=== PATIENT | female | born 1975 | race Hispanic/Latino ===

== ENCOUNTER 2017-04-20 12:36 | Emergency (ER) | payer OTHER ==
[~2017-04-20] VITALS: Ht 154.9 cm; Wt 117.9 kg
[2017-04-20] MEDS ORDERED: ONDANSETRON HCL INJ 2 MG/ML VIAL IV STA (14:40)
[2017-04-20] MEDS ORDERED: SODIUM CHLORIDE 0.9% 1000ML 1,000 ML IV STA (14:40)
[2017-04-20] MEDS ORDERED: MORPHINE SULFATE 4 MG/ML SYR IV STA (14:40)
[2017-04-20 14:59] LABS: BILIRUBIN,URINE NEGATIVE (NEGATIVE); KETONES,URINE NEGATIVE (NEGATIVE); LEUKOCYTE ESTERASE ,URINE NEGATIVE (NEGATIVE); NITRITE,URINE NEGATIVE (NEGATIVE); PROTEIN,URINE DIPSTICK NEGATIVE (NEGATIVE); URINE UROBILINOGEN 0.2 mg/dL (0.2 - 1)
[2017-04-20] MEDS ORDERED: DIATRIZOATE MEGL/DIATRIZOA SOD 30 ML BTL PO ONE (14:59)
[2017-04-20 15:07] LABS: CLARITY,URINE SL CLOUDY (CLEAR); COLOR,URINE YELLOW (YELLOW)
[2017-04-20 15:10] LABS: EPITHELIAL CELLS,URINE FEW /LPF; MUCUS,URINE FEW (RARE); WBC,URINE (MAN) 0-5 /HPF (0-5)
[2017-04-20 15:34] LABS: BASOPHILS % 0.4 % (0.0-1.0); EOSINOPHILS # (AUTO) 0.6 (0.0-0.4); EOSINOPHILS % 5.6 % (0.0-6.0); HEMATOCRIT 46.9 % (34.2-44.1); HEMOGLOBIN 14.7 g/dL (12.0-16.0); LYMPHOCYTES # (AUTO) 2.4 (1.0-3.2); LYMPHOCYTES % 22.5 % (18.0-39.1); MEAN CORPUSCULAR HEMOGLOBIN 29.8 pg (28-32); MEAN CORPUSCULAR HGB CONC 31.3 g/dL (31-35); MEAN CORPUSCULAR VOLUME 94.9 fL (81-99); MONOCYTES # (AUTO) 0.4 (0.2-0.8); MONOCYTES % 3.3 % (4.4-11.3); NEUTROPHILS # (AUTO) 7.1 (2.1-6.9); NEUTROPHILS % 67.9 % (38.7-80.0); PLATELET COUNT 457 x10e3/uL (140-360); RED BLOOD COUNT 4.94 x10e6/uL (3.6-5.1); RED CELL DISTRIBUTION WIDTH 14.6 % (11.7-14.4)
[2017-04-20 15:51] LABS: ALANINE AMINOTRANSFERASE 17 IU/L (0-55); ALBUMIN 3.9 g/dL (3.5-5.0); ALBUMIN/GLOBULIN RATIO 0.8 (0.8-2.0); ALKALINE PHOSPHATASE 151 IU/L (40-150); ANION GAP 13.5 mmol/L (8-16); BLOOD UREA NITROGEN 9 mg/dL (7-26); BUN/CREATININE RATIO 13 (6-25); CARBON DIOXIDE 27 mmol/L (22-29); CHLORIDE 104 mmol/L (98-107); CREATININE, SERUM 0.71 mg/dL (0.57-1.11); EST GLOMERULAR FILTRATION RATE > 60 ML/MIN (60-); GLUCOSE 93 mg/dL (74-118); LIPASE 15 U/L (8-78); POTASSIUM 3.5 mmol/L (3.5-5.1); SODIUM 141 mmol/L (136-145)
--- NOTE | 2017-04-20 17:58 | Diagnostic Imaging Report ---
PROCEDURE:TRANSVAGINAL ULTRASOUND COMPARISON:None. INDICATIONS:LOWER ABDOMINAL PAIN/ R/O OVARIAN CYST TECHNIQUE: Grayscale transverse and sagittal transabdominal and transvaginal images were obtained of the pelvis. Transvaginal imaging was medically necessary to endometrium and ovaries FINDINGS: 41-year-old female. A2. LMP 04/12/2017 UTERUS: 12.7 x 5.9 x 6.3 cm. Anteverted anteflexed ENDOMETRIUM: Not well-visualized RIGHT OVARY: Not visualized. LEFT OVARY: Not visualized. There is no free fluid within the pelvis. No adnexal masses. CONCLUSION: Suboptimal exam as patient was unable to tolerate the exam. Dictated by: Torres Santo M.D. on 04/20/2017 at 18:07 Electronically approved by: Torres Santo M.D. on 04/20/2017 at 18:07
--- NOTE | 2017-04-20 17:59 | Diagnostic Imaging Report ---
PROCEDURE:US PELVIS COMPLETE NON OB COMPARISON:None. INDICATIONS:LOWER ABDOMEN PAIN/ R/O OVARIAN CYST CONCLUSION: Please refer to transvaginal pelvic ultrasound performed at the same date and time for full dictated report. Dictated by: Torres Santo M.D. on 04/20/2017 at 18:08 Electronically approved by: Torres Santo M.D. on 04/20/2017 at 18:08
--- NOTE | 2017-04-20 18:03 | Diagnostic Imaging Report ---
PROCEDURE: CT ABDOMEN AND PELVIS WITH CONTRAST TECHNIQUE: The abdomen and pelvis were scanned utilizing a multidetector helical scanner from the diaphragm to the lesser trochanter after the IV administration of 100 cc of Isovue 370 and the oral administration of Gastrografin. Coronal and sagittal multiplanar reformations were obtained. Total DLP: 845.11 mGy-cm COMPARISON: None. INDICATIONS: ABDOMINAL PAIN FINDINGS: LOWER THORAX: Normal. HEPATOBILIARY: No focal hepatic lesions. No biliary ductal dilatation. SPLEEN: No splenomegaly. PANCREAS: No focal masses or ductal dilatation. ADRENALS: No adrenal nodules. KIDNEYS/URETERS: No hydronephrosis, stones, or solid mass lesions. PELVIC ORGANS/BLADDER: Uterus is normal. Cervix is prominent and heterogeneous and may be replaced by numerous nabothian cysts. Normal left ovarian size measuring 3.9 x 3.0 cm. 2.7 cm left ovarian cyst. Right ovary is partially obscured by overlying bowel. PERITONEUM / RETROPERITONEUM: No free air or fluid. LYMPH NODES: No lymphadenopathy. VESSELS: Unremarkable. GI TRACT: No distention or wall thickening. Appendix is normal. BONES AND SOFT TISSUES: Unremarkable. IMPRESSION: 1. Enlarged heterogeneous cervix which may be replaced by nabothian cysts. Pelvic ultrasound was unsuccessful as patient was unable to tolerate the exam. 2. Normal left ovarian size with a 2.7 cm left ovarian cyst. Dictated by: Torres Santo M.D. on 04/20/2017 at 18:13 Electronically approved by: Torres Santo M.D. on 04/20/2017 at 18:13
[2017-04-20] MEDS ORDERED: IOPAMIDOL 370 MG/ML 200 ML INFUS..BTL INJ ONE (18:25)
[2017-04-20] MEDS ORDERED: SODIUM CHLORIDE 0.9% 50ML 50 ML ONE (18:25)
[2017-04-20] MEDS ORDERED: KETOROLAC TROMETHAMINE 30 MG/ML VIAL IV STA (18:27)
[2017-04-20] MEDS ORDERED: SODIUM CHLORIDE 0.9% 1000ML 1,000 ML ONE (18:43)
[2017-04-20] MEDS ORDERED: PROAIR HFA INH8.5 GM INH (18:44)
[2017-04-20 19:10] VITALS: BP 121/40
== END 2017-04-20 19:39 | disposition home or self-care (01) ==
LOC: ER 12:36
DX: R10.31 Right lower quadrant pain (principal); R10.32 Left lower quadrant pain; R11.0 Nausea; N83.9 Noninflammatory disorder of ovary, fallopian tube and broad ligament, unspecified
CPT/HCPCS: 36415; 74177; 76830; 76856; 80053; 81001; 83690; 84702; 85025; 87086; 99284; J1885; J7030; Q9967

== ENCOUNTER 2018-11-29 18:41 | Emergency (ER) | payer OTHER ==
[~2018-11-29] VITALS: Ht 154.9 cm; Wt 117.9 kg
[~2018-11-29 18:41] MED LIST: PROAIR HFA INH8.5 GM INH
--- OUTSIDE RECORDS SUMMARY | 2018-11-29 18:44 | XMS REPORT ---
Author Author Gabbi Singer Organization [employer] Address Unknown Phone Unavailable Care Team Providers Care Operation Manager Name Role Phone Gabbi Singer CP Unavailable Allergies, Adverse Reactions, Alerts Substance Reaction Event Type N.K.D.A. Info Not Available Non Drug Allergy Problems Problem Type Condition Code Onset Dates Condition Status Assessment Anxiety and depression F41.8 Active Assessment Acute right-sided low back pain without sciatica M54.5 Active Problem Type 2 diabetes mellitus without complication, without long-term current use of insulin E11.9 Active Problem Iron deficiency anemia secondary to inadequate dietary iron intake D50.8 Active Problem Mixed hyperlipidemia E78.2 Active Assessment Right lower quadrant abdominal pain R10.31 Active Assessment Type 2 diabetes mellitus without complication, without long-term current use of insulin E11.9 Active Problem HTN (hypertension), benign I10 Active Problem Anxiety and depression F41.8 Active Medications Medication Code System Code Instructions Start Date End Date Status Dosage Ferrous Sulfate [facility] 67723417339 325 (65 Fe) MG Orally Once a day October 19, 2016 Active 1 tablet YL Vitamin C [facility] 74140991681 500 MG Orally Once a day October 19, 2016 Feb 16, 2017 Active 1 tablet Atorvastatin Calcium [facility] 35458439694 10 MG Orally Once a day Active 1 tablet Metformin HCl [facility] 12965439937 500 MG Orally Twice a day Active 1 tablet with meals Albuterol Sulfate [facility] 05239094722 (2.5 MG/3ML) 0.083% Inhalation Three times a day as needed October 19, 2016 Active 3 ml Abilify [facility] 99881330288 10 MG Orally Once a day October 19, 2016 Active 1 tablet Lisinopril [facility] 62506583954 10 MG Orally Once a day Active 1 tablet Clopidogrel Bisulfate [facility] 68335578389 75 MG Orally Once a day Active 1 tablet Ibuprofen [facility] [address]-72 200 MG Orally as needed (prn) Active 1 tablet with food or milk as needed ProAir HFA [facility] 87249716023 108 (90 Base) MCG/ACT Inhalation every 4 hrs Active 2 puffs as needed BuPROPion HCl (XL) [facility] 54724908992 150 MG Orally Once a day Active 1 tablet in the morning Vital Signs Date/Time: Dec 21, 2016 BMI n/a Index Weight n/a lbs Height 61 in Temperature 97.2 F Blood Pressure Diastolic 77 mm Hg Blood Pressure Systolic 130 mm Hg Results No Known Results Summary Purpose [employer] Submission
--- OUTSIDE RECORDS SUMMARY | 2018-11-29 18:44 | XMS REPORT | Continuity of Care Document ---
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 Ship Erector Name Role Phone [employer] Unavailable Unavailable Problems Problem Status Onset Date Classification Date Reported Comments Source Abdominal pain, acute Active 05/04/2018 Diagnosis 05/30/2018 [facility] Pelvic pain Active 04/28/2018 Diagnosis 05/30/2018 [facility] WELL EXAM, WOMAN Active 03/01/2018 Diagnosis 05/30/2018 [facility] Screening for cervical cancer Active 03/01/2018 Diagnosis 05/30/2018 [facility] Mammogram yearly screening Active 03/01/2018 Diagnosis 05/30/2018 [facility] Screening for std Active 03/01/2018 Diagnosis 05/30/2018 [facility] Screening for hyperlipidemia Active 03/01/2018 Diagnosis 05/30/2018 [facility] Screening for diabetes mellitus Active 03/01/2018 Diagnosis 05/30/2018 [facility] Forearm pain, right Active 02/09/2018 Diagnosis 05/30/2018 [facility] MORBID OBESITY Active 02/09/2018 Diagnosis 05/30/2018 [facility] Asthma Active 01/26/2018 Diagnosis 05/30/2018 [facility] Anxiety Active 01/26/2018 Diagnosis 05/30/2018 [facility] Migraines Active 01/26/2018 Diagnosis 05/30/2018 [facility] Shingles Active 01/26/2018 Diagnosis 05/30/2018 [facility] Pharyngitis Active 01/26/2018 Diagnosis 05/30/2018 [facility] URI - viral Active 01/26/2018 Diagnosis 05/30/2018 [facility] Vaccination Active 01/26/2018 Diagnosis 05/30/2018 [facility] Pelvic pain Active 06/22/2017 05/04/2018 [facility] Major depression Active 01/09/2010 05/04/2018 [facility] Left-sided weakness Active Diagnosis 11/09/2016 Enayet Rahim Mixed hyperlipidemia Active Problem 01/30/2017 Enayet Rahim Type 2 diabetes mellitus without complication, without long-term current use of insulin Active Problem 01/30/2017 Enayet Rahim Anxiety and depression Active Problem 01/30/2017 Kathleen Kent Acute intractable headache, unspecified headache type Active Diagnosis 11/09/2016 Kathleen Kent Head trauma, subsequent encounter Active Diagnosis 11/09/2016 Kathleen Kent Iron deficiency anemia secondary to inadequate dietary iron intake Active Problem 01/30/2017 Kathleen Kent HTN (hypertension), benign Active Diagnosis 01/30/2017 Jackymartha Antwanleidy Acute gastroenteritis Active Diagnosis 01/20/2017 Jackymartha Maenivialeidy Diarrhea of presumed infectious origin Active Diagnosis 01/20/2017 Jackymartha Maenivialeidy Other specified transient cerebral ischemias Active Diagnosis 10/23/2016 Kathleen Maenivialeidy Uncomplicated asthma, unspecified asthma severity Active Diagnosis 10/23/2016 Kathleen Kent Encounter to establish care Active Diagnosis 10/23/2016 Kathleen Kent Acute right-sided low back pain without sciatica Active Diagnosis 01/02/2017 Jackymartha Antwanleidy Right lower quadrant abdominal pain Active Diagnosis 01/02/2017 Jamaicadariana Antwanleidy Chest pain on breathing Active Diagnosis 01/30/2017 Jamaicadariana Antwanleidy Mild intermittent asthma with exacerbation Active Diagnosis 01/30/2017 Jackymartha Meanivialeidy Lower abdominal pain Active Diagnosis 01/30/2017 Jamaicadariana Antwanleidy Nabothian cyst Active 05/04/2018 [facility] Medications Medication Details Route Status Patient Instructions Ordering Provider Order Date Source ALBUTEROL SULFATE 1 via Hand held neb every 4 - 6 hours as needed Active 1 via Hand held neb every 4 - 6 hours as needed 03/01/2018 [facility] VALACYCLOVIR HCL 1 tablet three time daily Active 1 tablet three time daily 03/01/2018 [facility] HYDROXYZINE HCL 1 by mouth every 6 hours as needed for anxiety/panic attack Active 1 by mouth every 6 hours as needed for anxiety/panic attack 02/09/2018 [facility] SINGULAIR 10 MG ORAL TABLET 1 by mouth nightly at bedtime Active 1 by mouth nightly at bedtime 02/09/2018 [facility] GABAPENTIN One tablet TID Active One tablet TID 02/09/2018 [facility] BUPROPION HCL ER (XL) 150 MG ORAL TABLET EXTENDED RELEASE 24 HOUR one tablet once daily Active one tablet once daily 02/09/2018 [facility] ASPIRIN one tablet once daily Active one tablet once daily 02/09/2018 [facility] CLOPIDOGREL BISULFATE 1 By Mouth once a day Active 1 By Mouth once a day 02/09/2018 [facility] ATORVASTATIN CALCIUM one tablet once daily Active one tablet once daily 02/09/2018 [facility] PANTOPRAZOLE SODIUM one tablet once daily Active one tablet once daily 02/09/2018 [facility] VALTREX 1 GM ORAL TABLET 1 by mouth 3 times a day for 7 days Active 1 by mouth 3 times a day for 7 days 01/26/2018 [facility] ESCITALOPRAM OXALATE 1 tablet daily Active 1 tablet daily 01/26/2018 [facility] PROAIR HFA 108 (90 BASE) MCG/ACT INHALATION AEROSOL SOLUTION 2 puffs every 4 - 6 hours as needed Active 2 puffs every 4 - 6 hours as needed 01/26/2018 [facility] IBUPROFEN 1 By Mouth Every 8 hours As Needed pain Active 1 By Mouth Every 8 hours As Needed pain 01/26/2018 [facility] BECLOMETHASONE DIPROPIONATE 80 mcg inhaled daily Active 80 mcg inhaled daily 01/26/2018 [facility] VALTREX 1 GM ORAL TABLET 1 by mouth 3 times a day for 7 days No Longer Active 1 by mouth 3 times a day for 7 days 01/26/2018 [facility] traMADol (ULTRAM) 50 mg tablet Take 1 tablet by mouth every 6 hours as needed for Pain. Oral Active 06/22/2017 [facility] dicyclomine (BENTYL) 20 mg tablet Take 1 tablet by mouth 4 times daily Colon spasm. Oral Active 06/22/2017 [facility] Azithromycin 2 tablets on the first day, then 1 tablet daily for 4 days Orally Active 250 MG Orally Once a day [facility] 01/26/2017 Kathleen Kent Zofran 1 tablet Orally Active 4 mg Orally twice a day (bid) as needed (prn) [facility] 01/14/2017 Kathleen Kent Flagyl 1 tablet Orally Active 500 mg Orally every 8 hrs [facility] 01/14/2017 Kathleen Kent Abilify 1 tablet Orally Active 10 MG Orally Once a day [facility] 10/19/2016 Kathleen Kent YL Vitamin C 1 tablet Orally Active 500 MG Orally Once a day [facility] 10/19/2016 Kathleen Kent Albuterol Sulfate 3 ml Inhalation Active (2.5 MG/3ML) 0.083% Inhalation Three times a day as needed [facility] 10/19/2016 Kathleen Kent Ferrous Sulfate 1 tablet Orally Active 325 (65 Fe) MG Orally Once a day [facility] 10/19/2016 [facility] Vitamin C 1 tablet Orally Active 500 MG Orally Once a day [facility] 10/19/2016 [facility] Albuterol Sulfate 3 ml Inhalation Active (2.5 MG/3ML) 0.083% Inhalation Three times a day as needed [facility] 10/19/2016 [facility] Ferrous Sulfate 1 tablet Orally Active 325 (65 Fe) MG Orally Once a day [facility] 10/19/2016 [facility] Abilify 1 tablet Orally Active 10 MG Orally Once a day [facility] 10/19/2016 [facility] ofloxacin (OCUFLOX) 0.3 % ophthalmic solution Instill 5 drops to left ear daily for 10 days. Ok for pharmacist to dispense eye solution for ear treatment.. Active 08/19/2016 [facility] albuterol (VENTOLIN HFA,PROVENTIL HFA,PROAIR HFA) 90 mcg/actuation inhaler Administer 2 Puffs by inhalation 4 times daily as needed for Wheezing. Inhalation Active 09/02/2012 [facility] venlafaxine (EFFEXOR XR) 150 mg extended release capsule Take 2 capsules by mouth daily. Oral Active 09/02/2012 [facility] aripiprazole (ABILIFY) 10 mg tablet Take 1 tablet by mouth daily. Oral Active 09/02/2012 [facility] Metformin HCl 1 tablet with meals Orally Active 500 MG Orally Twice a day [facility] Lisinopril 1 tablet Orally Active 10 MG Orally Once a day [facility] ProAir HFA 2 puffs as needed Inhalation Active 108 (90 Base) MCG/ACT Inhalation every 4 hrs [facility] Clopidogrel Bisulfate 1 tablet Orally Active 75 MG Orally Once a day [facility] Atorvastatin Calcium 1 tablet Orally Active 10 MG Orally Once a day [facility] BuPROPion HCl (XL) 1 tablet in the morning Orally Active 150 MG Orally Once a day [facility] Metformin HCl 1 tablet with meals Orally Active 500 MG Orally Twice a day [facility] Atorvastatin Calcium 1 tablet Orally Active 10 MG Orally Once a day [facility] Clopidogrel Bisulfate 1 tablet Orally Active 75 MG Orally Once a day [facility] ProAir HFA 2 puffs as needed Inhalation Active 108 (90 Base) MCG/ACT Inhalation every 4 hrs Lucre[facility] Lisinopril 1 tablet Orally Active 10 MG Orally Once a day [facility] BuPROPion HCl (XL) 1 tablet in the morning Orally Active 150 MG Orally Once a day [facility] Ibuprofen 1 tablet with food or milk as needed Orally Active 200 MG Orally as needed (prn) Lucre[facility] Ibuprofen 1 tablet with food or milk as needed Orally Active 200 MG Orally as needed (prn) Lucrecia [facility] BuPROPion HCl (XL) 1 tablet in the morning Orally Active 150 MG Orally Once a day [facility] Lisinopril 1 tablet Orally Active 20 mg Orally Once a day Lucre[facility] Allergies, Adverse Reactions, Alerts Substance Category Reaction Severity Reaction type Status Date Reported Comments Source N.K.D.A. Adverse Reaction Info Not Available Adverse Reaction Active 01/26/2017 Kathleen Kent SEAFOOD food allergy Hives 01/26/2018 [facility] Immunizations Immunization Date Given Site Status Last Updated Comments Source Influenza Vaccine 01/09/2010 completed [facility] Results Order Name Results Value Reference Range Date Interpretation Comments Source Neisseria gonorrhoeae DNA probe Negative Negative 03/01/2018 [facility] trichomonas vaginalis, urine Negative Negative 03/01/2018 [facility] LDL cholesterol, serum 134 0 - 99 03/01/2018 [facility] cholesterol, serum 194 100 - 199 03/01/2018 [facility] triglyceride, serum, fasting 105 0 - 149 03/01/2018 [facility] hemoglobin A1C, blood, as % of total hemoglobin 5.4 4.8 - 5.6 03/01/2018 [facility] HDL cholesterol, serum 39 >39 03/01/2018 [facility] chlamydia DNA probe Negative Negative 03/01/2018 [facility] beta HCG, urine, semiquantitative negative 03/01/2018 [facility] very low density lipoproteins 21 5 - 40 03/01/2018 [facility] Microbial identification kit, rapid strep method negative 01/26/2018 [facility] POC pH, Steven POC 7.35 7.33 - 7.43 06/23/2017 Physician Notified [facility] POC pCO2, Steven POC 38.3 38.0 - 50.0 [facility]23[facility] pO2, Steven POC 44 50 - 75 06/23[facility] Base Deficit, Steven POC 4 06/23/2017 [facility] HCO3, Steven POC 21.0 22 - 26 06/23/2017 [facility] % Sat, Steven POC 78 60 - 85 06/23/2017 [facility] POC Lactic Acid, Steven POC 2.85 0.4 - 2 06/23/2017 [facility] TCO2, STEVEN POC 22 21 - 32 06/23/2017 [facility] Lab Interpretation Abnormal 06/23/2017 [facility] POC CO2 POC 22 21 - 32 06/23/2017 [facility] POC Chloride POC 108 98 - 107 06/23/2017 [facility] POC Potassium POC 3.8 3.5 - 5.1 06/23/2017 [facility] POC Sodium POC 142 136 - 145 06/23/2017 [facility] POC Glucose POC 103 74 - 106 06/23/2017 [facility] POC Urea Nitrogen POC 18 7 - 18 06/23/2017 [facility] POC Creatinine POC 0.5 0.6 - 1.3 06/23/2017 [facility] POC Calcium Ionized POC 1.06 1.15 - 1.29 06/23/2017 [facility] POC Hemoglobin POC 12.9 12 - 16 06/23/2017 [facility] POC Hematocrit POC 38.0 37 - 47 06/23/2017 [facility] POC GFR, Estimated >60 mL/min/1.73 m2 06/23/2017 [facility] POC GFR, Estim, Afr-Am >60 mL/min/1.73 m2 06/23/2017 [facility] POC Lab Interpretation Abnormal 06/23/2017 [facility] DUPLEX DOPPLER ABD/PEL VASCULAR STUDY, COMPLETE <p>IMPRESSION:</p><p>1.Complex nabothian cysts at the cervix. </p><p> </p><p>This [facility] radiology report is a preliminary resident dictation until</p><p>finalized by an attending.Changes to this preliminary report may occur</p><p>in an additional preliminary or finalized version.</p><p> </p><p>Dictated By: Guadalupe Mims MD, 06/22/2017 1:47 PM</p><p> </p><p>I have reviewed the study and agree with the findings in this report.</p><p> </p><p>Signed By: Manjeet Mcgraw MD, 06/22/2017 2:07 PM& amp;lt;/p><p> </p> IMPRESSION:1.Complex nabothian cysts at the cervix. This [facility] radiology report is a preliminary resident dictation untilfinalized by an attending.Changes to this preliminary report may occurin an additional preliminary or finalized version. Dictated By: Guadalupe Mims MD, 06/22/2017 1:47 PM I have reviewed the study and agree with the findings in this report. Signed By: Manjeet Mcgraw MD, 06/22/2017 2:07 PM 06/22/2017 [facility] DUPLEX DOPPLER ABD/PEL VASCULAR STUDY, COMPLETE <p>EXAM: US PELVIS TRANSABDOMINAL</p><p>EXAM: US PELVIS TRANSVAGINAL WITH DOPPLER</p><p> </p><p>DATE: 06/22/2017 12:06 PM</p><p> </p><p>INDICATION: Pelvic Pain. Pelvic pain </p><p> </p><p>ADDITIONAL INFORMATION: Last menstrual period 04/24/2017. Negative urine</p><p> test.</p><p> </p><p>COMPARISON: 01/22/2010</p><p> </p><p>TECHNIQUE:Multiplanar grayscale, spectral Doppler and color Doppler</p><p>ultrasound of the pelvis were obtained:</p><p>Transabdominally through a distended urinary bladder.</p><p>Transvaginally postvoid.</p><p> &amp ;lt;/p><p>FINDINGS: </p><p> </p><p>Uterus/Myometrium:</p><p>Size: 4.2 x 5.9 x 6.0 cm</p><p>Orientation: Anteverted.</p><p>Echogenicity: Normal.</p><p>Masses: None.</p><p>Cervix: Nabothian cysts identified. Otherwise normal cervix.</p><p> </p><p>Endometrium:</p><p>Thickness: 1.4 cm</p>&l t;p>Cysts/Masses: None.</p><p> </p><p>Right ovary:</p><p>Size: 3.6 x 2.8 x 3.5 cm</p><p>Cysts/Masses: 2.0 cm functional cyst</p><p> </p><p>Left ovary: </p><p>Size: 3.1 x 2.0 x 2.8 cm</p><p>Cysts/Masses: 2.2 cm functional cyst</p><p> </p><p>Adnexa: Normal. </p><p> </p><p>Vasculature: Normal Doppler</p><p> </p><p>Free fluid: None.</p><p> </p><p>Other: None.</p><p> </p> EXAM: US PELVIS TRANSABDOMINALEXAM: US PELVIS TRANSVAGINAL WITH DOPPLER DATE: 06/22/2017 12:06 PM INDICATION: Pelvic Pain. Pelvic pain ADDITIONAL INFORMATION: Last menstrual period 04/24/2017. Negative urinepregnancy test. COMPARISON: 01/22/2010 TECHNIQUE:Multiplanar grayscale, spectral Doppler and color Dopplerultrasound of the pelvis were obtained:Transabdominally through a distended urinary bladder.Transvaginally postvoid. FINDINGS: Uterus/Myometrium:Size: 4.2 x 5.9 x 6.0 cmOrientation: Anteverted.Echogenicity: Normal.Masses: None.Cervix: Nabothian cysts identified. Otherwise normal cervix. Endometrium:Thickness: 1.4 cmCysts/Masses: None. Right ovary:Size: 3.6 x 2.8 x 3.5 cmCysts/Masses: 2.0 cm functional cyst Left ovary: Size: 3.1 x 2.0 x 2.8 cmCysts/Masses: 2.2 cm functional cyst Adnexa: Normal. Vasculature: Normal Doppler Free fluid: None. Other: None. 06/22/2017 [facility] DUPLEX DOPPLER ABD/PEL VASCULAR STUDY, COMPLETE <p styleCode="header">Interface, Rad/Mammog In - 06/22/2017 2:12 PM CDT</p><p><span>EXAM: US PELVIS TRANSABDOMINAL</span>
<span>EXAM: US PELVIS TRANSVAGINAL WITH DOPPLER</span>

<span>DATE: 06/22/2017 12:06 PM</span>
<span> </span>
<span>INDICATION: Pelvic Pain. Pelvic pain </span>
<span> </span>
<span>ADDITIONAL INFORMATION: Last menstrual period 04/24/2017. Negative urine</span>
<span> test.</span>

<span>COMPARISON: 01/22/2010</span>
<span> </span><b r/><span>TECHNIQUE: Multiplanar grayscale, spectral Doppler and color Doppler</span>
<span>ultrasound of the pelvis were obtained:&amp ;lt;/span>
<span>Transabdominally through a distended urinary bladder.</span>
<span>Transvaginally postvoid.</ span>

<span>FINDINGS: </span>

<span>Uterus/Myometrium:</span>
<span>Size: 4.2 x 5.9 x 6.0 cm</span>
<span>Orientation: Anteverted.</span>
<span&gt ;Echogenicity: Normal.</span>
<span>Masses: None.</span>
<span>Cervix: Nabothian cysts identified. Otherwise normal cervix.</span>

<span>Endometrium: </span>
<span>Thickness: 1.4 cm</span>
<span>Cysts/Masses: None.</span>

<span>Right ovary:</span>
<span>Size: 3.6 x 2.8 x 3.5 cm</span>
<span>Cysts/Masses: 2.0 cm functional cyst</span>

<span>Left ovary: </span>
<span>Size: 3.1 x 2.0 x 2.8 cm</span>
<span>Cysts/Masses: 2.2 cm functional cyst&a mp;lt;/span>

<span>Adnexa: Normal. </span>

<span>Vasculature: Normal Doppler</span>

<span>Free fluid: None.</span>

<span>Other: None.</span& gt;

<span>IMPRESSION</span>
<span>IMPRESSION:</span>
<span>1. Complex nabothian cysts at the cervix. </span>

<span>This [facility] radiology report is a preliminary resident dictation until</spa n>
<span>finalized by an attending. Changes to this preliminary report may occur</span>
<span>in an additional preliminary or finalized version.</span>

<span>Dictated By: Guadalupe Mims MD, 06/22/2017 1:47 PM</span>

<span>I have reviewed the study and agree with the findings in this report.</span>

<span>Signed By: Manjeet Mcgraw MD, 06/22/2017 2:07 PM</span>
</p> Interface, Rad/Mammog In - 06/22/2017 2:12 PM CDTEXAM: US PELVIS TRANSABDOMINAL EXAM: US PELVIS TRANSVAGINAL WITH DOPPLER DATE: 06/22/2017 12:06 PM INDICATION: Pelvic Pain. Pelvic pain ADDITIONAL INFORMATION: Last menstrual period 04/24/2017. Negative urine test. COMPARISON: 01/22/2010 TECHNIQUE: Multiplanar grayscale, spectral Doppler and color Doppler ultrasound of the pelvis were obtained: Transabdominally through a distended urinary bladder. Transvaginally postvoid. FINDINGS: Uterus/Myometrium: Size: 4.2 x 5.9 x 6.0 cm Orientation: Anteverted. Echogenicity: Normal. Masses: None. Cervix: Nabothian cysts identified. Otherwise normal cervix. Endometrium: Thickness: 1.4 cm Cysts/Masses: None. Right ovary: Size: 3.6 x 2.8 x 3.5 cm Cysts/Masses: 2.0 cm functional cyst Left ovary: Size: 3.1 x 2.0 x 2.8 cm Cysts/Masses: 2.2 cm functional cyst Adnexa: Normal. Vasculature: Normal Doppler Free fluid: None. Other: None. IMPRESSION IMPRESSION: 1. Complex nabothian cysts at the cervix. This [facility] radiology report is a preliminary resident dictation until finalized by an attending. Changes to this preliminary report may occur in an additional preliminary or finalized version. Dictated By: Guadalupe Mims MD, 06/22/2017 1:47 PM I have reviewed the study and agree with the findings in this report. Signed By: Manjeet Mcgraw MD, 06/22/2017 2:07 PM 06/22/2017 [facility] UA CHEMISTRIES Color Straw 06/22/2017 [facility] UA CHEMISTRIES Clarity Clear 06/22/2017 [facility] UA CHEMISTRIES Spec [place] 1.006 1.001 - 1.035 06/22/2017 [facility] UA CHEMISTRIES pH 6.0 5 - 8 06/22/2017 [facility] UA CHEMISTRIES Protein Negative NEG 06/22/2017 [facility] UA CHEMISTRIES Glucose Negative NEG 06/22/2017 [facility] UA CHEMISTRIES Ketone Negative NEG 06/22/2017 [facility] UA CHEMISTRIES Bilirubin Negative NEG 06/22/2017 [facility] UA CHEMISTRIES Nitrate Negative NEG 06/22/2017 [facility] UA CHEMISTRIES Urobilinogen <1.0 0.2 - 1 06/22/2017 [facility] UA CHEMISTRIES Leukocyte Negative NEG 06/22/2017 [facility] UA CHEMISTRIES Blood 1+ NEG 06/22/2017 [facility] UA CHEMISTRIES RBC <1 0 - 4 06/22/2017 [facility] UA CHEMISTRIES WBC 1 0 - 5 06/22/2017 [facility] UA CHEMISTRIES Epithelial Cell 1 /HPF 06/22/2017 [facility] UA CHEMISTRIES Lab Interpretation Abnormal 06/22/2017 [facility] CBC/DIFF WBC 11.1 4.5 - 11 06/22/2017 [facility] CBC/DIFF RBC 4.77 4.20 - 5.40 06/22/2017 [facility] CBC/DIFF Hemoglobin 12.2 12 - 16 06/22/2017 [facility] CBC/DIFF Hematocrit 40.1 37 - 47 06/22/2017 [facility] CBC/DIFF MCV 84 82 - 92 06/22/2017 [facility] CBC/DIFF MCH 25.6 27 - 32 06/22/2017 [facility] CBC/DIFF MCHC 30.4 32 - 36 06/22/2017 [facility] CBC/DIFF RDW 42.9 36.4 - 46.3 06/22/2017 [facility] CBC/DIFF Platelet 503 150 - 400 06/22/2017 [facility] CBC/DIFF Mean Platelet Volume 8.7 9.4 - 12.4 06/22/2017 [facility] CBC/DIFF Percent NRBC 0.0 06/22/2017 [facility] CBC/DIFF Absolute NRBC 0.00 06/22/2017 [facility] CBC/DIFF Neutrophil 86.3 34 - 70 06/22/2017 [facility] CBC/DIFF Lymphocyte 11.2 20 - 50 06/22/2017 [facility] CBC/DIFF Monocyte 1.9 5 - 12 06/22/2017 [facility] CBC/DIFF Eosinophil 0.0 0.7 - 5 06/22/2017 [facility] CBC/DIFF Basophil 0.1 0.1 - 1.2 06/22/2017 [facility] CBC/DIFF Pct Immat Gran 0.5 0.0 - 0.5 06/22/2017 [facility] CBC/DIFF Neutrophil, Abs 9.54 1.56 - 6.13 06/22/2017 [facility] CBC/DIFF Lymphocyte, Abs 1.24 1.18 - 3.74 06/22/2017 [facility] CBC/DIFF Monocyte, Abs 0.21 0.24 - 0.36 06/22/2017 [facility] CBC/DIFF Eosinophil, Abs 0.00 0.04 - 0.36 06/22/2017 [facility] CBC/DIFF Basophil, Abs 0.01 0.01 - 0.08 06/22/2017 [facility] CBC/DIFF Absol Immat Gran 0.05 0 - 0.03 06/22/2017 [facility] CBC/DIFF Lab Interpretation Abnormal 06/22/2017 [facility] POCT URINE DIPSTICK - Control pass 06/22/2017 [facility] POCT URINE DIPSTICK - negative 06/22/2017 [facility] POCT URINE DIPSTICK - Lab Interpretation Normal 06/22/2017 [facility] Pathology Reports No Data Provided for This Section Diagnostic Reports Report Value Date Source CT ABDOMEN AND PELVIS CONTRAST IMPRESSION:1.No acute abnormality identified in the abdomen or pelvis.2.Small fat-containing right anterior pelvic wall infraumbilicalhernia.3.Nabothian and ovarian cysts as seen on same- day pelvic ultrasound. This [facility] radiology report is a preliminary resident dictation untilfinalized by an attending.Changes to this preliminary report may occurin an additional preliminary or finalized version. Dictated By: Santhosh Brannon MD, 06/22/2017 5:58 PM I have reviewed the study and agree with the findings in this report. Signed By: Mariel Freitas MD, 06/22/2017 6:05 PM EXAM: CT ABDOMEN AND PELVIS WITH CONTRAST DATE: 06/22/2017 4:44 PM INDICATION: Left lower pelvic pain ADDITIONAL INFORMATION: None. COMPARISON: Pelvic ultrasound 06/22/2017, CT abdomen pelvis 01/22/2010 TECHNIQUE: Volumetric CT acquisition of the abdomen and pelvis after theintravenous administration contrast. Axial, coronal and sagittalreconstructions.Postcontrast phases: VenousIV contrast: 147 mL of Omnipaque 300Enteric contrast: None.DLP: 2561 mGy-cm FINDINGS: Lines, tubes and hardware: None. Lower thorax: Subsegmental atelectasis is present in the lung bases. Liver: Normal. Biliary tree: No intra- or extrahepatic biliary ductal dilation. Gallbladder: Normal. No CT evidence of gallstones. Pancreas: Normal. Spleen: Normal. Adrenals: Normal. Kidneys and ureters: Normal. Bladder: Normal. Reproductive organs: Multiple nabothian cysts are seen in the cervix.Cysts/follicles are noted in both ovaries. Gastrointestinal tract: Normal caliber. Appendix: Normal. Peritoneum, mesentery and retroperitoneum: No free air, ascites orloculated fluid. Lymph nodes: Normal. Vasculature: Normal. Bones: No acute abnormality. Mild degenerative changes noted in thespine. Soft tissues: Small midline abdominal wall containing fat. The neckmeasures 3.1 cm transverse x 3.0 cm CC.. Interface, Rad/Mammog In - 06/22/2017 6:11 PM CDTEXAM: CT ABDOMEN AND PELVIS WITH CONTRAST DATE: 06/22/2017 4:44 PM INDICATION: Left lower pelvic pain ADDITIONAL INFORMATION: None. COMPARISON: Pelvic ultrasound 06/22/2017, CT abdomen pelvis 01/22/2010 TECHNIQUE: Volumetric CT acquisition of the abdomen and pelvis after the intravenous administration contrast. Axial, coronal and sagittal reconstructions. Postcontrast phases: Venous IV contrast: 147 mL of Omnipaque 300 Enteric contrast: None. DLP: 2561 mGy-cm FINDINGS: Lines, tubes and hardware: None. Lower thorax: Subsegmental atelectasis is present in the lung bases. Liver: Normal. Biliary tree: No intra- or extrahepatic biliary ductal dilation. Gallbladder: Normal. No CT evidence of gallstones. Pancreas: Normal. Spleen: Normal. Adrenals: Normal. Kidneys and ureters: Normal. Bladder: Normal. Reproductive organs: Multiple nabothian cysts are seen in the cervix. Cysts/follicles are noted in both ovaries. Gastrointestinal tract: Normal caliber. Appendix: Normal. Peritoneum, mesentery and retroperitoneum: No free air, ascites or loculated fluid. Lymph nodes: Normal. Vasculature: Normal. Bones: No acute abnormality. Mild degenerative changes noted in the spine. Soft tissues: Small midline abdominal wall containing fat. The neck measures 3.1 cm transverse x 3.0 cm CC.. IMPRESSION IMPRESSION: 1. No acute abnormality identified in the abdomen or pelvis. 2. Small fat-containing right anterior pelvic wall infraumbilical hernia. 3. Nabothian and ovarian cysts as seen on same-day pelvic ultrasound. This [facility] radiology report is a preliminary resident dictation until finalized by an attending. Changes to this preliminary report may occur in an additional preliminary or finalized version. Dictated By: Santhosh Brannon MD, 06/22/2017 5:58 PM I have reviewed the study and agree with the findings in this report. Signed By: Mariel Freitas MD, 06/22/2017 6:05 PM 06/22/2017 [facility] U/S TRANSVAGINAL IMPRESSION:1.Complex nabothian cysts at the cervix. This [facility] radiology report is a preliminary resident dictation untilfinalized by an attending.Changes to this preliminary report may occurin an additional preliminary or finalized version. Dictated By: Guadalupe Mims MD, 06/22/2017 1:47 PM I have reviewed the study and agree with the findings in this report. Signed By: Manjeet Mcgraw MD, 06/22/2017 2:07 PM EXAM: US PELVIS TRANSABDOMINALEXAM: US PELVIS TRANSVAGINAL WITH DOPPLER DATE: 06/22/2017 12:06 PM INDICATION: Pelvic Pain. Pelvic pain ADDITIONAL INFORMATION: Last menstrual period 04/24/2017. Negative urinepregnancy test. COMPARISON: 01/22/2010 TECHNIQUE:Multiplanar grayscale, spectral Doppler and color Dopplerultrasound of the pelvis were obtained:Transabdominally through a distended urinary bladde r.Transvaginally postvoid. FINDINGS: Uterus/Myometrium:Size: 4.2 x 5.9 x 6.0 cmOrientation: Anteverted.Echogenicity: Normal.Masses: None.Cervix: Nabothian cysts identified. Otherwise normal cervix. Endometrium:Thickness: 1.4 cmCysts/Masses: None. Right ovary:Size: 3.6 x 2.8 x 3.5 cmCysts/Masses: 2.0 cm functional cyst Left ovary: Size: 3.1 x 2.0 x 2.8 cmCysts/Masses: 2.2 cm functional cyst Adnexa: Normal. Vasculature: Normal Doppler Free fluid: None. Other: None. Interface, Rad/Mammog In - 06/22/2017 2:12 PM CDTEXAM: US PELVIS TRANSABDOMINAL EXAM: US PELVIS TRANSVAGINAL WITH DOPPLER DATE: 06/22/2017 12:06 PM INDICATION: Pelvic Pain. Pelvic pain ADDITIONAL INFORMATION: Last menstrual period 04/24/2017. Negative urine test. COMPARISON: 01/22/2010 TECHNIQUE: Multiplanar grayscale, spectral Doppler and color Doppler ultrasound of the pelvis were obtained: Transabdominally through a distended urinary bladder. Transvaginally postvoid. FINDINGS: Uterus/Myometrium: Size: 4.2 x 5.9 x 6.0 cm Orientation: Anteverted. Echogenicity: Normal. Masses: None. Cervix: Nabothian cysts identified. Otherwise normal cervix. Endometrium: Thickness: 1.4 cm Cysts/Masses: None. Right ovary: Size: 3.6 x 2.8 x 3.5 cm Cysts/Masses: 2.0 cm functional cyst Left ovary: Size: 3.1 x 2.0 x 2.8 cm Cysts/Masses: 2.2 cm functional cyst Adnexa: Normal. Vasculature: Normal Doppler Free fluid: None. Other: None. IMPRESSION IMPRESSION: 1. Complex nabothian cysts at the cervix. This [facility] radiology report is a preliminary resident dictation until finalized by an attending. Changes to this preliminary report may occur in an additional preliminary or finalized version. Dictated By: Guadalupe Mims MD, 06/22/2017 1:47 PM I have reviewed the study and agree with the findings in this report. Signed By: Manjeet Mcgraw MD, 06/22/2017 2:07 PM 06/22/2017 [facility]/ PELVIS NON-OB IMPRESSION:1.Complex nabothian cysts at the cervix. This [facility] radiology report is a preliminary resident dictation untilfinalized by an attending.Changes to this preliminary report may occurin an additional preliminary or finalized version. Dictated By: Guadalupe Mims MD, 06/22/2017 1:47 PM I have reviewed the study and agree with the findings in this report. Signed By: Manjeet Mcgraw MD, 06/22/2017 2:07 PM EXAM: US PELVIS TRANSABDOMINALEXAM: US PELVIS TRANSVAGINAL WITH DOPPLER DATE: 06/22/2017 12:06 PM INDICATION: Pelvic Pain. Pelvic pain ADDITIONAL INFORMATION: Last menstrual period 04/24/2017. Negative urinepregnancy test. COMPARISON: 01/22/2010 TECHNIQUE:Multiplanar grayscale, spectral Doppler and color Dopplerultrasound of the pelvis were obtained:Transabdominally through a distended urinary bladde r.Transvaginally postvoid. FINDINGS: Uterus/Myometrium:Size: 4.2 x 5.9 x 6.0 cmOrientation: Anteverted.Echogenicity: Normal.Masses: None.Cervix: Nabothian cysts identified. Otherwise normal cervix. Endometrium:Thickness: 1.4 cmCysts/Masses: None. Right ovary:Size: 3.6 x 2.8 x 3.5 cmCysts/Masses: 2.0 cm functional cyst Left ovary: Size: 3.1 x 2.0 x 2.8 cmCysts/Masses: 2.2 cm functional cyst Adnexa: Normal. Vasculature: Normal Doppler Free fluid: None. Other: None. Interface, Rad/Mammog In - 06/22/2017 2:12 PM CDTEXAM: US PELVIS TRANSABDOMINAL EXAM: US PELVIS TRANSVAGINAL WITH DOPPLER DATE: 06/22/2017 12:06 PM INDICATION: Pelvic Pain. Pelvic pain ADDITIONAL INFORMATION: Last menstrual period 04/24/2017. Negative urine test. COMPARISON: 01/22/2010 TECHNIQUE: Multiplanar grayscale, spectral Doppler and color Doppler ultrasound of the pelvis were obtained: Transabdominally through a distended urinary bladder. Transvaginally postvoid. FINDINGS: Uterus/Myometrium: Size: 4.2 x 5.9 x 6.0 cm Orientation: Anteverted. Echogenicity: Normal. Masses: None. Cervix: Nabothian cysts identified. Otherwise normal cervix. Endometrium: Thickness: 1.4 cm Cysts/Masses: None. Right ovary: Size: 3.6 x 2.8 x 3.5 cm Cysts/Masses: 2.0 cm functional cyst Left ovary: Size: 3.1 x 2.0 x 2.8 cm Cysts/Masses: 2.2 cm functional cyst Adnexa: Normal. Vasculature: Normal Doppler Free fluid: None. Other: None. IMPRESSION IMPRESSION: 1. Complex nabothian cysts at the cervix. This [facility] radiology report is a preliminary resident dictation until finalized by an attending. Changes to this preliminary report may occur in an additional preliminary or finalized version. Dictated By: Guadalupe Mims MD, 06/22/2017 1:47 PM I have reviewed the study and agree with the findings in this report. Signed By: Manjeet Mcgraw MD, 06/22/2017 2:07 PM 06/22/2017 [facility] Consultation Notes No Data Provided for This Section Discharge Summaries No Data Provided for This Section History and Physicals No Data Provided for This Section Vital Signs Vital Sign Value Date Comments Source Diastolic (mm Hg) 49 05/04/2018 [facility] Systolic (mm Hg) 103 05/04/2018 [facility] Height 61 05/04/2018 [facility] Rate 84 05/04/2018 [facility] Respitory Rate 18 05/04/2018 [facility] Temperature Oral (F) 98.6 F 05/04/2018 [facility] Weight 274.25 05/04/2018 [facility] Diastolic (mm Hg) 59 04/28/2018 [facility] Systolic (mm Hg) 125 04/28/2018 [facility] Height 61 04/28/2018 [facility] Rate 87 04/28/2018 [facility] Respitory Rate 17 04/28/2018 [facility] Temperature Oral (F) 98.1 F 04/28/2018 [facility] Weight 275 04/28/2018 [facility] Diastolic (mm Hg) 82 03/01/2018 [facility] Systolic (mm Hg) 115 03/01/2018 [facility] Height 61 03/01/2018 [facility] Rate 66 03/01/2018 [facility] Respitory Rate 14 03/01/2018 [facility] Temperature Oral (F) 97.9 F 03/01/2018 [facility] Weight 282.40 03/01/2018 [facility] Diastolic (mm Hg) 81 02/09/2018 [facility] Systolic (mm Hg) 130 02/09/2018 [facility] Height 61 02/09/2018 [facility] Rate 90 02/09/2018 [facility] Respitory Rate 16 02/09/2018 [facility] Temperature Oral (F) 98.1 F 02/09/2018 [facility] Weight 273.20 02/09/2018 [facility] Diastolic (mm Hg) 75 01/26/2018 [facility] Systolic (mm Hg) 112 01/26/2018 [facility] Height 61 01/26/2018 [facility] Rate 80 01/26/2018 [facility] Respitory Rate 18 01/26/2018 [facility] Temperature Oral (F) 98.2 F 01/26/2018 [facility] Weight 277.60 01/26/2018 [facility] Systolic (mm Hg) 132 06/23/2017 [facility] Diastolic (mm Hg) 72 06/23/2017 [facility] Heart Rate 80 06/23/2017 [facility] Temperature Oral (F) 36.94 Jossy 06/23/2017 [facility] Respitory Rate 20 06/23/2017 [facility] Weight 126.463 06/22/2017 [facility] Weight 269 01/26/2017 Enayet Rahim Height 61 01/26/2017 Enayet Rahim Temperature Oral (F) 95.5 F 01/26/2017 Enay[facility] Rahim Diastolic (mm Hg) 106 01/26/2017 Enayet Rahim Systolic (mm Hg) 121 01/26/2017 Enay[facility] Rahim Weight 258 01/14/2017 Enayet Rahim Height 61 01/14/2017 Enayet Rahim Temperature Oral (F) 97.2 F 01/14/2017 Enayet Rahim Diastolic (mm Hg) 80 01/14/2017 Enayet Rahim Systolic (mm Hg) 126 01/14/2017 Enayet Rahim Height 61 12/21/2016 Enayet Rahim Temperature Oral (F) 97.2 F 12/21/2016 Enayet Rahim Diastolic (mm Hg) 77 12/21/2016 Enayet Rahim Systolic (mm Hg) 130 12/21/2016 Enayet Rahim Weight 271.5 10/29/2016 Enayet Rahim Height 61 10/29/2016 Enayet Rahim Temperature Oral (F) 97.6 F 10/29/2016 Enayet Rahim Diastolic (mm Hg) 69 10/29/2016 Enayet Rahim Systolic (mm Hg) 131 10/29/2016 Enayet Rahim Weight 164.5 10/19/2016 Enayet Rahim Height 61 10/19/2016 Enayet Rahim Temperature Oral (F) 97.1 F 10/19/2016 Enayet Rahim Diastolic (mm Hg) 80 10/19/2016 Enayet Rahim Systolic (mm Hg) 122 10/19/2016 Enayet Rahim Encounters Location Location Details Encounter Type Encounter Number Reason For Visit Attending Provider ADM Date DC Date Status Source Emergency [facility] ([id number] Emergency [id number] Alejandro Armenta MD 06/22/2017 06/23/2017 [facility] ASK YOUR NURSE PROGRAM Nurse Triage [id number] Sheela Alvarado RN 06/24/2017 [facility] New Patient Detailed - [id number] Sohail Cordova MD 01/26/2018 [facility] Vst, Est Level IV [id number] Matilde Guajardo MD 02/09/2018 [facility] OB Est Patient Detailed - [id number] Juan Matta MD 04/28/2018 [facility] OB Est Patient Exp Problem - 13490 [id number] Nicky Leary MD 05/04/2018 [facility] ([facility]) [facility] [id number] 05/04/2018 [facility] Procedures Procedure Code Date Perfomer Comments Source Est Patient Well Exam (40 - 64 Yrs) - [id number] 15349 03/01/2018 [facility] Rapid Strep - In House 89454 01/26/2018 Tasha [place] [facility] CT ABDOMEN AND PELVIS CONTRAST 26690 06/23/2017 [facility] BMP POC 00616 06/22/2017 [employer] [facility] U/S TRANSVAGINAL 80361 06/22/2017 [facility] DUPLEX DOPPLER ABD/PEL VASCULAR STUDY, COMPLETE 04654 06/22/2017 [facility] U/S PELVIS NON-OB 76636 06/22/2017 [employer] [facility] VBG POC 64227 06/22/2017 [facility] UA CHEMISTRIES 21130 06/22/2017 [facility] CBC/DIFF 71732 06/22/2017 [facility] POCT URINE DIPSTICK - [id number] 06/22/2017 [facility] Assessment and Plan No Data Provided for This Section Plan of Care Plan of Care Date Source Breast Cancer Scrn (Yearly) 2013 [facility] Cervical Cancer Scrn (3 Yrs) 1994 [facility] Social History Social History Date Source Tobacco UseTypesPacks/DayYears UsedDate Never Smoker Smokeless Tobacco: Never Used Tobacco Cessation: Counseling Given: No Alcohol UseDrinks/Weekoz/WeekComments No Sex Assigned at BirthDate Recorded Not on file Job Start DateOccupationIndustry Not on file Not on file Not on file Travel HistoryTravel StartTravel End No recent travel history available. 06/23/2017 [facility] Family History Value Date Source Medical HistoryRelationNameComments Heart Maternal Grandmother Hypertension Maternal Grandmother Cancer Mother RelationNameStatusComments Brother Alive x 1 Father Other Maternal Grandfather Maternal Grandmother Mother Alive Paternal Grandfather Other Paternal Grandmother Other Sister Alive x 1 05/04/2018 [facility] Advance Directives No Data Provided for This Section Functional Status No Data Provided for This Section
--- OUTSIDE RECORDS SUMMARY | 2018-11-29 18:44 | XMS REPORT ---
Author Author Gabbi Singer [facility] eClinicalWorks Address Unknown Phone Unavailable Care Team Providers Care Manager Ethics Name Role Phone Gabbi Singer CP Unavailable Allergies, Adverse Reactions, Alerts Substance Reaction Event Type N.K.D.A. Info Not Available Non Drug Allergy Problems Problem Type Condition Code Onset Dates Condition Status Assessment Chest pain on breathing R07.1 Active Assessment HTN (hypertension), benign I10 Active Problem Type 2 diabetes mellitus without complication, without long-term current use of insulin E11.9 Active Problem Iron deficiency anemia secondary to inadequate dietary iron intake D50.8 Active Problem Mixed hyperlipidemia E78.2 Active Assessment Mild intermittent asthma with exacerbation J45.21 Active Assessment Lower abdominal pain R10.30 Active Problem HTN (hypertension), benign I10 Active Problem Anxiety and depression F41.8 Active Medications Medication Code System Code Instructions Start Date End Date Status Dosage Ibuprofen [facility] 09159519550 200 MG Orally as needed (prn) Active 1 tablet with food or milk as needed Abilify [facility] 56079194827 10 MG Orally Once a day October 19, 2016 Active 1 tablet BuPROPion HCl (XL) [facility] 87308837923 150 MG Orally Once a day Active 1 tablet in the morning YL Vitamin C [facility] 84723281321 500 MG Orally Once a day October 19, 2016 Feb 16, 2017 Active 1 tablet Atorvastatin Calcium [facility] 85996278680 10 MG Orally Once a day Active 1 tablet Albuterol Sulfate [facility] 06353798192 (2.5 MG/3ML) 0.083% Inhalation Three times a day as needed October 19, 2016 Active 3 ml Ferrous Sulfate [facility] 46403407250 325 (65 Fe) MG Orally Once a day October 19, 2016 Active 1 tablet Lisinopril [facility] 78976978535 20 mg Orally Once a day Active 1 tablet BuPROPion HCl (XL) [facility] 93027152426 150 MG Orally Once a day Active 1 tablet in the morning Zofran [facility] 53167499986 4 mg Orally twice a day (bid) as needed (prn) Jan 14, 2017 Active 1 tablet Azithromycin [facility] 76591978845 250 MG Orally Once a day Jan 26, 2017 Jan 31, 2017 Active 2 tablets on the first day, then 1 tablet daily for 4 days Clopidogrel Bisulfate [facility] 22622641048 75 MG Orally Once a day Active 1 tablet Metformin HCl [facility] 36774864343 500 MG Orally Twice a day Active 1 tablet with meals ProAir HFA [facility] 27146289329 108 (90 Base) MCG/ACT Inhalation every 4 hrs Active 2 puffs as needed Vital Signs Date/Time: Jan 26, 2017 BMI 50.82 Index Weight 269 lbs Height 61 in Temperature 95.5 F Blood Pressure Diastolic 106 mm Hg Blood Pressure Systolic 121 mm Hg Results No Known Results Summary Purpose eClinicalWorks Submission
--- OUTSIDE RECORDS SUMMARY | 2018-11-29 18:44 | XMS REPORT ---
Author Author Gabbi Singer Organization eClinical[employer] Address Unknown Phone Unavailable Care Team Providers Care Social Media Senior Associate Name Role Phone Gabbi Singer CP Unavailable Allergies, Adverse Reactions, Alerts Substance Reaction Event Type N.K.D.A. Info Not Available Non Drug Allergy Problems Problem Type Condition Code Onset Dates Condition Status Assessment Mixed hyperlipidemia E78.2 Active Assessment Other specified transient cerebral ischemias G45.8 Active Assessment Uncomplicated asthma, unspecified asthma severity J45.909 Active Problem Mixed hyperlipidemia E78.2 Active Problem Type 2 diabetes mellitus without complication, without long-term current use of insulin E11.9 Active Problem Anxiety and depression F41.8 Active Assessment Encounter to establish care Z76.89 Active Assessment Anxiety and depression F41.8 Active Problem Iron deficiency anemia secondary to inadequate dietary iron intake D50.8 Active Problem HTN (hypertension), benign I10 Active Assessment HTN (hypertension), benign I10 Active Assessment Iron deficiency anemia secondary to inadequate dietary iron intake D50.8 Active Assessment Type 2 diabetes mellitus without complication, without long-term current use of insulin E11.9 Active Medications Medication Code System Code Instructions Start Date End Date Status Dosage Abilify [facility] [address]-88 10 MG Orally Once a day October 19, 2016 Active 1 tablet BuPROPion HCl (XL) [facility] [address]-38 150 MG Orally Once a day Active 1 tablet in the morning Atorvastatin Calcium [facility] [address]-61 10 MG Orally Once a day Active 1 tablet ProAir HFA [facility] [address]-53 108 (90 Base) MCG/ACT Inhalation every 4 hrs Active 2 puffs as needed Albuterol Sulfate [facility] [address]-08 (2.5 MG/3ML) 0.083% Inhalation Three times a day as needed October 19, 2016 Active 3 ml YL Vitamin C [facility] [address] 500 MG Orally Once a day October 19, 2016 Feb 16, 2017 Active 1 tablet Lisinopril [facility] [address]-30 10 MG Orally Once a day Active 1 tablet Clopidogrel Bisulfate [facility] [address]-49 75 MG Orally Once a day Active 1 tablet Metformin HCl [facility] [address]-24 500 MG Orally Twice a day Active 1 tablet with meals Ferrous Sulfate [facility] [address]-69 325 (65 Fe) MG Orally Once a day October 19, 2016 Active 1 tablet Vital Signs Date/Time: October 19, 2016 BMI 31.08 Index Weight 164.5 lbs Height 61 in Temperature 97.1 F Blood Pressure Diastolic 80 mm Hg Blood Pressure Systolic 122 mm Hg Results No Known Results Summary Purpose eClinicalWorks Submission
--- OUTSIDE RECORDS SUMMARY | 2018-11-29 18:44 | XMS REPORT ---
Author Author Gabbi Singer Organization eClinicalWorks Address Unknown Phone Unavailable Care Team Providers Care Precast Worker Name Role Phone Gabbi Singer CP Unavailable Allergies, Adverse Reactions, Alerts Substance Reaction Event Type N.K.D.A. Info Not Available Non Drug Allergy Problems Problem Type Condition Code Onset Dates Condition Status Problem Type 2 diabetes mellitus without complication, without long-term current use of insulin E11.9 Active Problem Iron deficiency anemia secondary to inadequate dietary iron intake D50.8 Active Problem Mixed hyperlipidemia E78.2 Active Assessment Acute gastroenteritis K52.9 Active Assessment Diarrhea of presumed infectious origin A09 Active Problem HTN (hypertension), benign I10 Active Problem Anxiety and depression F41.8 Active Medications Medication Code System Code Instructions Start Date End Date Status Dosage Metformin HCl ND 45761291273 500 MG Orally Twice a day Active 1 tablet with meals Atorvastatin Calcium ND 11378046501 10 MG Orally Once a day Active 1 tablet YL Vitamin C ND 69403080175 500 MG Orally Once a day October 19, 2016 Feb 16, 2017 Active 1 tablet Clopidogrel Bisulfate ND 86335910586 75 MG Orally Once a day Active 1 tablet ProAir HFA [facility] 88463842989 108 (90 Base) MCG/ACT Inhalation every 4 hrs Active 2 puffs as needed Zofran ND 60505299805 4 mg Orally twice a day (bid) as needed (prn) Jan 14, 2017 Active 1 tablet Lisinopril ND 58679156496 10 MG Orally Once a day Active 1 tablet Albuterol Sulfate ND 37561125082 (2.5 MG/3ML) 0.083% Inhalation Three times a day as needed October 19, 2016 Active 3 ml Ferrous Sulfate [facility] 04504618514 325 (65 Fe) MG Orally Once a day October 19, 2016 Active 1 tablet BuPROPion HCl (XL) ND 78500663986 150 MG Orally Once a day Active 1 tablet in the morning Flagyl ND 41271497655 500 mg Orally every 8 hrs Jan 14, 2017 Jan 19, 2017 Active 1 tablet Ibuprofen [facility] 80253688080 200 MG Orally as needed (prn) Active 1 tablet with food or milk as needed Abilify [facility] 70902298781 10 MG Orally Once a day October 19, 2016 Active 1 tablet Vital Signs Date/Time: Jan 14, 2017 BMI 48.74 Index Weight 258 lbs Height 61 in Temperature 97.2 F Blood Pressure Diastolic 80 mm Hg Blood Pressure Systolic 126 mm Hg Results No Known Results Summary Purpose eClinicalWorks Submission
--- OUTSIDE RECORDS SUMMARY | 2018-11-29 18:44 | XMS REPORT | Clinical Summary ---
Author Author [facility] Organization [facility] Address Unknown Phone Unavailable Care Team Providers Care Financial Sales Associate Name Role Phone PCP Unavailable Allergies No Known Allergies Medications End Date Status Medication Sig Dispensed Refills Start Date Active albuterol (VENTOLIN Administer 2 1 Inhaler 1 HFA,PROVENTIL HFA,PROAIR Puffs by 3 HFA) 90 mcg/actuation inhalation 4 inhalerIndications: times daily Extrinsic asthma, as needed for unspecified Wheezing. Active venlafaxine (EFFEXOR XR) Take 2 60 capsule 1 150 mg extended release capsules by 3 capsuleIndications: Mood mouth daily. disorder Active aripiprazole (ABILIFY) 10 Take 1 tablet 30 tablet 1 mg tabletIndications: by mouth 3 Mood disorder daily. Active ofloxacin (OCUFLOX) 0.3 % Instill 5 5 mL 0 ophthalmic drops to left 7 solutionIndications: ear daily for Unspecified otitis media 10 days. Ok for pharmacist to dispense eye solution for ear treatment.. Active traMADol (ULTRAM) 50 mg Take 1 tablet 30 tablet 0 tabletIndications: Pelvic by mouth 8 pain every 6 hours as needed for Pain. Active dicyclomine (BENTYL) 20 Take 1 tablet 20 tablet 0 mg tabletIndications: by mouth 4 8 Pelvic pain times daily Colon spasm. Active Problems Problem Noted Date Pelvic pain 06/22/2017 Major depression 01/09/2010 Encounters Care Team Description Date Type Specialty 05/04/2018 Emergency Emergency Medicine Sheela Alvarado RN 06/24/2017 Nurse Triage Alejandro Armenta MD Schulz, Kevin J, MD Pelvic pain (Primary Dx); Nabothian cyst 06/22/2017 Emergency Emergency Medicine - 06/23/2017 after 05/03/2017 Immunizations Name Dates Previously Given Next Due Influenza Vaccine 01/09/2010 Family History Medical History Relation Name Comments Heart Maternal Grandmother Hypertension Maternal Grandmother Cancer Mother Relation Name Status Comments Brother Alive x 1 Father Other Maternal Grandfather Maternal Grandmother Mother Alive Paternal Grandfather Other Paternal Grandmother Other Sister Alive x 1 Social History Date Tobacco Use Types Packs/Day Years Used Never Smoker Smokeless Tobacco: Never Used Tobacco Cessation: Counseling Given: No Alcohol Use Drinks/Week oz/Week Comments No Sex Assigned at Date Recorded Not on file Industry Job Start Date Occupation Not on file Not on file Not on file Travel End Travel History Travel Start No recent travel history available. Last Filed Vital Signs Time Taken Vital Sign Reading 06/22/2017 7:05 PM CDT Blood Pressure 132/72 06/22/2017 7:05 PM CDT Pulse 80 06/22/2017 7:05 PM CDT Temperature 36.9 C (98.5 F) 06/22/2017 7:05 PM CDT Respiratory Rate 20 06/22/2017 7:05 PM CDT Oxygen Saturation 99% - Inhaled Oxygen - Concentration 06/22/2017 8:09 AM CDT Weight 126.5 kg (278 lb 12.8 oz) - Height - 08/19/2016 10:55 AM CDT Body Mass Index 52.68 Plan of Treatment Health Maintenance Due Date Last Done Comments Cervical Cancer Scrn (3 1994 Yrs) Breast Cancer Scrn 2013 (Yearly) Procedures Comments Procedure Name Priority Date/Time Associated Diagnosis VBG POC Routine 06/22/2017 10:31 PM CDT BMP POC Routine 06/22/2017 8:[address] ABDOMEN AND PELVIS STAT 06/22/2017 Pelvic pain CONTRAST 4:36 PM CDT VBG POC Routine 06/22/2017 2:40 PM CDT BMP POC Routine 06/22/2017 1:40 PM CDT U/S PELVIS NON-OB STAT 06/22/2017 12:06 PM CDT DUPLEX DOPPLER ABD/PEL STAT 06/22/2017 Pelvic pain VASCULAR STUDY, COMPLETE 12:06 PM CDT U/S TRANSVAGINAL STAT 06/22/2017 Pelvic pain 12:06 PM CDT VBG POC Routine 06/22/2017 9:06 AM CDT UA CHEMISTRIES STAT 06/22/2017 9:00 AM CDT CBC/DIFF STAT 06/22/2017 8:52 AM CDT POCT URINE DIPSTICK - STAT 06/22/2017 8:48 AM CDT after 05/03/2017 Results * VBG POC (06/22/2017 10:31 PM CDT) Only the most recent of 3 results within the time period is included. pH, Sandrita POC 7.35Comment: Physician 7.33 - 7.43 [facility] Notified MAIN-STATION 1 pCO2, Sandrita POC 38.3 38.0 - 50.0 mm Hg LB [facility]IN[facility]ST[facility] 1 pO2, Sandrita POC 44 (L) 50 - 75 mm Hg [facility] MAIN-STATION 1 Base Deficit, 4 [facility] Sandrita POC MAIN-STATION 1 HCO3, Sandrita POC 21.0 (L) 22.0 - 26.0 mmol/L [facility] MAIN-STATION 1 % Sat, Sandrita POC 78 60 - 85 % [facility] MAIN-STATION 1 Lactic Acid, 2.85 (H) 0.4 - 2.0 mmol/L [facility] Sandrita POC MAIN-STATION 1 TCO2, SANDRITA POC 22 21 - 32 mmol/L [facility] MAIN-STATION 1 Performing Organization Address City/State/Zipcode Phone Number MISYS [facility] MAIN-STATION 1 * BMP POC (06/22/2017 8:47 PM CDT) Only the most recent of 2 results within the time period is included. CO2 POC 22 21 - 32 mmol/L [facility] MAIN-STATION 1 Chloride POC 108 (H) 98 - 107 mmol/L [facility] MAIN-STATION 1 Potassium POC 3.8 3.50 - 5.10 mmol/L [facility] MAIN-STATION 1 Sodium POC 142 136 - 145 mmol/L [facility] MAIN-STATION 1 Glucose POC 103 74 - 106 mg/dL [facility] MAIN-STATION 1 Urea Nitrogen 18 7 - 18 mg/dL [facility] MAIN-STATION 1 Creatinine POC 0.5 (L) 0.6 - 1.3 mg/dL [facility] MAIN-STATION 1 Calcium Ionized 1.06 (L) 1.15 - 1.29 mmol/L [facility] MAIN-STATION 1 Hemoglobin POC 12.9 12.0 - 16.0 g/dL [facility] MAIN-STATION 1 Hematocrit POC 38.0 37.0 - 47.0 % [facility] MAIN[facility]STATION 1 GFR, Estimated >60 mL/min/1.73 m2 [facility] MAIN[facility]STATION 1 GFR, Estim, >60 mL/min/1.73 m2 [facility] Afr-Am MAIN-STATION 1 Performing Organization Address City/State/Zipcode Phone Number MISYS [facility] MAIN-STATION 1 * CT ABDOMEN AND PELVIS CONTRAST (06/22/2017 4:36 PM CDT) Impressions Performed At IMPRESSION: SMS 1.No acute abnormality identified in the abdomen or pelvis. 2.Small fat-containing right anterior pelvic wall infraumbilical hernia. 3.Nabothian and ovarian cysts as seen on same-day pelvic ultrasound. This [facility] radiology report is a preliminary resident dictation until finalized by an attending.Changes to this preliminary report may occur in an additional preliminary or finalized version. Dictated By: Santhosh Brannon MD, 06/22/2017 5:58 PM I have reviewed the study and agree with the findings in this report. Signed By: Mariel Freitas MD, 06/22/2017 6:05 PM Narrative Performed At EXAM: CT ABDOMEN AND PELVIS WITH CONTRAST SMS DATE: 06/22/2017 4:44 PM INDICATION: Left lower [...] 3.1 cm transverse x 3.0 cm CC.. Procedure Note Interface, Rad/Mammog In - 06/22/2017 6:11 PM CDT EXAM: CT ABDOMEN AND PELVIS WITH CONTRAST [...] as seen on same-day pelvic ultrasound. This [facility] radiology report is a preliminary resident dictation until finalized by an attending. Changes to this preliminary report may occur in an additional preliminary or finalized version. Dictated By: Santhosh Brannon MD, 06/22/2017 5:58 PM I have reviewed the study and agree with the findings in this report. Signed By: Mariel Freitas MD, 06/22/2017 6:05 PM Performing Organization Address City/State/Zipcode Phone Number SMS * DUPLEX DOPPLER ABD/PEL VASCULAR STUDY, COMPLETE (06/22/2017 12:06 PM CDT) Impressions Performed At IMPRESSION: SMS 1.Complex nabothian cysts at the cervix. This [facility] radiology report is a preliminary resident dictation until finalized by an attending.Changes to this preliminary report may occur in an additional preliminary or finalized version. Dictated By: Guadalupe Mims MD, 06/22/2017 1:47 PM I have reviewed the study and agree with the findings in this report. Signed By: Manjeet Mcgraw MD, 06/22/2017 2:07 PM Narrative Performed At EXAM: US PELVIS TRANSABDOMINAL [facility] EXAM: US PELVIS TRANSVAGINAL WITH DOPPLER DATE: 06/22/2017 12:06 PM INDICATION: Pelvic Pain. Pelvic pain ADDITIONAL INFORMATION: Last menstrual period 04/24/2017. Negative urine test. COMPARISON: 01/22/2010 TECHNIQUE:Multiplanar grayscale, spectral Doppler and color Doppler ultrasound [...] Normal Doppler Free fluid: None. Other: None. Procedure Note Interface, Rad/Mammog In - 06/22/2017 2:12 PM CDT EXAM: US PELVIS TRANSABDOMINAL EXAM: US PELVIS TRANSVAGINAL [...] Complex nabothian cysts at the cervix. This [facility] radiology report is a preliminary resident dictation until finalized by an attending. Changes to this preliminary report may occur in an additional preliminary or finalized version. Dictated By: Guadalupe Mims MD, 06/22/2017 1:47 PM I have reviewed the study and agree with the findings in this report. Signed By: Manjeet Mcgraw MD, 06/22/2017 2:07 PM Performing Organization Address City/State/Zipcode Phone Number SMS * U/S PELVIS NON-OB (06/22/2017 12:06 PM CDT) Impressions Performed At IMPRESSION: SMS 1.Complex nabothian cysts at the cervix. This [facility] radiology report is a preliminary resident dictation until finalized by an attending.Changes to this preliminary report may occur in an additional preliminary or finalized version. Dictated By: Guadalupe Mims MD, 06/22/2017 1:47 PM I have reviewed the study and agree with the findings in this report. Signed By: Manjeet Mcgraw MD, 06/22/2017 2:07 PM Narrative Performed At EXAM: US PELVIS TRANSABDOMINAL [facility] EXAM: US PELVIS TRANSVAGINAL WITH DOPPLER DATE: 06/22/2017 12:06 PM INDICATION: Pelvic Pain. Pelvic pain ADDITIONAL INFORMATION: Last menstrual period 04/24/2017. Negative urine test. COMPARISON: 01/22/2010 TECHNIQUE:Multiplanar grayscale, spectral Doppler and color Doppler ultrasound [...] Normal Doppler Free fluid: None. Other: None. Procedure Note Interface, Rad/Mammog In - 06/22/2017 2:12 PM CDT EXAM: US PELVIS TRANSABDOMINAL EXAM: US PELVIS TRANSVAGINAL [...] Complex nabothian cysts at the cervix. This [facility] radiology report is a preliminary resident dictation until finalized by an attending. Changes to this preliminary report may occur in an additional preliminary or finalized version. Dictated By: Guadalupe Mims MD, 06/22/2017 1:47 PM I have reviewed the study and agree with the findings in this report. Signed By: Manjeet Mcgraw MD, 06/22/2017 2:07 PM Performing Organization Address City/State/Zipcode Phone Number SMS * U/S TRANSVAGINAL (06/22/2017 12:06 PM CDT) Impressions Performed At IMPRESSION: SMS 1.Complex nabothian cysts at the cervix. This [facility] radiology report is a preliminary resident dictation until finalized by an attending.Changes to this preliminary report may occur in an additional preliminary or finalized version. Dictated By: Guadalupe Mims MD, 06/22/2017 1:47 PM I have reviewed the study and agree with the findings in this report. Signed By: Manjeet Mcgraw MD, 06/22/2017 2:07 PM Narrative Performed At EXAM: US PELVIS TRANSABDOMINAL [facility] EXAM: US PELVIS TRANSVAGINAL WITH DOPPLER DATE: 06/22/2017 12:06 PM INDICATION: Pelvic Pain. Pelvic pain ADDITIONAL INFORMATION: Last menstrual period 04/24/2017. Negative urine test. COMPARISON: 01/22/2010 TECHNIQUE:Multiplanar grayscale, spectral Doppler and color Doppler ultrasound [...] Normal Doppler Free fluid: None. Other: None. Procedure Note Interface, Rad/Mammog In - 06/22/2017 2:12 PM CDT EXAM: US PELVIS TRANSABDOMINAL EXAM: US PELVIS TRANSVAGINAL [...] Complex nabothian cysts at the cervix. This [facility] radiology report is a preliminary resident dictation until finalized by an attending. Changes to this preliminary report may occur in an additional preliminary or finalized version. Dictated By: Guadalupe Mims MD, 06/22/2017 1:47 PM I have reviewed the study and agree with the findings in this report. Signed By: Manjeet Mcgraw MD, 06/22/2017 2:07 PM Performing Organization Address City/[facility]/[employer] Phone Number SMS * UA CHEMISTRIES (06/22/2017 9:00 AM CDT) Color Straw [facility]STATION 2 Clarity Clear [facility] 2 Spec Marshall 1.006 1.001 - 1.035 [facility] 2 pH 6.0 5 - 8 [facility] 2 Protein Negative NEG [facility] 2 Glucose Negative NEG [facility] 2 Ketone Negative NEG [facility] 2 Bilirubin Negative NEG [facility] 2 Nitrate Negative NEG [facility] 2 Urobilinogen <1.0 0.2 - 1.0 EU/dL [facility] 2 Leukocyte Negative NEG [facility] 2 Blood 1+ (A) NEG [facility] 2 RBC <1 0 - 4 /HPF [facility] 2 WBC 1 0 - 5 /HPF [facility] 2 Epithelial Cell 1 /HPF [facility] 2 Specimen Urine Performing Organization Address [facility] Phone Number MISYS [facility] 2 * CBC/DIFF (06/22/2017 8:52 AM CDT) WBC 11.1 (H) 4.5 - 11.0 K/uL [facility] MAIN-STATION 2 RBC 4.77 4.20 - 5.40 M/uL [facility] MAIN[facility]ST[facility] 2 Hemoglobin 12.2 12.0 - 16.0 g/dL [facility] MAIN[facility]STATION 2 Hematocrit 40.1 37.0 - 47.0 % [facility] MAIN[facility]ST[facility] 2 MCV 84 82 - 92 fL [facility] MAIN[facility]ST[facility] 2 MCH 25.6 (L) 27.0 - 32.0 pg [facility] 2 MCHC 30.4 (L) 32.0 - 36.0 g/dL [facility]ST[facility] 2 RDW 42.9 36.4 - 46.3 fL [facility] MAIN[facility]ST[facility] 2 Platelet 503 (H) 150 - 400 K/uL [facility]IN[facility]ST[facility] 2 Mean Platelet 8.7 (L) 9.4 - 12.4 fL [facility] Volume MAIN[facility]STATION 2 Percent NRBC 0.0 [facility] 2 Absolute NRBC 0.00 [facility] 2 Neutrophil 86.3 (H) 34.0 - 70.0 % [facility] 2 Lymphocyte 11.2 (L) 20.0 - 50.0 % [facility] 2 Monocyte 1.9 (L) 5.0 - 12.0 % [facility] 2 Eosinophil 0.0 (L) 0.7 - 5.0 % [facility] 2 Basophil 0.1 0.1 - 1.2 % [facility] 2 Pct Immat Gran 0.5 0.0 - 0.5 [facility] 2 Neutrophil, Abs 9.54 (H) 1.56 - 6.13 K/uL [facility] 2 Lymphocyte, Abs 1.24 1.18 - 3.74 K/uL [facility] 2 Monocyte, Abs 0.21 (L) 0.24 - 0.36 K/uL [facility] 2 Eosinophil, Abs 0.00 (L) 0.04 - 0.36 K/uL [facility] 2 Basophil, Abs 0.01 0.01 - 0.08 K/uL [facility] 2 Absol Immat 0.05 (H) 0.00 - 0.03 K/uL [facility] Gran MAIN-STATION 2 Specimen Blood Performing Organization Address City/State/Zipcode Phone Number MICHAEL [facility] 2 * POCT URINE DIPSTICK - (06/22/2017 8:48 AM CDT) pass Control negative after 05/03/2017 Insurance Type Payer Benefit Subscriber ID Effective Phone Address Plan / Dates Group [facility] xxxxxxxxx 2016-P [phone] [id number] [place] [address]
--- OUTSIDE RECORDS SUMMARY | 2018-11-29 18:44 | XMS REPORT ---
Author Author Gabbi Singer Organization [employer] Address Unknown Phone Unavailable Care Team Providers Care Gang Boss Name Role Phone Gabbi Singer CP Unavailable Allergies, Adverse Reactions, Alerts Substance Reaction Event Type N.K.D.A. Info Not Available Non Drug Allergy Problems Problem Type Condition Code Onset Dates Condition Status Assessment Left-sided weakness R53.1 Active Problem Mixed hyperlipidemia E78.2 Active Problem Type 2 diabetes mellitus without complication, without long-term current use of insulin E11.9 Active Problem Anxiety and depression F41.8 Active Assessment Acute intractable headache, unspecified headache type R51 Active Assessment Head trauma, subsequent encounter S09.90XD Active Problem Iron deficiency anemia secondary to inadequate dietary iron intake D50.8 Active Problem HTN (hypertension), benign I10 Active Medications Medication Code System Code Instructions Start Date End Date Status Dosage Metformin HCl [facility] [address]-24 500 MG Orally Twice a day Active 1 tablet with meals Abilify [facility] [address]-44 10 MG Orally Once a day October 19, 2016 Active 1 tablet Lisinopril [facility] [address]-54 10 MG Orally Once a day Active 1 tablet YL Vitamin C [facility] 44569-28927 500 MG Orally Once a day October 19, 2016 Feb 16, 2017 Active 1 tablet Albuterol Sulfate [facility] [address]-82 (2.5 MG/3ML) 0.083% Inhalation Three times a day as needed October 19, 2016 Active 3 ml ProAir HFA [facility] [address]-48 108 (90 Base) MCG/ACT Inhalation every 4 hrs Active 2 puffs as needed Ferrous Sulfate [facility] [address]-97 325 (65 Fe) MG Orally Once a day October 19, 2016 Active 1 tablet Clopidogrel Bisulfate [facility] [address]-55 75 MG Orally Once a day Active 1 tablet Atorvastatin Calcium [facility] [address]-74 10 MG Orally Once a day Active 1 tablet BuPROPion HCl (XL) [facility] [address]-13 150 MG Orally Once a day Active 1 tablet in the morning Vital Signs Date/Time: Oct 29, 2016 BMI 51.29 Index Weight 271.5 lbs Height 61 in Temperature 97.6 F Blood Pressure Diastolic 69 mm Hg Blood Pressure Systolic 131 mm Hg Results No Known Results Summary Purpose [employer] Submission
--- OUTSIDE RECORDS SUMMARY | 2018-11-29 18:45 | XMS REPORT ---
Author [facility] Address Unknown Phone Unavailable Care Team Providers Care Tattoo Artist Name Role Phone Phi LEDEZMA Unavailable Unavailable Problems This patient has no known problems. Allergies, Adverse Reactions, Alerts This patient has no known allergies or adverse reactions. Medications This patient has no known medications. Encounters Start Date/Time End Date/Time Encounter Type Admission Type Attending [facility] Facility Care Department Encounter ID 2018-11-18 16:34:00 2018-11-18 16:34:00 Emergency E [id number] 2018-11-09 15:15:00 2018-11-09 15:15:00 Emergency E [facility] [id number] 2018-10-19 21:58:00 2018-10-19 21:58:00 Emergency E [facility] [id number] 2018-10-04 23:22:00 2018-10-04 23:22:00 Emergency E [facility] [id number] 2018-08-17 20:44:00 2018-08-17 20:44:00 Emergency E [facility] [id number] 2018-07-24 11:06:00 2018-07-24 11:06:00 Emergency E [facility] [id number] 2018-06-29 08:55:00 2018-06-29 08:55:00 Emergency E [facility] [id number] 2018-05-04 21:59:10 2018-05-04 21:59:10 Emergency [facility] [id number] 2018-05-04 20:50:03 2018-05-04 20:50:03 Emergency [facility] [id number] 2017-06-22 16:15:57 2017-06-22 16:15:57 Emergency [facility] [id number] 2017-06-22 10:56:34 2017-06-22 10:56:34 Emergency [facility] [id number] 2017-06-22 08:40:54 2017-06-22 08:40:54 Emergency [facility] [id number] 2017-03-17 00:00:00 2017-03-17 00:00:00 Outpatient [facility] [id number] 2016-08-19 10:53:34 2016-08-19 10:53:34 Outpatient [facility] [id number] Results Test Description Test Time Test Comments Text Results Atomic Results Result Comments CT ABDOMEN/PELVIS W [place] [address] Patient Name: MARIO MORALES MR #: [id number] : 1975 Age/Sex: 41/F Req #: [id number] Adm Physician: Ordered by: GUILLERMINA VAZQUEZ NP Report #: [id number] Location: ER Room/Bed: Procedure: [id number] CT/CT ABDOMEN/PELVIS W Exam Date: 04/20/17 Exam Time: 1720 REPORT STATUS: Signed PROCEDURE: CT ABDOMEN AND PELVIS WITH CONTRAST TECHNIQUE: The abdomen and pelvis were scanned utilizing a multidetector helical scanner from the diaphragm to the lesser trochanter after the IV administration of 100 cc of Isovue 370 and the oral administration of Gastrografin. Coronal and sagittal multiplanar reformations were obtained. Total DLP: 845.11 mGy- cm COMPARISON: None. INDICATIONS: ABDOMINAL PAIN FINDINGS: LOWER THORAX: Normal. HEPATOBILIARY: No focal hepatic lesions. No biliary ductal dilatation. SPLEEN: No splenomegaly. PANCREAS: No focal masses or ductal dilatation. ADRENALS: No adrenal nodules. KIDNEYS/URETERS: No hydronephrosis, stones, or solid mass lesions. PELVIC ORGANS/BLADDER: Uterus is normal. Cervix is prominent and heterogeneous and may be replaced by numerous nabothian cysts. Normal left ovarian size measuring 3.9 x 3.0 cm. 2.7 cm left ovarian cyst. Right ovary is partially obscured by overlying bowel. PERITONEUM / RETROPERITONEUM: No free air or fluid. LYMPH NODES: No lymphadenopathy. VESSELS: Unremarkable. GI TRACT: No distention or wall thickening. Appendix is normal. BONES AND SOFT TISSUES: Unremarkable. IMPRESSION: 1. Enlarged heterogeneous cervix which may be replaced by nabothian cysts. Pelvic ultrasound was unsuccessful as patient was unable to tolerate the exam. 2. Normal left ovarian size with a 2.7 cm left ovarian cyst. Dictated by: Chantal Santo M.D. on 04/20/2017 at 18:13 Electronically approved by: Chantal Santo M.D. on 04/20/2017 at 18:13 Dictated By: CHANTAL SANTO MD 12 Transcribed By: CHEPE on 04/20/171812 COPY TO: GUILLERMINA VAZQUEZ NP US TRANSVAGINAL [place] [address] Patient Name: MARIO MORALES MR #: [id number] : 1975 Age/Sex: 41/F Req #: [id number] Adm Physician: Ordered by: JAMESON LEDEZMA MD Report #: [id number] Location: ER Room/Bed: Procedure: [id number] US/US TRANSVAGINAL Exam Date: 04/20/17 Exam Time: 1656 REPORT STATUS: Signed PROCEDURE: TRANSVAGINAL ULTRASOUND COMPARISON: None. INDICATIONS: LOWER ABDOMINAL PAIN/ R/O OVARIAN CYST TECHNIQUE: Grayscale transverse and sagittal transabdominal and transvaginal images were obtained of the pelvis. Transvaginal imaging was medically necessary to endometrium and ovaries FINDINGS: 41-year-old female. A2. LMP 04/12/2017 UTERUS: 12.7 x 5.9 x 6.3 cm. Anteverted anteflexed ENDOMETRIUM: Not well-visualized RIGHT OVARY: Not visualized. LEFT OVARY: Not visualized. There is no free fluid within the pelvis. No adnexal masses. CONCLUSION: Suboptimal exam as patient was unable to tolerate the exam. Dictated by: Chantal Santo M.D. on 04/20/2017 at 18:07 Electronically approved by: Chantal Santo M.D. on 04/20/2017 at 18:07 Dictated By: CHANTAL SANTO MD 06 Transcribed By: CHEPE on 04/20/171806 COPY TO: JAMESON LEDEZMA MD US PELVIS COMPLETE NON OB [place] [address] Patient Name: MARIO MORALES MR #: [id number] : 1975 Age/Sex: 41/F Req #: [id number] Adm Physician: Ordered by: GUILLERMINA VAZQUEZ RESEARCH PROFESSIONAL Report #: [id number] Location: ER Room/Bed: Procedure: [id number] US/US PELVIS COMPLETE NON OB Exam Date: 04/20/17 Exam Time: 1656 REPORT STATUS: Signed PROCEDURE: US PELVIS COMPLETE NON OB COMPARISON: None. INDICATIONS: LOWER ABDOMEN PAIN/ R/O OVARIAN CYST CONCLUSION: Please refer to transvaginal pelvic ultrasound performed at the same date and time for full dictated report. Dictated by: Chantal Santo M.D. on 04/20/2017 at 18:08 Electronically approved by: Chantal Santo M.D. on 04/20/2017 at 18:08 Dictated By: CHANTAL SANTO MD 07 Transcribed By: CHEPE on 04/20/171807 COPY TO: GUILLERMINA VAZQUEZ NP
--- OUTSIDE RECORDS SUMMARY | 2018-11-29 18:45 | XMS REPORT ---
Author Author Admin, [place] Organization [facility] Address [address] [place] [address] Phone Allergies, Adverse Reactions, Alerts Allergy Name Reaction Description Start Date Severity Status Provider SEAFOOD Hives Critical Active Sohail Cordova MD Conditions or Problems Problem Name Problem Code Onset Date Status Entry Date Provider Comment Standard Description Annotate Abdominal pain, acute 789.00 Active Nicky Leary MD Abdominal pain, unspecified site Pelvic pain 625.9 Active Juan Matta MD Unspecified symptom associated with female genital organs Mammogram yearly screening V76.12 Active Matilde Guajardo MD Other screening mammogram Screening for cervical cancer V76.2 Active Matilde Guajardo MD Screening for malignant neoplasms of the cervix Screening for diabetes mellitus V77.1 Active Matilde Guajardo MD Screening for diabetes mellitus Screening for hyperlipidemia V77.91 Active Matilde Guajardo MD Screening for lipoid disorders Screening for std V74.5 Active Matilde Guajardo MD Screening examination for venereal disease WELL EXAM, WOMAN V70.0 Active Matilde Guajardo MD Routine general medical examination at a health care facility Forearm pain, right 729.5 Active Matilde Guajardo MD Pain in limb MORBID OBESITY Active Matilde Guajardo MD Morbid obesity Anxiety 300.00 Active Sohail Cordova MD Anxiety state, unspecified Asthma 493.90 Active Sohail Cordova MD Asthma, unspecified Migraines 346.90 Active Sohail Cordova MD Migraine, unspecified, without mention of intractable migraine, without mention of status migrainosus Pharyngitis 462 Active Sohail Cordova MD Acute pharyngitis Shingles 053.9 Active Sohail Cordova MD Herpes zoster without mention of complication URI - viral 465.9 Active Sohail Cordova MD Acute upper respiratory infections of unspecified site Vaccination V05.9 Active Sohail Cordova MD Need for prophylactic vaccination and inoculation against unspecified single disease Medication List Medication Instructions Start Date Stop Date Generic Name NDC Status Provider Patient Instruction ALBUTEROL SULFATE (2.5 MG/3ML) 0.083% INHALATION NEBULIZATION SOLUTION 1 via Hand held neb every 4 - 6 hours as needed ALBUTEROL SULFATE 39626758920 Active Matilde Guajardo MD Active VALACYCLOVIR HCL 1 GM ORAL TABLET 1 tablet three time daily VALACYCLOVIR HCL 24048767268 Active Matilde Guajardo MD Active ASPIRIN 325 MG ORAL TABLET one tablet once daily ASPIRIN 34111339101 Active Matilde Guajardo MD Active ATORVASTATIN CALCIUM 10 MG ORAL TABLET one tablet once daily ATORVASTATIN CALCIUM 97503952752 Active Matilde Guajardo MD Active BUPROPION HCL ER (XL) 150 MG ORAL TABLET EXTENDED RELEASE 24 HOUR one tablet once daily BUPROPION HCL 89063525683 Active Matilde Guajardo MD Active CLOPIDOGREL BISULFATE 75 MG ORAL TABLET 1 By Mouth once a day CLOPIDOGREL BISULFATE 88119192171 Active Matilde Guajardo MD Active GABAPENTIN 300 MG ORAL CAPSULE One tablet TID GABAPENTIN 28856512135 Active Matilde Guajardo MD Active HYDROXYZINE HCL 25 MG ORAL TABLET 1 by mouth every 6 hours as needed for anxiety/panic attack HYDROXYZINE HCL 88814510028 Active Flaca [facility] Active PANTOPRAZOLE SODIUM 40 MG ORAL TABLET DELAYED RELEASE one tablet once daily PANTOPRAZOLE SODIUM 32916174077 Active Matilde Guajardo MD Active SINGULAIR 10 MG ORAL TABLET 1 by mouth nightly at bedtime MONTELUKAST SODIUM 96187814712 Active Matilde Guajardo MD Active BECLOMETHASONE DIPROPIONATE POWDER 80 mcg inhaled daily BECLOMETHASONE DIPROPIONATE 83690966620 Active Sohail Cordova MD Active ESCITALOPRAM OXALATE 10 MG ORAL TABLET 1 tablet daily ESCITALOPRAM OXALATE 56186467619 Active Sohail Cordova MD Active IBUPROFEN 600 MG ORAL TABLET 1 By Mouth Every 8 hours As Needed pain IBUPROFEN 38810003008 Active Sohail Cordova MD Active PROAIR HFA 108 (90 BASE) MCG/ACT INHALATION AEROSOL SOLUTION 2 puffs every 4 - 6 hours as needed ALBUTEROL SULFATE 11456668756 Active Sohail Cordova MD Active VALTREX 1 GM ORAL TABLET 1 by mouth 3 times a day for 7 days VALTREX 1 GM ORAL TABLET 466286 VALACYCLOVIR HCL Inactive VALTREX 1 GM ORAL TABLET 1 by mouth 3 times a day for 7 days VALACYCLOVIR HCL 41236113088 No Longer Active Sohail Cordova MD Active Vital Signs Date Name Value Unit Range Description blood pressure, diastolic 49 mm[Hg] BP das blood pressure, systolic 103 mm[Hg] BP sys height E&M 61 [in_us] Bdy height pulse rate E&M 84 /min Heart rate respiratory rate E&M 18 /min Resp rate temperature E&M 98.6 [degF] Body temperature weight E&M 274.25 [lb_av] Weight Measured blood pressure, diastolic 59 mm[Hg] BP das blood pressure, systolic 125 mm[Hg] BP sys height E&M 61 [in_us] Bdy height pulse rate E&M 87 /min Heart rate respiratory rate E&M 17 /min Resp rate temperature E&M 98.1 [degF] Body temperature weight E&M 275 [lb_av] Weight Measured blood pressure, diastolic 82 mm[Hg] BP das blood pressure, systolic 115 mm[Hg] BP sys height E&M 61 [in_us] Bdy height pulse rate E&M 66 /min Heart rate respiratory rate E&M 14 /min Resp rate temperature E&M 97.9 [degF] Body temperature weight E&M 282.40 [lb_av] Weight Measured blood pressure, diastolic 81 mm[Hg] BP das blood pressure, systolic 130 mm[Hg] BP sys height E&M 61 [in_us] Bdy height pulse rate E&M 90 /min Heart rate respiratory rate E&M 16 /min Resp rate temperature E&M 98.1 [degF] Body temperature weight E&M 273.20 [lb_av] Weight Measured blood pressure, diastolic 75 mm[Hg] BP das blood pressure, systolic 112 mm[Hg] BP sys height E&M 61 [in_us] Bdy height pulse rate E&M 80 /min Heart rate respiratory rate E&M 18 /min Resp rate temperature E&M 98.2 [degF] Body temperature weight E&M 277.60 [lb_av] Weight Measured Diagnostic Results Date Name Value Unit Range Description Lab Report: Vaginitis/Vaginosis, DNA Probe, Ct, Ng, Trich vag by RUDY - Microbiology Neisseria gonorrhoeae DNA probe Negative Negative Lab Report: Vaginitis/Vaginosis, DNA Probe, Ct, Ng, Trich vag by RUDY - Urinalysis trichomonas vaginalis, urine Negative Negative Lab Report: Lipid Panel, Hemoglobin A1c - Chemistry LDL cholesterol, serum 134 mg/dL 0-99 cholesterol, serum 194 mg/dL [phone]/12/04 triglyceride, serum, fasting 105 mg/dL 0-149 hemoglobin A1C, blood, as % of total hemoglobin 5.4 % 4.8-5.6 HDL cholesterol, serum 39 mg/dL >39 Lab Report: Vaginitis/Vaginosis, DNA Probe, Ct, Ng, Trich vag by RUDY - Lab chlamydia DNA probe Negative Negative Office Visit: Annual / Family Planning Female Room 8 - Chemistry beta HCG, urine, semiquantitative negative Lab Report: Lipid Panel, Hemoglobin A1c - Chemistry very low density lipoproteins 21 mg/dL 5-40 Office Visit: Acute Visit - 42y F, new zoster, asthma, uri - Lab Microbial identification kit, rapid strep method negative Encounters Date Encounter Provider Code Facility 15:45:54 SHAPE HAND Est Patient Exp Problem - [id number] Nicky V Devora Leary MD CPT-80398 [facility] OB 16:47:32 SHAPE HAND Est Patient Detailed - [id number] Juan Matta MD CPT-69023 [facility] OB 16:11:05 SHAPE HAND Ofc Vst, Est Level IV Matilde Guajardo MD CPT-60661 [facility] Practice 14:18:37 CDT New Patient Detailed - [id number] Sohail Cordova MD CPT-64984 [facility] Procedures Code Procedure Name Date Entry Date Standard Description CPT-14667 Est Patient Well Exam (40 - 64 Yrs) - [id number] 09:07:25 SHAPE HAND CPT-47675 Rapid Strep - In House 14:18:38 CDT
--- OUTSIDE RECORDS SUMMARY | 2018-11-29 18:45 | XMS REPORT ---
Author Author Admin, [place] Organization [facility] Address [address] [place] [address] Phone Allergies, Adverse Reactions, Alerts Allergy Name Reaction Description Start Date Severity Status Provider SEAFOOD Hives Critical Active Sohail Cordova MD Conditions or Problems Problem Name Problem Code Onset Date Status Entry Date Provider Comment Standard Description Annotate Pelvic pain 625.9 Active Juan Matta MD [...] - 6 hours as needed ALBUTEROL SULFATE 63899548535 Active Matilde Guajardo MD Active VALACYCLOVIR HCL 1 GM ORAL TABLET 1 tablet three time daily VALACYCLOVIR HCL 77536339080 Active Matilde Guajardo MD Active ASPIRIN 325 MG ORAL TABLET one tablet once daily ASPIRIN 70496677111 Active Matilde Guajardo MD Active ATORVASTATIN CALCIUM 10 MG ORAL TABLET one tablet once daily ATORVASTATIN CALCIUM 32421725813 Active Matilde Guajardo MD Active BUPROPION HCL ER (XL) 150 MG ORAL TABLET EXTENDED RELEASE 24 HOUR one tablet once daily BUPROPION HCL 81641997768 Active Matilde Guajardo MD Active CLOPIDOGREL BISULFATE 75 MG ORAL TABLET 1 By Mouth once a day CLOPIDOGREL BISULFATE 28070073380 Active Matilde Guajardo MD Active GABAPENTIN 300 MG ORAL CAPSULE One tablet TID GABAPENTIN 58279991092 Active Matilde Guajardo MD Active HYDROXYZINE HCL 25 MG ORAL TABLET 1 by mouth every 6 hours as needed for anxiety/panic attack HYDROXYZINE HCL 09963040178 Active Flaca [facility] Active PANTOPRAZOLE SODIUM 40 MG ORAL TABLET DELAYED RELEASE one tablet once daily PANTOPRAZOLE SODIUM 12779170999 Active Matilde Guajardo MD Active SINGULAIR 10 MG ORAL TABLET 1 by mouth nightly at bedtime MONTELUKAST SODIUM 30918809972 Active Matilde Guajardo MD Active BECLOMETHASONE DIPROPIONATE POWDER 80 mcg inhaled daily BECLOMETHASONE DIPROPIONATE 59869083760 Active Sohail Cordova MD Active ESCITALOPRAM OXALATE 10 MG ORAL TABLET 1 tablet daily ESCITALOPRAM OXALATE 81440423528 Active Sohail Cordova MD Active IBUPROFEN 600 MG ORAL TABLET 1 By Mouth Every 8 hours As Needed pain IBUPROFEN 41436859259 Active Sohail Cordova MD Active PROAIR HFA 108 (90 BASE) MCG/ACT INHALATION AEROSOL SOLUTION 2 puffs every 4 - 6 hours as needed ALBUTEROL SULFATE 05057762168 Active Sohail Cordova MD Active VALTREX 1 GM ORAL TABLET 1 by mouth 3 times a day for 7 days VALTREX 1 GM ORAL TABLET 296254 VALACYCLOVIR HCL Inactive VALTREX 1 GM ORAL TABLET 1 by mouth 3 times a day for 7 days VALACYCLOVIR HCL 87468675515 No Longer Active Sohail Cordova MD Active Vital Signs Date Name Value Unit Range Description blood pressure, diastolic 59 mm[Hg] BP das [...] 134 mg/dL 0-99 cholesterol, serum 194 mg/dL 371-063 1609/12/04 triglyceride, serum, fasting 105 mg/dL 0-149 hemoglobin [...] negative Encounters Date Encounter Provider Code 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
[2018-11-29] MEDS ORDERED: KETOROLAC TROMETHAMINE 30 MG/ML VIAL IV NR (19:00)
[2018-11-29] MEDS ORDERED: ACETAMIN/BUTALBITAL/CAFFEINE TAB PO NR (19:00)
[2018-11-29] MEDS ORDERED: SODIUM CHLORIDE 0.9% 1000ML 1,000 ML IV ONE (19:00)
[2018-11-29] MEDS ORDERED: ONDANSETRON HCL INJ 2MG/ML 2ML 2 MG/ML VIAL IV NR (19:15)
[2018-11-29 19:31] LABS: BILIRUBIN,URINE NEGATIVE (NEGATIVE); CLARITY,URINE CLOUDY (CLEAR); COLOR,URINE RED (YELLOW); KETONES,URINE NEGATIVE (NEGATIVE); LEUKOCYTE ESTERASE ,URINE TRACE (NEGATIVE); NITRITE,URINE NEGATIVE (NEGATIVE); PROTEIN,URINE DIPSTICK 2+ (NEGATIVE); URINE UROBILINOGEN 0.2 mg/dL (0.2 - 1)
[2018-11-29 19:36] LABS: PREGNANCY TEST, URINE NEGATIVE (NEGATIVE)
[2018-11-29 19:43] LABS: BACTERIA,URINE FEW /HPF; RBC,URINE >50 /HPF (0-5)
--- NOTE | 2018-11-29 19:54 | Diagnostic Imaging Report ---
Exam: Head CT without contrast History: Headache Comparison studies: None Technique: Axial images were obtained from the skull base to the vertex. Coronal and sagittal images reconstructed from the axial data. Dose modulation, iterative reconstruction, and/or weight based adjustment of the mA/kV was utilized to reduce the radiation dose to as low as reasonably achievable. Radiation dose: Total DLP: 921 mGy*cm. Estimated effective dose: DLP x 0.015 Intravenous contrast: None Findings: Scalp: No abnormalities. Bones: No fractures, blastic or lytic lesions. Brain sulci: Appropriate for age. Ventricles: Normal in size and configuration. No hydrocephalus. Extra-axial spaces: No masses, no fluid collection. Parenchyma: No abnormal densities. No masses, acute hemorrhage, acute or chronic vascular insults. Sellar/suprasellar region: No abnormalities. Craniocervical junction: Patent foramen magnum. No Chiari one malformation. Incidental findings: Subtle calcified atherosclerosis in the bilateral paraophthalmic ICA segments and intradural vertebral arteries. Included paranasal sinuses: Small nonspecific frothy secretions in the left sphenoid sinus. Remaining included sinuses are clear. Middle ear and mastoid cavities: Clear. IMPRESSION: No acute intracranial abnormalities. Signed by: Dr. Tima Broderick M.D. on 11/29/2018 7:51 PM
== END 2018-11-29 20:57 | disposition home or self-care (01) ==
LOC: ER 18:41
DX: G43.009 Migraine without aura, not intractable, without status migrainosus (principal); E66.01 Morbid (severe) obesity due to excess calories
CPT/HCPCS: 70450; 81001; 81025; 99284; J1885; J2405; J7030

== ENCOUNTER 2018-12-11 19:26 | Emergency (ER) | payer OTHER ==
[~2018-12-11] VITALS: Ht 154.9 cm; Wt 118.8 kg
--- OUTSIDE RECORDS SUMMARY | 2018-12-11 19:29 | XMS REPORT | Continuity of Care Document ---
Author Author [employer] Organization [employer] Address Unknown Phone Unavailable Care Team Providers Care Fuel Agent Name Role Phone SMART Information [facility] Unavailable Unavailable Problems Problem Status Onset Date [...] 05/30/2018 [facility] Pelvic pain Active 06/22/2017 05/04/2018 [facility] Major depression Active 01/09/2010 05/04/2018 [facility] Left-sided weakness Active Diagnosis 11/09/2016 Enayet Rahim Mixed hyperlipidemia Active Problem 01/30/2017 Enayet Rahim Type 2 diabetes mellitus without complication, without long-term current use of insulin Active Problem 01/30/2017 Enayet Rahim Anxiety and depression Active Problem 01/30/2017 Kathleen Knet Acute intractable headache, unspecified headache type Active [...] asthma with exacerbation Active Diagnosis 01/30/2017 Jackymartha Maenivialeidy Lower abdominal pain Active Diagnosis 01/30/2017 Jamaicadariana Antwanleidy Nabothian cyst Active 05/04/2018 [facility] Medications Medication Details Route Status Patient Instructions [...] as needed for Pain. Oral Active 06/22/2017 [facility] dicyclomine (BENTYL) 20 mg tablet Take 1 tablet by mouth 4 times daily Colon spasm. Oral Active 06/22/2017 [facility] Azithromycin 2 tablets on the first day, then 1 tablet daily for 4 days Orally Active 250 MG Orally Once a day [facility] 01/26/2017 Kathleen Kent Zofran 1 tablet Orally Active 4 mg Orally twice a day (bid) as needed (prn) [facility] 01/14/2017 Kathleen Kent Flagyl 1 tablet Orally Active 500 mg Orally every 8 hrs [facility] 01/14/2017 Kathleen Kent Abilify 1 tablet Orally Active 10 MG Orally Once a day [facility] 10/19/2016 Kathleen Kent YL Vitamin C 1 tablet Orally Active 500 MG Orally Once a day [facility] 10/19/2016 Kathleen Kent Albuterol Sulfate 3 ml Inhalation Active (2.5 MG/3ML) 0.083% Inhalation Three times a day as needed [facility] 10/19/2016 Kathleen Kent Ferrous Sulfate 1 tablet Orally Active 325 (65 Fe) MG Orally Once a day [facility] 10/19/2016 Jackydariana [facility] YL Vitamin C 1 tablet Orally Active 500 MG Orally Once a day [facility] 10/19/2016 Kathleen [facility] Albuterol Sulfate 3 ml Inhalation Active (2.5 MG/3ML) 0.083% Inhalation Three times a day as needed [facility] 10/19/2016 Kathleen [facility] Ferrous Sulfate 1 tablet Orally Active 325 (65 Fe) MG Orally Once a day [facility] 10/19/2016 [facility] Abilify 1 tablet Orally Active 10 MG Orally Once a day [facility] 10/19/2016 [facility] ofloxacin (OCUFLOX) 0.3 % ophthalmic solution Instill 5 drops to left ear daily for 10 days. Ok for pharmacist to dispense eye solution for ear treatment.. Active 08/19/2016 [facility] albuterol (VENTOLIN HFA,PROVENTIL HFA,PROAIR HFA) 90 mcg/actuation inhaler Administer 2 Puffs by inhalation 4 times daily as needed for Wheezing. Inhalation Active 09/02/2012 [facility] venlafaxine (EFFEXOR XR) 150 mg extended release capsule Take 2 capsules by mouth daily. Oral Active 09/02/2012 [facility] aripiprazole (ABILIFY) 10 mg tablet Take 1 tablet by mouth daily. Oral Active 09/02/2012 [facility] Metformin HCl 1 tablet with meals Orally Active 500 MG Orally Twice a day [facility] Lisinopril 1 tablet Orally Active 10 MG Orally Once a day [facility] ProAir HFA 2 puffs as needed Inhalation Active 108 (90 Base) MCG/ACT Inhalation every 4 hrs [facility] Clopidogrel Bisulfate 1 tablet Orally Active 75 MG Orally Once a day [facility] Atorvastatin Calcium 1 tablet Orally Active 10 MG Orally Once a day [facility] BuPROPion HCl (XL) 1 tablet in the morning Orally Active 150 MG Orally Once a day [facility] Metformin HCl 1 tablet with meals Orally Active 500 MG Orally Twice a day [facility] Atorvastatin Calcium 1 tablet Orally Active 10 MG Orally Once a day [facility] Clopidogrel Bisulfate 1 tablet Orally Active 75 MG Orally Once a day [facility] ProAir HFA 2 puffs as needed Inhalation [...] Updated Comments Source Influenza Vaccine 01/09/2010 completed [facility] Results Order Name Results Value Reference Range [...] 7.35 7.33 - 7.43 06/23/2017 Physician Notified [facility] VBG POC pCO2, Steven POC 38.3 38.0 - 50.0 [facility] p[facility] Steven POC 44 50 - 75 [facility] Base Deficit, Steven POC 4 06/23[facility] HCO3, Steven POC 21.0 22 - 26 06/23[facility] % Sat, Steven POC 78 60 - 85 06/23/2017 [facility] POC Lactic Acid, Steven POC 2.85 0.4 - 2 06/23/[facility] TCO2, STEVEN POC 22 21 - 32 06/23/[facility] Lab Interpretation Abnormal 06/23/2017 [facility] POC CO2 POC 22 21 - 32 06/23/2017 [facility] POC Chloride POC 108 98 - 107 06/23/2017 [facility] POC Potassium POC 3.8 3.5 - 5.1 06/23/2017 [facility] POC Sodium POC 142 136 - 145 06/23/2017 [facility] POC Glucose POC 103 74 - 106 06/23/2017 [facility] POC Urea Nitrogen POC 18 7 - 18 06/23/2017 [facility] POC Creatinine POC 0.5 0.6 - 1.3 06/23/2017 [facility] POC Calcium Ionized POC 1.06 1.15 - 1.29 06/23/2017 [facility] POC Hemoglobin POC 12.9 12 - 16 06/23/2017 [facility] POC Hematocrit POC 38.0 37 - 47 06/23/2017 [facility] POC GFR, Estimated >60 mL/min/1.73 m2 06/23/2017 [facility] POC GFR, Estim, Afr-Am >60 mL/min/1.73 m2 06/23/2017 [facility] POC Lab Interpretation Abnormal 06/23/2017 [facility] DUPLEX DOPPLER ABD/PEL VASCULAR STUDY, COMPLETE <p>IMPRESSION:</p><p>1.Complex nabothian cysts at the cervix. </p><p> </p><p>This [facility] radiology report is a preliminary resident dictation until</p><p>finalized by an attending.Changes to this preliminary report may occur</p><p>in an additional preliminary or finalized version.</p><p> </p><p>Dictated By: Guadalupe Mims MD, 06/22/2017 1:47 PM</p><p> </p><p>I have reviewed the study and agree with the findings in this report.</p><p> </p><p>Signed By: Manjeet Mcgraw MD, 06/22/2017 2:07 PM& amp;lt;/p><p> </p> IMPRESSION:1.Complex nabothian cysts at the cervix. This [facility] radiology report is a preliminary resident dictation untilfinalized by an attending.Changes to this preliminary report may occurin an additional preliminary or finalized version. Dictated By: Guadalupe Mims MD, 06/22/2017 1:47 PM I have reviewed the study and agree with the findings in this report. Signed By: Manjeet Mcgraw MD, 06/22/2017 2:07 PM 06/22/2017 [facility] DUPLEX DOPPLER ABD/PEL VASCULAR STUDY, COMPLETE <p>EXAM: [...] Doppler Free fluid: None. Other: None. 06/22/2017 [facility] DUPLEX DOPPLER ABD/PEL VASCULAR STUDY, COMPLETE <p [...] nabothian cysts at the cervix. </span>

<span>This [facility] radiology report is a preliminary resident dictation [...] Complex nabothian cysts at the cervix. This [facility] radiology report is a preliminary resident dictation until finalized by an attending. Changes to this preliminary report may occur in an additional preliminary or finalized version. Dictated By: Guadalupe Mims MD, 06/22/2017 1:47 PM I have reviewed the study and agree with the findings in this report. Signed By: Manjeet Mcgraw MD, 06/22/2017 2:07 PM 06/22/2017 [facility] UA CHEMISTRIES Color Straw 06/22/2017 [facility] UA CHEMISTRIES Clarity Clear 06/22/2017 [facility] UA CHEMISTRIES Spec [place] 1.006 1.001 - 1.035 06/22/2017 [facility] UA CHEMISTRIES pH 6.0 5 - 8 06/22/2017 [facility] UA CHEMISTRIES Protein Negative NEG 06/22/2017 [facility] UA CHEMISTRIES Glucose Negative NEG 06/22/2017 [facility] UA CHEMISTRIES Ketone Negative NEG 06/22/2017 [facility] UA CHEMISTRIES Bilirubin Negative NEG 06/22/2017 [facility] UA CHEMISTRIES Nitrate Negative NEG 06/22/2017 [facility] UA CHEMISTRIES Urobilinogen <1.0 0.2 - 1 06/22/2017 [facility] UA CHEMISTRIES Leukocyte Negative NEG 06/22/2017 [facility] UA CHEMISTRIES Blood 1+ NEG 06/22/2017 [facility] UA CHEMISTRIES RBC <1 0 - 4 06/22/2017 [facility] UA CHEMISTRIES WBC 1 0 - 5 06/22/2017 [facility] UA CHEMISTRIES Epithelial Cell 1 /HPF 06/22/2017 [facility] UA CHEMISTRIES Lab Interpretation Abnormal 06/22/2017 [facility] CBC/DIFF WBC 11.1 4.5 - 11 06/22/2017 [facility] CBC/DIFF RBC 4.77 4.20 - 5.40 06/22/2017 [facility] CBC/DIFF Hemoglobin 12.2 12 - 16 06/22/2017 [facility] CBC/DIFF Hematocrit 40.1 37 - 47 06/22/2017 [facility] CBC/DIFF MCV 84 82 - 92 06/22/2017 [facility] CBC/DIFF MCH 25.6 27 - 32 06/22/2017 [facility] CBC/DIFF MCHC 30.4 32 - 36 06/22/2017 [facility] CBC/DIFF RDW 42.9 36.4 - 46.3 06/22/2017 [facility] CBC/DIFF Platelet 503 150 - 400 06/22/2017 [facility] CBC/DIFF Mean Platelet Volume 8.7 9.4 - 12.4 06/22/2017 [facility] CBC/DIFF Percent NRBC 0.0 06/22/2017 [facility] CBC/DIFF Absolute NRBC 0.00 06/22/2017 [facility] CBC/DIFF Neutrophil 86.3 34 - 70 06/22/2017 [facility] CBC/DIFF Lymphocyte 11.2 20 - 50 06/22/2017 [facility] CBC/DIFF Monocyte 1.9 5 - 12 06/22/2017 [facility] CBC/DIFF Eosinophil 0.0 0.7 - 5 06/22/2017 [facility] CBC/DIFF Basophil 0.1 0.1 - 1.2 06/22/2017 [facility] CBC/DIFF Pct Immat Gran 0.5 0.0 - 0.5 06/22/2017 [facility] CBC/DIFF Neutrophil, Abs 9.54 1.56 - 6.13 06/22/2017 [facility] CBC/DIFF Lymphocyte, Abs 1.24 1.18 - 3.74 06/22/2017 [facility] CBC/DIFF Monocyte, Abs 0.21 0.24 - 0.36 06/22/2017 [facility] CBC/DIFF Eosinophil, Abs 0.00 0.04 - 0.36 06/22/2017 [facility] CBC/DIFF Basophil, Abs 0.01 0.01 - 0.08 06/22/2017 [facility] CBC/DIFF Absol Immat Gran 0.05 0 - 0.03 06/22/2017 [facility] CBC/DIFF Lab Interpretation Abnormal 06/22/2017 [facility] POCT URINE DIPSTICK - Control pass 06/22/2017 [facility] POCT URINE DIPSTICK - negative 06/22/2017 [facility] POCT URINE DIPSTICK - Lab Interpretation Normal 06/22/2017 [facility] Pathology Reports No Data Provided for This Section Diagnostic Reports Report Value Date Source CT ABDOMEN AND PELVIS CONTRAST IMPRESSION:1.No acute abnormality identified in the abdomen or pelvis.2.Small fat-containing right anterior pelvic wall infraumbilicalhernia.3.Nabothian and ovarian cysts as seen on same- day pelvic ultrasound. This [facility] radiology report is a preliminary resident dictation [...] as seen on same-day pelvic ultrasound. This [facility] radiology report is a preliminary resident dictation until finalized by an attending. Changes to this preliminary report may occur in an additional preliminary or finalized version. Dictated By: Santhosh Brannon MD, 06/22/2017 5:58 PM I have reviewed the study and agree with the findings in this report. Signed By: Mariel Freitsa MD, 06/22/2017 6:05 PM 06/22/2017 [facility] U/S TRANSVAGINAL IMPRESSION:1.Complex nabothian cysts at the cervix. This [facility] radiology report is a preliminary resident dictation [...] Complex nabothian cysts at the cervix. This [facility] radiology report is a preliminary resident dictation until finalized by an attending. Changes to this preliminary report may occur in an additional preliminary or finalized version. Dictated By: Guadalupe Mims MD, 06/22/2017 1:47 PM I have reviewed the study and agree with the findings in this report. Signed By: Manjeet Mcgraw MD, 06/22/2017 2:07 PM 06/22/2017 [facility]/ PELVIS NON-OB IMPRESSION:1.Complex nabothian cysts at the cervix. This [facility] radiology report is a preliminary resident dictation [...] Complex nabothian cysts at the cervix. This [facility] radiology report is a preliminary resident dictation until finalized by an attending. Changes to this preliminary report may occur in an additional preliminary or finalized version. Dictated By: Guadalupe Mims MD, 06/22/2017 1:47 PM I have reviewed the study and agree with the findings in this report. Signed By: Manjeet Mcgraw MD, 06/22/2017 2:07 PM 06/22/2017 [facility] Consultation Notes No Data Provided for This [...] DC Date Status Source Emergency Center (6520) [facility] Emergency [id number] Alejandro Armenta MD 06/22/2017 06/23/2017 [facility] ASK YOUR NURSE PROGRAM Nurse Triage [id number] Sheela Alvarado RN 06/24/2017 [facility] New Patient Detailed - [id number] Sohail Cordova MD 01/26/2018 [facility] Vst, Est Level IV [id number] Matilde Guajardo MD 02/09/2018 [facility] OB Est Patient Detailed - 07107 [id number] Juan Matta MD 04/28/2018 [facility] OB Est Patient Exp Problem - [id number] Nicky Leary MD 05/04/2018 [facility] (6520) [facility] Emergency [id number] 05/04/2018 [facility] Procedures Procedure Code Date Perfomer Comments Source Est Patient Well Exam (40 - 64 Yrs) - 31032 [id number] 03/01/2018 [facility] [facility] Rapid Strep - In House 05773 01/26/2018 Tasha [place] [facility] CT ABDOMEN AND PELVIS CONTRAST 92882 06/23/2017 [facility] BMP POC 80174 06/22/2017 [facility] U/S TRANSVAGINAL 03684 06/22/2017 [facility] DUPLEX DOPPLER ABD/PEL VASCULAR STUDY, COMPLETE 25047 06/22/2017 [facility] U/S PELVIS NON-OB 48822 06/22/2017 [facility] VBG POC 41038 06/22/2017 [place] [facility] UA CHEMISTRIES 06138 06/22/2017 [facility] CBC/DIFF 14462 06/22/2017 [facility] POCT URINE DIPSTICK - [id number] 06/22/2017 [facility] Assessment and Plan No Data Provided for This Section Plan of Care Plan of Care Date Source Breast Cancer Scrn (Yearly) 2013 [facility] Cervical Cancer Scrn (3 Yrs) 1994 [facility] Social History Social History Date Source Tobacco UseTypesPacks/DayYears UsedDate Never Smoker Smokeless Tobacco: Never Used Tobacco Cessation: Counseling Given: No Alcohol UseDrinks/Weekoz/WeekComments No Sex Assigned at BirthDate Recorded Not on file Job Start DateOccupationIndustry Not on file Not on file Not on file Travel HistoryTravel StartTravel End No recent travel history available. 06/23/2017 [facility] Family History Value Date Source Medical HistoryRelationNameComments Heart Maternal Grandmother Hypertension Maternal Grandmother Cancer Mother RelationNameStatusComments Brother Alive x 1 Father Other Maternal Grandfather Maternal Grandmother Mother Alive Paternal Grandfather Other Paternal Grandmother Other Sister Alive x 1 05/04/2018 [facility] Advance Directives No Data Provided for This Section Functional Status No Data Provided for This Section
[2018-12-11] MEDS ORDERED: SODIUM CHLORIDE 0.9% 1000ML 1,000 ML IV STA (19:30)
[2018-12-11] MEDS ORDERED: FAMOTIDINE 20 MG/2 ML VIAL IV ONE (20:00)
[2018-12-11 20:09] LABS: BASOPHILS % 0.2 % (0.0-1.0); EOSINOPHILS # (AUTO) 0.1 (0.0-0.4); EOSINOPHILS % 1.2 % (0.0-6.0); HEMATOCRIT 38.7 % (34.2-44.1); HEMOGLOBIN 10.9 g/dL (12.0-16.0); LYMPHOCYTES # (AUTO) 2.7 (1.0-3.2); LYMPHOCYTES % 32.8 % (18.0-39.1); MEAN CORPUSCULAR HEMOGLOBIN 21.2 pg (28-32); MEAN CORPUSCULAR HGB CONC 28.2 g/dL (31-35); MEAN CORPUSCULAR VOLUME 75.1 fL (81-99); MONOCYTES # (AUTO) 0.5 (0.2-0.8); MONOCYTES % 5.8 % (4.4-11.3); NEUTROPHILS % 59.8 % (38.7-80.0); PLATELET COUNT 471 x10e3/uL (140-360); RED BLOOD COUNT 5.15 x10e6/uL (3.6-5.1)
[2018-12-11 20:14] LABS: BILIRUBIN,URINE NEGATIVE (NEGATIVE); CLARITY,URINE CLEAR (CLEAR); COLOR,URINE YELLOW (YELLOW); KETONES,URINE NEGATIVE (NEGATIVE); LEUKOCYTE ESTERASE ,URINE NEGATIVE (NEGATIVE); NITRITE,URINE NEGATIVE (NEGATIVE); PROTEIN,URINE DIPSTICK NEGATIVE (NEGATIVE); URINE UROBILINOGEN 0.2 mg/dL (0.2 - 1)
[2018-12-11 20:15] LABS: ALANINE AMINOTRANSFERASE 13 IU/L (0-55); ALBUMIN 3.5 g/dL (3.5-5.0); ALBUMIN/GLOBULIN RATIO 0.9 (0.8-2.0); ALKALINE PHOSPHATASE 122 IU/L (40-150); ANION GAP 14.8 mmol/L (8-16); BLOOD UREA NITROGEN 11 mg/dL (7-26); BUN/CREATININE RATIO 16 (6-25); CALCIUM 9.3 mg/dL (8.4-10.2); CARBON DIOXIDE 25 mmol/L (22-29); CHLORIDE 104 mmol/L (98-107); CREATINE KINASE 41 IU/L (29-168); EST GLOMERULAR FILTRATION RATE > 60 ML/MIN (60-); GLUCOSE 98 mg/dL (74-118); LIPASE 24 U/L (8-78); POTASSIUM 3.8 mmol/L (3.5-5.1); SODIUM 140 mmol/L (136-145)
[2018-12-11 20:21] LABS: PREGNANCY TEST, URINE NEGATIVE (NEGATIVE)
[2018-12-11 20:37] LABS: BACTERIA,URINE FEW /HPF; EPITHELIAL CELLS,URINE MODERATE /LPF; RBC,URINE 0-5 /HPF (0-5); WBC,URINE (MAN) 0-5 /HPF (0-5)
--- NOTE | 2018-12-11 21:08 | NUR ---
PT UP TO RESTROOM
[2018-12-11 21:10] LABS: HYPOCHROMASIA MODERATE
[2018-12-11 21:11] LABS: ANISOCYTOSIS MODE; POIKILOCYTOSIS SLIGHT
[2018-12-11] MEDS ORDERED: ONDANSETRON HCL INJ 2MG/ML 2ML 2 MG/ML VIAL IV STA (21:11)
[2018-12-11 21:12] LABS: PLATELET ESTIMATE SLIGHTLY INCREASED; PLATELET MORPHOLOGY COMMENT FEW GIANT
[2018-12-11] MEDS ORDERED: SODIUM CHLORIDE 0.9% 50ML 50 ML ONE (21:12)
[2018-12-11] MEDS ORDERED: IOPAMIDOL 370 MG/ML 200 ML INFUS..BTL INJ ONE (21:12)
--- NOTE | 2018-12-11 22:25 | Diagnostic Imaging Report ---
EXAM: CT Abdomen and Pelvis WITH contrast INDICATION: Right lower quadrant abdominal pain, nausea, vomiting COMPARISON: Abdominal CT 04/20/2017. TECHNIQUE: Abdomen and pelvis were scanned utilizing a multidetector helical scanner from the lung base to the pubic symphysis after administration of IV contrast. Coronal and sagittal reformations were obtained. Routine protocol was performed. Scan was performed when during portal venous phase. IV CONTRAST: 100 mL of Isovue 370 ORAL CONTRAST: Water COMPLICATIONS: None RADIATION DOSE: Total DLP: 859 mGy*cm Estimated effective dose: (DLP x 0.015 x size factor) mSv CTDIvol has been reviewed. It is below the limits set by the Radiation Protocol Committee (RPC). Dose modulation, iterative reconstruction, and/or weight based adjustment of the mA/kV was utilized to reduce the radiation dose to as low as reasonably achievable. FINDINGS: LINES and TUBES: None. LOWER THORAX: Trace pericardial fluid. HEPATOBILIARY: No focal hepatic lesions. No biliary ductal dilation. GALLBLADDER: No radio-opaque stones or sludge. No wall thickening. Contracted. SPLEEN: No splenomegaly. PANCREAS: No focal masses or ductal dilatation. ADRENALS: No adrenal nodules KIDNEYS/URETERS: Kidneys enhance symmetrically. No hydronephrosis. No cystic or solid mass lesions. No stones. GI TRACT: No abnormal distention, wall thickening, or evidence of bowel obstruction. Appendix is normal. PELVIC ORGANS/BLADDER: Multiple Nabothian cysts, unchanged compared to abdominal CT 04/20/2017. LYMPH NODES: No lymphadenopathy. VESSELS: Unremarkable. PERITONEUM / RETROPERITONEUM: No free air or fluid. BONES: Unremarkable. SOFT TISSUES: A 2.5 cm midline infraumbilical fat-containing hernia with minimal fat stranding, there are 2.5 cm peritoneal defect, appears similar compared to 04/20/2017. IMPRESSION: A chronic 2.5 cm midline infraumbilical fat-containing hernia with minimal associated inflammation. No bowel obstruction or fluid collection. Signed by: Sy Tubbs DO on 12/11/2018 10:22 PM
[2018-12-11] MEDS ORDERED: MORPHINE SULFATE INJ 4 MG/ML INJ 1ML IV STA (22:34)
[2018-12-11 23:01] VITALS: BP 112/73
== END 2018-12-11 23:13 | disposition home or self-care (01) ==
LOC: ER 19:26
DX: R10.33 Periumbilical pain (principal); R07.89 Other chest pain; R11.2 Nausea with vomiting, unspecified
CPT/HCPCS: 36415; 74177; 80053; 81001; 81025; 82550; 82553; 83690; 84484; 85025; 93005; 99284; J2270; J2405; J7030; Q9967

== ENCOUNTER 2019-02-07 10:36 | Emergency (ER) | payer OTHER ==
[~2019-02-07] VITALS: Ht 154.9 cm; Wt 118.8 kg
[2019-02-07] MEDS ORDERED: SODIUM CHLORIDE 0.9% 1000ML 1,000 ML IV STA (10:46)
[2019-02-07 11:16] LABS: BASOPHILS % 0.2 % (0.0-1.0); EOSINOPHILS # (AUTO) 0.1 (0.0-0.4); EOSINOPHILS % 1.2 % (0.0-6.0); HEMATOCRIT 39.5 % (34.2-44.1); HEMOGLOBIN 11.9 g/dL (12.0-16.0); LYMPHOCYTES # (AUTO) 2.2 (1.0-3.2); LYMPHOCYTES % 22.9 % (18.0-39.1); MEAN CORPUSCULAR HEMOGLOBIN 23.6 pg (28-32); MEAN CORPUSCULAR HGB CONC 30.1 g/dL (31-35); MEAN CORPUSCULAR VOLUME 78.4 fL (81-99); MONOCYTES # (AUTO) 0.4 (0.2-0.8); NEUTROPHILS # (AUTO) 6.8 (2.1-6.9); NEUTROPHILS % 71.5 % (38.7-80.0); PLATELET COUNT 466 x10e3/uL (140-360); RED BLOOD COUNT 5.04 x10e6/uL (3.6-5.1); RED CELL DISTRIBUTION WIDTH 22.7 % (11.7-14.4)
[2019-02-07 11:30] LABS: BILIRUBIN,URINE NEGATIVE (NEGATIVE); CLARITY,URINE SL CLOUDY (CLEAR); COLOR,URINE YELLOW (YELLOW); KETONES,URINE NEGATIVE (NEGATIVE); LEUKOCYTE ESTERASE ,URINE NEGATIVE (NEGATIVE); NITRITE,URINE NEGATIVE (NEGATIVE); PROTEIN,URINE DIPSTICK NEGATIVE (NEGATIVE); URINE UROBILINOGEN 0.2 mg/dL (0.2 - 1)
[2019-02-07 11:32] LABS: PREGNANCY TEST, URINE NEGATIVE (NEGATIVE)
[2019-02-07 11:40] LABS: ALANINE AMINOTRANSFERASE 10 IU/L (0-55); ALBUMIN 3.6 g/dL (3.5-5.0); ALBUMIN/GLOBULIN RATIO 0.9 (0.8-2.0); ALKALINE PHOSPHATASE 123 IU/L (40-150); ANION GAP 12.6 mmol/L (8-16); BLOOD UREA NITROGEN 14 mg/dL (7-26); BUN/CREATININE RATIO 21 (6-25); CALCIUM 9.3 mg/dL (8.4-10.2); CARBON DIOXIDE 25 mmol/L (22-29); CHLORIDE 104 mmol/L (98-107); CREATININE, SERUM 0.68 mg/dL (0.57-1.11); EST GLOMERULAR FILTRATION RATE > 60 ML/MIN (60-); GLUCOSE 92 mg/dL (74-118); LIPASE 18 U/L (8-78); POTASSIUM 3.6 mmol/L (3.5-5.1); SODIUM 138 mmol/L (136-145)
[2019-02-07 11:43] LABS: BACTERIA,URINE MANY /HPF; EPITHELIAL CELLS,URINE MODERATE /LPF; RBC,URINE 0-5 /HPF (0-5)
--- NOTE | 2019-02-07 12:43 | Diagnostic Imaging Report ---
EXAM: CT Abdomen and Pelvis WITH intravenous contrast INDICATION: Lower abdominal pain, fever COMPARISON: CT abdomen and pelvis of 12/11/2018 TECHNIQUE: Abdomen and pelvis were scanned utilizing a multidetector helical scanner from the lung base to the pubic symphysis after administration of IV contrast. Coronal and sagittal reformations were obtained. Routine protocol was performed. Scan was performed during portal venous phase. IV CONTRAST: 100mL of Isovue 370 ORAL CONTRAST: Water RADIATION DOSE: Total DLP: 861.1 mGy*cm Dose modulation, iterative reconstruction, and/or weight based adjustment of the mA/kV was utilized to reduce the radiation dose to as low as reasonably achievable. FINDINGS: LOWER THORAX: Normal. HEPATOBILIARY: No focal hepatic lesions. No biliary ductal dilatation. The gallbladder appears unremarkable. SPLEEN: No splenomegaly. PANCREAS: No focal masses or ductal dilatation. ADRENALS: No adrenal nodules. KIDNEYS/URETERS: No hydronephrosis, stones, or solid mass lesions. PELVIC ORGANS/BLADDER: Multiple cystic structures of the cervix, not well evaluated on CT. PERITONEUM / RETROPERITONEUM: No free air or fluid. LYMPH NODES: No lymphadenopathy. VESSELS: Unremarkable. GI TRACT: Diverticulosis without CT evidence of diverticulitis. No abnormal bowel thickening. No bowel obstruction. Normal appendix. BONES AND SOFT TISSUES: No acute osseous injury. No suspicious lytic or blastic lesions. IMPRESSION: Multiple cystic structures in the region of the cervix, not well evaluated on CT. Recommend transabdominal and transvaginal pelvic ultrasound for further evaluation. Diverticulosis without CT evidence of diverticulitis. Signed by: Damian Landers MD on 02/07/2019 12:40 PM
[2019-02-07] MEDS ORDERED: CIPROFLOXACIN 500 MG TAB PO SCH (13:00)
[2019-02-07] MEDS ORDERED: MORPHINE SULFATE INJ 4 MG/ML INJ 1ML IV PRN (13:00)
--- NOTE | 2019-02-07 14:31 | Diagnostic Imaging Report ---
Exam: Pelvic ultrasound. History: Cervical cysts Comparison: CT abdomen and pelvis of earlier the same day. Findings: Transabdominal and endovaginal sonographic evaluation of the pelvis. The uterus is anteverted in position, measuring 10.5 x 6.4 x 7.9cm. No uterine masses identified. Endometrial stripe thickness is 10 mm. The right ovary is not visualized due to overlying bowel gas. The left ovary measures 3.9 x 2.9 x 2.9 cm and contains multiple follicles measuring up to 1.6 cm. Multiple Nabothian cysts in the cervix measuring up to 2.0 cm. Impression: Nabothian cysts in the cervix. No uterine mass. Physiologic follicles in the left ovary. 10mm endometrial stripe, within normal limits depending on phase of menstrual cycle in this premenopausal patient. Signed by: Damian Landers MD on 02/07/2019 2:28 PM
[2019-02-07 14:53] VITALS: BP 124/64
[2019-02-07] MEDS ORDERED: SODIUM CHLORIDE 0.9% 50ML 50 ML ONE (15:35)
[2019-02-07] MEDS ORDERED: IOPAMIDOL 370 MG/ML 200 ML INFUS..BTL INJ ONE (15:35)
== END 2019-02-07 14:55 | disposition home or self-care (01) ==
LOC: ER 10:36
DX: R10.30 Lower abdominal pain, unspecified (principal); R11.2 Nausea with vomiting, unspecified; N30.90 Cystitis, unspecified without hematuria; N88.8 Other specified noninflammatory disorders of cervix uteri; K57.90 Diverticulosis of intestine, part unspecified, without perforation or abscess without bleeding
CPT/HCPCS: 36415; 74177; 76830; 76856; 80053; 81001; 81025; 83690; 85025; 99284; J2270; J7030; Q9967

== ENCOUNTER 2019-02-11 14:59 | Emergency (ER) | payer OTHER ==
[~2019-02-11] VITALS: Ht 154.9 cm; Wt 118.8 kg
[2019-02-11 16:08] LABS: PREGNANCY TEST, URINE NEGATIVE (NEGATIVE)
[2019-02-11] MEDS ORDERED: ONDANSETRON HCL INJ 2MG/ML 2ML 2 MG/ML VIAL IV NR (16:08)
[2019-02-11] MEDS ORDERED: SODIUM CHLORIDE 0.9% 1000ML 1,000 ML IV STA (16:08)
[2019-02-11 16:10] LABS: AMPHETAMINES SCREEN,URINE NEGATIVE (NEGATIVE); BENZODIAZEPINES SCREEN,URINE NEGATIVE (NEGATIVE); PHENCYCLIDINE SCREEN,URINE NEGATIVE (NEGATIVE)
[2019-02-11 16:15] LABS: BILIRUBIN,URINE NEGATIVE (NEGATIVE); CLARITY,URINE CLEAR (CLEAR); COLOR,URINE YELLOW (YELLOW); KETONES,URINE NEGATIVE (NEGATIVE); LEUKOCYTE ESTERASE ,URINE NEGATIVE (NEGATIVE); NITRITE,URINE NEGATIVE (NEGATIVE); PROTEIN,URINE DIPSTICK NEGATIVE (NEGATIVE); URINE UROBILINOGEN 0.2 mg/dL (0.2 - 1)
[2019-02-11] MEDS ORDERED: KETOROLAC TROMETHAMINE 30 MG/ML VIAL IV NR (16:15)
[2019-02-11 16:19] LABS: WBC,URINE (MAN) 0-5 /HPF (0-5)
[2019-02-11 16:23] LABS: BACTERIA,URINE FEW /HPF; EPITHELIAL CELLS,URINE MODERATE /LPF
[2019-02-11] MEDS ORDERED: IOPAMIDOL 370 MG/ML 200 ML INFUS..BTL INJ ONE (17:35)
[2019-02-11] MEDS ORDERED: SODIUM CHLORIDE 0.9% 50ML 50 ML ONE (17:35)
[2019-02-11 18:27] LABS: BASOPHILS % 0.3 % (0.0-1.0); EOSINOPHILS # (AUTO) 0.2 (0.0-0.4); EOSINOPHILS % 2.1 % (0.0-6.0); HEMATOCRIT 39.3 % (34.2-44.1); HEMOGLOBIN 11.7 g/dL (12.0-16.0); LYMPHOCYTES # (AUTO) 2.8 (1.0-3.2); LYMPHOCYTES % 27.3 % (18.0-39.1); MEAN CORPUSCULAR HEMOGLOBIN 23.1 pg (28-32); MEAN CORPUSCULAR HGB CONC 29.8 g/dL (31-35); MEAN CORPUSCULAR VOLUME 77.7 fL (81-99); MONOCYTES # (AUTO) 0.5 (0.2-0.8); MONOCYTES % 4.5 % (4.4-11.3); NEUTROPHILS # (AUTO) 6.6 (2.1-6.9); NEUTROPHILS % 65.5 % (38.7-80.0); PLATELET COUNT 444 x10e3/uL (140-360); RED BLOOD COUNT 5.06 x10e6/uL (3.6-5.1)
[2019-02-11 18:29] LABS: ALANINE AMINOTRANSFERASE 11 IU/L (0-55); ALBUMIN 3.6 g/dL (3.5-5.0); ALKALINE PHOSPHATASE 129 IU/L (40-150); BLOOD UREA NITROGEN 6 mg/dL (7-26); BUN/CREATININE RATIO 9 (6-25); CALCIUM 9.7 mg/dL (8.4-10.2); CARBON DIOXIDE 27 mmol/L (22-29); CHLORIDE 98 mmol/L (98-107); CREATININE, SERUM 0.69 mg/dL (0.57-1.11); EST GLOMERULAR FILTRATION RATE > 60 ML/MIN (60-); GLUCOSE 86 mg/dL (74-118); SODIUM 136 mmol/L (136-145)
[2019-02-11] MEDS ORDERED: DICYCLOMINE HCL 20 MG/2 ML VIAL IM NR (19:00)
--- NOTE | 2019-02-11 20:14 | Diagnostic Imaging Report ---
CT Abdomen And Pelvis with Intravenous Contrast INDICATION: Left lower quadrant pain ^abd pain ^[id number] ^[id number] TECHNIQUE: Thin collimation axial images obtained from the diaphragm to the level of the pubic symphysis following the uneventful administration of 100 cc of low osmolar, nonionic intravenous contrast. Dose reduction techniques used: Automated exposure control, adjustment of the mAs and/or kVp according to patient size, standardized low-dose protocol, and/or iterative reconstruction technique. RADIATION DOSE: Total DLP: 851.6 mGy*cm Estimated effective dose: (DLP x 0.015 x size factor) mSv CTDIvol has been reviewed. It is below the limits set by the Radiation Protocol Committee (RPC). COMPARISON: Pelvic ultrasound 02/07/2019, CT abdomen/pelvis 02/07/2019. CT abdomen/pelvis 12/11/2018 ABDOMEN FINDINGS: Lung Bases: Clear. The visualized portions of the mediastinum are normal. Liver: Normal attenuation. No evidence for mass. Gallbladder: Present and appears normal. No biliary ductal dilatation. Pancreas: Normal attenuation without mass or ductal dilatation. Spleen: Normal in size. No evidence of mass. Adrenal Glands: No evidence for mass. Kidneys: Right: Normal enhancement. No soft tissue mass. No hydronephrosis. Left: Normal enhancement. No soft tissue mass. No hydronephrosis. Lymph Nodes: No lymphadenopathy. Aorta: Normal in diameter PELVIS FINDINGS: Bowel: Stomach: Normal. Small Bowel: Normal in caliber with normal wall thickness. Large Bowel: Several scattered diverticula in the left colon. No associated inflammation. Remainder of the large bowel is unremarkable. Appendix: Normal appendix. Bladder: Underdistended. Uterus: Present with fullness of the endometrium and an enhancing mass protruding within the endometrium measuring 17 x 15 mm. This is grossly stable. The cervix enhances heterogeneously and is prominent, measuring 4.6 x 5.8 cm. This is stable. By ultrasound, Nabothian cysts were identified. Ovaries: Normal Lymph nodes: No enlarged inguinal lymph nodes. A left common iliac chain lymph node measures 5 mm and is nonspecific. Bones: No lytic or blastic lesions. Soft tissues: Fat-containing of focal hernia is stable. No associated inflammation. IMPRESSION: 1. Prominent heterogeneously enhancing cervix. Although the pelviectasis identified on ultrasound, correlation with pap smear and pelvic exam is recommended. There is mild distention of the endometrial canal with a 17 mm enhancing intraluminal nodule. This may represent a polyp or fibroid. Correlation with sonohysterography is recommended. 2. Diverticulosis coli. No evidence for bowel obstruction or inflammation. Normal appendix. 3. No new left lower quadrant findings to explain pain. Signed by: Dr. Liza Valles MD on 02/11/2019 8:11 PM
[2019-02-11 20:54] VITALS: BP 108/50
== END 2019-02-11 20:40 | disposition home or self-care (01) ==
LOC: ER 14:59
DX: R10.31 Right lower quadrant pain (principal); R10.32 Left lower quadrant pain; R11.2 Nausea with vomiting, unspecified; K57.90 Diverticulosis of intestine, part unspecified, without perforation or abscess without bleeding; J45.909 Unspecified asthma, uncomplicated; E66.01 Morbid (severe) obesity due to excess calories; Z86.73 Personal history of transient ischemic attack (TIA), and cerebral infarction without residual deficits
CPT/HCPCS: 36415; 74177; 80053; 80307; 81001; 81025; 85025; 99284; J0500; J1885; J2405; J7030; Q9967

== ENCOUNTER 2019-02-24 19:42 | Emergency (ER) | payer OTHER ==
[~2019-02-24] VITALS: Ht 154.9 cm; Wt 118.8 kg
[2019-02-24] MEDS ORDERED: ALBUTEROL SULF 0.083% NEB SOLN 3 ML NEB NEB ONE (19:57)
[2019-02-24] MEDS ORDERED: IPRATROPIUM BROMIDE 0.02% 2.5 ML NEB NEB STA (19:57)
[2019-02-24] MEDS ORDERED: DEXAMETHASONE SOD PHOS 10 MG/1 ML VIAL IM ONE (20:00)
--- NOTE | 2019-02-24 20:46 | Diagnostic Imaging Report ---
EXAMINATION: CHEST 2 VIEWS INDICATION: Chest pain, shortness of breath. COMPARISON: None FINDINGS: TUBES and LINES: None. LUNGS: Lungs are well inflated. There is no evidence of pneumonia or pulmonary edema. PLEURA: No pleural effusion or pneumothorax. HEART AND MEDIASTINUM: The cardiomediastinal silhouette is unremarkable. BONES AND SOFT TISSUES: No acute osseous abnormality. UPPER ABDOMEN: No free air under the diaphragm. IMPRESSION: No acute radiographic abnormality. Signed by: Dr. Clarissa Briones MD on 02/24/2019 8:42 PM
== END 2019-02-25 00:12 | disposition home or self-care (01) ==
LOC: ER 19:42
DX: J20.9 Acute bronchitis, unspecified (principal); J45.909 Unspecified asthma, uncomplicated; Z99.81 Dependence on supplemental oxygen; E66.01 Morbid (severe) obesity due to excess calories; Z68.42 Body mass index [BMI] 45.0-49.9, adult
CPT/HCPCS: 71046; 94640; 96372; 99283; J1100

== ENCOUNTER 2019-03-10 12:27 | Emergency (ER) | payer OTHER ==
[~2019-03-10] VITALS: Ht 154.9 cm; Wt 118.8 kg
[2019-03-10] MEDS ORDERED: ASPIRIN 81 MG CHEW TAB PO ONE (12:45)
[2019-03-10 13:01] LABS: BASOPHILS % 0.3 % (0.0-1.0); EOSINOPHILS # (AUTO) 0.1 (0.0-0.4); EOSINOPHILS % 0.7 % (0.0-6.0); HEMATOCRIT 31.4 % (34.2-44.1); HEMOGLOBIN 9.4 g/dL (12.0-16.0); LYMPHOCYTES % 18.7 % (18.0-39.1); MEAN CORPUSCULAR HEMOGLOBIN 23.3 pg (28-32); MEAN CORPUSCULAR HGB CONC 29.9 g/dL (31-35); MEAN CORPUSCULAR VOLUME 77.9 fL (81-99); MONOCYTES # (AUTO) 0.5 (0.2-0.8); MONOCYTES % 4.4 % (4.4-11.3); NEUTROPHILS # (AUTO) 8.1 (2.1-6.9); NEUTROPHILS % 75.4 % (38.7-80.0); PLATELET COUNT 484 x10e3/uL (140-360); RED BLOOD COUNT 4.03 x10e6/uL (3.6-5.1); RED CELL DISTRIBUTION WIDTH 17.3 % (11.7-14.4)
[2019-03-10 13:08] VITALS: BP 111/53
[2019-03-10 13:23] LABS: ALANINE AMINOTRANSFERASE 11 IU/L (0-55); ALBUMIN/GLOBULIN RATIO 0.9 (0.8-2.0); ALKALINE PHOSPHATASE 98 IU/L (40-150); BLOOD UREA NITROGEN 6 mg/dL (7-26); BUN/CREATININE RATIO 10 (6-25); CALCIUM 8.4 mg/dL (8.4-10.2); CARBON DIOXIDE 24 mmol/L (22-29); CHLORIDE 106 mmol/L (98-107); CREATINE KINASE 36 IU/L (29-168); CREATININE, SERUM 0.61 mg/dL (0.57-1.11); EST GLOMERULAR FILTRATION RATE > 60 ML/MIN (60-); GLUCOSE 93 mg/dL (74-118); MAGNESIUM 1.7 MG/DL (1.3-2.1); SODIUM 139 mmol/L (136-145)
--- NOTE | 2019-03-10 13:57 | Diagnostic Imaging Report ---
EXAMINATION: CHEST SINGLE (PORTABLE) INDICATION: Chest pain, shortness of breath. COMPARISON: Chest radiograph 02/24/2019. FINDINGS: Exam is somewhat limited by portable technique and soft tissue attenuation. TUBES and LINES: None. LUNGS: Lungs are well inflated. There is no evidence of pneumonia or pulmonary edema. Central vascular congestion. Mild patchy bibasilar opacities, likely atelectasis. PLEURA: No pleural effusion or pneumothorax. HEART AND MEDIASTINUM: The cardiomediastinal silhouette is unremarkable. BONES AND SOFT TISSUES: No acute osseous abnormality. UPPER ABDOMEN: No free air under the diaphragm. IMPRESSION: No acute radiographic abnormality. Signed by: Dr. Clarissa Briones MD on 03/10/2019 1:54 PM
== END 2019-03-10 14:18 | disposition home or self-care (01) ==
LOC: ER 12:27
DX: R07.89 Other chest pain (principal); D64.9 Anemia, unspecified; E66.01 Morbid (severe) obesity due to excess calories; Z86.73 Personal history of transient ischemic attack (TIA), and cerebral infarction without residual deficits
CPT/HCPCS: 36415; 71045; 80053; 82550; 82553; 83735; 84484; 84702; 85025; 93005; 99284

== ENCOUNTER 2019-05-08 18:55 | Emergency (ER) | payer OTHER ==
[~2019-05-08] VITALS: Ht 154.9 cm; Wt 118.8 kg
[2019-05-08] MEDS ORDERED: ALBUTEROL/IPRATROPIUM 3 ML NEB NEB ONE ×2 (19:00→20:15)
[2019-05-08] MEDS ORDERED: ALBUTEROL/IPRATROPIUM 3 ML NEB ONE (19:20)
[2019-05-08 19:25] LABS: CLARITY,URINE TURBID (CLEAR); COLOR,URINE RED (YELLOW)
[2019-05-08 19:26] LABS: BILIRUBIN,URINE NEGATIVE (NEGATIVE); KETONES,URINE NEGATIVE (NEGATIVE); LEUKOCYTE ESTERASE ,URINE TRACE (NEGATIVE); NITRITE,URINE NEGATIVE (NEGATIVE); PROTEIN,URINE DIPSTICK 2+ (NEGATIVE); URINE UROBILINOGEN 0.2 mg/dL (0.2 - 1)
[2019-05-08 19:32] LABS: BACTERIA,URINE FEW /HPF; RBC,URINE >50 /HPF (0-5)
[2019-05-08 19:33] LABS: EPITHELIAL CELLS,URINE FEW /LPF
[2019-05-08 19:57] LABS: BASOPHILS % 0.3 % (0.0-1.0); EOSINOPHILS # (AUTO) 0.1 (0.0-0.4); HEMATOCRIT 32.6 % (34.2-44.1); HEMOGLOBIN 9.3 g/dL (12.0-16.0); LYMPHOCYTES # (AUTO) 3.4 (1.0-3.2); LYMPHOCYTES % 29.2 % (18.0-39.1); MEAN CORPUSCULAR HEMOGLOBIN 20.9 pg (28-32); MEAN CORPUSCULAR HGB CONC 28.5 g/dL (31-35); MEAN CORPUSCULAR VOLUME 73.4 fL (81-99); MONOCYTES # (AUTO) 0.6 (0.2-0.8); MONOCYTES % 4.9 % (4.4-11.3); NEUTROPHILS # (AUTO) 7.4 (2.1-6.9); NEUTROPHILS % 64.3 % (38.7-80.0); PLATELET COUNT 485 x10e3/uL (140-360); RED BLOOD COUNT 4.44 x10e6/uL (3.6-5.1); RED CELL DISTRIBUTION WIDTH 17.2 % (11.7-14.4)
[2019-05-08 20:13] LABS: ALANINE AMINOTRANSFERASE 11 IU/L (0-55); ALBUMIN 3.6 g/dL (3.5-5.0); ALBUMIN/GLOBULIN RATIO 0.9 (0.8-2.0); ALKALINE PHOSPHATASE 145 IU/L (40-150); ANION GAP 14.8 mmol/L (8-16); BLOOD UREA NITROGEN 11 mg/dL (7-26); BUN/CREATININE RATIO 15 (6-25); CALCIUM 8.8 mg/dL (8.4-10.2); CARBON DIOXIDE 26 mmol/L (22-29); CHLORIDE 104 mmol/L (98-107); CREATINE KINASE 52 IU/L (29-168); CREATININE, SERUM 0.75 mg/dL (0.57-1.11); EST GLOMERULAR FILTRATION RATE > 60 ML/MIN (60-); GLUCOSE 93 mg/dL (74-118); POTASSIUM 3.8 mmol/L (3.5-5.1); SODIUM 141 mmol/L (136-145)
[2019-05-08] MEDS ORDERED: KETOROLAC TROMETHAMINE 30 MG/ML VIAL IV ONE (20:39)
[2019-05-08] MEDS ORDERED: KETOROLAC TROMETHAMINE 30 MG/ML VIAL ONE (20:48)
--- NOTE | 2019-05-08 20:52 | Diagnostic Imaging Report ---
EXAMINATION: CHEST SINGLE (PORTABLE) INDICATION: ^ERMD ORDER ^[id number] ^1952 ^Y COMPARISON: 03/10/2019 FINDINGS: AP view TUBES and LINES: None. LUNGS: Limited by body habitus and low lung volumes. Central vascular congestion. PLEURA: No significant pleural effusion or pneumothorax. HEART AND MEDIASTINUM: The cardiac silhouette is mildly enlarged. BONES AND SOFT TISSUES: No acute osseous lesion. Soft tissues are unremarkable. UPPER ABDOMEN: No free air under the diaphragm. IMPRESSION: Limited as above. Mildly enlarged cardiac silhouette and central vascular congestion, accentuated by low lung volumes. Signed by: Dr. Akash Soto MD on 05/08/2019 8:49 PM
[2019-05-08] MEDS ORDERED: SODIUM CHLORIDE 0.9% INJ 50 ML BAG ONE (23:00)
[2019-05-08] MEDS ORDERED: HYDROCODONE/APAP 5MG-325MG TAB PO ONE (23:00)
[2019-05-08] MEDS ORDERED: IOPAMIDOL 370 MG/ML 200 ML INFUS..BTL INJ ONE (23:00)
--- NOTE | 2019-05-08 23:02 | Diagnostic Imaging Report ---
EXAM: CT Chest WITH contrast (PE protocol) 05/08/2019 8:53 PM INDICATION: Dyspnea COMPARISON: Chest x-ray 05/08/2019 TECHNIQUE: Chest was scanned utilizing a multidetector helical scanner from the lung apex through the level of the diaphragm after administration of IV contrast. Thin section reconstructions were obtained with special concentration on the pulmonary arteries. Coronal and sagittal reformations were obtained. Pulmonary embolism protocol was performed. IV CONTRAST: 100 mL of Isovue 370 COMPLICATIONS: None RADIATION DOSE: Total DLP: 556 mGy*cm Estimated effective dose: (DLP x 0.014 x size factor) mSv CTDIvol has been reviewed. It is below the limits set by the Radiation Protocol Committee (RPC). Dose modulation, iterative reconstruction, and/or weight based adjustment of the mA/kV was utilized to reduce the radiation dose to as low as reasonably achievable. FINDINGS: LINES/ TUBES: None. LUNGS AND AIRWAYS: A 4 mm nodule in the right upper lobe, likely with a central calcification, no follow-up required. No pulmonary arterial filling defects. Airways are normal. PLEURA: The pleural spaces are clear. HEART AND MEDIASTINUM: The thyroid gland is normal. No mediastinal, hilar or axillary lymphadenopathy. The heart is normal in size. There is no pericardial effusion. Mild distal esophageal wall thickening. The main pulmonary artery and thoracic aorta are nondilated. UPPER ABDOMEN: Small sliding gastric hiatal hernia. BONES: There are degenerative changes in the spine. SOFT TISSUES: Unremarkable. IMPRESSION: Small sliding gastric hiatal hernia with mild findings of distal esophagitis. No pulmonary embolism. Signed by: Sy Tubbs DO on 05/08/2019 11:00 PM
== END 2019-05-09 | disposition home or self-care (01) ==
LOC: ER 18:55
DX: R06.00 Dyspnea, unspecified (principal); R07.89 Other chest pain; J45.31 Mild persistent asthma with (acute) exacerbation; K44.9 Diaphragmatic hernia without obstruction or gangrene
CPT/HCPCS: 36415; 71045; 71260; 80053; 81001; 82550; 82553; 83880; 84484; 85025; 93005; 94640 ×2; 99284; J1885; Q9967

== ENCOUNTER 2019-06-22 18:11 | Emergency (ER) | payer OTHER ==
[~2019-06-22] VITALS: Ht 154.9 cm; Wt 118.8 kg
[2019-06-22 18:44] LABS: ANION GAP 12.4 mmol/L (8-16); BLOOD UREA NITROGEN 13 mg/dL (7-26); BUN/CREATININE RATIO 18 (6-25); CALCIUM 9.2 mg/dL (8.4-10.2); CARBON DIOXIDE 27 mmol/L (22-29); CHLORIDE 104 mmol/L (98-107); CREATININE, SERUM 0.71 mg/dL (0.57-1.11); EST GLOMERULAR FILTRATION RATE > 60 ML/MIN (60-); GLUCOSE 86 mg/dL (74-118); POTASSIUM 3.4 mmol/L (3.5-5.1); SODIUM 140 mmol/L (136-145)
[2019-06-22] MEDS ORDERED: KETOROLAC TROMETHAMINE 30 MG/ML VIAL IV STA (18:56)
--- NOTE | 2019-06-22 18:59 | Diagnostic Imaging Report ---
Examination: PA and lateral views of the chest. COMPARISON: None. INDICATION: Chest pain DISCUSSION: Lines/tubes: None. Lungs: The lungs are well inflated and clear. No pneumonia or pulmonary edema. Pleura: No pleural effusion or pneumothorax. Heart and mediastinum: The heart and the mediastinum are unremarkable. Bones and soft tissues: No acute bony abnormalities. IMPRESSION: 1. No acute cardiopulmonary abnormalities. Signed by: Dr. Diaz Nunez M.D. on 06/22/2019 6:55 PM
[2019-06-22 19:28] VITALS: BP 139/61
== END 2019-06-22 20:30 | disposition home or self-care (01) ==
LOC: ER 18:16
DX: R07.89 Other chest pain (principal); E66.01 Morbid (severe) obesity due to excess calories; Z86.73 Personal history of transient ischemic attack (TIA), and cerebral infarction without residual deficits
CPT/HCPCS: 36415; 71046; 80048; 83880; 84484; 85379; 99284; J1885

== ENCOUNTER 2019-07-24 08:26 | Emergency (ER) | payer OTHER ==
[~2019-07-24] VITALS: Ht 154.9 cm; Wt 118.8 kg
[2019-07-24] MEDS ORDERED: SODIUM CHLORIDE 0.9% 1000ML 1,000 ML IV STA (08:33)
[2019-07-24] MEDS ORDERED: KETOROLAC TROMETHAMINE 30 MG/ML VIAL IV STA (08:33)
[2019-07-24 09:09] LABS: BASOPHILS % 0.4 % (0.0-1.0); EOSINOPHILS # (AUTO) 0.1 (0.0-0.4); EOSINOPHILS % 1.1 % (0.0-6.0); HEMOGLOBIN 8.1 g/dL (12.0-16.0); LYMPHOCYTES # (AUTO) 2.4 (1.0-3.2); LYMPHOCYTES % 29.8 % (18.0-39.1); MEAN CORPUSCULAR HEMOGLOBIN 18.3 pg (28-32); MEAN CORPUSCULAR VOLUME 67.7 fL (81-99); MONOCYTES # (AUTO) 0.5 (0.2-0.8); MONOCYTES % 5.9 % (4.4-11.3); NEUTROPHILS % 62.4 % (38.7-80.0); PLATELET COUNT 607 x10e3/uL (140-360); RED BLOOD COUNT 4.43 x10e6/uL (3.6-5.1)
[2019-07-24] MEDS ORDERED: ONDANSETRON HCL INJ 2MG/ML 2ML 2 MG/ML VIAL IV STA (09:15)
[2019-07-24] MEDS ORDERED: ONDANSETRON HCL 4 MG ORAL DISINTEGRATING TAB PO ONE (09:15)
[2019-07-24 09:25] LABS: PREGNANCY TEST, URINE NEGATIVE (NEGATIVE)
[2019-07-24 09:35] LABS: ALANINE AMINOTRANSFERASE 12 IU/L (0-55); ALBUMIN 3.5 g/dL (3.5-5.0); ALBUMIN/GLOBULIN RATIO 0.9 (0.8-2.0); ALKALINE PHOSPHATASE 113 IU/L (40-150); BLOOD UREA NITROGEN 11 mg/dL (7-26); BUN/CREATININE RATIO 16 (6-25); CALCIUM 9.2 mg/dL (8.4-10.2); CARBON DIOXIDE 25 mmol/L (22-29); CHLORIDE 105 mmol/L (98-107); CREATININE, SERUM 0.69 mg/dL (0.57-1.11); EST GLOMERULAR FILTRATION RATE > 60 ML/MIN (60-); GLUCOSE 97 mg/dL (74-118); SODIUM 139 mmol/L (136-145)
[2019-07-24 09:39] LABS: CLARITY,URINE CLEAR (CLEAR); COLOR,URINE YELLOW (YELLOW)
[2019-07-24 09:40] LABS: BILIRUBIN,URINE NEGATIVE (NEGATIVE); KETONES,URINE NEGATIVE (NEGATIVE); LEUKOCYTE ESTERASE ,URINE NEGATIVE (NEGATIVE); NITRITE,URINE NEGATIVE (NEGATIVE); PROTEIN,URINE DIPSTICK NEGATIVE (NEGATIVE); URINE UROBILINOGEN 0.2 mg/dL (0.2 - 1)
[2019-07-24 09:42] LABS: BACTERIA,URINE RARE /HPF; EPITHELIAL CELLS,URINE FEW /LPF; RBC,URINE 0-5 /HPF (0-5)
[2019-07-24] MEDS ORDERED: SODIUM CHLORIDE 0.9% 50ML 50 ML ONE (09:55)
[2019-07-24] MEDS ORDERED: IOPAMIDOL 370 MG/ML 200 ML INFUS..BTL INJ ONE (09:55)
[2019-07-24] MEDS ORDERED: MORPHINE SULFATE INJ 4 MG/ML INJ 1ML IV ONE (10:30)
[2019-07-24] MEDS ORDERED: MORPHINE SULFATE INJ 4 MG/ML INJ 1ML ONE (10:36)
[2019-07-24 11:00] LABS: ANISOCYTOSIS MODERATE
[2019-07-24 11:01] LABS: OVALOCYTES FEW; POLYCHROMASIA FEW
--- NOTE | 2019-07-24 11:01 | Diagnostic Imaging Report ---
EXAM: CT Abdomen and Pelvis WITH intravenous contrast INDICATION: Abdominal pain COMPARISON: Chest CT of 05/08/2019, abdomen and pelvis CT of 02/11/2019 TECHNIQUE: Abdomen and pelvis were scanned utilizing a multidetector helical scanner from the lung base to the pubic symphysis after administration of IV contrast. Coronal and sagittal reformations were obtained. Routine protocol was performed. Scan was performed during portal venous phase. IV CONTRAST: 100mL of Isovue 370 ORAL CONTRAST: None RADIATION DOSE: Total DLP: 1313.3 mGy*cm Dose modulation, iterative reconstruction, and/or weight based adjustment of the mA/kV was utilized to reduce the radiation dose to as low as reasonably achievable. FINDINGS: LOWER THORAX: Normal. HEPATOBILIARY: No focal hepatic lesions. No biliary ductal dilatation. The gallbladder appears unremarkable. SPLEEN: No splenomegaly. PANCREAS: No focal masses or ductal dilatation. ADRENALS: No adrenal nodules. KIDNEYS/URETERS: No hydronephrosis, stones, or solid mass lesions. PELVIC ORGANS/BLADDER: Cystic structures in the cervix, likely Nabothian cysts. PERITONEUM / RETROPERITONEUM: No free air or fluid. LYMPH NODES: No lymphadenopathy. VESSELS: Unremarkable. GI TRACT: No abnormal bowel thickening. No bowel obstruction. Normal appendix. BONES AND SOFT TISSUES: No acute osseous injury. 2 small ventral abdominal hernias containing fat. IMPRESSION: No acute findings in the abdomen or pelvis. Signed by: Damian Landers MD on 07/24/2019 10:57 AM
[2019-07-24 11:02] LABS: ELLIPTOCYTE, RBC SLIGHT; HYPOCHROMASIA SLIGHT
[2019-07-24 11:03] LABS: PLATELET ESTIMATE MODERATELY INCREASED; PLATELET MORPHOLOGY COMMENT RARE EDTA CLUMPING
[2019-07-24 11:05] LABS: RBC MORPHOLOGY COMMENT ABNORMAL
[2019-07-24] MEDS ORDERED: PEPCID20 MG PO (11:13)
[2019-07-24 11:15] VITALS: BP 114/76
== END 2019-07-24 11:26 | disposition home or self-care (01) ==
LOC: ER 08:26
DX: R10.11 Right upper quadrant pain (principal); R11.2 Nausea with vomiting, unspecified; R19.7 Diarrhea, unspecified; E66.01 Morbid (severe) obesity due to excess calories; Z86.73 Personal history of transient ischemic attack (TIA), and cerebral infarction without residual deficits
CPT/HCPCS: 36415; 74177; 80053; 81001; 81025; 83690; 85025; 99284; J1885; J2270; J7030; Q9967

== ENCOUNTER 2019-07-25 00:26 | Emergency (ER) | payer OTHER ==
[~2019-07-25] VITALS: Ht 154.9 cm; Wt 118.8 kg
[~2019-07-25 00:26] MED LIST changes: +PEPCID20 MG PO
[2019-07-25] MEDS ORDERED: PANTOPRAZOLE 40 MG 10ML VIAL IV STA (01:07)
[2019-07-25] MEDS ORDERED: ONDANSETRON HCL INJ 2MG/ML 2ML 2 MG/ML VIAL IV STA (01:07)
[2019-07-25] MEDS ORDERED: DICYCLOMINE HCL 20 MG/2 ML VIAL IM ONE (01:15)
[2019-07-25 01:24] LABS: BASOPHILS % 0.2 % (0.0-1.0); EOSINOPHILS # (AUTO) 0.1 (0.0-0.4); EOSINOPHILS % 1.4 % (0.0-6.0); HEMATOCRIT 28.5 % (34.2-44.1); HEMOGLOBIN 7.7 g/dL (12.0-16.0); LYMPHOCYTES # (AUTO) 2.2 (1.0-3.2); LYMPHOCYTES % 22.6 % (18.0-39.1); MEAN CORPUSCULAR HEMOGLOBIN 18.3 pg (28-32); MEAN CORPUSCULAR VOLUME 67.9 fL (81-99); MONOCYTES # (AUTO) 0.5 (0.2-0.8); MONOCYTES % 5.5 % (4.4-11.3); NEUTROPHILS # (AUTO) 6.7 (2.1-6.9); NEUTROPHILS % 70.1 % (38.7-80.0); PLATELET COUNT 557 x10e3/uL (140-360); RED CELL DISTRIBUTION WIDTH 17.9 % (11.7-14.4)
[2019-07-25 01:38] LABS: ALANINE AMINOTRANSFERASE 13 IU/L (0-55); ALBUMIN 3.3 g/dL (3.5-5.0); ALKALINE PHOSPHATASE 107 IU/L (40-150); AMYLASE 40 U/L (25-125); ANION GAP 12.2 mmol/L (8-16); BLOOD UREA NITROGEN 17 mg/dL (7-26); BUN/CREATININE RATIO 26 (6-25); CALCIUM 8.9 mg/dL (8.4-10.2); CARBON DIOXIDE 23 mmol/L (22-29); CHLORIDE 107 mmol/L (98-107); CREATININE, SERUM 0.66 mg/dL (0.57-1.11); EST GLOMERULAR FILTRATION RATE > 60 ML/MIN (60-); GLUCOSE 105 mg/dL (74-118); LIPASE 17 U/L (8-78); POTASSIUM 4.2 mmol/L (3.5-5.1); SODIUM 138 mmol/L (136-145)
[2019-07-25 01:48] LABS: BILIRUBIN,URINE NEGATIVE (NEGATIVE); CLARITY,URINE CLEAR (CLEAR); COLOR,URINE YELLOW (YELLOW); KETONES,URINE NEGATIVE (NEGATIVE); LEUKOCYTE ESTERASE ,URINE NEGATIVE (NEGATIVE); NITRITE,URINE NEGATIVE (NEGATIVE); PROTEIN,URINE DIPSTICK NEGATIVE (NEGATIVE); URINE UROBILINOGEN 0.2 mg/dL (0.2 - 1)
[2019-07-25 01:57] LABS: BACTERIA,URINE FEW /HPF; EPITHELIAL CELLS,URINE FEW /LPF; RBC,URINE 0-5 /HPF (0-5); WBC,URINE (MAN) 0-5 /HPF (0-5)
[2019-07-25] MEDS: MORPHINE SULFATE INJ 4 MG/ML INJ 1ML IV STA ×2 (01:58→04:33)
[2019-07-25] MEDS ORDERED: SODIUM CHLORIDE 0.9% 1000ML 1,000 ML ONE (02:18)
--- NOTE | 2019-07-25 03:41 | Diagnostic Imaging Report ---
EXAM: Limited Abdominal Ultrasound INDICATION: ^ruq pain ^Y COMPARISON: CT abdomen pelvis 07/24/2019 TECHNIQUE: Transverse and longitudinal images of the right upper abdomen were obtained. FINDINGS: Liver: Size: 18.6 cm in the right midclavicular line, enlarged Appearance: Normal echogenicity, smooth contour Mass: No focal masses Gallbladder: Stones/Sludge: No definite. Low-level echoes within the gallbladder lumen are likely artifactual. Wall: 0.3 cm Appearance: No pericholecystic fluid or hydrops. Sonographic Young's Sign: Negative Bile Ducts: Intrahepatic Ducts: No dilatation Extrahepatic Ducts: Common bile duct measures 0.2 cm, no dilatation Pancreas: Visualized portions of the pancreatic head, neck and proximal body are normal. Right Kidney: Size: 10.8 x 9.9 x 5.1 cm Echogenicity: Normal Parenchymal thickness: Normal Collecting System: No hydronephrosis Stone: None Cyst/Mass: None Vessels: Aorta: Visualized portions are normal Inferior Vena Cava: Visualized portions are normal Main Portal Vein: 0.8 cm, normal size with hepatopetal flow. Free Fluid: No ascites or pleural effusion IMPRESSION: Hepatomegaly. Otherwise unremarkable right upper quadrant abdominal ultrasound. Signed by: Andrzej Rios MD on 07/25/2019 3:14 AM
--- NOTE | 2019-07-25 04:20 | NUR ---
DISCHARGE INSTRUCTIONS GIVEN TO PATIENT FOR BLAND DIET AND DIAGNOSIS OF ABDOMINL PAIN WITH REF TO DR. Kehinde BASS / GI ; DOWNTIME FORMS - SEE PATIENT'S RECORD
[2019-07-25] MEDS ORDERED: SODIUM CHLORIDE 0.9% 1000ML 1,000 ML IV ONE (04:45)
== END 2019-07-25 04:39 | disposition home or self-care (01) ==
LOC: ER 00:26
DX: R10.11 Right upper quadrant pain (principal); R11.2 Nausea with vomiting, unspecified; R19.7 Diarrhea, unspecified; E66.01 Morbid (severe) obesity due to excess calories; Z86.73 Personal history of transient ischemic attack (TIA), and cerebral infarction without residual deficits
CPT/HCPCS: 36415; 76705; 80053; 81001; 82150; 83690; 85025; 99284; C9113; J0500; J2270; J2405; J7030

== ENCOUNTER 2019-08-10 02:49 | Emergency (ER) | payer OTHER ==
[~2019-08-10] VITALS: Ht 154.9 cm; Wt 118.8 kg
--- OUTSIDE RECORDS SUMMARY | 2019-08-10 02:51 | XMS REPORT | Continuity of Care Document ---
Author Author [facility] [employer], [facility] [employer] Information [employer] Address Unknown Phone Unavailable Care Team Providers Care Honey Blender Name Role Phone [facility] [employer] Unavailable Un available Problems Problem Status Onset Date Classification Date Reported Comments Source Left-sided weakness Active Diagnosis 11/09/2016 Enmartha Kent Mixed hyperlipidemia Active Problem 01/30/2017 Kathleen Kent Type 2 diabetes mellitus without complic ation, without long-term current use of insulin Active Problem 01/30/2017 Kathleen Kent Anxiety and depression Active Problem 01/30/2017 Kathleen Kent Acute intractable headache, unspecified headache type Active Diagnosis 11/09/2016 Kathleen Kent Head trauma, subsequent encounter Active Diagnosis 0 11/09/2016 Kathleen Kent Iron deficiency anemia secondary to inad equate dietary iron intake Active Prob ze 01/30/2017 Kathleen Kent HTN (hypertension), benign Act justine Diagnosis 1 04/01/2016 Kathleen Kent Other specified transient cerebral ischemias Active Diagnosis 10/23/2016 Kathleen Kent Uncomplicated asthma, unspecified asthma severity Active Diagnosis 10/23/2016 Kathleen Kent Encounter to establish care Ac tive Diagnosis 0 10/23/2016 Kathleen Kent Acute gastroenteritis Active Diagnosis 01/20/2017 Kathleen Kent Diarrhea of presumed infectious origin Active Diagnosis 01/20/2017 Kathleen Kent Acute right-sided low back pain without sciatica Active Diagnosis 01/02/2017 Kathleen Kent Right lower quadrant abdominal pain Active Diagnosis 1 Kathleen Kent Chest pain on breathing Active Diagnosis 01/30/2017 Kathleen Kent Mild intermittent asthma with exacerbation Active Diagnosis 01/30/2017 Kathleen Kent Lower abdominal pain Active Diagnosis 01/30/2017 Kathleen Kent Medications Medication Details Route Status Patient Instructions Ordering Provider Order Date Source Azithromycin 2 tablets on the first day, then 1 tablet daily for 4 days Orally Active 250 MG Orally Once a day [facility] 01/26/2017 Jackydairana Maecaleidy Zofran 1 tablet Orally Active 4 mg Orally twice a day (bid) as needed (prn) [facility] 01/14/2017 Kathleen Kent Flagyl 1 tablet Orally Active 500 mg Orally every 8 h rs [facility] 01/14/2017 Kathleen Maecaleidy Abilify 1 tablet Orally Active 10 MG Orally Once a day [facility] 10/19/2016 Jackydariana [facility] YL Vitamin C 1 tablet Orally Active 500 MG Orally Once a da y [facility] 10/19/2016 [facility] Albuterol Sulfate 3 ml Inhalation Active (2.5 MG/3ML) 0.083% Inhalation Three times a day as needed [facility] 10/19/2016 Jackydariana [facility] Ferrous Sulfate 1 tablet Orally Active 325 (65 Fe) MG Orally O nce a day [facility] 10/19/2016 [facility] Vitamin C 1 tablet Orally Active 500 MG Orally Once a da y [facility] 10/19/2016 [facility] Albuterol Sulfate 3 ml Inhalation Active (2.5 MG/3ML) 0.083% Inhalation Three times a day as needed [facility] 10/19/2016 [facility] Ferrous Sulfate 1 tablet Orally Active 325 (65 Fe) MG Orally O nce a day [facility] 10/19/2016 [place] [facility] Abilify 1 tablet Orally Active 10 MG Orally Once a day [facility] 10/19/2016 [facility] Metformin HCl 1 tablet with me als Orally Active 500 MG Orally Twice a day [facility] Lisinopril 1 tablet Orally Active 10 MG Orally Once a day [facility] [employer] ProAir HFA 2 puffs as needed Inhalation Active 108 (90 Base) MCG/ACT Inhalation [facility] Clopidogrel Bisulfate 1 tablet Orally Active 75 MG Orally Once a day [facility] Atorvastatin Calcium 1 tablet Orally Active 10 MG Orally Once a day [facility] BuPROPion HCl (XL) 1 tablet in the morning Orally Active 150 MG Orally [facility] a [facility] Metformin HCl 1 tablet with me als Orally Active 500 MG Orally Twice a day [facility] Atorvastatin Calcium 1 tablet Orally Active 10 MG Orally Once a day [facility] Clopidogrel Bisulfate 1 tablet Orally Active 75 MG Orally Once a day Lucrecia Kathleen [place] ProAir HFA 2 puffs as needed Inhalation Active 108 (90 Base) MCG/ACT Inhalation every 4 hrs [facility]ocely[facility] Lisinopril 1 tablet Orally Active 10 MG Orally Once a day Lucrecia Estrada BuPROPion HCl (XL) 1 tablet in the morning Orally Active 150 MG Orally Once a day [facility] Ibuprofen 1 tablet with food o r milk as needed Orally Active 200 MG Orally as needed (prn) Lucrecia [facility] Ibuprofen 1 tablet with food o r milk as needed Orally Active 200 MG Orally as needed (prn) Lucrecia [facility] BuPROPion HCl (XL) 1 tablet in the morning Orally Active 150 MG Orally Once a day [facility] Lisinopril 1 tablet Orally Active 20 mg Orally Once a day Lucrecia Gala Allergies, Adverse Reactions, Alerts Substance Category Reaction Severity Reaction type Status Date Reported Comments Source N.K.D.A. Adverse Reaction Info Not Available Adverse Reaction Active 01/26/2017 [facility] Immunizations No Data Provided for This Section Results No Data Provided for This Section Pathology Reports No Data Provided for This Section Diagnostic Reports No Data Provided for This Section Consultation Notes No Data Provided for This Section Discharge Summaries No Data Provided for This Section History and Physicals No Data Provided for This Section Vital Signs Vital Sign Value Date Comments Source Weight 269 01/26/2017 Enayet Racam Height 61 1 Enayet Rahim Temperature Oral (F) 95.5 F 01/26/2017 Enayet Rahim Diastolic (mm Hg) 106 01/26/2017 Enayet Rahim Systolic (mm Hg) 121 01/26/2017 Enayet Rahim Weight 258 01/14/2017 Enayet Rahim Height 61 1 Enayet Rahim Temperature Oral (F) 97.2 F 01/14/2017 Enayet Rahim Diastolic (mm Hg) 80 01/14/2017 Enayet Rahim Systolic (mm Hg) 126 01/14/2017 Enayet Rahim Height 61 0 12/21/2016 Enayet Rahim Temperature Oral (F) 97.2 F 12/21/2016 Enayet Rahim Diastolic (mm Hg) 77 12/21/2016 Enayet Rahim Systolic (mm Hg) 130 12/21/2016 Enayet Rahim Weight 271.5 10/29/2016 Enayet Rahim Height 61 0 10/29/2016 Enayet Rahim Temperature Oral (F) 97.6 F 10/29/2016 Enayet Rahim Diastolic (mm Hg) 69 10/29/2016 Enayet Rahim Systolic (mm Hg) 131 10/29/2016 Enayet Rahim Weight 164.5 10/19/2016 Enayet Rahim Height 61 0 10/19/2016 Enayet Rahim Temperature Oral (F) 97.1 F 10/19/2016 Enayet Rahim Diastolic (mm Hg) 80 10/19/2016 Enayet Rahim Systolic (mm Hg) 122 10/19/2016 Enayet Rahim Encounters No Data Provided for This Section Procedures No Data Provided for This Section Assessment and Plan No Data Provided for This Section Plan of Care No Data Provided for This Section Social History No Data Provided for This Section Family History No Data Provided for This Section Advance Directives No Data Provided for This Section Functional Status No Data Provided for This Section
--- OUTSIDE RECORDS SUMMARY | 2019-08-10 02:51 | XMS REPORT | Clinical Summary ---
Author Author [facility] Organization [facility] Address Unknown Phone Unavailable Care Team Providers Care Commodities Clerk Name Role Phone PCP Unavailable Allergies No Known Allergies Medications End Date Status Medication Sig Dispensed Refills Start Date Active albuterol (VENTOLIN Administer 2 1 Inhaler 1 09/02 HFA,PROVENTIL HFA,PROAIR Puffs by 3 HFA) 90 mcg/actuation inhalation 4 inhalerIndications: times daily Extrinsic asthma, as needed for unspecified Wheezing. Active venlafaxine (EFFEXOR XR) Take 2 60 capsule 1 0 150 mg extended release capsules by 3 [...] Pelvic pain times daily Colon spasm. Active acetaminophen-codeine Take 1 tablet 30 tablet 0 (TYLENOL/CODEINE #3) by mouth 9 300-30 mg per every 4 hours tabletIndications: Lower as needed for abdominal pain Pain. Active Problems Problem Noted Date Pelvic pain 06/22/2017 Major depression 01/09/2010 Immunizations Name Administration Dates Next Due Influenza Vaccine 01/09/2010 Family History [...] Never Used Tobacco Cessation: Counseling Given: No Drinks/Week oz/Week Comments Alcohol Use No Sex Assigned at Date Recorded Not on file Industry Job Start Date Occupation Not on file Not on file Not on file Travel End Travel History Travel Start No recent travel history available. Last Filed Vital Signs Not on file Plan of Treatment Health Maintenance Due Date Last Done Comments Cervical Cancer Scrn (3 1994 Yrs) Breast Cancer Scrn 2013 (Yearly) Results Not on fileafter 08/09/2018 Insurance Type Payer Benefit Subscriber ID Effective Phone Address Plan / Dates Group [facility] xxxxxxxxx 2016-P [phone] [id number] [place] [address]
--- OUTSIDE RECORDS SUMMARY | 2019-08-10 02:52 | XMS REPORT ---
Author Author [facility] Organization [facility] Address [address] [place] [address] Phone Unavailable Care Team Providers Care Juvenile Officer Name Role Phone MD Allison LOPEZ MD PCP Marie JACKSON Attphys Unavailable APOLLO WILSON Attphys Unavailable Zeinab JONES Attphys Unavailable GUILLERMINA EGDE Attphys Unavailable Allison STRATTON LAIPATRICK Attphys Unavailable Phi LEDEZMA Attphys Unavailable Payers Payer Name Policy Type Policy Number Effective Date Expiration Date martinace [place] Medicaid [id number] 2011 00:00:[address] [facility] [place] [id number] 2011 00:00:[address] [facility] [place] [id number] 2018 00:00:[address] [facility] [place] [id number] 2011 00:00:[address] [facility] [place] [id number] 2011 00:00:[address] [facility] [place] [id number] 2011 00:00:[address] [facility] [place] [id number] 2011 00:00:00 [facility] [id number] [facility] Advance Directives Directive Decision Effective Date Termination Date Comments Sour ce Yes N/A [facility] Problems Condition Name Condition Details Condition Category Status Onset Date Resolution Date Last Treatment Date Treating Clinician Comments Source Pelvic pain Pelvic pain Disease Active 2017-06-22 00:00:[address] [facility] Major depression Major depression Disease Active 2010-01-09 00:00:[address] [facility] Problem Condition [facility] Allergies, Adverse Reactions, Alerts This patient has no known allergies or adverse reactions. Family History Family Member Diagnosis Comments Start Date Stop Date Source Maternal grandmother [facility] Maternal grandmother Hypertension [facility] Natural mother Cancer [facility] Social History Social Habit Start Date Stop Date Quantity Comments Source Sex Assigned [facility] Alcohol intake 2017-06-23 00:00:00 2017-06-23 00:00:[address] [facility] Smoking Status Start Date Stop Date Source Never smoker [facility] Medications Ordered Medication Name Filled Medication Name Start Date Stop Da te Current Medication? Ordering Clinician Indication Dosage Frequency Signature (SIG) Comments Components Source Famotidine (Pepcid) 20 Mg TABLET Famotidine (Pepcid) 20 Mg T ABLET 2019-07-24 11:13:00 Yes 40 [facility] acetaminophen-codeine (TYLENOL/CODEINE #3) 300-30 mg per tab let 2018-05-04 00:00:00 Yes [id number] 1{tbl} Take 1 tab let by mouth every 4 hours as needed for Pain. [facility] traMADol (ULTRAM) 50 mg tablet 2017-06-22 00:00:00 Yes [id number] 50mg Take 1 tablet by mouth every 6 hours as needed for Pain. [facility] dicyclomine (BENTYL) 20 mg tablet 2017-06-22 00:00:00 Yes [id number] 20mg Take 1 tablet by mouth 4 times daily Colon spasm. [facility] ofloxacin (OCUFLOX) 0.3 % ophthalmic solution 2016-08-19 00: 00:00 Yes [id number] Instill 5 drops to l eft ear daily for 10 days. Ok for pharmacist to dispense eye solution for ear treatment.. [facility] albuterol (VENTOLIN HFA,PROVENTIL HFA,PROAIR HFA) 90 mcg/act uation inhaler 2012-09-02 00:00:00 Yes [id number] 2{puff} Administer 2 Puffs by inhalation 4 times daily as needed for Wheezing. [facility] venlafaxine (EFFEXOR XR) 150 mg extended release capsule 2012-09-02 00:00:00 Yes [id number] 300mg QD Take 2 capsules by mouth daily. [facility] aripiprazole (ABILIFY) 10 mg tablet 2012-09-02 00:00:00 Yes [id number] 10mg QD Take 1 tablet by mouth daily. [facility] Albuterol Sulfate (Proair Hfa Inhaler*) 8.5 Gm INH Alb uterol Sulfate (Proair Hfa Inhaler*) 8.5 Gm INH Yes 2 [facility] Immunizations Ordered Immunization Name Filled Immunization Name Date Status Comments Source Influenza Vaccine 2010-01-09 00:00:[address] [facility] Vital Signs Vital Name Observation Time Observation Value Comments Source Weight 2019-07-25 01:05:00 262 [lb_av] [facility] BMI (Body Mass Index) 2019-07-25 01:05:00 49.5 kg/m2 [facility] Body Temperature 2019-07-24 11:15:00 98.0 [degF] [facility] Procedures Procedure Date / Time Performed Performing Clinician Sourc e US Gallbladder 2019-07-25 00:00:00 [facility] Computed tomography of abdomen and pelvis with contrast 00:00:00 [facility] X-ray of chest, two views 2019-06-22 00:00:00 DREAD JONES [facility] Computed tomography of chest with contrast 2019-05-08 00:00:00 GUILLERMINA PERAZA [facility] X-ray of chest, two views 2019-02-24 00:00:00 GUILLERMINA VAZQUEZ [facility] Computed tomography of abdomen and pelvis with contrast 2018 00:00:00 GUILLERMINA VAZQUEZ [facility] Computed tomography of abdomen and pelvis with contrast 2018 [facility] 2019-02-07 [facility]:00:0 [facility] of [facility] and pelvis with contrast 2018 [facility] of brain without radiopaque contrast 201 12-05-02 00:00:00 SUHAS JACKSON [facility] Plan of Care Planned Activity Planned Date Details Comments Source Future Scheduled Test [code = ] Future Scheduled Test [code = ] Instructions Abdominal Pain - Pediatric C [facility] Instructions [place] Diet - Adult [facility] Encounters Start Date/Time End Date/Time Encounter Type Admission Type Attendi [facility] Care Department Encounter ID Source 2019-07-25 00:26:00 2019-07-25 04:39:00 Departed Emergency Room 1 SUHAS JACKSON [facility] [id number] [facility] 2019-07-24 08:26:00 2019-07-24 11:26:00 Departed Emergency Room 1 APOLLO WILSON [facility] [id number] [facility] 2019-06-22 18:16:00 2019-06-22 20:30:00 Departed Emergency Room 1 DREAD JONES [facility] [id number] [facility] 2019-05-08 17:55:00 2019-05-08 23:00:00 Departed Emergency Room 1 GUILLERMINA [facility] [id number] [facility] 2019-03-10 11:27:00 2019-03-10 13:18:00 Departed Emergency Room 1 GUILLERMINA [facility] [id number] [facility] 2019-02-24 18:42:00 2019-02-24 23:12:00 Departed Emergency Room 1 GUILLERMINA [facility] [id number] [facility] 2019-02-12 15:25:00 2019-02-12 15:25:00 Emergency E [facility] [id number] [facility] 2019-02-11 13:59:00 2019-02-11 19:40:00 Departed Emergency Room 1 EDDY STRATTON [facility] [id number] [facility] 2019-02-07 09:36:00 2019-02-07 13:55:00 Departed Emergency Room 1 GUILLERMINA [facility] [id number] [facility] 2018-12-11 19:26:00 2018-12-11 23:13:00 Departed Emergency Room 1 GUILLERMINA [facility] [id number] [facility] 2018-11-29 18:41:00 2018-11-29 20:57:00 Departed Emergency Room 1 APOLLO MIJARES [facility] [id number] [facility] 2018-11-18 16:34:00 2018-11-18 16:34:00 Emergency E MHSE MHSE [id number] [facility] 2018-11-09 15:15:00 2018-11-09 15:15:00 Emergency E MHSE MHSE [id number] [facility] 2018-10-19 21:58:00 2018-10-19 21:58:00 Emergency E MHSE MHSE [id number] MH 2018-10-04 23:22:00 2018-10-04 23:22:00 Emergency E MHSE MHSE [id number] [facility] 2018-08-17 20:44:00 2018-08-17 20:44:00 Emergency E MHSE MHSE [id number] [facility] 2018-07-24 11:06:00 2018-07-24 11:06:00 Emergency E MHSE MHSE [id number] [facility] 2018-06-29 08:55:00 2018-06-29 08:55:00 Emergency E MHSE MHSE [id number] [facility] 2018-05-04 21:59:10 2018-05-04 21:59:10 Emergency [facility] [id number] [facility] 2018-05-04 20:50:03 2018-05-04 20:50:03 Emergency [facility] [id number] [facility] 2017-06-22 16:15:57 2017-06-22 16:15:57 Emergency [facility] [id number] [facility] 2017-06-22 10:56:34 2017-06-22 10:56:34 Emergency [facility] [id number] [facility] 2017-06-22 08:40:54 2017-06-22 08:40:54 Emergency [facility] [id number] [facility] 2017-03-17 00:00:00 2017-03-17 00:00:00 Outpatient [facility] [id number] [facility] 2017-01-26 10:30:00 2017-01-26 10:30:00 [facility]patient [facility] [id number] [facility] 2017-01-14 11:15:00 2017-01-14 11:15:00 [facility] [id number] [facility] 2016-12-21 09:15:00 2016-12-21 09:15:00 [facility]patient [facility] [id number] [facility] 2016-10-29 10:00:00 2016-10-29 10:00:00 [facility]patient [facility] [id number] [facility] 2016-10-19 10:15:00 2016-10-19 10:15:00 [facility]patient [id number] 2016-08[facility]19 10:53:34 2016-08-19 10:53:34 Outpatient [facility] [id number] [facility] Results Test Description Test Time Test Comments Results Result Comments Source GALLBLADDER 2019-07-25 03:11:00 [place] [id number] Patient Name: MARIO MORALES MR #: [id number] : 1975 Age/Sex: 43/F Req #: [id number] Adm Physician: Ordered by: SUHAS JACKSON MD Report #: [id number] Location: ER Room/Bed: Procedure: [id number] US/US GALLBLADDER Exam Date: 07/25/19 Exam Time: 0214 REPORT STATUS: Signed EXAM: Limited Abdominal Ultrasound INDICATION: ruq pain Y COMPARISON: CT abdomen pelvis 07/24/2019 TECHNIQUE: Transverse and longitudinal images of the right upper abdomen were obtained. FINDINGS: Liver: Size: 18.6 cm in the right midclavicular line, enlarged Appearance: Normal echogenicity, smooth contour Mass: No focal masses Gallbladder: Stones/Sludge: No definite. Low-level echoes within the gallbladder lumen are likely artifactual. Wall: 0.3 cm Appearance: No pericholecystic fluid or hydrops. Sonographic Young's Sign: Negative Bile Ducts: In trahepatic Ducts: No dilatation Extrahepatic Ducts: Common bile duct measures 0.2 cm, no dilatation Pancreas: Visualized portions of the pancreatic head, neck and proximal body are normal. Right Kidney: Size: 10.8 x 9.9 x 5.1 cm Echogenicity: Normal Parenchymal thickness: Normal Collecting System: No hydronephrosis Stone: None Cyst/Mass: None Vessels: Aorta: Visualized portions are normal Inferior Vena Cava: Visualized portions are normal Main Portal Vein: 0.8 cm, normal size with hepatopetal flow. Free Fluid: No ascites or pleural effusion IMPRESSION: Hepatomegaly. Otherwise unremarkable right upper quadrant abdominal ultrasound. Signed by: Charlotte Blue MD on 07/25/2019 3:14 AM Dictated By: CHARLOTTE BLUE MD 3 Transcribed By: HUSSAIN on 07/25/19313 COPY TO: SUHAS JACKSON MD Urine color determination 2019-07-25 01:15:00 Test Item Urine Color (test code = 5778-6) YELLOW [facility] [id number] 01:15:00* Test Item Value Reference Range Interpretation Comments Urine Clarity (test code = 52180-5) [facility]AR [facility] by Test strip 2019-07-25 01:15:00* Test Item Value Reference Range Interpretation Comments Urine Specific Collins (test code = 5811-5) >=1.030 [facility] pH measurement by automated test [id number] 01:15:00* Test Item Value Reference Range Interpretation Comments Urine pH (test code = 88907-1) 5.5 [facility] leukocyte esterase detection by diwqrzsd8508-06-29 01:15:00* Test Item Value Reference Range Interpretation Comments Urine Leukocyte Esterase (test code = 5799-2) NEGATIVE [facility] nitrite yrydunpjb4004-16-28 01:15:00* Test Item Value Reference Range Interpretation Comments Urine Nitrite (test code = 57688-8) NEGATIVE [facility] protein measurement by test strip (mass/volume)2019-07-25 01:15:00* Test Item Value Reference Range Interpretation Comments Urine Protein (test code = 5804-0) NEGATIVE [facility] glucose uhfwuplcl7933-36-20 01:15:00* Test Item Value Reference Range Interpretation Comments Urine Glucose (UA) (test code = 2349-9) NEGATIVE [facility] ketones detection by automated test rkvpk8136-09-23 01:15:00* Test Item Value Reference Range Interpretation Comments Urine Ketones (test code = 14982-8) NEGATIVE [facility] urobilinogen measurement by test strip (mass/volume)2019-07-25 01:15:00* Test Item Value Reference Range Interpretation Comments Urine Urobilinogen (test code = 30759-4) 0.2 [facility] total bilirubin measurement (mass/volume)2019-07-25 01:15:00* Test Item Value Reference Range Interpretation Comments Urine Bilirubin (test code = 1978-6) NEGATIVE [facility] erythrocytes rrklldkdt1095-51-23 01:15:00* Test Item Value Reference Range Interpretation Comments Urine Blood (test code = 53474-2) NEGATIVE [facility] urine sediment leukocyte count by microscopy (number/high power field)2019-07-25 01:15:00* Test Item Value Reference Range Interpretation Comments Urine WBC (test code = 5821-4) 0-5 [facility]rythrocytes detection in urine sediment by light fzxzaitaep6631-63-69 01:15:00* Test Item Value Reference Range Interpretation Comments Urine RBC (test code = 09449-9) 0-5 [facility]acteria detection in urine sediment by light qezyjqwnck9321-52-46 01:15:00* Test Item Value Reference Range Interpretation Comments Urine Bacteria (test code = 87231-7) FEW [facility]way[facility]pithelial cells detection in urine sediment by light zxjlucfoqe5992-49-37 01:15:00* Test Item Value Reference Range Interpretation Comments Urine Epithelial Cells (test code = 21759-1) FEW [facility] leukocytes automated count (number/volume)2019-07-25 01:10:00* Test Item Value Reference Range Interpretation Comments White Blood Count (test code = 6690-2) 9.51 [facility] erythrocytes automated count (number/volume)2019-07-25 01:10:00* Test Item Value Reference Range Interpretation Comments Red Blood Count (test code = 789-8) 4.20 [facility] hemoglobin measurement (moles/volume)2019-07-25 01:10:00* Test Item Value Reference Range Interpretation Comments Hemoglobin (test code = 80574-1) 7.7 [facility]way[facility] blood hematocrit (volume fraction)2019-07-25 01:10:00* Test Item Value Reference Range Interpretation Comments Hematocrit (test code = 4544-3) 28.5 [facility]wayAutomated erythrocyte mean corpuscular qxdbed0396-18-53 01:10:00* Test Item Value Reference Range Interpretation Comments Mean Corpuscular Volume (test code = 787-2) 67.9 [facility]wayAutomated erythrocyte mean corpuscular hemoglobin (mass per erythrocyte)2019-07-25 01:10:00* Test Item Value Reference Range Interpretation Comments Mean Corpuscular Hemoglobin (test code = 785-6) 18.3 [facility]way[facility] erythrocyte mean corpuscular hemoglobin concentration measurement (mass/volume)2019-07-25 01:10:00* Test Item Value Reference Range Interpretation Comments Mean Corpuscular Hemoglobin Concent (test code = 786-4) 27.0 [facility] ParkwayRDW GjzVw-Evc4378-18-28 01:10:00* Test Item Value Reference Range Interpretation Comments Red Cell Distribution Width (test code = 25300-5) 17.9 [facility]wayAutom[facility] blood platelet count (count/volume)2019-07-25 01:10:00* Test Item Value Reference Range Interpretation Comments Platelet Count (test code = 777-3) 557 [facility] segmented neutrophil count as percentage of total eglzcnnoaa6370-97-93 01:10:00* Test Item Value Reference Range Interpretation Comments Neutrophils (%) (Auto) (test code = 15740-7) 70.1 [facility]wayAutomated blood lymphocyte count as percentage ot total nhsdxjrbjd5308-02-12 01:10:00* Test Item Value Reference Range Interpretation Comments Lymphocytes (%) (Auto) (test code = 736-9) 22.6 [facility]wayAutomated blood monocyte count as percentage of total axndpljwli1871-08-10 01:10:00* Test Item Value Reference Range Interpretation Comments Monocytes (%) (Auto) (test code = 5905-5) 5.5 [facility]wayAutomated blood eosinophil count as percentage of total wbvzmcngla9602-65-07 01:10:00* Test Item Value Reference Range Interpretation Comments Eosinophils (%) (Auto) (test code = 713-8) 1.4 [facility]wayAutomated blood basophil count as percentage of total exctibmamn7015-49-60 01:10:00* Test Item Value Reference Range Interpretation Comments Basophils (%) (Auto) (test code = 706-2) 0.2 [facility] ParkwayFluoroscopic procedure less than one hour kqhyasyp8246-04-27 01:10:00* Test Item Value Reference Range Interpretation Comments IM GRANULOCYTES % (test code = IM GRANULOCYTES %) 0.2 [facility]way[facility] blood neutrophil count 2019-07-25 01:10:00* Test Item Value Reference Range Interpretation Comments Neutrophils # (Auto) (test code = 751-8) 6.7 [facility] lymphocytes count (number/volume) 2019-07-25 01:10:00* Test Item Value Reference Range Interpretation Comments Lymphocytes # (Auto) (test code = 33296-2) 2.2 [facility] monocytes automated count (number/volume)2019-07-25 01:10:00* Test Item Value Reference Range Interpretation Comments Monocytes # (Auto) (test code = 742-7) 0.5 [facility]way[facility] blood eosinophil count 2019-07-25 01:10:00* Test Item Value Reference Range Interpretation Comments Eosinophils # (Auto) (test code = 711-2) 0.1 [facility]wayAutomated blood basophil count (count/volume)2019-07-25 01:10:00* Test Item Value Reference Range Interpretation Comments Basophils # (Auto) (test code = 704-7) 0.0 [facility]wayFluoroscopic procedure less than one hour gaqbcfli1958-68-02 01:10:00* Test Item Value Reference Range Interpretation Comments Absolute Immature Granulocyte (auto (meliton t code = Absolute Immature Granulocyte (auto) 0.02 [facility] plasma sodium measurement (moles/volume)2019-07-25 01:10:00* Test Item Value Reference Range Interpretation Comments Sodium Level (test code = 2951-2) 138 [facility] or plasma potassium measurement (moles/volume)2019-07-25 01:10:00* Test Item Value Reference Range Interpretation Comments Potassium Level (test code = 2823-3) 4.2 [facility] plasma chloride measurement (moles/volume)2019-07-25 01:10:00* Test Item Value Reference Range Interpretation Comments Chloride Level (test code = 2075-0) 107 [facility] or plasma carbon dioxide, total measurement (moles/volume)2019-07-25 01:10:00* Test Item Value Reference Range Interpretation Comments Carbon Dioxide Level (test code = 2028-9) 23 [facility]ere[facility] or plasma anion ywe6307-12-27 01:10:00* Test Item Value Reference Range Interpretation Comments Anion Gap (test code = 02135-9) 12.2 [facility] plasma urea nitrogen measurement (mass/volume)2019-07-25 01:10:00* Test Item Value Reference Range Interpretation Comments Blood Urea Nitrogen (test code = 3094-0) 17 [facility] or plasma creatinine measurement (mass/volume)2019-07-25 01:10:00* Test Item Value Reference Range Interpretation Comments Creatinine (test code = 2160-0) 0.66 [facility] plasma urea nitrogen/creatinine mass tlgso4957-09-81 01:10:00* Test Item Value Reference Range Interpretation Comments BUN/Creatinine Ratio (test code = 3097-3) 26 [facility]wayEstimated glomerular filtration rate (GFR) ymklvbtixpzdw0101-34-54 01:10:00* Test Item Value Reference Range Interpretation Comments Estimat Glomerular Filtration Rate (test code = 855958189) > 60 [facility] ParkwayGlucose fqenddwvuzi6699-02-70 01:10:00* Test Item Value Reference Range Interpretation Comments Glucose Level (test code = JZV9232) 105 [facility] plasma calcium measurement (mass/volume)2019-07-25 01:10:00* Test Item Value Reference Range Interpretation Comments Calcium Level (test code = 39205-2) 8.9 [facility] or plasma total bilirubin measurement (mass/volume)2019-07-25 01:10:00* Test Item Value Reference Range Interpretation Comments Total Bilirubin (test code = 1975-2) 0.2 [facility]wayFluoroscopic procedure less than one hour hotebdrp9310-56-65 01:10:00* Test Item Value Reference Range Interpretation Comments Aspartate Amino Transf (AST/SGOT) (test code = Aspartate Amino Transf (AST/SGOT)) 13 [facility] or plasma alanine aminotransferase measurement (enzymatic activity/volume)2019-07-25 01:10:00* Test Item Value Reference Range Interpretation Comments Alanine Aminotransferase (ALT/SGPT) (test code = 1742-6) 13 [facility] or plasma protein measurement (mass/volume)2019-07-25 01:10:00* Test Item Value Reference Range Interpretation Comments Total Protein (test code = 2885-2) 6.7 [facility] plasma albumin measurement (mass/volume)2019-07-25 01:10:00* Test Item Value Reference Range Interpretation Comments Albumin (test code = 1751-7) 3.3 [facility]wayPlasma globulin measurement (mass/volume) 2019-07-25 01:10:00* Test Item Value Reference Range Interpretation Comments Globulin (test code = 99400-6) 3.4 [facility] plasma albumin/globulin mass skbax3601-91-50 01:10:00* Test Item Value Reference Range Interpretation Comments Albumin/Globulin Ratio (test code = 1759-0) 1.0 [facility] or plasma alkaline phosphatase measurement (enzymatic activity/volume)2019-07-25 01:10:00* Test Item Value Reference Range Interpretation Comments Alkaline Phosphatase (test code = 6768-6) 107 [facility] amyl[facility] (enzymatic activity/volume)2019-07-25 01:10:00* Test Item Value Reference Range Interpretation Comments Amylase Level (test code = 1798-8) 40 [facility] lipase measurement (enzymatic activity/volume)2019-07-25 01:10:00* Test Item Value Reference Range Interpretation Comments Lipase (test code = 3040-3) 17 [facility]PELVIS O7500-81-40 10:53:00 [facility] [address] [address] Patient Name: MARIO MORALES MR #: [id number] : 1975 Age/Sex: 43/F Req #: [id number] Adm Physician: Ordered by: APOLLO WILSON DO Report #: [id number] Location: ER Room/Bed: Procedure: 0 [id number] CT/CT ABDOMEN/PELVIS W Exam Date: 07/24/19 Exam Time: 1000 REPORT STATUS: Sign ed EXAM: CT Abdomen and Pelvis WITH intravenous contrast INDICATION: A bdominal pain COMPARISON: Chest CT of 05/08/2019, abdomen and pelvis CT of 1 04/13/2018 TECHNIQUE: Abdomen and pelvis were scanned utilizing a multidetec tor helical scanner from the lung base to the pubic symphysis after administra tion of IV contrast. Coronal and sagittal reformations were obtained. Routine protocol was performed. Scan was performed during portal venous phase. IV CONTRAST: 100mL of Isovue 370 ORAL CONTRAST: None RADIATION DOSE: Total DLP: 1313.3 mGy*cm Dose modulation, iterative reconstruction, and/or weight based adjustment of the mA/kV was utilized to reduce the radiation dose to as low as reasonably achievable. FINDINGS: LOWER THORAX: Normal. HEPATOBILIARY: No focal hepatic lesions. No biliary ductal dilatation. The gallbladder appears unremarkable. SPLEEN: No splenomegaly. PANCREAS: No focal masses or ductal dilatation. ADRENALS: No adrenal nodules. KI DNEYS/URETERS: No hydronephrosis, stones, or solid mass lesions. PELVIC ORGANS /BLADDER: Cystic structures in the cervix, likely Nabothian cysts. PERITONE UM / RETROPERITONEUM: No free air or fluid. LYMPH NODES: No lymphadenopathy. VESSELS: Unremarkable. GI TRACT: No abnormal bowel thickening. No bowel ob struction. Normal appendix. BONES AND SOFT TISSUES: No acute osseous injury . 2 small ventral abdominal hernias containing fat. IMPRESSION: No acu te findings in the abdomen or pelvis. Signed by: Conchis Beltran MD on 0 10:57 AM Dictated By: CONCHIS BELTRAN MD 105 Transcribed By: HUSSAIN on 07/24/19 105 COPY TO: APOLLO WILSON DO Urine human chorionic gonadotropin (hCG) detection 2019-07-24 09:35:00* Test Item Value Reference Range Interpretation Comments Urine Test (test code = 2106-3) NEGATIVE [facility] platelets count by estimate (number/volume)2019-07-24 08:33:00* Test Item Value Reference Range Interpretation Comments Platelet Estimate (test code = 32467-6) MODERATELY INCREASED [facility]wayPlatelet doomqtncwl2564-00-36 08:33:00* Test Item Value Reference Range Interpretation Comments Platelet Morphology Comment (test code = 92997-3) RARE EDTA CLUMPIN G [facility]wayBlood polychromasia detection by light pxgugefgur6023-56-04 08:33:00* Test Item Value Reference Range Interpretation Comments Polychromasia (test code = 97177-3) FEW [facility]wayBlood hypochromia detection by light opvrlgsfze2693-93-39 08:33:00* Test Item Value Reference Range Interpretation Comments Hypochromasia (test code = 728-6) SLIGHT [facility]Blood anisocytosis detection by light vimlpvhubk3064-42-51 08:33:00* Test Item Value Reference Range Interpretation Comments Anisocytosis (test code = 702-1) MODERATE [facility]Bl[facility] macrocytes detection by light xcduapzdwr6029-37-87 08:33:00* Test Item Value Reference Range Interpretation Comments Macrocytosis (test code = 738-5) SLIGHT [facility]wayBlood ovalocytes detection by light lclqxegjai9672-74-29 08:33:00* Test Item Value Reference Range Interpretation Comments Ovalocytes (test code = 774-0) FEW [facility] ParkwayElliptocyte zonqarjon7453-44-07 08:33:00 * Test Item Value Reference Range Interpretation Comments Elliptocytes (test code = 06911-4) SLIGHT [facility] ParkwayRBC sfkihverlo3291-65-58 08:33:00* Test Item Value Reference Range Interpretation Comments Red Cell Morphology Comment (test code = 6742-1) ABNORMAL [facility]wayCHEST 2 WBTOR7627-89-54 18:55:[address] [address] Patient Name: MARIO MORALES MR #: [id number] : 1975 Age/Sex: 43/F Req #: [id number] Adm Physician: Ordered by: DREAD JONES MD Report #: [id number] Location: ER Room/Bed: Procedure: [id number] DX/CHEST 2 VIEWS Exam Date: 06/22/19 Exam Time: 1839 REPORT STATUS: Signed Examination: PA and lateral views of the chest. COMPARISON: None. IND ICATION: Chest pain DISCUSSION: Lines/tubes: None. Lungs: The lungs are well inflated and clear. No pneumonia or pulmonary edema. Ple ura: No pleural effusion or pneumothorax. Heart and mediastinum: The hear t and the mediastinum are unremarkable. Bones and soft tissues: No acute b celeste abnormalities. IMPRESSION: 1. No acute cardiopulmonary abnorm alities. Signed by: Dr. Madeline Love M.D. on 06/22/2019 6:55 PM Di ctated By: MADELINE LOVE MD 54 Transcribed By: HUSSAIN on 06/22/191854 COPY TO: DREAD BERNARD MD Fibrin D-dimer DDU measurement in platelet poor plasma (mass/volume)2019-06-22 18:19:00* Test Item Value Reference Range Interpretation Comments D-Dimer Quantitative (PE/DVT) (test code = 49128-6) 0.44 [facility] ParkwayBNP Hul-eGkq3167-17-26 18:19:00* Test Item Value Reference Range Interpretation Comments B-Type Natriuretic Peptide (test code = 70218-5) 37.4 [facility] ParkwayTroponin I measurement by highly sensitive enzyme qhojeauiaea6156-88-43 18:19:00* Test Item Value Reference Range Interpretation Comments Troponin I (test code = 18378-7) < 0.001 [facility]CT CHEST S6311-87-22 22:52:[address] [address] Patient Name: MARIO MORALES MR #: [id number] : 1975 Age/Sex: 43/F Req #: [id number] Adm Physician: Ordered by: GUILLERMINA EDGE DO Report #: [id number] Location: ER Room/Bed: Procedure: [id number] 0037 CT/CT CHEST W Exam Date: 05/08/19 Exam Time: 21 53 REPORT STATUS: Signed EXAM: C T Chest WITH contrast (PE protocol) 05/08/2019 8:53 PM INDICATION: Dyspnea COMPARISON: Chest x-ray 05/08/2019 TECHNIQUE: Chest was scanned utili [employer] a multidetector helical scanner from the lung apex through the level of t he diaphragm after administration of IV contrast. Thin section reconstructions were obtained with special concentration on the pulmonary arteries. Coronal a nd sagittal reformations were obtained. Pulmonary embolism protocol was perfor med. IV CONTRAST: 100 mL of Isovue 370 COMPLICATIONS: None RADI ATION DOSE: Total DLP: 556 mGy*cm Estimated effective dose: (DLP x 0.014 x size factor) mSv CTDIvol has been reviewed. It is below the arnett its set by the Radiation Protocol Committee (RPC). Dose modulation, ite rative reconstruction, and/or weight based adjustment of the mA/kV was utilize d to reduce the radiation dose to as low as reasonably achievable. FINDI NGS: LINES/ TUBES: None. LUNGS AND AIRWAYS: A 4 mm nodule in the right upper lobe, likely with a central calcification, no follow-up required. No pu lmonary arterial filling defects. Airways are normal. PLEURA: The pleura l spaces are clear. HEART AND MEDIASTINUM: The thyroid gland is normal. No mediastinal, hilar or axillary lymphadenopathy. The heart is normal in size. There is no pericardial effusion. Mild distal esophageal wall thickening. The main pulmonary artery and thoracic aorta are nondilated. UPPER ABDOMEN: Small sliding gastric hiatal hernia. BONES: There are degenerative chavez nges in the spine. SOFT TISSUES: Unremarkable. IMPRESSION: Sm all sliding gastric hiatal hernia with mild findings of distal esophagitis. No pulmonary embolism. Signed by: Sy Russ DO on 05/08/2019 11:00 PM Dictated By: SY RUSS DO 2300 Transcribed By: HUSSAIN on 05/08/192299 COPY TO : GUILLERMINA EDGE DO CHEST SINGLE (PORTABLE)2019-05-08 20:48:[address] [address] Patient Name: MARIO MORALES MR #: [id number] : 1975 Age/Sex: 43/F Req #: [id number] Adm Physician: Ordered by: GUILLERMINA EDGE DO Report #: [id number] Location: ER Room/Bed: Procedure: [id number] 0066 DX/CHEST SINGLE (PORTABLE) Exam Date: 05/08/19 Exam Time: 1949 REPORT STATUS: Sign ed EXAMINATION: CHEST SINGLE (PORTABLE) INDICATION: ERMD O RDER [id number] 1951 Y COMPARISON: 03/10/2019 FINDINGS: AP view TUBES and LINES: None. LUNGS: Limited by body habitus and low lung volumes. Central vascular congestion. PLEURA: No significant pleural effusion or pneumothorax. HEART AND MEDIASTINUM: The cardiac silho uette is mildly enlarged. BONES AND SOFT TISSUES: No acute osseous les ion. Soft tissues are unremarkable. UPPER ABDOMEN: No free air under the diaphragm. IMPRESSION: Limited as above. Mildly enlarged cardiac silhouette and central vascular congestion, accentuated by low lung volumes. Signed by: Dr. Akash Murphy MD on 05/08/2019 8:49 PM Dictated By: AKASH MURPHY MD 48 Transcribed By: HUSSAIN on 05/08/192048 COPY TO: GUILLERMINA EDGE DO Serum or plasma creatine kinase measurement (enzymatic activity/volume) 2019-05-08 18:30:00* Test Item Value Reference Range Interpretation Comments Creatine Kinase (test code = 2157-6) 52 [facility] creatine kinase MB measurement (mass/volume)2019-05-08 18:30:00* Test Item Value Reference Range Interpretation Comments Creatine Kinase MB (test code = 03795-2) 0.60 [facility]wayCHEST SINGLE (PORTABLE)2019-03-10 13:52:00 [facility] [address] [address] Patient Name: MARIO MORALES MR #: [id number] : 1975 Age/Sex: 43/F Req #: [id number] Adm Physician: Ordered by: NHUNG CANO NP Report #: [id number] Location: ER Room/Bed: Procedure: [id number] DX/CHEST SINGLE (PORTABLE) Exam Date: 03/10/19 Exam Time: 1345 REPORT STATUS: Signed EXAMINATION: CHEST SINGLE (PORTABLE) INDICATION: Chest pain, shortness of breath. COMPARISON: Chest radiograph 02/24/2019. FINDINGS: Exam is somewhat limited by portable technique and soft tissue atten uation. TUBES and LINES: None. LUNGS: Lungs are well inflated. Ther e is no evidence of pneumonia or pulmonary edema. Central vascular congestion. Mild patchy bibasilar opacities, likely atelectasis. PLEURA: No pleural effusion or pneumothorax. HEART AND MEDIASTINUM: The cardiomediastinal s ilhouette is unremarkable. BONES AND SOFT TISSUES: No acute osseous ab normality. UPPER ABDOMEN: No free air under the diaphragm. IMPRES PIETRO: No acute radiographic abnormality. Signed by: Dr. Jensen Burnette MD on 03/10/2019 1:54 PM Dictated By: JENSEN BURNETTE MD 135 Transcribed By: HUSSAIN on 03/10/19 135 COPY TO: NHUNG CANO NP Serum or plasma choriogonadotropin ( test) wnrtxmqcn1698-36-87 12:20:00* Test Item Value Reference Range Interpretation Comments Human Chorionic Gonadotropin, Qual (test code = 2118-8) NEGATIVE [facility] magnesium measurement (mass/volume)2019-03-10 11:43:00* Test Item Value Reference Range Interpretation Comments Magnesium Level (test code = 40679-3) 1.7 [facility]wayCHEST 2 LCEJV7248-64-86 20:41:00 [facility] [address] [address] Patient Name: MARIO MORALES MR #: [id number] : 1975 Age/Sex: 43/F Req #: [id number] Adm Physician: Ordered by: GUILLERMINA VAZQUEZ NP Report #: [id number] Location: ER Room/Bed: Procedure: [id number] D X/CHEST 2 VIEWS Exam Date: 02/24/19 Exam Time: 2024 REPORT STATUS: Signed EXAMINATIO N: CHEST 2 VIEWS INDICATION: Chest pain, shortness of breath. CO MPARISON: None FINDINGS: TUBES and LINES: None. LUNGS: Lungs are well inflated. There is no evidence of pneumonia or pulmonary edema. PLEURA: No pleural effusion or pneumothorax. HEART AND MEDIASTINUM: The cardiomediastinal silhouette is unremarkable. BONES AND SOFT TISSUES: No acute osseous abnormality. UPPER ABDOMEN: No free air under the diaph ragm. IMPRESSION: No acute radiographic abnormality. Signed by : Dr. Jensen Burnette MD on 02/24/2019 8:42 PM Dictated By: JENSEN BURNETTE MD El ectronically Signed By: JENSEN BURNETTE MD on 02/24/192041 Transcribed By: HUSSAIN on 02/24/192041 COPY TO: GUILLERMINA VAZQUEZ NP CT ABDOMEN/PELVIS W 2019-02-11 20:04:00 [address] [address] Patient Name: MARIO MORALES MR #: [id number] : 1975 Age/Sex: 43/F Req #: [id number] Adm Physician: Ordered by: GUILLERMINA VAZQUEZ NP Report #: [id number] Location: ER Room/Bed: Procedure: [id number] C T/CT ABDOMEN/PELVIS W Exam Date: 02/11/19 Exam Time: 1934 REPORT STATUS: Signed CT A bdomen And Pelvis with Intravenous Contrast INDICATION: Left lower quadrant pain abd pain [id number] TECHNIQUE: Thin collimation axial i mages obtained from the diaphragm to the level of the pubic symphysis followin g the uneventful administration of 100 cc of low osmolar, nonionic intravenou s contrast. Dose reduction techniques used: Automated exposure control, adj ustment of the mAs and/or kVp according to patient size, standardized low-dose protocol, and/or iterative reconstruction technique. RADIATION DOSE: Total DLP: 851.6 mGy*cm Estimated effective dose: (DLP x 0.015 x size factor) mSv CTDIvol has been reviewed. It is below the limits set by the Radiation Protocol Committee (RPC). COMPARISON: Pelvic ultrasound 02/07/2019, CT abdomen/pelvis 02/07/2019. CT abdomen/pelvis 12/11/2018 A BDOMEN FINDINGS: Lung Bases: Clear. The visualized portions of the mediast inum are normal. Liver: Normal attenuation. No evidence for mass. Gal lbladder: Present and appears normal. No biliary ductal dilatation. Pancrea s: Normal attenuation without mass or ductal dilatation. Spleen: Normal in size. No evidence of mass. Adrenal Glands: No evidence for mass. Kidn eys: Right: Normal enhancement. No soft tissue mass. No hydronephrosis. Left: Normal enhancement. No soft tissue mass. No hydronephrosis. L ymph Nodes: No lymphadenopathy. Aorta: Normal in diameter PELVIS FIN DINGS: Bowel: Stomach: Normal. Small Bowel: Normal in caliber with n ormal wall thickness. Large Bowel: Several scattered diverticula in the left colon. No associated inflammation. Remainder of the large bowel is unremarkab le. Appendix: Normal appendix. Bladder: Underdistended. Uterus: Pr esent with fullness of the endometrium and an enhancing mass protruding within the endometrium measuring 17 x 15 mm. This is grossly stable. The cervix enha nces heterogeneously and is prominent, measuring 4.6 x 5.8 cm. This is stable. By ultrasound, Nabothian cysts were identified. Ovaries: Normal Lymph nodes: No enlarged inguinal lymph nodes. A left common iliac chain lymph node measures 5 mm and is nonspecific. Bones: No lytic or blastic lesions. Soft tissues: Fat-containing of focal hernia is stable. No associated inflamm ation. IMPRESSION: 1. Prominent heterogeneously enhancing cervix. Al though the pelviectasis identified on ultrasound, correlation with pap smear a nd pelvic exam is recommended. There is mild distention of the endometrial can al with a 17 mm enhancing intraluminal nodule. This may represent a polyp or f ibroid. Correlation with sonohysterography is recommended. 2. Diverticu losis coli. No evidence for bowel obstruction or inflammation. Normal appendix . 3. No new left lower quadrant findings to explain pain. Signed by: Fermin Rose MD on 02/11/2019 8:11 PM Dictated By: GILES GALARZA MD 10 Transc ribed By: HUSSAIN on 02/11/192010 COPY TO: GUILLERMINA VAZQUEZ NP Urine opiates screening uivw6086-55-01 14:10:00* Test Item Value Reference Range Interpretation Comments Urine Opiates Screen (test code = 63075-3) NEGATIVE [facility]way[facility]biturates screen, iqhzc9955-39-10 14:10:00* Test Item Value Reference Range Interpretation Comments Urine Barbiturates Screen (test code = 490684737) NEGATIVE [facility] ParkwayUrine phencyclidine detection by screening jjvggo0023-23-26 14:10:00* Test Item Value Reference Range Interpretation Comments Urine Phencyclidine Screen (test code = 32123-6) NEGATIVE [facility] ParkwayUrine amphetamines detection by screen method > 1000 ng/iG4618-85-76 14:10:00* Test Item Value Reference Range Interpretation Comments Urine Amphetamines Screen (test code = 50045-1) NEGATIVE [facility] ParkwayFluoroscopic procedure less than one hour ygvkbfao4740-85-37 14:10:00* Test Item Value Reference Range Interpretation Comments Urine Methamphetamines Screen (test code = Urine Metha mphetamines Screen) NEGATIVE [facility] ParkwayUrine benzodiazepines detection by screening tsuazc7770-16-84 14:10:00* Test Item Value Reference Range Interpretation Comments Urine Benzodiazepines Screen (test code = 00290-6) NEGATIVE [facility] ParkwayUrine cocaine measurement (mass/volume) 2019-02-11 14:10:00* Test Item Value Reference Range Interpretation Comments Urine Cocaine Screen (test code = 3398-5) NEGATIVE [facility] ParkwayUrine cannabinoids detection by screening ndxfgc9924-93-60 14:10:00* Test Item Value Reference Range Interpretation Comments Urine Cannabinoids Screen (test code = 67311-5) NEGATIVE [facility] ParkwayUrine methadone fulazv4883-11-33 14:10:00 * Test Item Value Reference Range Interpretation Comments Urine Methadone Screen (test code = 81653-1) NEGATIVE [facility] ParkwayUS PELVIS COMPLETE NON UG5388-13-16 14:25:00 [facility] [address] [address] Patient Name: MARIO MORALES MR #: [id number] : 1975 Age/Sex: 43/F Req #: [id number] Adm Physician: Ordered by: GUILLERMINA EDGE DO Report #: [id number] Location: ER Room/Bed: Procedure: [id number] US/U S PELVIS COMPLETE NON OB Exam Date: 02/07/19 Exam Ti me: 1328 REPORT STATUS: Signed Exam: Pelvic ultrasound. History: Cervical cysts Comparison: CT ab domen and pelvis of earlier the same day. Findings: Transabdominal and endo vaginal sonographic evaluation of the pelvis. The uterus is anteverted in posi tion, measuring 10.5 x 6.4 x 7.9cm. No uterine masses identified. Endometrial stripe thickness is 10 mm. The right ovary is not visualized due to overlying bowel gas. The left ovary measures 3.9 x 2.9 x 2.9 cm and contains multiple fo llicles measuring up to 1.6 cm. Multiple Nabothian cysts in the cervix measuri ng up to 2.0 cm. Impression: Nabothian cysts in the cervix. No uterine m ass. Physiologic follicles in the left ovary. 10mm endometrial stripe, within normal limits depending on phase of menstrual cycle in this premenopau veronica patient. Signed by: Conchis Beltran MD on 02/07/2019 2:28 PM Dictate d By: CONCHIS BELTRAN MD 1428 T ranscribed By: HUSSAIN on 02/07/191427 COPY TO: GUILLERMINA EDGE DO YRHWOQBHBRJI7081-10-34 14:25:00 [place] [address] Patient Name: MARIO MORALES MR #: [id number] : 1975 Age/Sex: 43/F Req #: [id number] Adm Physician: Ordered by: GUILLERMINA EDGE DO Report #: [id number] Location: ER Room/Bed: Procedure: [id number] US/U S TRANSVAGINAL Exam Date: 02/07/19 Exam Time: 1328 REPORT STATUS: Signed Exam: Pe lvic ultrasound. History: Cervical cysts Comparison: CT abdomen and pelvis of earlier the same day. Findings: Transabdominal and endovaginal so nographic evaluation of the pelvis. The uterus is anteverted in position, lion uring 10.5 x 6.4 x 7.9cm. No uterine masses identified. Endometrial stripe thi ckness is 10 mm. The right ovary is not visualized due to overlying bowel gas. The left ovary measures 3.9 x 2.9 x 2.9 cm and contains multiple follicles me asuring up to 1.6 cm. Multiple Nabothian cysts in the cervix measuring up to 2 .0 cm. Impression: Nabothian cysts in the cervix. No uterine mass. Physiologic follicles in the left ovary. 10mm endometrial stripe, within no rmal limits depending on phase of menstrual cycle in this premenopausal patien t. Signed by: Conchis Beltran MD on 02/07/2019 2:28 PM Dictated By: SEN BELTRAN MD 1427 Transcribed By: HUSSAIN on 02/07/191427 COPY TO: GUILLERMINA EDGE DO CT ABDOMEN/PELVIS O5445-93-36 12:34:00 [place] [address] Patient Name: MARIO MORALES MR #: [id number] : 1975 Age/[facility] 43[id number] Req #: [id number] Adm Physician: Ordered by: GUILLERMINA EDGE DO Report #: [id number] Location: ER Room/Bed: Procedure: [id number] CT/C T ABDOMEN/PELVIS W Exam Date: 02/07/19 Exam Time: 03 17 REPORT STATUS: Signed EXAM: C T Abdomen and Pelvis WITH intravenous contrast INDICATION: Lower abdomina l pain, fever COMPARISON: CT abdomen and pelvis of 12/11/2018 TECHNIQUE : Abdomen and pelvis were scanned utilizing a multidetector helical scanner fr om the lung base to the pubic symphysis after administration of IV contrast. C oronal and sagittal reformations were obtained. Routine protocol was performed . Scan was performed during portal venous phase. IV CONTRAST: 100mL of Isovue 370 ORAL CONTRAST: Water RADIATION DOSE: Total DLP: 861.1 mGy* cm Dose modulation, iterative reconstruction, and/or weight based adjustmen t of the mA/kV was utilized to reduce the radiation dose to as low as reasonab ly achievable. FINDINGS: LOWER THORAX: Normal. HEPATOBILIARY: No focal hepatic lesions. No biliary ductal dilatation. The gallbladder appears unremarkable. SPLEEN: No splenomegaly. PANCREAS: No focal masses or du ctal dilatation. ADRENALS: No adrenal nodules. KIDNEYS/URETERS: No hydron ephrosis, stones, or solid mass lesions. PELVIC ORGANS/BLADDER: Multiple cysti c structures of the cervix, not well evaluated on CT. PERITONEUM / RETROP ERITONEUM: No free air or fluid. LYMPH NODES: No lymphadenopathy. VESSELS: U nremarkable. GI TRACT: Diverticulosis without CT evidence of diverticulitis . No abnormal bowel thickening. No bowel obstruction. Normal appendix. PAOLA PAULETTE AND SOFT TISSUES: No acute osseous injury. No suspicious lytic or blastic lesions. IMPRESSION: Multiple cystic structures in the region of the cervix, not well evaluated on CT. Recommend transabdominal and transvaginal pe lvic ultrasound for further evaluation. Diverticulosis without CT evidenc e of diverticulitis. Signed by: Conchis Beltran MD on 02/07/2019 12:40 PM Dictated By: CONCHIS BELTRAN MD 1240 Transcribed By: HUSSAIN on 02/07/19 1240 COPY TO: GUILLERMINA EDGE DO CT ABDOMEN/PELVIS [id number] 22:15:00 [place] [address] Patient Name: MARIO MORALES MR #: [id number] : 1975 Age/Sex: 42/F Req #: [id number] Adm Physician: Ordered by: GUILLERMINA EDGE DO Report #: [id number] Location: ER Room/Bed: Procedure: [id number] CT/C T ABDOMEN/PELVIS W Exam Date: 12/11/18 Exam Time: 21 10 REPORT STATUS: Signed EXAM: C T Abdomen and Pelvis WITH contrast INDICATION: Right lower quadrant abdomina l pain, nausea, vomiting COMPARISON: Abdominal CT 04/20/2017. TECHNIQUE: Ab domen and pelvis were scanned utilizing a multidetector helical scanner from t he lung base to the pubic symphysis after administration of IV contrast. Coron al and sagittal reformations were obtained. Routine protocol was performed. Sc an was performed when during portal venous phase. IV CONTRAST: 100 mL of Isovue 370 ORAL CONTRAST: Water COMPLICATIONS: None RADIATION DOSE: Total DLP: 859 mGy*cm Estimated effective dose: (DLP x 0.015 x size factor) mSv CTDIvol has been reviewed. It is below the limits set by the Radiation Protocol Committee (RPC). Dose modulat ion, iterative reconstruction, and/or weight based adjustment of the mA/kV was utilized to reduce the radiation dose to as low as reasonably achievable. FINDINGS: LINES and TUBES: None. LOWER THORAX: Trace pericardial f luid. HEPATOBILIARY: No focal hepatic lesions. No biliary ductal dilat ion. GALLBLADDER: No radio-opaque stones or sludge. No wall thickening. C ontracted. SPLEEN: No splenomegaly. PANCREAS: No focal masses or duct al dilatation. ADRENALS: No adrenal nodules KIDNEYS/URETERS: Kid neys enhance symmetrically. No hydronephrosis. No cystic or solid mass lesion s. No stones. GI TRACT: No abnormal distention, wall thickening, or eviden ce of bowel obstruction. Appendix is normal. PELVIC ORGANS/BLADDER: Multiple Nabothian cysts, unchanged compared to abdominal CT 04/20/2017. LYMPH NODES: No lymphadenopathy. VESSELS: Unremarkable. PERITONEUM / RETROPERITONEUM: No free air or fluid. BONES: Unremarkable. SOFT TISSU ES: A 2.5 cm midline infraumbilical fat-containing hernia with minimal fat str anding, there are 2.5 cm peritoneal defect, appears similar compared to 018. IMPRESSION: A chronic 2.5 cm midline infraumbilical fa t-containing hernia with minimal associated inflammation. No bowel obstruction or fluid collection. Signed by: Sy Russ DO on 12/11/2018 10:22 PM Dictated By: SY RUSS DO 21 Transcribed By: HUSSAIN on 12/11/182221 COPY TO: GUILLERMINA EDGE DO Blood poikilocytosis detection by light microscopy 2018-12-11 19:46:00* Test Item Value Reference Range Interpretation Comments Poikilocytosis (test code = 779-9) [id number] 19:47:00 [facility] [address] [place] [address] Patient Name: MARIO MORALES MR #: [id number] : 1975 Age/Sex: 42/F Req #: [id number] Adm Physician: Ordered by: SUHAS JACKSON MD Report #: [id number] Location: ER Room/Bed: Procedure: [id number]/CT BRAIN WO Exam Date: 11/29/18 Exam Time: REPORT STATUS: Signed Exam: H ead CT without contrast History: Headache Comparison studies: None Te chnique: Axial images were obtained from the skull base to the vertex. Coron al and sagittal images reconstructed from the axial data. Dose modulation, it erative reconstruction, and/or weight based adjustment of the mA/kV was utiliz ed to reduce the radiation dose to as low as reasonably achievable. Rad iation dose: Total DLP: 921 mGy*cm. Estimated effective dose: DLP x 0.015 Intravenous contrast: None Findings: Scalp: No abnormalities. Bon es: No fractures, blastic or lytic lesions. Brain sulci: Appropriate for ag e. Ventricles: Normal in size and configuration. No hydrocephalus. Extra-axi al spaces: No masses, no fluid collection. Parenchyma: No abnormal dens ities. No masses, acute hemorrhage, acute or chronic vascular insults. S ellar/suprasellar region: No abnormalities. Craniocervical junction: Patent fo ramen magnum. No Chiari one malformation. Incidental findings: Subtle ca lcified atherosclerosis in the bilateral paraophthalmic ICA segments and intra dural vertebral arteries. Included paranasal sinuses: Small nonspecific fro thy secretions in the left sphenoid sinus. Remaining included sinuses are gladys r. Middle ear and mastoid cavities: Clear. IMPRESSION: No acute intracranial abnormalities. Signed by: Dr. Capri Culver M.D. on 11/29/2018 7:51 PM Dictated By: CAPRI CULVER MD 50 Transcribed By: HUSSAIN on 11/29/181950 CO PY TO: SUHAS JACKSON MD CT ABDOMEN/PELVIS W [facility] [address] [address] Patient Name: MARIO MORALES MR #: [id number] : 1975 Age/Sex: 41/F Req #: [id number] Adm Physician: Ordered by: GUILLERMINA VAZQUEZ RECEIVABLE MANAGER Report #: [id number] Location: ER Room/Bed: Procedure: [id number] CT/CT ABDOMEN/PELVIS W Exam Date: 04/20/17 Exam Time: 1720 REPORT STATUS: Signed PROCEDURE: CT ABDOMEN AND PELVIS WITH CONTRAST TECHNIQUE: The abdomen and pelvis were scanned utilizing a multidetector helical scanner fr om the diaphragm to the lesser trochanter after the IV administration of 100 cc of Isovue 370 and the oral administration of Gastrografin. Coronal and sag ittal multiplanar reformations were obtained. Total DLP: 845.11 mGy-cm COMPARISON: None. INDICATIONS: ABDOMINAL PAIN FINDINGS: LO WER THORAX: Normal. HEPATOBILIARY: No focal hepatic lesions. No biliary d uctal dilatation. SPLEEN: No splenomegaly. PANCREAS: No focal masses or duct al dilatation. ADRENALS: No adrenal nodules. KIDNEYS/URETERS: No hydrone phrosis, stones, or solid mass lesions. PELVIC ORGANS/BLADDER: Uterus is jelani l. Cervix is prominent and heterogeneous and may be replaced by numerous nabo thian cysts. Normal left ovarian size measuring 3.9 x 3.0 cm. 2.7 cm left ova giancarlo cyst. Right ovary is partially obscured by overlying bowel. PERITO NEUM / RETROPERITONEUM: No free air or fluid. LYMPH NODES: No lymphadenopathy. VESSELS: Unremarkable. GI TRACT: No distention or wall thickening. Appe ndix is normal. BONES AND SOFT TISSUES: Unremarkable. IMPRESSION: 1. Enlarged heterogeneous cervix which may be replaced by nabothian cysts. Pelvic ultrasound was unsuccessful as patient was unable to tolerate the ex am. 2. Normal left ovarian size with a 2.7 cm left ovarian cyst. Di ctated by: Torres Segovia M.D. on 04/20/2017 at 18:13 Electronically approved b y: Torres Segovia M.D. on 04/20/2017 at 18:13 Dictated By: TORRES SEGOVIA MD 12 Transcribed By: CHEPE on 04/20/171812 COPY TO: GUILLERMINA VAZQUEZ RECEIVABLE MANAGER US TRANSVAGINAL [address] [place] [address] Patient Name: MARIO MORALES MR #: [id number] : 1975 Age/Sex: 41/F Req #: [id number] Adm Physician: Ordered by: JAMESON LEDEZMA MD Report #: [id number] Location: ER Room/Bed: Procedure: [id number] US/US TRANSVAGINAL Exam Date: 04/20/17 Exam Time: 1656 REPORT STATUS: Signed PROCEDURE: TRANSVAGINAL ULTRASOUND COMPARISON: None. INDICATIONS: LOWER ABDOMINAL PAIN/ R/O OVARIAN CYST TECHNIQUE: Grayscale transverse and sag ittal transabdominal and transvaginal images were obtained of the pelvis. Tra nsvaginal imaging was medically necessary to endometrium and ovaries FI NDINGS: 41-year-old female. A2. LMP 04/12/2017 UTERUS: 12.7 x 5.9 x 6.3 cm. Anteverted anteflexed ENDOMETRIUM: Not well-visualized RIGHT OVARY: Not visualized. LEFT OVARY: Not visualized. Th ere is no free fluid within the pelvis. No adnexal masses. CONCLUSION: Suboptimal exam as patient was unable to tolerate the exam. Dictated by: Torres Segovia M.D. on 04/20/2017 at 18:07 Electronically approved by: Torres munoz M.D. on 04/20/2017 at 18:07 Dictated By: TORRES Gupta ruben Signed By: TORRES SEGOVIA MD on 04/20/171806 Transcribed By: CHEPE on 04/20/171806 COPY TO: JAMESON LEDEZMA MD US PELVIS COMPLETE NON OB [address] [place] [address] Patient Name: MARIO MORALES MR #: [id number] : 1975 Age/Sex: 41/F Req #: [id number] Adm Physician: Ordered by: GUILLERMINA VAZQUEZ NP Report #: [id number] Location: Room/B ed: Procedure: [id number] US/US PELVIS COMPLETE NON OB Exam Date: 04/20/17 Exam Time: [address] ATUS: Signed PROCEDURE: US PELVIS COMPLETE NON OB COMPARISON: None. I NDICATIONS: LOWER ABDOMEN PAIN/ R/O OVARIAN CYST CONCLUSION: Please refer to transvaginal pelvic ultrasound performed at the same date and time for full dictated report. Dictated by: Torres Segovia M.D. on 04/20/2017 at 18:08 Electronically approved by: Torres Segovia M.D. on 04/20/2017 at 18:08 Dictated By: TORRES SEGOVIA MD 07 COPY TO: ELIAS VAZQUEZ NP
--- NOTE | 2019-08-10 03:09 | Emergency Department Note ---
History of Present Illnes History of Present Illness Chief Complaint: Genitourinary History of Present Illness This is a 43 year old female who presents with c/o supra pubic pain since midnight, also reports right back pain and dysuria as well. denies n/v Historian: Patient Arrival Mode: Car Onset (how long ago): hour(s) (3) Location: supra pubic Quality: pain Radiation: back (right flank) Severity: moderate Onset quality: sudden Duration (how long): hour(s) (3) Timing of current episode: constant Progression: unchanged Chronicity: new Relieving factors: none Exacerbating factors: none Associated symptoms: denies other symptoms Treatments prior to arrival: none Past Medical/Family History Physician Review I have reviewed the patient's past medical and family history. Any updates have been documented here. Past Medical History Recent Fever: No Clinical Suspicion of Infectio: No New/Unexplained Change in Ment: No Past Medical History: TIA, Asthma, Migraines, Anemia Other Medical History: morbid obesity Past Surgical History: T&A, Tubal Ligation, Other Surgery: none Social History Counseling Performed: No Alcohol Use: None Any Illegal Drug Use: No Family History Family history of heart diseas: Yes Other Last Tetanus: UTD Review of Systems Review of Systems Constitutional: no symptoms EENTM: no symptoms Cardiovascular: no symptoms Respiratory: no symptoms Gastrointestinal: no symptoms Genitourinary: no symptoms, as per HPI, dysuria, frequency, pain Musculoskeletal: no symptoms Integumentary: no symptoms Neurological: no symptoms Psychological: no symptoms Endocrine: no symptoms Hematological/Lymphatic: no symptoms Review of other systems All other systems reviewed and negative. Physical Exam Related Data Allergies: Coded Allergies: No Known Allergies (Unverified , 03/10/19) Triage Vital Signs Vital Signs Date Time Temp Pulse Resp B/P (MAP) Pulse Ox O2 Delivery O2 Flow Rate FiO2 08/10/19 03:00 98.7 73 21 116/67 100 Vital signs reviewed: Yes Physical Exam CONSTITUTIONAL Constitutional: well-developed, well-nourished HENT HENT: normocephalic, atraumatic, oropharynx clear/moist, nose normal HENT - Ear: left ext ear normal, right ext ear normal EYES Eyes: PERRL, conjunctivae normal NECK Neck: ROM normal PULMONARY Pulmonary: effort normal, breath sounds normal CARDIOVASCULAR Cardiovascular: regular rhythm, heart sounds normal, capillary refill normal, normal rate GASTROINTESTINAL Abdominal: soft, bowel sounds normal, tender (suprapubic tenderness on exam), right CVA tenderness (mild) GENITOURINARY Genitourinary: exam deferred SKIN Skin: warm, dry MUSCULOSKELETAL Musculoskeletal: ROM normal NEUROLOGICAL Neurological: alert, oriented x 3, no gross motor or sensory deficits PSYCHOLOGICAL Psychiatric/behavioral: mood/affect normal, judgement normal Results Laboratory Laboratory Laboratory Tests Test 08/10/19 03:12 Urine Color Red (YELLOW) Urine Clarity Cloudy (CLEAR) Urine pH 5.5 (5 - 7) Urine Specific [place] 1.020 (1.010-1.025) Urine Protein 2+ (NEGATIVE) Urine Glucose (UA) Negative (NEGATIVE) Urine Ketones Negative (NEGATIVE) Urine Blood 4+ (NEGATIVE) Urine Nitrite Negative (NEGATIVE) Urine Bilirubin Negative (NEGATIVE) Urine Urobilinogen 0.2 mg/dL (0.2 - 1) Urine Leukocyte Esterase Trace (NEGATIVE) Urine RBC >50 /HPF (0-5) Urine WBC 0-5 /HPF (0-5) Urine Epithelial Cells Rare /LPF (NONE) Urine Renal Epithelial Cells Rare (NONE) Urine Bacteria Few /HPF (NONE) Urine Test Negative (NEGATIVE) Lab results reviewed: Yes Laboratory comments pt with hematuria on urinalysis Imaging Imaging results reviewed: Yes Impressions Patient Name: MARIO MORALES MR #: [id number] : 1975 Age/Sex: 43/F Req #: [id number] [facility] Physician: Ordered by: SUHAS JACKSON MD Report #: [id number] Location: Room/Bed: Procedure: [id number] CT/CT ABDOMEN/PELVIS WO Exam Date: 08/10/19 Exam Time: 0410 REPORT STATUS: Signed EXAM: CT Abdomen and Pelvis WITHOUT contrast INDICATION: ^right flank pain ^[id number] ^0410 ^Y COMPARISON: CT abdomen pelvis 07/24/2019 TECHNIQUE: Abdomen and pelvis were scanned utilizing a multidetector helical scanner from the lung base to the pubic symphysis without administration of IV contrast. Absence of intravenous contrast decreases sensitivity for detection of focal lesions and vascular pathology. Coronal and sagittal reformations were obtained. Routine protocol was performed. IV CONTRAST: None ORAL CONTRAST: None COMPLICATIONS: None RADIATION DOSE: Total DLP: ... mGy*cm Estimated effective dose: (DLP x 0.015 x size factor) mSv CTDIvol has been reviewed. It is below the limits set by the Radiation Protocol Committee (RPC). Dose modulation, iterative reconstruction, and/or weight based adjustment of the mA/kV was utilized to reduce the radiation dose to as low as reasonably achievable. FINDINGS: LINES and TUBES: None. LOWER THORAX: Unremarkable HEPATOBILIARY: Mild hepatomegaly. No focal hepatic lesions. No biliary ductal dilation. GALLBLADDER: No radio-opaque stones or sludge. No wall thickening. SPLEEN: No splenomegaly. PANCREAS: No focal masses or ductal dilatation. ADRENALS: No adrenal nodules KIDNEYS/URETERS: No hydronephrosis. No cystic or solid mass lesions. No stones. GI TRACT: No abnormal distention, wall thickening, or evidence of bowel obstruction. Appendix is normal. PELVIC ORGANS/BLADDER: The uterus is bulky. Cervical nabothian cysts are noted. The urinary bladder is unremarkable. LYMPH NODES: No lymphadenopathy. VESSELS: Unremarkable. PERITONEUM / RETROPERITONEUM: No free air or fluid. BONES: Unremarkable. SOFT TISSUES: Unchanged small fat-containing ventral hernias. IMPRESSION: No acute abdominal or pelvic abnormality. No nephroureteral calculus or evidence of obstructive uropathy. Signed by: Charlotte Blue MD on 08/10/2019 4:45 AM Dictated By: CHARLOTTE BLUE MD 4 Transcribed By: HUSSAIN on 08/10/19444 COPY TO: SUHAS JACKSON MD~ Critical Care Time Subsequent provider I assumed direction of critical care for this patient from another provider of my specialty. Assessment & Plan Assessment & Plan Problems: (1) Cystitis with hematuria Assessment & Plan pt with supra pubic pain, dysuria, frequency and right flank pain, ua, ct abd/plevis ordered to eval for uti, kidney stone, toradol 60 mg im ordered Reassessment Reassessment time: 04:54 Reassessment pt pain much better after toradol 60 mg im. Depart Disposition: HOME, SELF-CARE Last Vital Signs Date Time Temp Pulse Resp B/P (MAP) Pulse Ox O2 Delivery O2 Flow Rate FiO2 08/10/19 03:00 98.7 73 21 116/67 100 Home Meds Active Scripts Famotidine (PEPCID) 20 Mg Tablet, 40 MG PO DAILY, #30 TAB Prov:APOLLO WILSON DO 07/24/19 Reported Medications Albuterol Sulf* (PROAIR HFA INHALER*) 8.5 Gm Inh, 2 INH INH DAILY 04/20/17 Medications in the ED Ketorolac Tromethamine 60 mg ONCE ONCE IM ; Start 08/10/19 at 03:15; Stop 08/10/19 at 03:16; Status UNV SUHAS JACKSON MD August 10, 2019 03:09
[2019-08-10] MEDS ORDERED: KETOROLAC TROMETHAMINE 60 MG/2 ML VIAL IM ONE (03:15)
[2019-08-10] MEDS ORDERED: KETOROLAC TROMETHAMINE 60 MG/2 ML VIAL ONE (03:19)
[2019-08-10 03:29] LABS: CLARITY,URINE CLOUDY (CLEAR); COLOR,URINE RED (YELLOW)
[2019-08-10 03:30] LABS: BILIRUBIN,URINE NEGATIVE (NEGATIVE); KETONES,URINE NEGATIVE (NEGATIVE); LEUKOCYTE ESTERASE ,URINE TRACE (NEGATIVE); NITRITE,URINE NEGATIVE (NEGATIVE); PREGNANCY TEST, URINE NEGATIVE (NEGATIVE); PROTEIN,URINE DIPSTICK 2+ (NEGATIVE); URINE UROBILINOGEN 0.2 mg/dL (0.2 - 1)
[2019-08-10 03:34] LABS: BACTERIA,URINE FEW /HPF; EPITHELIAL CELLS,URINE RARE /LPF; RBC,URINE >50 /HPF (0-5); RENAL EPITHELIAL CELLS,URINE RARE; WBC,URINE (MAN) 0-5 /HPF (0-5)
--- NOTE | 2019-08-10 04:49 | Diagnostic Imaging Report ---
EXAM: CT Abdomen and Pelvis WITHOUT contrast INDICATION: ^right flank pain ^[id number] ^0410 ^Y COMPARISON: CT abdomen pelvis 07/24/2019 TECHNIQUE: Abdomen and pelvis were scanned utilizing a multidetector helical scanner from the lung base to the pubic symphysis without administration of IV contrast. Absence of intravenous contrast decreases sensitivity for detection of focal lesions and vascular pathology. Coronal and sagittal reformations were obtained. Routine protocol was performed. IV CONTRAST: None ORAL CONTRAST: None COMPLICATIONS: None RADIATION DOSE: Total DLP: ... mGy*cm Estimated effective dose: (DLP x 0.015 x size factor) mSv CTDIvol has been reviewed. It is below the limits set by the Radiation Protocol Committee (RPC). Dose modulation, iterative reconstruction, and/or weight based adjustment of the mA/kV was utilized to reduce the radiation dose to as low as reasonably achievable. FINDINGS: LINES and TUBES: None. LOWER THORAX: Unremarkable HEPATOBILIARY: Mild hepatomegaly. No focal hepatic lesions. No biliary ductal dilation. GALLBLADDER: No radio-opaque stones or sludge. No wall thickening. SPLEEN: No splenomegaly. PANCREAS: No focal masses or ductal dilatation. ADRENALS: No adrenal nodules KIDNEYS/URETERS: No hydronephrosis. No cystic or solid mass lesions. No stones. GI TRACT: No abnormal distention, wall thickening, or evidence of bowel obstruction. Appendix is normal. PELVIC ORGANS/BLADDER: The uterus is bulky. Cervical nabothian cysts are noted. The urinary bladder is unremarkable. LYMPH NODES: No lymphadenopathy. VESSELS: Unremarkable. PERITONEUM / RETROPERITONEUM: No free air or fluid. BONES: Unremarkable. SOFT TISSUES: Unchanged small fat-containing ventral hernias. IMPRESSION: No acute abdominal or pelvic abnormality. No nephroureteral calculus or evidence of obstructive uropathy. Signed by: Andrzej Rios MD on 08/10/2019 4:45 AM
[2019-08-10 04:54] VITALS: BP 102/58
== END 2019-08-10 05:00 | disposition home or self-care (01) ==
LOC: ER 02:49
DX: R10.30 Lower abdominal pain, unspecified (principal); R30.0 Dysuria; R11.0 Nausea; M54.5 Low back pain; N30.91 Cystitis, unspecified with hematuria; E66.01 Morbid (severe) obesity due to excess calories; Z86.73 Personal history of transient ischemic attack (TIA), and cerebral infarction without residual deficits
CPT/HCPCS: 74176; 81001; 81025; 99283; J1885

== ENCOUNTER 2019-12-01 21:14 | Emergency (ER) | payer OTHER ==
[~2019-12-01] VITALS: Ht 154.9 cm; Wt 118.8 kg
--- NOTE | 2019-12-01 21:22 | Emergency Department Note ---
History of Present Illnes History of Present Illness Chief Complaint: COVID PUI History of Present Illness This is a 43 year old female presents to the ED for n/v and concern for possible . Historian: Patient Arrival Mode: Car Onset (how long ago): day(s) Radiation: Reports non-radiation Severity: mild Onset quality: gradual Duration (how long): day(s) Progression: unchanged Chronicity: new Context: Denies recent illness, Denies recent surgery, Denies recent immobilization, Denies recent travel, Denies trauma/injury, Denies new medications, Denies hx of DVT/PE, Denies non-compliance w/ medications, Denies other Relieving factors: none Exacerbating factors: none Associated symptoms: Reports nausea/vomiting Past Medical/Family History Physician Review I have reviewed the patient's past medical and family history. Any updates have been documented here. Past Medical History Recent Fever: No Clinical Suspicion of Infectio: No New/Unexplained Change in Ment: No Past Medical History: TIA, Asthma, Migraines, Anemia Other Medical History: morbid obesity Past Surgical History: T&A, Tubal Ligation, Other Surgery: none Social History Smoking Cessation: Never Smoker Alcohol Use: None Any Illegal Drug Use: No Other Last Tetanus: UTD Review of Systems Review of Systems Constitutional: Reports no symptoms EENTM: Reports no symptoms Cardiovascular: Reports no symptoms Respiratory: Reports no symptoms Gastrointestinal: Reports nausea, Reports vomiting Genitourinary: Reports no symptoms Musculoskeletal: Reports no symptoms Integumentary: Reports no symptoms Neurological: Reports no symptoms Psychological: Reports no symptoms Endocrine: Reports no symptoms Hematological/Lymphatic: Reports no symptoms Physical Exam Related Data Allergies: Coded Allergies: No Known Allergies (Unverified , 03/10/19) Triage Vital Signs Vital Signs Date Time Temp Pulse Resp B/P (MAP) Pulse Ox O2 Delivery O2 Flow Rate FiO2 12/01/19 21:27 98.8 86 17 136/69 99 Room Air Vital signs reviewed: Yes Physical Exam CONSTITUTIONAL Constitutional: Present well-developed, Present well-nourished, Present obese HENT HENT: Present normocephalic, Present atraumatic, Present oropharynx clear/moist, Present nose normal HENT L/R: Present left ext ear normal, Present right ext ear normal EYES Eyes: Reports PERRL, Reports conjunctivae normal NECK Neck: Present ROM normal PULMONARY Pulmonary: Present effort normal, Present breath sounds normal CARDIOVASCULAR Cardiovascular: Present regular rhythm, Present heart sounds normal, Present capillary refill normal, Present normal rate GASTROINTESTINAL Abdominal: Present soft, Present nontender, Present bowel sounds normal GENITOURINARY Genitourinary: Present exam deferred SKIN Skin: Present warm, Present dry MUSCULOSKELETAL Musculoskeletal: Present ROM normal NEUROLOGICAL Neurological: Present alert, Present oriented x 3, Present no gross motor or sensory deficits PSYCHOLOGICAL Psychological: Present mood/affect normal, Present judgement normal Results Laboratory Lab results reviewed: Yes Laboratory comments Laboratory Tests Test 12/01/19 21:31 Urine Color Yellow (YELLOW) Urine Clarity Cloudy (CLEAR) Urine pH 5.5 (5 - 7) Urine Specific [place] >=1.030 (1.010-1.025) Urine Protein Negative (NEGATIVE) Urine Glucose (UA) Negative (NEGATIVE) Urine Ketones Negative (NEGATIVE) Urine Blood Negative (NEGATIVE) Urine Nitrite Negative (NEGATIVE) Urine Bilirubin Small (NEGATIVE) Urine Urobilinogen 0.2 mg/dL (0.2 - 1) Urine Leukocyte Esterase Negative (NEGATIVE) Urine RBC 6-10 /HPF (0-5) Urine WBC 6-10 /HPF (0-5) Urine Epithelial Cells Few /LPF (NONE) Urine Calcium Oxalate Crystals Many (FEW) Urine Bacteria Moderate /HPF (NONE) Urine Test Negative (NEGATIVE) Assessment & Plan Medical Decision Making MDM Diff dx : UTI, , kidney infection Assessment & Plan Final Impression: (1) UTI (urinary tract infection) Depart Disposition: HOME, SELF-prison Meds Active Scripts Famotidine (PEPCID) 20 Mg Tablet, 40 MG PO DAILY, #30 TAB Prov:APOLLO WILSON DO 07/24/19 Reported Medications Albuterol Sulf* (PROAIR HFA INHALER*) 8.5 Gm Inh, 2 INH INH DAILY 04/20/17 GUILLERMINA EDGE DO Dec 01, 2019 21:22
--- OUTSIDE RECORDS SUMMARY | 2019-12-01 21:51 | XMS REPORT | Continuity of Care Document ---
Author Author [facility] [employer] Address Unknown Phone Unavailable Care Team Providers Care Theatrical Trouper Name Role Phone [facility] [employer] Unavailable Un available Problems Problem [...] Active 250 MG Orally Once a day [facility] 01/26/2017 Jackyjamesdariana Maeilleidy Zofran 1 tablet Orally Active 4 mg Orally twice a day (bid) as needed (prn) [facility] 01/14/2017 Jackyjamesdariana [place] Flagyl 1 tablet Orally Active 500 mg Orally every 8 h rs [facility] 01/14/2017 Jamaicadariana illeidy Abilify 1 tablet Orally Active 10 MG Orally Once a day [facility] 10/19/2016 Kathleen [facility] YL Vitamin C 1 tablet Orally Active 500 MG Orally Once a da y [facility] 10/19/2016 Jackydariana [facility] Albuterol Sulfate 3 ml Inhalation Active (2.5 MG/3ML) 0.083% Inhalation Three times a day as needed [facility] 10/19/2016 Jackymartha [facility] Ferrous Sulfate 1 tablet Orally Active 325 (65 Fe) MG Orally O nce a day [facility] 10/19/2016 Kathleen [facility] YL Vitamin C 1 tablet Orally Active 500 MG Orally Once a da y [facility] 10/19/2016 Jackymartha [facility] Albuterol Sulfate 3 ml Inhalation Active (2.5 MG/3ML) 0.083% Inhalation Three times a day as needed [facility] 10/19/2016 Jackymartha [facility] Ferrous Sulfate 1 tablet Orally Active 325 (65 Fe) MG Orally O nce a day [facility] 10/19/2016 Kathleen [facility] Abilify 1 tablet Orally Active 10 MG Orally Once a day [facility] 10/19/2016 Kathleen [facility] Metformin HCl 1 tablet with me als Orally Active 500 MG Orally [facility]ice a [facility] Lisinopril 1 tablet Orally Active 10 MG Orally Once a day [facility] Gala ProAir HFA 2 puffs as needed Inhalation Active 108 (90 Base) MCG/ACT Inhalation every 4 hrs [facility] Clopidogrel Bisulfate 1 tablet Orally Active 75 MG Orally [facility] a [facility] Atorvastatin Calcium 1 tablet Orally Active 10 MG Orally Once a day [facility] BuPROPion HCl (XL) 1 tablet in the morning Orally Active 150 MG Orally Once a day [facility] Metformin HCl 1 tablet with me als Orally Active 500 MG Orally Twice a day [facility] Atorvastatin Calcium 1 tablet Orally Active 10 MG Orally Once a day [facility] Kathleen [facility] Clopidogrel Bisulfate 1 tablet Orally Active 75 MG Orally Once a day [facility] Kathleen [facility] ProAir HFA 2 puffs as needed Inhalation Active 108 (90 Base) MCG/ACT Inhalation every 4 hrs [facility] Kathleen [facility] Lisinopril 1 tablet Orally Active 10 MG Orally Once a day [facility] BuPROPion HCl (XL) 1 tablet in the morning Orally Active 150 MG Orally Once a day [facility] Kathleen [facility] Ibuprofen 1 tablet with food o r milk as needed Orally Active 200 MG Orally as needed (prn) [facility] Kathleen [facility] Ibuprofen 1 tablet with food o r milk as needed Orally Active 200 MG Orally as needed (prn) [facility] Kathleen [facility] BuPROPion HCl (XL) 1 tablet in the morning Orally Active 150 MG Orally Once a day [facility] Kathleen [facility] Lisinopril 1 tablet Orally Active 20 mg Orally Once a day [facility] Gala Allergies, Adverse Reactions, Alerts Substance Category Reaction Severity Reaction type Status Date Reported Comments Source N.K.D.A. Adverse Reaction Info Not Available Adverse Reaction Active 01/26/2017 Kathleen [facility] Immunizations No Data Provided for This [...] Date Comments Source Weight 269 01/26/2017 Enayet Rahim Height 61 1 Enayet Rahim [...]
--- OUTSIDE RECORDS SUMMARY | 2019-12-01 21:51 | XMS REPORT | Clinical Summary ---
Author Author [facility] Organization [facility] Address Unknown Phone Unavailable Care Team Providers Care Art Museum Docent Name Role Phone PCP Unavailable Allergies No [...] Scrn 2013 (Yearly) Results Not on fileafter 11/30/2018 Insurance Type Payer Benefit Subscriber ID Effective Phone Address Plan / Dates Group [facility] xxxxxxxxx 2016-P [phone] [id number] [place] [address]
--- OUTSIDE RECORDS SUMMARY | 2019-12-01 21:52 | XMS REPORT | Continuity of Care Document ---
Author Author [facility] t Organization [facility] Address 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 Name Role Phone JESSICA LINTON, MD Allison MINA PCP Marie JACKSON Attphys Unavailable SANDAPOLLO FLORES Attphys Unavailable ROBERTZeinab HERNANDEZ Attphys Unavailable GUILLERMINA EDGE Attphys Unavailable Allison STRATTON Attphys Unavailable Phi LEDEZMA Attphys Unavailable Payers Payer Name Policy Type Policy Number Effective Date Expiration Date Vera Herring Medicaid NA 2011 00:00:00 [facility] [id number] [facility] Problems Condition Name Condition Details Condition Category Status Onset Date Resolution Date Last Treatment Date Treating Clinician Comments Source Pelvic pain Pelvic pain Disease Active 2017-06-22 00:00:00 [facility] Major depression Major depression Disease Active 2010-01-09 00:00:00 [facility] Hemorrhagic cystitis Problem Active [facility] Left-sided weakness Left -sided weakness Active Diagnosis 11/09/2016 Enayet Raniviam Diagnosis Active 2016-11-09 04:10:26 Audrey Tapia Mixed hyperlipidemia Mixe d hyperlipidemia Active Problem 01/30/2017 Enayet Rahim Problem Active 2017-01-30 04:10:24 Audrey Tapia Type 2 diabetes mellitus without complic ation, without long-term current use of insulin Type 2 diabetes mellitus without complication, without long-term current use of insulin Active Problem 01/30/2017 Kathleen Kent Problem Active 2017-01-30 04:10:24 [facility] Anxiety and depression Anxi ety and depression Active Problem 01/30/2017 Enmartha Moncadam Problem Active 2017-01-30 04:10:24 [facility] Acute intractable headache, unspecified headache type Acute intractable headache, unspecified headache type Active Diagnosis 11/09/2016 Enmartha Moncadam Diagnosis Active 2016-11-09 04:10:26 [facility] Head trauma, subsequent encounter Head trauma, subsequent encounter Active Diagnosis 11/09/2016 Kathleen Maenivialeidy Diagnosis Acti ve 2016-11-09 04:10:26 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 Active Diagnosis 10/23/2016 Enmartha Moncadam Diagnosis Active 2016-10-23 04:10:46 [facility] Uncomplicated asthma, unspecified asthma severity Uncomplicated asthma, unspecified asthma severity Active Diagnosis 10/23/2016 Enmartha Moncadam Diagnosis Active 2016-10-23 04:10:46 [facility] Encounter to establish care En counter to establish care Active Diagnosis 10/23/2016 Enmartha Moncadam Diagnosis Active 2016-10-23 04:10:46 [facility] Acute gastroenteritis Acut e gastroenteritis Active Diagnosis 01/20/2017 Enmartha Moncadam Diagnosis Active 2017-01-20 04:10:59 [facility] Diarrhea of presumed infectious origin Diarrhea of presumed infectious origin Active Diagnosis 01/20/2017 Enmartha Moncadam Diagnosis Active 2017-01-20 04:10:59 Ricarda Tapia Acute right-sided low back pain without sciatica Acute right-sided low back pain without sciatica Active Diagnosis 01/02/2017 Enjameset Raniviam Diagnosis Active 2017-01-02 04:10:08 [facility] Right lower quadrant abdominal pain Right lower quadrant abdominal pain Active Diagnosis 01/02/2017 Kathleen Kent Diagnosis Active 2017-01-02 04:10:08 [facility] Chest pain on breathing Ches t pain on breathing Active Diagnosis 01/30/2017 Enmartha Kent Diagnosis Active 2017-01-30 04 :10:24 [facility] Mild intermittent asthma with exacerbation Mild intermittent asthma with exacerbation Active Diagnosis 01/30/2017 Enmartha Kent Diagnosis Active 2017-01-30 04:10:24 [facility] Lower abdominal pain Lowe r abdominal pain Active Diagnosis 01/30/2017 Enmartha Kent Diagnosis Active 2017-01-30 04:10:24 [facility] Allergies, Adverse Reactions, Alerts Allergy Name Allergy Type Status Severity Reaction(s) Onset Date Inacti ve Date Treating Clinician Comments Source No Known Allergies DA Active U 2019-09-26 00:00:00 [facility] No Known Allergies DA Active U 2017-04-09 00:00:00 [facility] N.K.D.A. N.K.Fermin.A. Active Info Not Available 2017-01-26 00:00:00 [facility] Family History Family Member Diagnosis Comments Start Date Stop Date Source Maternal grandmother [facility] Maternal grandmother Hypertension [facility] Natural mother Cancer [facility] Social History Social Habit Start Date Stop Date Quantity Comments Source Sex Assigned At [facility] Alcohol intake 2017-06-23 00:00:00 2017-06-23 00:00:00 Current non-drinker of alcohol (finding) [facility] Smoking Status Start Date Stop Date Source Never smoker [facility] Medications Ordered Medication Name Filled Medication Name Start Date Stop Da te Current Medication? Ordering Clinician Indication Dosage Frequency Signature (SIG) Comments Components Source Famotidine (Pepcid) 20 Mg TABLET Famotidine (Pepcid) 20 Mg T ABLET 2019-07-24 11:13:00 Yes 40 Daily [facility] acetaminophen-codeine (TYLENOL/CODEINE #3) 300-30 mg per tab let 2018-05-04 00:00:00 Yes Lower abdominal pain 1{tbl} Take 1 tablet by mouth every 4 hours as needed for Pain. [facility] traMADol (ULTRAM) 50 mg tablet 2017-06-22 00:00:00 Yes Pelvic pain 50mg Take 1 tablet by mouth every 6 hours as needed for Pain. [facility] dicyclomine (BENTYL) 20 mg tablet 2017-06-22 00:00:00 Ye s Pelvic pain 20mg Take 1 tablet by mouth 4 times daily Colon spasm. [facility] Metformin HCl 2017-01-30 04:10:24 Yes Gabbi Lucrecia [address] [facility] Atorvastatin Calcium 2017-01-30 04:10:24 Yes Gabbi Lucrecia [address] [facility] Clopidogrel Bisulfate 2017-01-30 04:10:24 Yes Gabbi Lucrecia [address] [facility] ProAir HFA 2017-01-30 04:10:24 Yes Gabbi Lucrecia [address] [facility] BuPROPion HCl (XL) 2017-01-30 04:10:24 Yes Gabbi Lucrecia 1 tablet in the morning [facility] Ibuprofen 2017-01-30 04:10:24 Yes Gabbi Lucrecia 1 tablet with food or milk as needed [facility] BuPROPion HCl (XL) 2017-01-30 04:10:24 Yes Gabbi Lucrecia 1 tablet in the morning [facility] Lisinopril 2017-01-30 04:10:24 Yes Gabbi Lucrecia [address] [facility] Azithromycin 2017-01-26 00:00:00 Yes Gabbi Lucrecia 2 tablets on the first day, then 1 tablet daily for [address] [facility] Lisinopril 2017-01-20 04:10:59 Yes Gabbi Lucrecia [address] [facility] Zofran 2017-01-14 00:00:00 Yes Gabbi Lucrecia [address] [facility] Flagyl 2017-01-14 00:00:00 Yes Gabbi Lucrecia [address] [facility] Ibuprofen 2017-01-02 04:10:08 Yes Gabbi Lucrecia 1 tablet with food or milk as needed [facility] Metformin HCl 2016-11-09 04:10:26 Yes Gabbi Lucrecia [address] [facility] Lisinopril 2016-11-09 04:10:26 Yes Gabbi Lucrecia [address] [facility] ProAir HFA 2016-11-09 04:10:26 Yes Gabbi Lucrecia [address] [facility] Clopidogrel Bisulfate 2016-11-09 04:10:26 Yes Gabbi Lucrecia [address] [facility] Atorvastatin Calcium 2016-11-09 04:10:26 Yes Gabbi Singer [address] [facility] BuPROPion HCl (XL) 2016-11-09 04:10:26 Yes Gabbi Singer 1 tablet in the morning [facility] Abilify 2016-10-19 00:00:00 Yes Gabbi Singer [address] [facility] YL Vitamin C 2016-10-19 00:00:00 Yes Gabib Singer [address] [facility] Albuterol Sulfate 2016-10-19 00:00:00 Yes Gabbi Singer [address] [facility] Ferrous Sulfate 2016-10-19 00:00:00 Yes Gabbi Singer [address] [facility] LEI Vitamin C 2016-10-19 00:00:00 Yes Gabbi Singer [address] [facility] Albuterol Sulfate 2016-10-19 00:00:00 Yes Gabbi Singer [address] [facility] Ferrous Sulfate 2016-10-19 00:00:00 Yes Gabbi Singer [address] [facility] Abiedithfy 2016-10-19 00:00:00 Yes Gabbi Singer [address] [facility] ofloxacin (OCUFLOX) 0.3 % ophthalmic solution 2016-08-19 00: 00:00 Yes Unspecified otitis media Instill 5 drops to left ear daily for 10 days. Ok for pharmacist to dispense eye solution for ear treatment.. [facility] albuterol (VENTOLIN HFA,PROVENTIL HFA,PROAIR HFA) 90 mcg/act uation inhaler 2012-09-02 00:00:00 Yes Extrinsic asthma, unspecified 2{puff} Administer 2 Puffs by inhalation 4 times daily as needed for Wheezing. [facility] venlafaxine (EFFEXOR XR) 150 mg extended release capsule 2012-09-02 00:00:00 Yes Mood disorder 300mg QD Take 2 capsules by mouth d aily. [facility] aripiprazole (ABILIFY) 10 mg tablet 2012-09-02 00:00:00 Yes Mood disorder 10mg QD Take 1 tablet by mouth daily. [facility] Albuterol Sulfate (Proair Hfa Inhaler*) 8.5 Gm INH Alb uterol Sulfate (Proair Hfa Inhaler*) 8.5 Gm INH Yes 2 Daily [facility] Immunizations Ordered Immunization Name Filled Immunization Name Date Status Comments Source Influenza Vaccine 2010-01-09 00:00:00 Completed [facility] Vital Signs Vital Name Observation Time Observation Value Comments Source Body Temperature 2019-08-10 04:54:00 98.0 [degF] [facility] Weight 2019-08-10 03:00:00 262 [lb_av] [facility] BMI (Body Mass Index) 2019-08-10 03:00:00 49.5 kg/m2 [facility] Weight 2019-07-25 01:05:00 262 [lb_av] [facility] BMI (Body Mass Index) 2019-07-25 01:05:00 49.5 kg/m2 [facility] Body Temperature 2019-07-24 11:15:00 98.0 [degF] [facility] Weight 2017-01-26 15:30:00 [facility] Height 2017-01-26 15:30:00 [facility] Temperature Oral (F) 2017-01-26 15:30:00 95.5 F [facility] Diastolic (mm Hg) 2017-01-26 15:30:00 [facility] Systolic (mm Hg) 2017-01-26 15:30:00 [facility] Weight 2017-01-14 16:15:00 [facility] Height 2017-01-14 16:15:00 [facility] Temperature Oral (F) 2017-01-14 16:15:00 97.2 F [facility] Diastolic (mm Hg) 2017-01-14 16:15:00 [facility] Systolic (mm Hg) 2017-01-14 16:15:00 Ayaz [facility] Height 2016-12-21 14:15:00 [facility] Temperature Oral (F) 2016-12-21 14:15:00 97.2 F [facility] Diastolic (mm Hg) 2016-12-21 14:15:00 [facility] Systolic (mm Hg) 2016-12-21 14:15:00 Ayaz [facility] Weight 2016-10-29 15:00:00 [facility] Height 2016-10-29 15:00:00 [facility] Temperature Oral (F) 2016-10-29 15:00:00 97.6 F [facility] Diastolic (mm Hg) 2016-10-29 15:00:00 [facility] Systolic (mm Hg) 2016-10-29 15:00:00 Ayaz [facility] Weight 2016-10-19 15:15:00 [facility] Height 2016-10-19 15:15:00 [facility] Temperature Oral (F) 2016-10-19 15:15:00 97.1 F [facility] Diastolic (mm Hg) 2016-10-19 15:15:00 [facility] Systolic (mm Hg) 2016-10-19 15:15:00 Ayaz [facility] Procedures Procedure Date / Time Performed Performing Clinician [facility] e CT of abdomen and pelvis without contrast 2019-08-10 00:00:00 [facility] US Gallbladder 2019-07-25 00:00:00 [facility] Computed tomography of abdomen and pelvis with contrast 00:00:00 [facility] X-ray of chest, two views 2019-06-22 00:00:00 DREAD JONES [facility] Computed tomography of chest with contrast 2019-05-08 00:00:00 GUILLERMINA PERAZA [facility] X-ray of chest, two views 2019-02-24 00:00:00 GUILLERMINA VAZQUEZ [facility] Computed tomography of abdomen and pelvis with contrast 2018 00:00:00 GUILLERMINA VAZQUEZ [facility] Computed tomography of abdomen and pelvis with contrast 2018 00:00:00 GUILLERMINA EDGE [facility] US transvaginal 2019-02-07 00:00:00 GUILLERMINA EDGE [facility] Complete non-obstetrical ultrasound of pelvis 2019-02-07 00:00:0 0 KELY [facility] Computed tomography of abdomen and pelvis with contrast [facility] without radiopaque contrast 201 12-05-02 00:00:00 SUHAS JACKSON [facility] Plan of Care Planned Activity Planned Date Details Comments Source Future Scheduled Test 2013 00:00:00 Breast Cancer Scrn (Yearly) [code = Breast Cancer Scrn (Yearly)] [facility] Future Scheduled Test 1994 00:00:00 Screening for miguel angel borges neoplasm of cervix (procedure) [code = 230874976] [facility] Instructions Hemorrhagic Cystitis [facility] Encounters Start Date/Time End Date/Time En[facility] ID Source 2019-08-10 02:49:00 2019-08-10 05:00:00 Departed Emergency Room 1 SUHAS JACKSON [facility] [id number] [facility] 2019-07-25 00:26:00 2019-07-25 04:39:00 Departed Emergency Room 1 SUHAS JACKSON [facility] [place] [id number] [facility] 2019-07-24 08:26:00 2019-07-24 11:26:00 Departed Emergency Room 1 APOLLO WILSON [facility] [id number] [facility] 2019-06-22 18:16:00 2019-06-22 20:30:00 Departed Emergency Room 1 DREAD JONES [facility] [place] [id number] [facility] 2019-05-08 17:55:00 2019-05-08 23:00:00 Departed Emergency Room 1 GUILLERMINA EDGE [facility] [id number] [facility] Patients [facility] 2019-03-10 11:27:00 2019-03-10 13:18:00 Departed Emergency Room 1 GUILLERMINA EDGE [facility] [id number] [facility] Patients [facility] 2019-02-24 18:42:00 2019-02-24 23:12:00 Departed Emergency Room 1 GUILLERMINA EDGE [facility] [id number] [facility] 2019-02-12 15:25:00 2019-02-12 15:25:00 Emergency E MHSE MHSE 7545 [facility] 2019-02-11 13:59:00 2019-02-11 19:40:00 Departed Emergency Room 1 EDDY STRATTON [facility] [id number] [facility] 2019-02-07 09:36:00 2019-02-07 13:55:00 Departed Emergency Room 1 GUILLERMINA EDGE [facility] [id number] [facility] 2018-12-11 19:26:00 2018-12-11 23:13:00 Departed Emergency Room 1 GUILLERMINA EDGE [facility] [id number] [facility] 2018-11-29 18:41:00 2018-11-29 20:57:00 Departed Emergency Room 1 APOLLO MIJARES [facility] [id number] [facility] 2018-11-18 16:34:00 2018-11-18 16:34:00 Emergency E MHSE MHSE 7544 [facility] 2018-11-09 15:15:00 2018-11-09 15:15:00 Emergency E MHSE MHSE 7543 [facility] 2018-10-19 21:58:00 2018-10-19 21:58:00 Emergency E MHSE MHSE 7542 [facility] 2018-10-04 23:22:00 2018-10-04 23:22:00 Emergency E MHSE MHSE 7541 [facility] 2018-08-17 20:44:00 2018-08-17 20:44:00 Emergency E MHSE MHSE 7540 [facility] 2018-07-24 11:06:00 2018-07-24 11:06:00 Emergency E MHSE MHSE 7539 [facility] 2018-06-29 08:55:00 2018-06-29 08:55:00 Emergency E MHSE MHSE 7538 [facility] 2018-05-04 21:59:10 2018-05-04 21:59:10 Emergency [facility] [id number] [facility] 2018-05-04 20:50:03 2018-05-04 20:50:03 Emergency [facility] [id number] [facility] 2017-06-22 16:15:57 2017-06-22 16:15:57 Emergency [facility] [id number] [facility] 2017-06-22 10:56:34 2017-06-22 10:56:34 Emergency [facility] [id number] [facility] 2017-06-22 08:40:54 2017-06-22 08:40:54 Emergency [facility] [id number] [facility] 2017-03-17 00:00:00 2017-03-17 00:00:00 Outpatient [facility] [id number] [facility] 2017-01-26 10:30:00 2017-01-26 10:30:00 [facility] [id number] [facility] 2017-01-14 11:15:00 2017-01-14 11:15:00 [facility] [id number] [facility] 2016-12-21 09:15:00 2016-12-21 09:15:00 [facility] [id number] [facility] 2016-10-29 10:00:00 2016-10-29 10:00:00 [facility]patient [facility] [id number] [facility] 2016-10-19 10:15:00 2016-10-19 10:15:00 [facility]patient [facility] [id number] [facility] 2016-08-19 10:53:34 2016-08-19 10:53:34 Outpatient [facility] [id number] [facility] Results Test Description Test Time Test Comments Results Result Comments Source - CT ABD PELVIS W/CONT 2019-09-26 19:43:00 Nam e: MARIO MORALES [facility] : 1975 Age/S: 43 / F Bobbi Huff demar Unit #: [id number] Loc: [place]KS[place] Barrientos [address] Phys: 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 Sagittal and coronal reformatted images were generated. Automated exposure control was utilized for this reduction. Phases of contrast: venous and delayed COMPARISON: CT of the chest, abdomen, and pelvis August 25, 2019 FINDINGS: Visualized thorax: Mild subsegmental atelectasis in the visualized lungs. Cardiac chambers are within normal limits Hepatobiliary system: Normal Pancreas: Mild fatty replacement Spleen: Normal Adrenal glands: Normal Genitourinary system: Multiple nabothian cysts are present and appear similar to the pr ior exam. Kidneys and ureters and bladder are within normal limits Gastrointestinal tract and appendix: Normal Abdominal vascular structures: Normal Peritoneum and retroperitoneum: No free fluid or free air. No omental or mesenteric masses. No abnormal lymph nodes. Musculoskeletal structures and abdominal wall: Degenerative changes are present in the spine IMPRESSION: No acute intra-abdominal process. PAGE 1 Signed Report (CONTINUED) Name: MARIO MORALES [facility] : 1975 Age/S: 43 / F [address] [facility] Unit #: [id number] Loc: [place] [address] Phys: Sylvia Contreras NP Acct: [id number] Dis Date: Status: REG ER PHONE #: [phone] Exam Date: 09/26/20191921 FAX #: [phone] Reason: abd pain EXAMS: CPT CODE: [id number] CT ABD PELVIS W/CONT [id number] <Continued> Location: [facility] at 1945 Reported and signed by: Pérez Kent MD CC: Rigo Mujica Jr, MD; Sylvia Contreras NP Technologist:Pat Tatum RT(R) CTDI: DLP: Trnscb Date/Time: 09/26/2019 (1942) [id number] Orig Print D/T: S: 09/26/2019 (1946) PAGE 2 Signed Report BASIC METABOLIC PANEL 2019-09-26 18:29:00 Test Item SODIUM (test code = NA) 137 mmol/L 136-145 N POTASSIUM (test code = K) 4.1 mmol/L 3.5-5.1 N CHLORIDE (test code = CL) 105.0 mmol/L 98-107 N CARBON DIOXIDE (test code = CO2) 25.0 mmol/L 21-32 N ANION GAP (test code = GAP) 11.1 10-20 N GLUCOSE (test code = GLU) 90 mg/dL 74-106 N BLOOD UREA NITROGEN (test code = BUN) 8 mg/dL 7-18 N GLOMERULAR FILTRATION RATE (test code = GFR) > 60 mL/min >=60 Estimated GFR by using Modified MDRD formula.Chronic kidney disease is defined as either kidney damageor GFR <60 mL/min/1.73 m2 for >3 months. CREATININE (test code = CREAT) 0.60 mg/dL 0.55-1.02 N Note change in reference range due to change in reagent. BUN/CREATININE RATIO (test code = BUN/CREA) 12.6 10-20 N CALCIUM (test code = CA) 8.9 mg/dL 8.5-10.1 N HEPATIC FUNCTION [id number] 18:29:00* Test Item Value Reference Range Interpretation Comments TOTAL PROTEIN (test code = PROT) 8.0 gram/dL 6.4-8.2 N ALBUMIN (test code = ALB) 3.4 g/dL 3.4-5.0 N GLOBULIN (test code = GLOB) 4.6 gram/dL 2.7-4.2 H ALBUMIN/GLOBULIN RATIO (test code = A/G) 0.7 0.75-1.50 L BILIRUBIN TOTAL (test code = BILT) 0.20 mg/dL 0.0-1.0 N BILIRUBIN DIRECT (test code = BILD) 0.06 mg/dL 0.0-0.20 N SGOT/AST (test code = AST) 22 IUnit/L 15-37 N SGPT/ALT (test code = ALT) 20 IUnit/L 12-78 N ALKALINE PHOSPHATASE TOTAL (test code = ALKP) 138 IUnit/L 45-117 H Note change in reference range due to change in reagent. [id number] 18:29:00* Test Item Value Reference Range Interpretation Comments LIPASE (test code = LIP) 51 U/L 73.0-393.0 L [id number] 18:29:00* Test Item Value Reference Range Interpretation Comments TROPONIN-I (test code = TROPI) <0.015 ng/mL 0-0.045 N - XR ANKLE 3 + V [id number] 18:26:00 FAX: Rigo Cross Jr [phone] [place]: St: REG FAX: Sylvia Contreras Name: MARIO MORALES [facility] : 1975 Age/S: 43/F [address] [facility] Unit #: [id number] Loc: [place] [address] Phys: Sylvia Contreras NP Acct: [id number] Dis Date: Status: REG ER PHONE #: [phone] Exam Date: 09/26/20191740 FAX #: [phone] Reason: ankle pain EXAMS: CPT CODE: [id number] XR ANKLE 3 + V LT [id number] CLINICAL HISTORY: ankle pain TECHNIQUE: AP, oblique, and lateral views of the left ankle COMPARISON: None FINDINGS/ IMPRESSION: No acute fracture or disloca tion. Bony trabecular pattern is unremarkable. No cortical destruction o r periosteal reaction. Joint spaces are preserved. Ankle mort ise is appropriately aligned. No joint effusion. Patient's bod y habitus limits evaluation for ankle swelling. Location: [facility] Electronically Signed by Pérez Kent MD on 020 at 1826 Reported and signed by: Pérez Kent MD CC: Rigo Mujica Jr, MD; Sylvia Contreras NP Techno logist: DEWAYNE MoralesR Trnscrd Date/Time /By: 09/26/2019 (1825) : By: [email or web address] Orig Print D/T: S: 09/26/2019 ( 1828) PAGE 1 Signed Report BASIC METABOLIC [id number] 18:20:00* Test Item Value Reference Range Interpretation Comments SODIUM (test code = NA) 137 mmol/L 136-145 N POTASSIUM (test code = K) 4.1 mmol/L 3.5-5.1 N CHLORIDE (test code = CL) 105.0 mmol/L 98-107 N CARBON DIOXIDE (test code = CO2) mmol/L 21-32 ANION GAP (test code = GAP) 10-20 GLUCOSE (test code = GLU) mg/dL 74-106 BLOOD UREA NITROGEN (test code = BUN) mg/dL 7-18 GLOMERULAR FILTRATION RATE (test code = GFR) mL/min >=60 CREATININE (test code = CREAT) mg/dL 0.55-1.02 BUN/CREATININE RATIO (test code = BUN/CREA) 10-20 CALCIUM (test code = CA) mg/dL 8.5-10.1 HEPATIC FUNCTION [id number] 18:20:00* Test Item Value Reference Range Interpretation Comments TOTAL PROTEIN (test code = PROT) gram/dL 6.4-8.2 ALBUMIN (test code = ALB) g/dL 3.4-5.0 GLOBULIN (test code = GLOB) gram/dL 2.7-4.2 ALBUMIN/GLOBULIN RATIO (test code = A/G) 0.75-1.50 BILIRUBIN TOTAL (test code = BILT) mg/dL 0.0-1.0 BILIRUBIN DIRECT (test code = BILD) mg/dL 0.0-0.20 SGOT/AST (test code = AST) IUnit/L 15-37 SGPT/ALT (test code = ALT) IUnit/L 12-78 ALKALINE PHOSPHATASE TOTAL (test code = ALKP) IUnit/L 45-117 [id number] 18:20:00* Test Item Value Reference Range Interpretation Comments LIPASE (test code = LIP) U/L 73.0-393.0 [id number] 18:20:00* Test Item Value Reference Range Interpretation Comments TROPONIN-I (test code = TROPI) ng/mL 0-0.045 URINALYSIS [id number] 18:03:00* Test Item Value Reference Range Interpretation Comments UA COLOR (test code = COLU) YELLOW YELLOW UA APPEARANCE (test code = APPU) CLEAR CLEAR UA GLUCOSE DIPSTICK (test code = DGLUU) NEGATIVE mg/dL NEGATIVE UA BILIRUBIN DIPSTICK (test code = BILU) NEGATIVE NEGATIVE UA KETONE DIPSTICK (test code = KETU) NEGATIVE mg/dL NEGATIVE UA SPECIFIC GRAVITY (test code = SGU) 1.010 1.001-1.035 UA BLOOD DIPSTICK (test code = KALEIGH) NEGATIVE NEGATIVE UA PH DIPSTICK (test code = TWIN) 6.5 5.0-8.0 UA PROTEIN DIPSTICK (test code = PROU) NEGATIVE mg/dL Neg-15 UA UROBILINIOGEN DIPSTICK (test code = URO) 0.2 mg/dL 0.0-0.2 UA NITRITE DIPSTICK (test code = DARELL) NEGATIVE NEGATIVE UA LEUKOCYTE ESTERASE W REFLEX (test code = LEUUR) NEGATIVE NEG ATIVE UA WBC (test code = WBCU) 0-5 per HPF 0-5 UA RBC (test code = RBCU) 0-3 per HPF 0-5 UA EPITHELIAL CELLS (test code = EPIU) Rare (0-1/hpf) per HPF Few UA BACTERIA (test code = BACU) NONE SEEN per HPF NONE Urine Source? Clean CatchUR HCG [id number] 18:03:00* Test Item Value Reference Range Interpretation Comments UR HCG QUAL (test code = HCGQLU) NEGATIVE This HCGQL test is NOT applicable for MALE patients.Check with nurse about probable order error.If Tumor Marker Test needed, nurse should order test "HCGTU"(Test #550.12264) Urine Source? Clean CatchURINALYSIS [id number] 18:00:00* Test Item Value Reference Range Interpretation Comments UA COLOR (test code = COLU) YELLOW UA APPEARANCE (test code = APPU) CLEAR UA BILIRUBIN DIPSTICK (test code = BILU) NEGATIVE UA SPECIFIC GRAVITY (test code = SGU) 1.001-1.035 UA PH DIPSTICK (test code = TWIN) 5.0-8.0 UA UROBILINIOGEN DIPSTICK (test code = URO) mg/dL 0.0-0.2 UA NITRITE DIPSTICK (test code = DARELL) NEGATIVE UA LEUKOCYTE ESTERASE W REFLEX (test code = LEUUR) NEG ATIVE UA WBC (test code = WBCU) per HPF 0-5 UA RBC (test code = RBCU) per HPF 0-5 UA EPITHELIAL CELLS (test code = EPIU) per HPF Few UA BACTERIA (test code = BACU) per HPF NONE Urine Source? Clean CatchUR HCG [id number] 18:00:00* Test Item Value Reference Range Interpretation Comments UR HCG QUAL (test code = HCGQLU) NEGATIVE This HCGQL test is NOT applicable for MALE patients.Check with nurse about probable order error.If Tumor Marker Test needed, nurse should order test "HCGTU"(Test #550.35158) Urine Source? Clean CatchURINALYSIS [id number] 18:00:00* Test Item Value Reference Range Interpretation Comments UA COLOR (test code = COLU) YELLOW YELLOW UA APPEARANCE (test code = APPU) CLEAR CLEAR UA GLUCOSE DIPSTICK (test code = DGLUU) NEGATIVE mg/dL NEGATIVE UA BILIRUBIN DIPSTICK (test code = BILU) NEGATIVE NEGATIVE UA KETONE DIPSTICK (test code = KETU) NEGATIVE mg/dL NEGATIVE UA SPECIFIC GRAVITY (test code = SGU) 1.010 1.001-1.035 UA BLOOD DIPSTICK (test code = KALEIGH) NEGATIVE NEGATIVE UA PH DIPSTICK (test code = TWIN) 6.5 5.0-8.0 UA PROTEIN DIPSTICK (test code = PROU) NEGATIVE mg/dL Neg-15 UA UROBILINIOGEN DIPSTICK (test code = URO) 0.2 mg/dL 0.0-0.2 UA NITRITE DIPSTICK (test code = DARELL) NEGATIVE NEGATIVE UA LEUKOCYTE ESTERASE W REFLEX (test code = LEUUR) NEGATIVE NEG ATIVE UA WBC (test code = WBCU) per HPF 0-5 UA RBC (test code = RBCU) per HPF 0-5 UA EPITHELIAL CELLS (test code = EPIU) per HPF Few UA BACTERIA (test code = BACU) per HPF NONE Urine Source? Clean CatchUR HCG [id number] 18:00:00* Test Item Value Reference Range Interpretation Comments UR HCG QUAL (test code = HCGQLU) NEGATIVE This HCGQL test is NOT applicable for MALE patients.Check with nurse about probable order error.If Tumor Marker Test needed, nurse should order test "HCGTU"(Test #550.87075) Urine Source? Clean CatchCBC W/O [id number] 17:52:00* Test Item Value Reference Range Interpretation Comments WHITE BLOOD CELL (test code = WBC) 7.8 K/mm3 4.5-12.5 N RED BLOOD CELL (test code = RBC) 5.28 mill/mm3 3.7-5.2 H HEMOGLOBIN (test code = HGB) 11.9 gram/dL 11.5-15.5 N HEMATOCRIT (test code = HCT) 40.7 % 36.0-46.0 N MEAN CELL VOLUME (test code = MCV) 77.1 fL 80-98 L MEAN CELL HGB (test code = MCH) 22.5 picogram 27.0-33.0 L MEAN CELL HGB CONCETRATION (test code = MCHC) 29.2 gram/dL 33.0-36. 0 L RED CELL DISTRIBUTION WIDTH (test code = RDW) TEST NOT PERFORMED % 11.6-16.2 PLATELET COUNT (test code = PLT) 421 K/mm3 150-450 N MEAN PLATELET VOLUME (test code = MPV) 8.8 fL 6.7-11.0 N VITAMIN [id number] 07:54:00* Test Item Value Reference Range Interpretation Comments VITAMIN B12 (test code = VITB12) 302 pg/mL 193-986 N THYROID PROFILE [id number] 07:54:00* Test Item Value Reference Range Interpretation Comments T3 UPTAKE (test code = T3UP) 36.0 % 30.0-40.0 N T4 (THYROXINE) (test code = T4) 10.2 ug/dL 4.5-13.9 N T7 (FREE THYROXINE INDEX) (test code = T7) 3.67 FTI 1.3-5.1 N THYROID STIMULATING HORMONE (test code = TSH) 3.300 uIU/mL 0.36-3.7 4 N TSH REFERENCE RANGES: EUTHYROID: 0.35 - 4.3 mIU/mL HYPO : > 5.5 mIU/mL HYPER : < 0.35 mIU/mL FOLIC [id number] 07:44:00* Test Item Value Reference Range Interpretation Comments FOLIC ACID (test code = FOL) 7.2 ng/mL 3.10-17.50 N BASIC METABOLIC [id number] 07:34:00* Test Item Value Reference Range Interpretation Comments SODIUM (test code = NA) 140 mmol/L 136-145 N POTASSIUM (test code = K) 3.9 mmol/L 3.5-5.1 N CHLORIDE (test code = CL) 106.0 mmol/L 98-107 N CARBON DIOXIDE (test code = CO2) 25.0 mmol/L 21-32 N ANION GAP (test code = GAP) 12.9 10-20 N GLUCOSE (test code = GLU) 78 mg/dL 74-106 N BLOOD UREA NITROGEN (test code = BUN) 11 mg/dL 7-18 N GLOMERULAR FILTRATION RATE (test code = GFR) > 60 mL/min >=60 Estimated GFR by using Modified MDRD formula.Chronic kidney disease is defined as either kidney damageor GFR <60 mL/min/1.73 m2 for >3 months. CREATININE (test code = CREAT) 0.60 mg/dL 0.55-1.02 N Note change in reference range due to change in reagent. BUN/CREATININE RATIO (test code = BUN/CREA) 17.2 10-20 N CALCIUM (test code = CA) 8.9 mg/dL 8.5-10.1 N CBC W/AUTO [id number] 06:44:00* Test Item Value Reference Range Interpretation Comments WHITE BLOOD CELL (test code = WBC) 9.7 K/mm3 4.5-12.5 N RED BLOOD CELL (test code = RBC) 5.23 mill/mm3 3.7-5.2 H HEMOGLOBIN (test code = HGB) 9.9 gram/dL 11.5-15.5 L HEMATOCRIT (test code = HCT) 35.2 % 36.0-46.0 L MEAN CELL VOLUME (test code = MCV) 67.3 fL 80-98 L MEAN CELL HGB (test code = MCH) 18.9 picogram 27.0-33.0 L MEAN CELL HGB CONCETRATION (test code = MCHC) 28.1 gram/dL 33.0-36. 0 L RED CELL DISTRIBUTION WIDTH (test code = RDW) 21.5 % 11.6-16. 2 H RED CELL DISTRIBUTION WIDTH SD (test code = RDW-SD) 49.3 fL 37 .0-51.0 N PLATELET COUNT (test code = PLT) 571 K/mm3 150-450 H MEAN PLATELET VOLUME (test code = MPV) 8.7 fL 6.7-11.0 N NEUTROPHIL % (test code = NT%) 63.2 % 39.0-69.0 N IMMATURE GRANULOCYTE % (test code = IG%) 0.3 % 0.0-5.0 N LYMPHOCYTE % (test code = LY%) 29.5 % 25.0-55.0 N MONOCYTE % (test code = MO%) 5.3 % 0.0-10.0 N EOSINOPHIL % (test code = EO%) 1.3 % 0.0-5.0 N BASOPHIL % (test code = BA%) 0.4 % 0.0-1.0 N NUCLEATED RBC % (test code = NRBC%) 0.0 % 0-0 N NEUTROPHIL # (test code = NT#) 6.15 K/mm3 1.8-7.7 N IMMATURE GRANULOCYTE # (test code = IG#) 0.03 x10 3/uL 0-0.03 N LYMPHOCYTE # (test code = LY#) 2.87 K/mm3 1.0-5.0 N MONOCYTE # (test code = MO#) 0.52 K/mm3 0-0.8 N EOSINOPHIL # (test code = EO#) 0.13 K/mm3 0.0-0.5 N BASOPHIL # (test code = BA#) 0.04 K/mm3 0.0-0.2 N NUCLEATED RBC # (test code = NRBC#) 0.00 K/mm3 0.0-0.1 N MANUAL DIFF REQUIRED (test code = MDIFF) NO, ONLY SCAN NEEDED DIFFERENTIAL [id number] 06:44:00* Test Item Value Reference Range Interpretation Comments STAIN ACCEPTABILITY (test code = STN ACCEPTABLE) STAIN ACCEPTABLE POLYCHROMASIA (test code = POLC) 1+ HYPOCHROMIA (test code = HYPO) 2+ POIKILOCYTOSIS (test code = POIK) 1+ ANISOCYTOSIS (test code = ANISO) 2+ MICROCYTOSIS (test code = MICR) 2+ OVALOCYTES (test code = OVAL) 1+ MORPHOLOGY COMMENT (test code = MOC) TEST NOT PERFORMED PLATELET ESTIMATE (test code = PLTEST) INCREASED PLATELET MORPHOLOGY (test code = PLTMORPH) NORMAL CBC W/AUTO [id number] 06:18:00* Test Item Value Reference Range Interpretation Comments WHITE BLOOD CELL (test code = WBC) 9.7 K/mm3 4.5-12.5 N RED BLOOD CELL (test code = RBC) 5.23 mill/mm3 3.7-5.2 H HEMOGLOBIN (test code = HGB) 9.9 gram/dL 11.5-15.5 L HEMATOCRIT (test code = HCT) 35.2 % 36.0-46.0 L MEAN CELL VOLUME (test code = MCV) 67.3 fL 80-98 L MEAN CELL HGB (test code = MCH) 18.9 picogram 27.0-33.0 L MEAN CELL HGB CONCETRATION (test code = MCHC) 28.1 gram/dL 33.0-36. 0 L RED CELL DISTRIBUTION WIDTH (test code = RDW) 21.5 % 11.6-16. 2 H RED CELL DISTRIBUTION WIDTH SD (test code = RDW-SD) 49.3 fL 37 .0-51.0 N PLATELET COUNT (test code = PLT) 571 K/mm3 150-450 H MEAN PLATELET VOLUME (test code = MPV) 8.7 fL 6.7-11.0 N NEUTROPHIL % (test code = NT%) 63.2 % 39.0-69.0 N IMMATURE GRANULOCYTE % (test code = IG%) 0.3 % 0.0-5.0 N LYMPHOCYTE % (test code = LY%) 29.5 % 25.0-55.0 N MONOCYTE % (test code = MO%) 5.3 % 0.0-10.0 N EOSINOPHIL % (test code = EO%) 1.3 % 0.0-5.0 N BASOPHIL % (test code = BA%) 0.4 % 0.0-1.0 N NUCLEATED RBC % (test code = NRBC%) 0.0 % 0-0 N NEUTROPHIL # (test code = NT#) 6.15 K/mm3 1.8-7.7 N IMMATURE GRANULOCYTE # (test code = IG#) 0.03 x10 3/uL 0-0.03 N LYMPHOCYTE # (test code = LY#) 2.87 K/mm3 1.0-5.0 N MONOCYTE # (test code = MO#) 0.52 K/mm3 0-0.8 N EOSINOPHIL # (test code = EO#) 0.13 K/mm3 0.0-0.5 N BASOPHIL # (test code = BA#) 0.04 K/mm3 0.0-0.2 N NUCLEATED RBC # (test code = NRBC#) 0.00 K/mm3 0.0-0.1 N MANUAL DIFF REQUIRED (test code = MDIFF) NO, ONLY SCAN NEEDED DIFFERENTIAL [id number] 06:18:00* Test Item Value Reference Range Interpretation Comments STAIN ACCEPTABILITY (test code = STN ACCEPTABLE) CABOT RINGS (test code = CAB) MORPHOLOGY COMMENT (test code = MOC) PLATELET ESTIMATE (test code = PLTEST) PLATELET MORPHOLOGY (test code = PLTMORPH) CBC W/AUTO [id number] 06:18:00* Test Item Value Reference Range Interpretation Comments WHITE BLOOD CELL (test code = WBC) 9.7 K/mm3 4.5-12.5 N RED BLOOD CELL (test code = RBC) 5.23 mill/mm3 3.7-5.2 H HEMOGLOBIN (test code = HGB) 9.9 gram/dL 11.5-15.5 L HEMATOCRIT (test code = HCT) 35.2 % 36.0-46.0 L MEAN CELL VOLUME (test code = MCV) 67.3 fL 80-98 L MEAN CELL HGB (test code = MCH) 18.9 picogram 27.0-33.0 L MEAN CELL HGB CONCETRATION (test code = MCHC) 28.1 gram/dL 33.0-36. 0 L RED CELL DISTRIBUTION WIDTH (test code = RDW) 21.5 % 11.6-16. 2 H RED CELL DISTRIBUTION WIDTH SD (test code = RDW-SD) 49.3 fL 37 .0-51.0 N PLATELET COUNT (test code = PLT) 571 K/mm3 150-450 H MEAN PLATELET VOLUME (test code = MPV) 8.7 fL 6.7-11.0 N NEUTROPHIL % (test code = NT%) 63.2 % 39.0-69.0 N IMMATURE GRANULOCYTE % (test code = IG%) 0.3 % 0.0-5.0 N LYMPHOCYTE % (test code = LY%) 29.5 % 25.0-55.0 N MONOCYTE % (test code = MO%) 5.3 % 0.0-10.0 N EOSINOPHIL % (test code = EO%) 1.3 % 0.0-5.0 N BASOPHIL % (test code = BA%) 0.4 % 0.0-1.0 N NUCLEATED RBC % (test code = NRBC%) 0.0 % 0-0 N NEUTROPHIL # (test code = NT#) 6.15 K/mm3 1.8-7.7 N IMMATURE GRANULOCYTE # (test code = IG#) 0.03 x10 3/uL 0-0.03 N LYMPHOCYTE # (test code = LY#) 2.87 K/mm3 1.0-5.0 N MONOCYTE # (test code = MO#) 0.52 K/mm3 0-0.8 N EOSINOPHIL # (test code = EO#) 0.13 K/mm3 0.0-0.5 N BASOPHIL # (test code = BA#) 0.04 K/mm3 0.0-0.2 N NUCLEATED RBC # (test code = NRBC#) 0.00 K/mm3 0.0-0.1 N MANUAL DIFF REQUIRED (test code = MDIFF) NO, ONLY SCAN NEEDED DIFFERENTIAL [id number] 06:18:00* Test Item Value Reference Range Interpretation Comments STAIN ACCEPTABILITY (test code = STN ACCEPTABLE) CABOT RINGS (test code = CAB) MORPHOLOGY COMMENT (test code = MOC) PLATELET ESTIMATE (test code = PLTEST) PLATELET MORPHOLOGY (test code = PLTMORPH) CBC W/AUTO [id number] 06:18:00* Test Item Value Reference Range Interpretation Comments WHITE BLOOD CELL (test code = WBC) 9.7 K/mm3 4.5-12.5 N RED BLOOD CELL (test code = RBC) 5.23 mill/mm3 3.7-5.2 H HEMOGLOBIN (test code = HGB) 9.9 gram/dL 11.5-15.5 L HEMATOCRIT (test code = HCT) 35.2 % 36.0-46.0 L MEAN CELL VOLUME (test code = MCV) 67.3 fL 80-98 L MEAN CELL HGB (test code = MCH) 18.9 picogram 27.0-33.0 L MEAN CELL HGB CONCETRATION (test code = MCHC) 28.1 gram/dL 33.0-36. 0 L RED CELL DISTRIBUTION WIDTH (test code = RDW) 21.5 % 11.6-16. 2 H RED CELL DISTRIBUTION WIDTH SD (test code = RDW-SD) 49.3 fL 37 .0-51.0 N PLATELET COUNT (test code = PLT) 571 K/mm3 150-450 H MEAN PLATELET VOLUME (test code = MPV) 8.7 fL 6.7-11.0 N NEUTROPHIL % (test code = NT%) 63.2 % 39.0-69.0 N IMMATURE GRANULOCYTE % (test code = IG%) 0.3 % 0.0-5.0 N LYMPHOCYTE % (test code = LY%) 29.5 % 25.0-55.0 N MONOCYTE % (test code = MO%) 5.3 % 0.0-10.0 N EOSINOPHIL % (test code = EO%) 1.3 % 0.0-5.0 N BASOPHIL % (test code = BA%) 0.4 % 0.0-1.0 N NUCLEATED RBC % (test code = NRBC%) 0.0 % 0-0 N NEUTROPHIL # (test code = NT#) 6.15 K/mm3 1.8-7.7 N IMMATURE GRANULOCYTE # (test code = IG#) 0.03 x10 3/uL 0-0.03 N LYMPHOCYTE # (test code = LY#) 2.87 K/mm3 1.0-5.0 N MONOCYTE # (test code = MO#) 0.52 K/mm3 0-0.8 N EOSINOPHIL # (test code = EO#) 0.13 K/mm3 0.0-0.5 N BASOPHIL # (test code = BA#) 0.04 K/mm3 0.0-0.2 N NUCLEATED RBC # (test code = NRBC#) 0.00 K/mm3 0.0-0.1 N MANUAL DIFF REQUIRED (test code = MDIFF) NO, ONLY SCAN NEEDED DIFFERENTIAL [id number] 06:18:00* Test Item Value Reference Range Interpretation Comments STAIN ACCEPTABILITY (test code = STN ACCEPTABLE) MORPHOLOGY COMMENT (test code = MOC) PLATELET ESTIMATE (test code = PLTEST) PLATELET MORPHOLOGY (test code = PLTMORPH) CBC W/AUTO [id number] 06:18:00* Test Item Value Reference Range Interpretation Comments WHITE BLOOD CELL (test code = WBC) 9.7 K/mm3 4.5-12.5 N RED BLOOD CELL (test code = RBC) 5.23 mill/mm3 3.7-5.2 H HEMOGLOBIN (test code = HGB) 9.9 gram/dL 11.5-15.5 L HEMATOCRIT (test code = HCT) 35.2 % 36.0-46.0 L MEAN CELL VOLUME (test code = MCV) 67.3 fL 80-98 L MEAN CELL HGB (test code = MCH) 18.9 picogram 27.0-33.0 L MEAN CELL HGB CONCETRATION (test code = MCHC) 28.1 gram/dL 33.0-36. 0 L RED CELL DISTRIBUTION WIDTH (test code = RDW) 21.5 % 11.6-16. 2 H RED CELL DISTRIBUTION WIDTH SD (test code = RDW-SD) 49.3 fL 37 .0-51.0 N PLATELET COUNT (test code = PLT) 571 K/mm3 150-450 H MEAN PLATELET VOLUME (test code = MPV) 8.7 fL 6.7-11.0 N NEUTROPHIL % (test code = NT%) 63.2 % 39.0-69.0 N IMMATURE GRANULOCYTE % (test code = IG%) 0.3 % 0.0-5.0 N LYMPHOCYTE % (test code = LY%) 29.5 % 25.0-55.0 N MONOCYTE % (test code = MO%) 5.3 % 0.0-10.0 N EOSINOPHIL % (test code = EO%) 1.3 % 0.0-5.0 N BASOPHIL % (test code = BA%) 0.4 % 0.0-1.0 N NUCLEATED RBC % (test code = NRBC%) 0.0 % 0-0 N NEUTROPHIL # (test code = NT#) 6.15 K/mm3 1.8-7.7 N IMMATURE GRANULOCYTE # (test code = IG#) 0.03 x10 3/uL 0-0.03 N LYMPHOCYTE # (test code = LY#) 2.87 K/mm3 1.0-5.0 N MONOCYTE # (test code = MO#) 0.52 K/mm3 0-0.8 N EOSINOPHIL # (test code = EO#) 0.13 K/mm3 0.0-0.5 N BASOPHIL # (test code = BA#) 0.04 K/mm3 0.0-0.2 N NUCLEATED RBC # (test code = NRBC#) 0.00 K/mm3 0.0-0.1 N MANUAL DIFF REQUIRED (test code = MDIFF) NO, ONLY SCAN NEEDED DIFFERENTIAL [id number] 06:18:00* Test Item Value Reference Range Interpretation Comments STAIN ACCEPTABILITY (test code = STN ACCEPTABLE) CABOT RINGS (test code = CAB) MORPHOLOGY COMMENT (test code = MOC) PLATELET ESTIMATE (test code = PLTEST) PLATELET MORPHOLOGY (test code = PLTMORPH) - CT ABD PELVIS [id number] 13:42:00 Name: MARIO MORALES [facility] : 1975 Age/S: 43 / F [address] [facility] Unit #: [id number] Loc: [place] [address] Phys: Trell Edge MD Acct: [id number] Dis Date: Status: ADM IN PHONE #: [phone] Exam Date: 08/25/2019 1242 FAX #: [phone] Reason: SOB/PAIN/ANEMIA EXAMS: CPT CODE: [id number] CT ABD PELVIS W/CONT [id number] REASON FOR EXAM: SOB EXAM ORDER DATE: 08/25/2019 11:44 AM Ordering M.D.: Trell Yin MD PROCEDURE: - CT CHEST W/CONTRAST, - CT ABD PELVIS W/CONT axial CT images were acquired through the chest/abdomen/pelvis. Sagittal and coronal reformatted images were generated. Automated exposure control was utilized for this reduction. Phases of contrast: None COMPARISON: None FINDINGS: Visualized neck: Normal Airways, Lungs and Pleura: Normal Heart, great vessels, pulmonary vessels, mediastinum: Mild atherosclerotic disease is present in the aortic arch Thoracic Lymph nodes: No axillary, internal mammary, hilar, or mediastinal adenopathy. Hepatobiliary system: Normal Pancreas: Normal Spleen: Normal Adrenal glands: Normal Genitourinary system: Normal Gastrointestinal tract and appendix: Normal Abdominal vascular structures: Normal Peritoneum and retr operitoneum: No free fluid or free air. No omental or mesenteric masses. No abnormal lymph nodes. Musculoskeletal structures, chest wall, and abdominal wall: PAGE 1 Signed Report (CONTINUED) Name: MARIO MORALES [facility] : 1975 Age/S: 43 / F [address] [facility] Unit #: [id number] [place] [address] Phys: Trell Edge MD Acct: [id number] Dis Date: Status: ADM IN PHONE #: [phone] Exam Date: 08/25/2019 1242 FAX #: [phone] Reason: SOB/PAIN/ANEMIA EXAMS: CPT CODE: [id number] ABD PELVIS W/CONT [id number] <Continued> Degenerative changes are present in the spine. Fat-containing infr aumbilical ventral hernia. No inflammatory changes are seen in the hernia sac. IMPRESSION: No acute intrathoracic or intra-abdomin al process. Location: [facility] at 1342 Reported and signed by: Pérez Kent MD CC: Rigo Mujica Jr, MD; Trell Peraza Technologist:Jony Argueta RT(R),(MR),(CT); CTDI: DLP: Trnscb Date/Time: 08/25/2019 (1342) [email or web address] Orig Print D/T: S: 08/25/2019 (7388) PAGE 2 Signed Report - CT CHEST W/[id number] 13:42:00 Name: MARIO MORALES [facility] : 1975 Age/S: 43 / F [address] [facility] Unit #: [id number] Loc: [place] [address] Phys: Trell Edge MD Acct: [id number] Dis Date: Status: ADM IN PHONE #: [phone] Exam Date: 08/25/2019 1242 FAX #: [phone] Reason: SOB EXAMS: CPT CODE: [id number] CT CHEST W/CONTRAST 43511 REASON FOR EXAM: SOB EXAM ORDER DATE: 08/25/2019 11:44 AM Ordering M.D.: Trell Yin MD PROCEDURE: - CT CHEST W/CONTRAST, - CT ABD PELVIS W/CONT axial CT images were acquired through the chest/abdomen/pelvis. Sagittal and coronal reformatted images were generated. Automated exposure control was utilized for this reduction. Phases of contrast: None COMPARISON: None FINDINGS: Visualized neck: Normal Airways, Lungs and Pleura: Normal Heart, great vessels, pulmonary vessels, mediastinum: Mild atherosclerotic disease is present in the aortic arch Thoracic Lymph nodes: No axillary, internal mammary, hilar, or mediastinal adenopathy. Hepatobiliary system: Normal Pancreas: Normal Spleen: Normal Adrenal glands: Normal Genitourinary system: Normal Gastrointestinal tract and appendix: Normal Abdominal vascular structures: Normal Peritoneum and retroperitoneum: No free fluid or free air. No omental or mesenteric masses. No abnormal lymph nodes. Musculoskeletal structures, chest wall, and abdominal wall: PAGE 1 Signed Report (CONTINUED) Name: MARIO MORALES [facility] : 1975 Age/S: 43 / F [address] [facility] Unit #: [id number] Loc: [place]rient[place] [address] Phys: Trell Edge MD Acct: [id number] Dis Date: Status: ADM IN PHONE #: [phone] Exam Date: 08/25/2019 1242 FAX #: [phone] Reason: SOB EXAMS: CPT CODE: [id number] CHEST W/CONTRAST 59775 <Continued> Degenerative changes are present in the spine. Fat-containing infr aumbilical ventral hernia. No inflammatory changes are seen in the hernia sac. IMPRESSION: No acute intrathoracic or intra-abdomin al process. Location: [facility] at 1342 Reported and signed by: Pérez Kent MD CC: Rigo Mujica Jr, MD; Trell Peraza Technologist:Jony Argueta RT(R),(MR),(CT); CTDI: DLP: Trnscb Date/Time: 08/25/2019 (210) [email or web address] Orig Print D/T: S: 08/25/2019 (1875) PAGE 2 Signed Report - XR CHEST 1 [id number] 23:59:00 FAX: Rigo Cross Jr [phone] [place]: St: REG FAX: Nicole Rivera [phone] Name: MARIO MORALES [facility] : 1975 Age/S: 43/F [address] [facility] Unit #: [id number] Loc: [place] [address] Phys: Nicole Lares MD Acct: [id number] Dis Date: Status: REG ER PHONE #: [phone] Exam Date: 08/24/2019 2338 FAX #: [phone] Reason: cough EXAMS: CPT CODE: [id number] XR CHEST 1 V [id number] Location: CHEST X-RAY: AP frontal projection, one view, 08/24/19 CLINICAL HISTORY: Cough, emergency room present ation, body aches x4 days COMPARISON EXAMS: 07/02/17 chest x -ray exam FINDINGS: Heart, lungs, and mediastinal st ructures are within normal limits given technical factors and body habitus of patient. No evolving process or pleural based finding. No active CHF or pneumonia. IMPRESSION: No acute finding gi facundo technical factors Electronic ally Signed by Vanessa Love M.D. on 08/23 at 2359 Reported and signed by: María Love M.D. CC: Rigo Mujica Jr, MD; Umer Lares MD Technologist: Yodit Valdez Trnscrd Date/Time/By: 08/24/2019 (2359) : By: [email or web address] Orig Print D/T: S: 08/25/2019 (0003) PAGE 1 Signed Report CBC W/AUTO [id number] 23:43:00* Test Item Value Reference Range Interpretation Comments WHITE BLOOD CELL (test code = WBC) 11.6 K/mm3 4.5-12.5 N RED BLOOD CELL (test code = RBC) 4.48 mill/mm3 3.7-5.2 N HEMOGLOBIN (test code = HGB) 7.9 gram/dL 11.5-15.5 L HEMATOCRIT (test code = HCT) 28.9 % 36.0-46.0 L MEAN CELL VOLUME (test code = MCV) 64.5 fL 80-98 L MEAN CELL HGB (test code = MCH) 17.6 picogram 27.0-33.0 L MEAN CELL HGB CONCETRATION (test code = MCHC) 27.3 gram/dL 33.0-36. 0 L RED CELL DISTRIBUTION WIDTH (test code = RDW) 18.9 % 11.6-16. 2 H RED CELL DISTRIBUTION WIDTH SD (test code = RDW-SD) 42.7 fL 37 .0-51.0 N PLATELET COUNT (test code = PLT) 644 K/mm3 150-450 H MEAN PLATELET VOLUME (test code = MPV) 8.7 fL 6.7-11.0 N NEUTROPHIL % (test code = NT%) 65.8 % 39.0-69.0 N IMMATURE GRANULOCYTE % (test code = IG%) 0.3 % 0.0-5.0 N LYMPHOCYTE % (test code = LY%) 27.6 % 25.0-55.0 N MONOCYTE % (test code = MO%) 5.2 % 0.0-10.0 N EOSINOPHIL % (test code = EO%) 0.8 % 0.0-5.0 N BASOPHIL % (test code = BA%) 0.3 % 0.0-1.0 N NUCLEATED RBC % (test code = NRBC%) 0.0 % 0-0 N NEUTROPHIL # (test code = NT#) 7.62 K/mm3 1.8-7.7 N IMMATURE GRANULOCYTE # (test code = IG#) 0.04 x10 3/uL 0-0.03 H LYMPHOCYTE # (test code = LY#) 3.20 K/mm3 1.0-5.0 N MONOCYTE # (test code = MO#) 0.60 K/mm3 0-0.8 N EOSINOPHIL # (test code = EO#) 0.09 K/mm3 0.0-0.5 N BASOPHIL # (test code = BA#) 0.03 K/mm3 0.0-0.2 N NUCLEATED RBC # (test code = NRBC#) 0.00 K/mm3 0.0-0.1 N MANUAL DIFF REQUIRED (test code = MDIFF) NO, ONLY SCAN NEEDED DIFFERENTIAL [id number] 23:43:00* Test Item Value Reference Range Interpretation Comments STAIN ACCEPTABILITY (test code = STN ACCEPTABLE) STAIN ACCEPTABLE HYPOCHROMIA (test code = HYPO) 1+ ANISOCYTOSIS (test code = ANISO) 1+ MICROCYTOSIS (test code = MICR) 1+ PLATELET ESTIMATE (test code = PLTEST) INCREASED PLATELET MORPHOLOGY (test code = PLTMORPH) NORMAL URINALYSIS [id number] 23:22:00* Test Item Value Reference Range Interpretation Comments UA COLOR (test code = COLU) COLORLESS YELLOW A UA APPEARANCE (test code = APPU) CLEAR CLEAR UA GLUCOSE DIPSTICK (test code = DGLUU) NEGATIVE mg/dL NEGATIVE UA BILIRUBIN DIPSTICK (test code = BILU) NEGATIVE mg/dL NEGATIVE UA KETONE DIPSTICK (test code = KETU) NEGATIVE mg/dL NEGATIVE UA SPECIFIC GRAVITY (test code = SGU) 1.015 1.001-1.035 UA BLOOD DIPSTICK (test code = KALEIGH) Negative mg/dL NEGATIVE UA PH DIPSTICK (test code = TWIN) 6.5 5.0-8.0 UA PROTEIN DIPSTICK (test code = PROU) NEGATIVE mg/dL NEGATIVE UA UROBILINIOGEN DIPSTICK (test code = URO) Normal mg/dL NEGATIVE UA NITRITE DIPSTICK (test code = DARELL) NEGATIVE NEGATIVE UA LEUKOCYTE ESTERASE W REFLEX (test code = LEUUR) 75 Marisa/uL (1+) Marisa/uL NEGATIVE A UA WBC (test code = WBCU) 0-5 per HPF 0-5 UA RBC (test code = RBCU) 0-2 #/HPF 0-5 UA EPITHELIAL CELLS (test code = EPIU) FEW per HPF FEW UA BACTERIA (test code = BACU) NONE SEEN #/HPF NONE Urine Source? Clean CatchURINALYSIS [id number] 23:18:00* Test Item Value Reference Range Interpretation Comments UA COLOR (test code = COLU) COLORLESS YELLOW A UA APPEARANCE (test code = APPU) CLEAR CLEAR UA GLUCOSE DIPSTICK (test code = DGLUU) NEGATIVE mg/dL NEGATIVE UA BILIRUBIN DIPSTICK (test code = BILU) NEGATIVE mg/dL NEGATIVE UA KETONE DIPSTICK (test code = KETU) NEGATIVE mg/dL NEGATIVE UA SPECIFIC GRAVITY (test code = SGU) 1.015 1.001-1.035 UA BLOOD DIPSTICK (test code = KALEIGH) Negative mg/dL NEGATIVE UA PH DIPSTICK (test code = TWIN) 6.5 5.0-8.0 UA PROTEIN DIPSTICK (test code = PROU) NEGATIVE mg/dL NEGATIVE UA UROBILINIOGEN DIPSTICK (test code = URO) Normal mg/dL NEGATIVE UA NITRITE DIPSTICK (test code = DARELL) NEGATIVE NEGATIVE UA LEUKOCYTE ESTERASE W REFLEX (test code = LEUUR) 75 Marisa/uL (1+) Marisa/uL NEGATIVE A UA WBC (test code = WBCU) per HPF 0-5 UA RBC (test code = RBCU) per HPF 0-5 UA EPITHELIAL CELLS (test code = EPIU) per HPF Few UA BACTERIA (test code = BACU) per HPF NONE Urine Source? Clean CatchBASIC METABOLIC [id number] 23:04:00* Test Item Value Reference Range Interpretation Comments SODIUM (test code = NA) 141 mmol/L 136-145 N POTASSIUM (test code = K) 3.5 mmol/L 3.5-5.1 N CHLORIDE (test code = CL) 104.0 mmol/L 98-107 N CARBON DIOXIDE (test code = CO2) 26.0 mmol/L 21-32 N ANION GAP (test code = GAP) 14.5 10-20 N GLUCOSE (test code = GLU) 107 mg/dL 74-106 H BLOOD UREA NITROGEN (test code = BUN) 16 mg/dL 7-18 N GLOMERULAR FILTRATION RATE (test code = GFR) > 60 mL/min >=60 Estimated GFR by using Modified MDRD formula.Chronic kidney disease is defined as either kidney damageor GFR <60 mL/min/1.73 m2 for >3 months. CREATININE (test code = CREAT) 0.70 mg/dL 0.55-1.02 N Note change in reference range due to change in reagent. BUN/CREATININE RATIO (test code = BUN/CREA) 22.5 10-20 H CALCIUM (test code = CA) 8.8 mg/dL 8.5-10.1 N HCG SERUM [id number] 23:04:00* Test Item Value Reference Range Interpretation Comments HCG SERUM QUAL (test code = HCGQL) NEGATIVE NEGATIVE This HCGQL test is NOT applicable for MALE patients.Check with nurse about probable order error.If Tumor Marker Test needed, nurse should order test "HCGTU"(Test #550.05227) [id number] 23:04:00* Test Item Value Reference Range Interpretation Comments TROPONIN-I (test code = TROPI) <0.015 ng/mL 0-0.045 N BASIC METABOLIC [id number] 22:55:00* Test Item Value Reference Range Interpretation Comments SODIUM (test code = NA) 141 mmol/L 136-145 N POTASSIUM (test code = K) 3.5 mmol/L 3.5-5.1 N CHLORIDE (test code = CL) 104.0 mmol/L 98-107 N CARBON DIOXIDE (test code = CO2) mmol/L 21-32 ANION GAP (test code = GAP) 10-20 GLUCOSE (test code = GLU) mg/dL 74-106 BLOOD UREA NITROGEN (test code = BUN) mg/dL 7-18 GLOMERULAR FILTRATION RATE (test code = GFR) mL/min >=60 CREATININE (test code = CREAT) mg/dL 0.55-1.02 BUN/CREATININE RATIO (test code = BUN/CREA) 10-20 CALCIUM (test code = CA) mg/dL 8.5-10.1 HCG SERUM [id number] 22:55:00* Test Item Value Reference Range Interpretation Comments HCG SERUM QUAL (test code = HCGQL) NEGATIVE NEGATIVE This HCGQL test is NOT applicable for MALE patients.Check with nurse about probable order error.If Tumor Marker Test needed, nurse should order test "HCGTU"(Test #550.13115) [id number] 22:55:00* Test Item Value Reference Range Interpretation Comments TROPONIN-I (test code = TROPI) ng/mL 0-0.045 Coronavirus 2019 nCoV [id number] 22:52:00* Test Item Value Reference Range Interpretation Comments Coronavirus 2019 nCoV Bedside (test code = [id number]) Negative Is patient requiring admission or transfer? YIndication for rapid COVID-19 testi ng: Mod Clinical SuspicionBASIC METABOLIC [id number] 22:48:00* Test Item Value Reference Range Interpretation Comments SODIUM (test code = NA) 141 mmol/L 136-145 N POTASSIUM (test code = K) 3.5 mmol/L 3.5-5.1 N CHLORIDE (test code = CL) 104.0 mmol/L 98-107 N CARBON DIOXIDE (test code = CO2) mmol/L 21-32 ANION GAP (test code = GAP) 10-20 GLUCOSE (test code = GLU) mg/dL 74-106 BLOOD UREA NITROGEN (test code = BUN) mg/dL 7-18 GLOMERULAR FILTRATION RATE (test code = GFR) mL/min >=60 CREATININE (test code = CREAT) mg/dL 0.55-1.02 BUN/CREATININE RATIO (test code = BUN/CREA) 10-20 CALCIUM (test code = CA) mg/dL 8.5-10.1 HCG SERUM [id number] 22:48:00* Test Item Value Reference Range Interpretation Comments HCG SERUM QUAL (test code = HCGQL) NEGATIVE [id number] 22:48:00* Test Item Value Reference Range Interpretation Comments TROPONIN-I (test code = TROPI) ng/mL 0-0.045 CBC W/AUTO [id number] 22:46:00* Test Item Value Reference Range Interpretation Comments WHITE BLOOD CELL (test code = WBC) 11.6 K/mm3 4.5-12.5 N RED BLOOD CELL (test code = RBC) 4.48 mill/mm3 3.7-5.2 N HEMOGLOBIN (test code = HGB) 7.9 gram/dL 11.5-15.5 L HEMATOCRIT (test code = HCT) 28.9 % 36.0-46.0 L MEAN CELL VOLUME (test code = MCV) 64.5 fL 80-98 L MEAN CELL HGB (test code = MCH) 17.6 picogram 27.0-33.0 L MEAN CELL HGB CONCETRATION (test code = MCHC) 27.3 gram/dL 33.0-36. 0 L RED CELL DISTRIBUTION WIDTH (test code = RDW) 18.9 % 11.6-16. 2 H RED CELL DISTRIBUTION WIDTH SD (test code = RDW-SD) 42.7 fL 37 .0-51.0 N PLATELET COUNT (test code = PLT) 644 K/mm3 150-450 H MEAN PLATELET VOLUME (test code = MPV) 8.7 fL 6.7-11.0 N NEUTROPHIL % (test code = NT%) 65.8 % 39.0-69.0 N IMMATURE GRANULOCYTE % (test code = IG%) 0.3 % 0.0-5.0 N LYMPHOCYTE % (test code = LY%) 27.6 % 25.0-55.0 N MONOCYTE % (test code = MO%) 5.2 % 0.0-10.0 N EOSINOPHIL % (test code = EO%) 0.8 % 0.0-5.0 N BASOPHIL % (test code = BA%) 0.3 % 0.0-1.0 N NUCLEATED RBC % (test code = NRBC%) 0.0 % 0-0 N NEUTROPHIL # (test code = NT#) 7.62 K/mm3 1.8-7.7 N IMMATURE GRANULOCYTE # (test code = IG#) 0.04 x10 3/uL 0-0.03 H LYMPHOCYTE # (test code = LY#) 3.20 K/mm3 1.0-5.0 N MONOCYTE # (test code = MO#) 0.60 K/mm3 0-0.8 N EOSINOPHIL # (test code = EO#) 0.09 K/mm3 0.0-0.5 N BASOPHIL # (test code = BA#) 0.03 K/mm3 0.0-0.2 N NUCLEATED RBC # (test code = NRBC#) 0.00 K/mm3 0.0-0.1 N MANUAL DIFF REQUIRED (test code = MDIFF) NO, ONLY SCAN NEEDED DIFFERENTIAL [id number] 22:46:00* Test Item Value Reference Range Interpretation Comments STAIN ACCEPTABILITY (test code = STN ACCEPTABLE) CABOT RINGS (test code = CAB) MORPHOLOGY COMMENT (test code = MOC) PLATELET ESTIMATE (test code = PLTEST) PLATELET MORPHOLOGY (test code = PLTMORPH) CBC W/AUTO [id number] 22:46:00* Test Item Value Reference Range Interpretation Comments WHITE BLOOD CELL (test code = WBC) 11.6 K/mm3 4.5-12.5 N RED BLOOD CELL (test code = RBC) 4.48 mill/mm3 3.7-5.2 N HEMOGLOBIN (test code = HGB) 7.9 gram/dL 11.5-15.5 L HEMATOCRIT (test code = HCT) 28.9 % 36.0-46.0 L MEAN CELL VOLUME (test code = MCV) 64.5 fL 80-98 L MEAN CELL HGB (test code = MCH) 17.6 picogram 27.0-33.0 L MEAN CELL HGB CONCETRATION (test code = MCHC) 27.3 gram/dL 33.0-36. 0 L RED CELL DISTRIBUTION WIDTH (test code = RDW) 18.9 % 11.6-16. 2 H RED CELL DISTRIBUTION WIDTH SD (test code = RDW-SD) 42.7 fL 37 .0-51.0 N PLATELET COUNT (test code = PLT) 644 K/mm3 150-450 H MEAN PLATELET VOLUME (test code = MPV) 8.7 fL 6.7-11.0 N NEUTROPHIL % (test code = NT%) 65.8 % 39.0-69.0 N IMMATURE GRANULOCYTE % (test code = IG%) 0.3 % 0.0-5.0 N LYMPHOCYTE % (test code = LY%) 27.6 % 25.0-55.0 N MONOCYTE % (test code = MO%) 5.2 % 0.0-10.0 N EOSINOPHIL % (test code = EO%) 0.8 % 0.0-5.0 N BASOPHIL % (test code = BA%) 0.3 % 0.0-1.0 N NUCLEATED RBC % (test code = NRBC%) 0.0 % 0-0 N NEUTROPHIL # (test code = NT#) 7.62 K/mm3 1.8-7.7 N IMMATURE GRANULOCYTE # (test code = IG#) 0.04 x10 3/uL 0-0.03 H LYMPHOCYTE # (test code = LY#) 3.20 K/mm3 1.0-5.0 N MONOCYTE # (test code = MO#) 0.60 K/mm3 0-0.8 N EOSINOPHIL # (test code = EO#) 0.09 K/mm3 0.0-0.5 N BASOPHIL # (test code = BA#) 0.03 K/mm3 0.0-0.2 N NUCLEATED RBC # (test code = NRBC#) 0.00 K/mm3 0.0-0.1 N MANUAL DIFF REQUIRED (test code = MDIFF) NO, ONLY SCAN NEEDED DIFFERENTIAL [id number] 22:46:00* Test Item Value Reference Range Interpretation Comments STAIN ACCEPTABILITY (test code = STN ACCEPTABLE) MORPHOLOGY COMMENT (test code = MOC) PLATELET ESTIMATE (test code = PLTEST) PLATELET MORPHOLOGY (test code = PLTMORPH) CBC W/AUTO [id number] 22:45:00* Test Item Value Reference Range Interpretation Comments WHITE BLOOD CELL (test code = WBC) 11.6 K/mm3 4.5-12.5 N RED BLOOD CELL (test code = RBC) 4.48 mill/mm3 3.7-5.2 N HEMOGLOBIN (test code = HGB) 7.9 gram/dL 11.5-15.5 L HEMATOCRIT (test code = HCT) 28.9 % 36.0-46.0 L MEAN CELL VOLUME (test code = MCV) 64.5 fL 80-98 L MEAN CELL HGB (test code = MCH) 17.6 picogram 27.0-33.0 L MEAN CELL HGB CONCETRATION (test code = MCHC) 27.3 gram/dL 33.0-36. 0 L RED CELL DISTRIBUTION WIDTH (test code = RDW) 18.9 % 11.6-16. 2 H RED CELL DISTRIBUTION WIDTH SD (test code = RDW-SD) 42.7 fL 37 .0-51.0 N PLATELET COUNT (test code = PLT) 644 K/mm3 150-450 H MEAN PLATELET VOLUME (test code = MPV) 8.7 fL 6.7-11.0 N NEUTROPHIL % (test code = NT%) 65.8 % 39.0-69.0 N IMMATURE GRANULOCYTE % (test code = IG%) 0.3 % 0.0-5.0 N LYMPHOCYTE % (test code = LY%) 27.6 % 25.0-55.0 N MONOCYTE % (test code = MO%) 5.2 % 0.0-10.0 N EOSINOPHIL % (test code = EO%) 0.8 % 0.0-5.0 N BASOPHIL % (test code = BA%) 0.3 % 0.0-1.0 N NUCLEATED RBC % (test code = NRBC%) 0.0 % 0-0 N NEUTROPHIL # (test code = NT#) 7.62 K/mm3 1.8-7.7 N IMMATURE GRANULOCYTE # (test code = IG#) 0.04 x10 3/uL 0-0.03 H LYMPHOCYTE # (test code = LY#) 3.20 K/mm3 1.0-5.0 N MONOCYTE # (test code = MO#) 0.60 K/mm3 0-0.8 N EOSINOPHIL # (test code = EO#) 0.09 K/mm3 0.0-0.5 N BASOPHIL # (test code = BA#) 0.03 K/mm3 0.0-0.2 N NUCLEATED RBC # (test code = NRBC#) 0.00 K/mm3 0.0-0.1 N MANUAL DIFF REQUIRED (test code = MDIFF) NO, ONLY SCAN NEEDED DIFFERENTIAL [id number] 22:45:00* Test Item Value Reference Range Interpretation Comments STAIN ACCEPTABILITY (test code = STN ACCEPTABLE) CABOT RINGS (test code = CAB) MORPHOLOGY COMMENT (test code = MOC) PLATELET ESTIMATE (test code = PLTEST) PLATELET MORPHOLOGY (test code = PLTMORPH) CBC W/AUTO [id number] 22:45:00* Test Item Value Reference Range Interpretation Comments WHITE BLOOD CELL (test code = WBC) 11.6 K/mm3 4.5-12.5 N RED BLOOD CELL (test code = RBC) 4.48 mill/mm3 3.7-5.2 N HEMOGLOBIN (test code = HGB) 7.9 gram/dL 11.5-15.5 L HEMATOCRIT (test code = HCT) 28.9 % 36.0-46.0 L MEAN CELL VOLUME (test code = MCV) 64.5 fL 80-98 L MEAN CELL HGB (test code = MCH) 17.6 picogram 27.0-33.0 L MEAN CELL HGB CONCETRATION (test code = MCHC) 27.3 gram/dL 33.0-36. 0 L RED CELL DISTRIBUTION WIDTH (test code = RDW) 18.9 % 11.6-16. 2 H RED CELL DISTRIBUTION WIDTH SD (test code = RDW-SD) 42.7 fL 37 .0-51.0 N PLATELET COUNT (test code = PLT) 644 K/mm3 150-450 H MEAN PLATELET VOLUME (test code = MPV) 8.7 fL 6.7-11.0 N NEUTROPHIL % (test code = NT%) 65.8 % 39.0-69.0 N IMMATURE GRANULOCYTE % (test code = IG%) 0.3 % 0.0-5.0 N LYMPHOCYTE % (test code = LY%) 27.6 % 25.0-55.0 N MONOCYTE % (test code = MO%) 5.2 % 0.0-10.0 N EOSINOPHIL % (test code = EO%) 0.8 % 0.0-5.0 N BASOPHIL % (test code = BA%) 0.3 % 0.0-1.0 N NUCLEATED RBC % (test code = NRBC%) 0.0 % 0-0 N NEUTROPHIL # (test code = NT#) 7.62 K/mm3 1.8-7.7 N IMMATURE GRANULOCYTE # (test code = IG#) 0.04 x10 3/uL 0-0.03 H LYMPHOCYTE # (test code = LY#) 3.20 K/mm3 1.0-5.0 N MONOCYTE # (test code = MO#) 0.60 K/mm3 0-0.8 N EOSINOPHIL # (test code = EO#) 0.09 K/mm3 0.0-0.5 N BASOPHIL # (test code = BA#) 0.03 K/mm3 0.0-0.2 N NUCLEATED RBC # (test code = NRBC#) 0.00 K/mm3 0.0-0.1 N MANUAL DIFF REQUIRED (test code = MDIFF) NO, ONLY SCAN NEEDED DIFFERENTIAL [id number] 22:45:00* Test Item Value Reference Range Interpretation Comments STAIN ACCEPTABILITY (test code = STN ACCEPTABLE) CABOT RINGS (test code = CAB) MORPHOLOGY COMMENT (test code = MOC) PLATELET ESTIMATE (test code = PLTEST) PLATELET MORPHOLOGY (test code = PLTMORPH) CT ABDOMEN/PELVIS [id number] 04:42:00 [place] [address] Patient Name: MARIO MORALES MR #: [id number] : 1975 Age/Sex: 43/F Req #: [id number] Adm Physician: Ordered by: SUHAS JACKSON MD Report #: [id number] Location: ER Room/Bed: Procedure: 0514-[address]/CT ABDOMEN/PELVIS WO Exam Date: 08/10/19 Exam Time: 409 REPORT STATUS: Signed EXAM: CT Abdomen and Pelvis WITHOUT contrast INDICATION: right fl ank pain [id number] Y COMPARISON: CT abdomen pelvis 07/24/2019 T ECHNIQUE: Abdomen and pelvis were scanned utilizing a multidetector helical sc [place] from the lung base to the pubic symphysis without administration of IV c ontrast. Absence of intravenous contrast decreases sensitivity for detection o f focal lesions and vascular pathology. Coronal and sagittal reformations were obtained. Routine protocol was performed. IV CONTRAST: None ORAL CONTRAST: None COMPLICATIONS: None RADIATION DOSE: Total DLP: ... mGy*cm Estimated effective dose: (DLP x 0.015 x size fact or) mSv CTDIvol has been reviewed. It is below the limits set by the Radi ation Protocol Committee (RPC). Dose modulation, iterative reconstructi on, and/or weight based adjustment of the mA/kV was utilized to reduce the rad iation dose to as low as reasonably achievable. FINDINGS: LINES and TUBES: None. LOWER THORAX: Unremarkable HEPATOBILIARY: Mild hepatome sharon. No focal hepatic lesions. No biliary ductal dilation. GALLBLADDER : No radio-opaque stones or sludge. No wall thickening. SPLEEN: No splenom egaly. PANCREAS: No focal masses or ductal dilatation. ADRENALS: No adrenal nodules KIDNEYS/URETERS: No hydronephrosis. No cystic or solid mass lesions. No stones. GI TRACT: No abnormal distention, wall thicke oren, or evidence of bowel obstruction. Appendix is normal. PELVIC ORGANS/BLADDER: The uterus is bulky. Cervical nabothian cysts are noted. The u rinary bladder is unremarkable. LYMPH NODES: No lymphadenopathy. VESSE LS: Unremarkable. PERITONEUM / RETROPERITONEUM: No free air or fluid. BONES: Unremarkable. SOFT TISSUES: Unchanged small fat-containing ventral h ernias. IMPRESSION: No acute abdominal or pelvic abnormality. No nephrou reteral calculus or evidence of obstructive uropathy. Signed by: Andrzej Blue MD on 08/10/2019 4:45 AM Dictated By: [facility]RZEJ [facility] Signed By: ANDRZEJ BLUE MD on 08/10/19444 Transcribed By: HUSSAIN on 08/10/19444 COPY TO: SUHAS JACKSON MD Urine color [id number] 03:12:00* Test Item Value Reference Range Interpretation Comments Urine Color (test code = 5778-6) RED YELLOW [facility] [id number] 03:12:00* Test Item Value Reference Range Interpretation Comments Urine Clarity (test code = 68300-0) CLOUDY CLEAR [facility] Urine by Test strip 2019-08-10 03:12:00* Test Item Value Reference Range Interpretation Comments Urine Specific [place] (test code = 5811-5) 1.020 1.010-1.02 5 [facility] pH measurement by automated test [id number] 03:12:00* Test Item Value Reference Range Interpretation Comments Urine pH (test code = 07396-8) 5.5 5-7 [facility] leukocyte esterase detection by [id number] 03:12:00* Test Item Value Reference Range Interpretation Comments Urine Leukocyte Esterase (test code = 5799-2) TRACE NEGATIVE [facility] nitrite [id number] 03:12:00* Test Item Value Reference Range Interpretation Comments Urine Nitrite (test code = 89438-3) NEGATIVE NEGATIVE [facility] protein measurement by test strip (mass/volume)2019-08-10 03:12:00* Test Item Value Reference Range Interpretation Comments Urine Protein (test code = 5804-0) 2+ NEGATIVE [facility] glucose [id number] 03:12:00* Test Item Value Reference Range Interpretation Comments Urine Glucose (UA) (test code = 2349-9) NEGATIVE NEGATIVE [facility] ketones detection by automated test [id number] 03:12:00* Test Item Value Reference Range Interpretation Comments Urine Ketones (test code = 98486-9) NEGATIVE NEGATIVE [facility] urobilinogen measurement by test strip (mass/volume)2019-08-10 03:12:00* Test Item Value Reference Range Interpretation Comments Urine Urobilinogen (test code = 89366-6) 0.2 0.2-1 [facility] total bilirubin measurement (mass/volume)2019-08-10 03:12:00* Test Item Value Reference Range Interpretation Comments Urine Bilirubin (test code = 1978-6) NEGATIVE NEGATIVE [facility] erythrocytes [id number] 03:12:00* Test Item Value Reference Range Interpretation Comments Urine Blood (test code = 45286-1) 4+ NEGATIVE [facility]lineAutom[facility] urine sediment leukocyte count by microscopy (number/high power field)2019-08-10 03:12:00* Test Item Value Reference Range Interpretation Comments Urine WBC (test code = 5821-4) 0-5 0-5 [facility]lineErythrocytes detection in urine sediment by light [id number] 03:12:00* Test Item Value Reference Range Interpretation Comments Urine RBC (test code = 35543-6) >50 0-5 [facility]lineBacteria detection in urine sediment by light [id number] 03:12:00* Test Item Value Reference Range Interpretation Comments Urine Bacteria (test code = 68808-6) FEW NONE [facility]lineEpithelial cells detection in urine sediment by light [id number] 03:12:00* Test Item Value Reference Range Interpretation Comments Urine Epithelial Cells (test code = 96387-2) RARE NONE [facility]lineRenal epithelial cells detection in urine sediment by light [id number] 03:12:00* Test Item Value Reference Range Interpretation Comments Urine Renal Epithelial Cells (test code = 64178-1) RARE NON E [facility]lineUrine human chorionic gonadotropin (hCG) [id number] 03:12:00* Test Item Value Reference Range Interpretation Comments Urine Test (test code = 2106-3) NEGATIVE NEGATIVE [facility]line[facility] [id number] 03:11:00 [facility] [address] [address] Patient Name: MARIO MORALES MR #: [id number] : Age/Sex: 43/F Req #: [id number] Adm Physician: Ordered by: SUHAS JACKSON MD Report #: [id number] Location: ER Room/Bed: Procedure: 0428-0 001 US/US GALLBLADDER Exam Date: 07/25/19 Exam Time: 213 REPORT STATUS: Signed EXAM: Limited Abdominal Ultrasound INDICATION: ruq pain Y COMPARIS ON: CT abdomen pelvis 07/24/2019 TECHNIQUE: Transverse and longitudinal images of the right upper abdomen were obtained. FINDINGS: Liver: Size: 18.6 cm in the right midclavicular line, enlarged Appearance: Nor mal echogenicity, smooth contour Mass: No focal masses Gallbladder: Stones/Sludge: No definite. Low-level echoes within the gallbladder lumen are likely artifactual. Wall: 0.3 cm Appearance: No pericholecy stic fluid or hydrops. Sonographic Young's Sign: Negative Bile Du cts: Intrahepatic Ducts: No dilatation Extrahepatic Ducts: Common bile duct measures 0.2 cm, no dilatation Pancreas: Visualized portio ns of the pancreatic head, neck and proximal body are normal. Right Kidne y: Size: 10.8 x 9.9 x 5.1 cm Echogenicity: Normal Parench ymal thickness: Normal Collecting System: No hydronephrosis Ston e: None Cyst/Mass: None Vessels: Aorta: Visuali zed portions are normal Inferior Vena Cava: Visualized portions are jelani l Main Portal Vein: 0.8 cm, normal size with hepatopetal flow. Free Fluid: No ascites or pleural effusion IMPRESSION: Hepatomegaly. Otherwise unremarkable right upper quadrant abdominal ultrasound. Signed b y: Andrzej Blue MD on 07/25/2019 3:14 AM Dictated By: ANDRZEJ BLUE MD 3 Transcribed By: HUSSAIN on 07/25/19313 COPY TO: SUHAS JACKSON MD Urine color [id number] 01:15:00* Test Item Value Reference Range Interpretation Comments Urine Color (test code = 5778-6) [facility]LLOW [facility] [id number] 01:15:00* Test Item Value Reference Range Interpretation Comments Urine Clarity (test code = 21984-8) [facility]AR [facility] by Test strip 2019-07-25 01:15:00* Test Item Value Reference Range Interpretation Comments Urine Specific [place] (test code = 5811-5) >=1.030 1.010-1.02 5 [facility] pH measurement by automated test [id number] 01:15:00* Test Item Value Reference Range Interpretation Comments Urine pH (test code = 56841-8) 5.5 5-7 [facility] leukocyte esterase detection by [id number] 01:15:00* Test Item Value Reference Range Interpretation Comments Urine Leukocyte Esterase (test code = 5799-2) NEGATIVE NEGATIVE [facility] nitrite [id number] 01:15:00* Test Item Value Reference Range Interpretation Comments Urine Nitrite (test code = 46803-6) NEGATIVE NEGATIVE [facility] protein measurement by test strip (mass/volume)2019-07-25 01:15:00* Test Item Value Reference Range Interpretation Comments Urine Protein (test code = 5804-0) NEGATIVE NEGATIVE [facility] glucose [id number] 01:15:00* Test Item Value Reference Range Interpretation Comments Urine Glucose (UA) (test code = 2349-9) NEGATIVE NEGATIVE [facility] ketones detection by automated test [id number] 01:15:00* Test Item Value Reference Range Interpretation Comments Urine Ketones (test code = 30796-7) NEGATIVE NEGATIVE [facility] urobilinogen measurement by test strip (mass/volume)2019-07-25 01:15:00* Test Item Value Reference Range Interpretation Comments Urine Urobilinogen (test code = 50052-3) 0.2 0.2-1 [facility] total bilirubin measurement (mass/volume)2019-07-25 01:15:00* Test Item Value Reference Range Interpretation Comments Urine Bilirubin (test code = 1978-6) NEGATIVE NEGATIVE [facility]line[facility] erythrocytes jcazyggiv8195-77-28 01:15:00* Test Item Value Reference Range Interpretation Comments Urine Blood (test code = 43089-8) NEGATIVE NEGATIVE [facility]lineAutomated urine sediment leukocyte count by microscopy (number/high power field)2019-07-25 01:15:00* Test Item Value Reference Range Interpretation Comments Urine WBC (test code = 5821-4) 0-5 0-5 [facility]lineErythrocytes detection in urine sediment by light cegszfnjdb3305-89-52 01:15:00* Test Item Value Reference Range Interpretation Comments Urine RBC (test code = 74319-0) 0-5 0-5 [facility]lineBacteria detection in urine sediment by light xpmnnpbvyz7002-73-70 01:15:00* Test Item Value Reference Range Interpretation Comments Urine Bacteria (test code = 65396-5) FEW NONE [facility]lineEpithelial cells detection in urine sediment by light tkdqzaekoj9218-04-23 01:15:00* Test Item Value Reference Range Interpretation Comments Urine Epithelial Cells (test code = 99449-8) FEW NONE [facility]lineBlood leukocytes automated count (number/volume)2019-07-25 01:10:00* Test Item Value Reference Range Interpretation Comments White Blood Count (test code = 6690-2) 9.51 4.8-10.8 [facility]lineBlood erythrocytes automated count (number/volume)2019-07-25 01:10:00* Test Item Value Reference Range Interpretation Comments Red Blood Count (test code = 789-8) 4.20 3.6-5.1 [facility]lineBlood hemoglobin measurement (moles/volume)2019-07-25 01:10:00* Test Item Value Reference Range Interpretation Comments Hemoglobin (test code = 67730-3) 7.7 12.0-16.0 [facility]lineAutomated blood hematocrit (volume fraction)2019-07-25 01:10:00* Test Item Value Reference Range Interpretation Comments Hematocrit (test code = 4544-3) 28.5 34.2-44.1 [facility]lineAutomated erythrocyte mean corpuscular afzyvq9934-51-24 01:10:00* Test Item Value Reference Range Interpretation Comments Mean Corpuscular Volume (test code = 787-2) 67.9 81-99 [facility]lineAutomated erythrocyte mean corpuscular hemoglobin (mass per erythrocyte)2019-07-25 01:10:00* Test Item Value Reference Range Interpretation Comments Mean Corpuscular Hemoglobin (test code = 785-6) 18.3 28-32 [facility]lineAutomated erythrocyte mean corpuscular hemoglobin concentration measurement (mass/volume)2019-07-25 01:10:00* Test Item Value Reference Range Interpretation Comments Mean Corpuscular Hemoglobin Concent (test code = 786-4) 27.0 31-35 [facility] ShorelineRDW EnmJf-Ucs6281-87-28 01:10:00* Test Item Value Reference Range Interpretation Comments Red Cell Distribution Width (test code = 52709-8) 17.9 11.7 -14.4 [facility]lineAutomated blood platelet count (count/volume)2019-07-25 01:10:00* Test Item Value Reference Range Interpretation Comments Platelet Count (test code = 777-3) 557 140-360 [facility] ShorelineAutomated blood segmented neutrophil count as percentage of total klaxsuvlhb7440-06-31 01:10:00* Test Item Value Reference Range Interpretation Comments Neutrophils (%) (Auto) (test code = 08005-3) 70.1 38.7-80.0 [facility] ShorelineAutomated blood lymphocyte count as percentage ot total uhjguckwld0395-48-63 01:10:00* Test Item Value Reference Range Interpretation Comments Lymphocytes (%) (Auto) (test code = 736-9) 22.6 18.0-39.1 [facility]lineAutomated blood monocyte count as percentage of total ejjabrfuot0382-21-20 01:10:00* Test Item Value Reference Range Interpretation Comments Monocytes (%) (Auto) (test code = 5905-5) 5.5 4.4-11.3 [facility]lineAutomated blood eosinophil count as percentage of total wbakyyzmsa6960-02-06 01:10:00* Test Item Value Reference Range Interpretation Comments Eosinophils (%) (Auto) (test code = 713-8) 1.4 0.0-6.0 [facility]lineAutomated blood basophil count as percentage of total ctfxbxdjea3622-42-65 01:10:00* Test Item Value Reference Range Interpretation Comments Basophils (%) (Auto) (test code = 706-2) 0.2 0.0-1.0 [facility] ShorelineFluoroscopic procedure less than one hour spczzutw5161-37-25 01:10:00* Test Item Value Reference Range Interpretation Comments IM GRANULOCYTES % (test code = IM GRANULOCYTES %) 0.2 0.0- 1.0 [facility]lineAutomated blood neutrophil count 2019-07-25 01:10:00* Test Item Value Reference Range Interpretation Comments Neutrophils # (Auto) (test code = 751-8) 6.7 2.1-6.9 [facility]lineBlood lymphocytes count (number/volume) 2019-07-25 01:10:00* Test Item Value Reference Range Interpretation Comments Lymphocytes # (Auto) (test code = 87292-3) 2.2 1.0-3.2 [facility]lineBlood monocytes automated count (number/volume)2019-07-25 01:10:00* Test Item Value Reference Range Interpretation Comments Monocytes # (Auto) (test code = 742-7) 0.5 0.2-0.8 [facility]lineAutomated blood eosinophil count 2019-07-25 01:10:00* Test Item Value Reference Range Interpretation Comments Eosinophils # (Auto) (test code = 711-2) 0.1 0.0-0.4 [facility]lineAutomated blood basophil count (count/volume)2019-07-25 01:10:00* Test Item Value Reference Range Interpretation Comments Basophils # (Auto) (test code = 704-7) 0.0 0.0-0.1 [facility] ShorelineFluoroscopic procedure less than one hour skandrfg2939-06-78 01:10:00* Test Item Value Reference Range Interpretation Comments Absolute Immature Granulocyte (auto (meliton t code = Absolute Immature Granulocyte (auto) 0.02 0-0.1 [facility] sodium measurement (moles/volume)2019-07-25 01:10:00* Test Item Value Reference Range Interpretation Comments Sodium Level (test code = 2951-2) 138 136-145 [facility]ieerum or plasma potassium measurement (moles/volume)2019-07-25 01:10:00* Test Item Value Reference Range Interpretation Comments Potassium Level (test code = 2823-3) 4.2 3.5-5.1 [facility]erum or plasma chloride measurement (moles/volume)2019-07-25 01:10:00* Test Item Value Reference Range Interpretation Comments Chloride Level (test code = 2075-0) 107 98-107 [facility]ieerum or plasma carbon dioxide, total measurement (moles/volume)2019-07-25 01:10:00* Test Item Value Reference Range Interpretation Comments Carbon Dioxide Level (test code = 2028-9) 23 22-29 [facility]ieerum or plasma anion kvy4070-60-54 01:10:00* Test Item Value Reference Range Interpretation Comments Anion Gap (test code = 80418-3) 12.2 8-16 [facility]erum or plasma urea nitrogen measurement (mass/volume)2019-07-25 01:10:00* Test Item Value Reference Range Interpretation Comments Blood Urea Nitrogen (test code = 3094-0) 17 7-26 VERIFIED PREVIOUS RESULTSB[facility]ieerum or plasma creatinine measurement (mass/volume)2019-07-25 01:10:00* Test Item Value Reference Range Interpretation Comments Creatinine (test code = 2160-0) 0.66 0.57-1.11 [facility]ieerum or plasma urea nitrogen/creatinine mass rdsbz5825-74-05 01:10:00* Test Item Value Reference Range Interpretation Comments BUN/Creatinine Ratio (test code = 3097-3) 26 6-25 [facility]lineEstimated glomerular filtration rate (GFR) oyiohkdhvvplp1401-53-20 01:10:00* Test Item Value Reference Range Interpretation Comments Estimat Glomerular Filtration Rate (test code = 069859964) > 60 >60 Ranges were taken from the National Kidney Disease Education Program and the [employer]al [employer] literature.Reference ranges:60 or greater: Niyzsp30-67 ( for 3 consecutive months): Chronic kidney disease 15 or less: Kidney failureCHRISTUS Spohn [facility] – ShorelineGlucose zrqnfaohtpb9127-15-86 01:10:00* Test Item Value Reference Range Interpretation Comments Glucose Level (test code = PRM1739) 105 74-118 [facility]um or plasma calcium measurement (mass/volume)2019-07-25 01:10:00* Test Item Value Reference Range Interpretation Comments Calcium Level (test code = 05583-9) 8.9 8.4-10.2 [facility]um or plasma total bilirubin measurement (mass/volume)2019-07-25 01:10:00* Test Item Value Reference Range Interpretation Comments Total Bilirubin (test code = 1975-2) 0.2 0.2-1.2 [facility]lineFluoroscopic procedure less than one hour cydqybxy3511-53-17 01:10:00* Test Item Value Reference Range Interpretation Comments Aspartate Amino Transf (AST/SGOT) (test code = Aspartate Amino Transf (AST/SGOT)) 13 5-34 [facility]erum or plasma alanine aminotransferase measurement (enzymatic activity/volume)2019-07-25 01:10:00* Test Item Value Reference Range Interpretation Comments Alanine Aminotransferase (ALT/SGPT) (test code = 1742-6) 13 0-55 [facility]ieerum or plasma protein measurement (mass/volume)2019-07-25 01:10:00* Test Item Value Reference Range Interpretation Comments Total Protein (test code = 2885-2) 6.7 6.5-8.1 [facility]erum or plasma albumin measurement (mass/volume)2019-07-25 01:10:00* Test Item Value Reference Range Interpretation Comments Albumin (test code = 1751-7) 3.3 3.5-5.0 [facility]linePlasma globulin measurement (mass/volume) 2019-07-25 01:10:00* Test Item Value Reference Range Interpretation Comments Globulin (test code = 07073-6) 3.4 2.3-3.5 [facility]erum or plasma albumin/globulin mass wbjpj5488-10-79 01:10:00* Test Item Value Reference Range Interpretation Comments Albumin/Globulin Ratio (test code = 1759-0) 1.0 0.8-2.0 [facility]um or plasma alkaline phosphatase measurement (enzymatic activity/volume)2019-07-25 01:10:00* Test Item Value Reference Range Interpretation Comments Alkaline Phosphatase (test code = 6768-6) 107 40-150 [facility]ieerum or plasma amylase measurement (enzymatic activity/volume)2019-07-25 01:10:00* Test Item Value Reference Range Interpretation Comments Amylase Level (test code = 1798-8) 40 25-125 [facility]erum or plasma lipase measurement (enzymatic activity/volume)2019-07-25 01:10:00* Test Item Value Reference Range Interpretation Comments Lipase (test code = 3040-3) 17 8-78 [facility]lineBlood leukocytes automated count (number/volume)2019-07-25 01:10:00* Test Item Value Reference Range Interpretation Comments White Blood Count (test code = 6690-2) 9.51 4.8-10.8 [facility]lineBlood erythrocytes automated count (number/volume)2019-07-25 01:10:00* Test Item Value Reference Range Interpretation Comments Red Blood Count (test code = 789-8) 4.20 3.6-5.1 [facility]lineBlood hemoglobin measurement (moles/volume)2019-07-25 01:10:00* Test Item Value Reference Range Interpretation Comments Hemoglobin (test code = 66581-0) 7.7 12.0-16.0 [facility]lineAutomated blood hematocrit (volume fraction)2019-07-25 01:10:00* Test Item Value Reference Range Interpretation Comments Hematocrit (test code = 4544-3) 28.5 34.2-44.1 [facility]lineAutomated erythrocyte mean corpuscular oyapqk3521-26-56 01:10:00* Test Item Value Reference Range Interpretation Comments Mean Corpuscular Volume (test code = 787-2) 67.9 81-99 [facility]lineAutomated erythrocyte mean corpuscular hemoglobin (mass per erythrocyte)2019-07-25 01:10:00* Test Item Value Reference Range Interpretation Comments Mean Corpuscular Hemoglobin (test code = 785-6) 18.3 28-32 [facility]lineAutomated erythrocyte mean corpuscular hemoglobin concentration measurement (mass/volume)2019-07-25 01:10:00* Test Item Value Reference Range Interpretation Comments Mean Corpuscular Hemoglobin Concent (test code = 786-4) 27.0 31-35 [facility] ShorelineRDW JjgIn-Anw1736-02-28 01:10:00* Test Item Value Reference Range Interpretation Comments Red Cell Distribution Width (test code = 37478-6) 17.9 11.7 -14.4 [facility]lineAutomated blood platelet count (count/volume)2019-07-25 01:10:00* Test Item Value Reference Range Interpretation Comments Platelet Count (test code = 777-3) 557 140-360 [facility] ShorelineAutomated blood segmented neutrophil count as percentage of total pfjhmirfqr2936-24-70 01:10:00* Test Item Value Reference Range Interpretation Comments Neutrophils (%) (Auto) (test code = 27006-0) 70.1 38.7-80.0 [facility] ShorelineAutomated blood lymphocyte count as percentage ot total tzprusqkhe5043-78-14 01:10:00* Test Item Value Reference Range Interpretation Comments Lymphocytes (%) (Auto) (test code = 736-9) 22.6 18.0-39.1 [facility] ShorelineAutomated blood monocyte count as percentage of total jmsnmifmjf0551-61-77 01:10:00* Test Item Value Reference Range Interpretation Comments Monocytes (%) (Auto) (test code = 5905-5) 5.5 4.4-11.3 [facility]lineAutomated blood eosinophil count as percentage of total qsodmukryh6739-40-60 01:10:00* Test Item Value Reference Range Interpretation Comments Eosinophils (%) (Auto) (test code = 713-8) 1.4 0.0-6.0 [facility]lineAutomated blood basophil count as percentage of total rqnvazfpyq9166-57-16 01:10:00* Test Item Value Reference Range Interpretation Comments Basophils (%) (Auto) (test code = 706-2) 0.2 0.0-1.0 [facility]lineFluoroscopic procedure less than one hour rgmgkdej1240-76-75 01:10:00* Test Item Value Reference Range Interpretation Comments IM GRANULOCYTES % (test code = IM GRANULOCYTES %) 0.2 0.0- 1.0 [facility]lineAutomated blood neutrophil count 2019-07-25 01:10:00* Test Item Value Reference Range Interpretation Comments Neutrophils # (Auto) (test code = 751-8) 6.7 2.1-6.9 [facility]lineBlood lymphocytes count (number/volume) 2019-07-25 01:10:00* Test Item Value Reference Range Interpretation Comments Lymphocytes # (Auto) (test code = 85510-9) 2.2 1.0-3.2 [facility]lineBlm[facility] monocytes automated count (number/volume)2019-07-25 01:10:00* Test Item Value Reference Range Interpretation Comments Monocytes # (Auto) (test code = 742-7) 0.5 0.2-0.8 [facility]lineAutomated blood eosinophil count 2019-07-25 01:10:00* Test Item Value Reference Range Interpretation Comments Eosinophils # (Auto) (test code = 711-2) 0.1 0.0-0.4 [facility]lineAutomated blood basophil count (count/volume)2019-07-25 01:10:00* Test Item Value Reference Range Interpretation Comments Basophils # (Auto) (test code = 704-7) 0.0 0.0-0.1 [facility] ShorelineFluoroscopic procedure less than one hour ytpgqztw5054-21-24 01:10:00* Test Item Value Reference Range Interpretation Comments Absolute Immature Granulocyte (auto (meliton t code = Absolute Immature Granulocyte (auto) 0.02 0-0.1 [facility] or plasma sodium measurement (moles/volume)2019-07-25 01:10:00* Test Item Value Reference Range Interpretation Comments Sodium Level (test code = 2951-2) 138 136-145 [facility]ieerum or plasma potassium measurement (moles/volume)2019-07-25 01:10:00* Test Item Value Reference Range Interpretation Comments Potassium Level (test code = 2823-3) 4.2 3.5-5.1 [facility]ieerum or plasma chloride measurement (moles/volume)2019-07-25 01:10:00* Test Item Value Reference Range Interpretation Comments Chloride Level (test code = 2075-0) 107 98-107 [facility]ieerum or plasma carbon dioxide, total measurement (moles/volume)2019-07-25 01:10:00* Test Item Value Reference Range Interpretation Comments Carbon Dioxide Level (test code = 2028-9) 23 22-29 [facility]ieerum or plasma anion azw2092-29-41 01:10:00* Test Item Value Reference Range Interpretation Comments Anion Gap (test code = 12223-4) 12.2 8-16 [facility]ieerum or plasma urea nitrogen measurement (mass/volume)2019-07-25 01:10:00* Test Item Value Reference Range Interpretation Comments Blood Urea Nitrogen (test code = 3094-0) 17 7-26 VERIFIED PREVIOUS RESULTSB[facility]achieerum or plasma creatinine measurement (mass/volume)2019-07-25 01:10:00* Test Item Value Reference Range Interpretation Comments Creatinine (test code = 2160-0) 0.66 0.57-1.11 [facility]ieerum or plasma urea nitrogen/creatinine mass eocyz4478-28-38 01:10:00* Test Item Value Reference Range Interpretation Comments BUN/Creatinine Ratio (test code = 3097-3) 26 6-25 [facility] ShorelineEstimated glomerular filtration rate (GFR) kwxdiycbfhtub1977-37-71 01:10:00* Test Item Value Reference Range Interpretation Comments Estimat Glomerular Filtration Rate (test code = 849841084) > 60 >60 Ranges were taken from the National Kidney Disease Education Program and the [employer] partnersal Kidney Foundation literature.Reference ranges:60 or greater: Umwhoe20-65 ( for 3 consecutive months): Chronic kidney disease 15 or less: Kidney failureCHRISTUS Spohn [facility] – ShorelineGlucose yczgqtfrwos1879-99-69 01:10:00* Test Item Value Reference Range Interpretation Comments Glucose Level (test code = UTP3314) 105 74-118 [facility]ieerum or plasma calcium measurement (mass/volume)2019-07-25 01:10:00* Test Item Value Reference Range Interpretation Comments Calcium Level (test code = 95744-8) 8.9 8.4-10.2 [facility]ieerum or plasma total bilirubin measurement (mass/volume)2019-07-25 01:10:00* Test Item Value Reference Range Interpretation Comments Total Bilirubin (test code = 1975-2) 0.2 0.2-1.2 [facility] ShorelineFluoroscopic procedure less than one hour iafddkvt0032-88-60 01:10:00* Test Item Value Reference Range Interpretation Comments Aspartate Amino Transf (AST/SGOT) (test code = Aspartate Amino Transf (AST/SGOT)) 13 5-34 [facility]ieerum or plasma alanine aminotransferase measurement (enzymatic activity/volume)2019-07-25 01:10:00* Test Item Value Reference Range Interpretation Comments Alanine Aminotransferase (ALT/SGPT) (test code = 1742-6) 13 0-55 [facility]ieerum or plasma protein measurement (mass/volume)2019-07-25 01:10:00* Test Item Value Reference Range Interpretation Comments Total Protein (test code = 2885-2) 6.7 6.5-8.1 [facility]ieerum or plasma albumin measurement (mass/volume)2019-07-25 01:10:00* Test Item Value Reference Range Interpretation Comments Albumin (test code = 1751-7) 3.3 3.5-5.0 [facility] ShorelinePlasma globulin measurement (mass/volume) 2019-07-25 01:10:00* Test Item Value Reference Range Interpretation Comments Globulin (test code = 54654-6) 3.4 2.3-3.5 [facility]ieerum or plasma albumin/globulin mass dsalw9611-55-04 01:10:00* Test Item Value Reference Range Interpretation Comments Albumin/Globulin Ratio (test code = 1759-0) 1.0 0.8-2.0 [facility]erum or plasma alkaline phosphatase measurement (enzymatic activity/volume)2019-07-25 01:10:00* Test Item Value Reference Range Interpretation Comments Alkaline Phosphatase (test code = 6768-6) 107 40-150 [facility]ieerum or plasma amylase measurement (enzymatic activity/volume)2019-07-25 01:10:00* Test Item Value Reference Range Interpretation Comments Amylase Level (test code = 1798-8) 40 25-125 [facility]ieerum or plasma lipase measurement (enzymatic activity/volume)2019-07-25 01:10:00* Test Item Value Reference Range Interpretation Comments Lipase (test code = 3040-3) 17 8-78 [facility] ShorelineCT ABDOMEN/PELVIS R2031-41-69 10:53:00 [facility] [address] [address] Patient Name: MARIO MORALES MR #: [id number] : 1975 Age/Sex: 43/F Req #: [id number] Adm Physician: Ordered by: APOLLO WILSON DO Report #: [id number] Location: ER Room/Bed: Procedure: [id number] CT/CT [...] MD 105 Transcribed By: HUSSAIN on 07/24/19 1057 COPY TO: APOLLO WILSON DO Urine human chorionic gonadotropin (hCG) detection 2019-07-24 09:35:00* Test Item Value Reference Range Interpretation Comments Urine Test (test code = 2106-3) NEGATIVE NEGATIVE [facility]lineBlood platelets count by estimate (number/volume)2019-07-24 08:33:00* Test Item Value Reference Range Interpretation Comments Platelet Estimate (test code = 31477-6) MODERATELY INCREASED [facility] ShorelinePlatelet zjswdqldzh2660-78-73 08:33:00* Test Item Value Reference Range Interpretation Comments Platelet Morphology Comment (test code = 62208-1) RARE EDTA CLUMPIN G [facility] ShorelineBlood polychromasia detection by light evgqhpzqxa2039-21-37 08:33:00* Test Item Value Reference Range Interpretation Comments Polychromasia (test code = 21381-3) FEW [facility] ShorelineBlood hypochromia detection by light msmqkfgfmu6389-32-86 08:33:00* Test Item Value Reference Range Interpretation Comments Hypochromasia (test code = 728-6) SLIGHT [facility]lineBlm[facility] anisocytosis detection by light rkvszlcmhv5441-42-86 08:33:00* Test Item Value Reference Range Interpretation Comments Anisocytosis (test code = 702-1) MODERATE [facility] macrocytes detection by light wledjfosln0751-38-32 08:33:00* Test Item Value Reference Range Interpretation Comments Macrocytosis (test code = 738-5) SLIGHT [facility] ovalocytes detection by light dcxwjtwihi1194-26-98 08:33:00* Test Item Value Reference Range Interpretation Comments Ovalocytes (test code = 774-0) FEW [facility] ShorelineElliptocyte ovqcafeoz3784-48-40 08:33:00 * Test Item Value Reference Range Interpretation Comments Elliptocytes (test code = 21012-6) SLIGHT [facility] ShorelineRB gfhezuybks2469-03-92 08:33:00* Test Item Value Reference Range Interpretation Comments Red Cell Morphology Comment (test code = 6742-1) ABNORMAL [facility] platelets count by estimate (number/volume)2019-07-24 08:33:00* Test Item Value Reference Range Interpretation Comments Platelet Estimate (test code = 90401-7) MODERATELY INCREASED [facility] ShorelinePlatelet mpylnhdlgg9985-50-16 08:33:00* Test Item Value Reference Range Interpretation Comments Platelet Morphology Comment (test code = 78923-3) RARE EDTA CLUMPIN G [facility] polychromasia detection by light galnowztuc2766-65-17 08:33:00* Test Item Value Reference Range Interpretation Comments Polychromasia (test code = 46517-7) FEW [facility] hypochromia detection by light ppseoepthx2467-21-68 08:33:00* Test Item Value Reference Range Interpretation Comments Hypochromasia (test code = 728-6) SLIGHT [facility] anisocytosis detection by light mfyavdlnxh0621-58-50 08:33:00* Test Item Value Reference Range Interpretation Comments Anisocytosis (test code = 702-1) MODERATE [facility]lineBlood macrocytes detection by light eatclcyozm0848-79-15 08:33:00* Test Item Value Reference Range Interpretation Comments Macrocytosis (test code = 738-5) SLIGHT [facility]lineBlood ovalocytes detection by light lwljlswmri7916-05-79 08:33:00* Test Item Value Reference Range Interpretation Comments Ovalocytes (test code = 774-0) FEW [facility] ShorelineElliptocyte nevxsavsj2876-43-45 08:33:00 * Test Item Value Reference Range Interpretation Comments Elliptocytes (test code = 57036-3) SLIGHT [facility] ShorelineRBC nqojynjfbq0256-42-65 08:33:00* Test Item Value Reference Range Interpretation Comments Red Cell Morphology Comment (test code = 6742-1) ABNORMAL [facility] ShorelineB-Type Natriuretic Jetlovj9083-04-21 19:10:00* Test Item Value Reference Range Interpretation Comments B-Type Natriuretic Peptide (test code = 40222-1) 37.4 0-100 [facility] ShorelineTroponin U6719-20-77 19:10:00* Test Item Value Reference Range Interpretation Comments Troponin I (test code = DDC9317) < 0.001 0-0.300 [facility] ShorelineCHEST 2 WUEDA9269-25-93 18:55:00 [facility] [address] [place] [address] Patient Name: MARIO MORALES MR #: [id number] : 1975 Age/Sex: 43/F Req #: [id number] Adm Physician: Ordered by: DREAD JONES MD Report #: [id number] Location: ER Room/Bed: Procedure: [id number] DX/CHEST 2 VIEWS Exam Date: 06/22/19 Exam Time: 1838 REPORT STATUS: Signed Examination: PA and lateral [...] on 06/22/191854 COPY TO: DREAD BERNARD MD Sodium Dgufr3688-80-52 18:48:00* Test Item Value Reference Range Interpretation Comments Sodium Level (test code = 2951-2) 140 136-145 [facility]linePotassium Qukxa1781-69-98 18:48:00* Test Item Value Reference Range Interpretation Comments Potassium Level (test code = 2823-3) 3.4 3.5-5.1 L [facility] ShorelineChloride Gyded8815-95-95 18:48:00* Test Item Value Reference Range Interpretation Comments Chloride Level (test code = 2075-0) 104 98-107 [facility] ShorelineCarbon Dioxide Nlpvj2677-62-33 18:48:00* Test Item Value Reference Range Interpretation Comments Carbon Dioxide Level (test code = 2028-9) 27 22-29 [facility] ShorelineAnion Xsx8337-14-30 18:48:00* Test Item Value Reference Range Interpretation Comments Anion Gap (test code = 10248-7) 12.4 8-16 [facility] ShorelineBlood Urea Krlxvjfm2777-25-05 18:48:00* Test Item Value Reference Range Interpretation Comments Blood Urea Nitrogen (test code = 3094-0) 13 7-26 [facility] ShorelineCreatinine2020-03-26 18:48:00* Test Item Value Reference Range Interpretation Comments Creatinine (test code = 2160-0) 0.71 0.57-1.11 [facility] ShorelineBUN/Creatinine Kgqsj8490-68-54 18:48:00* Test Item Value Reference Range Interpretation Comments BUN/Creatinine Ratio (test code = 3097-3) 18 09-20 [facility] ShorelineEstimat Glomerular Filtration Rate 2019-06-22 18:48:00* Test Item Value Reference Range Interpretation Comments Estimat Glomerular Filtration Rate (test code = 537429877) > 60 >60 Ranges were taken from the National Kidney Disease Education Program and the [facility] Kidney Foundation literature.Reference ranges:60 or greater: Qjnavx46-97 ( for 3 consecutive months): Chronic kidney disease 15 or less: Kidney failureCHRISTUS Spohn Hospital [facility] – ShorelineGlucose Mukzm8521-10-56 18:48:00* Test Item Value Reference Range Interpretation Comments Glucose Level (test code = HWT8499) 86 74-118 [facility] ShorelineCalcium Qetvd5573-39-44 18:48:00* Test Item Value Reference Range Interpretation Comments Calcium Level (test code = 46840-4) 9.2 8.4-10.2 [facility] ShorelineD-Dimer Quantitative (PE/DVT)2019-06-22 18:44:00* Test Item Value Reference Range Interpretation Comments D-Dimer Quantitative (PE/DVT) (test code = 76728-0) 0.44 0. 00-0.45 As with all in vitro diagnostic tests, the test results should be interpreted by the physician in conjunction with clinical findings and other test results.Test results are reported in NEW D-dimer units(ug/mLFEU).[facility] ShorelineFibrin D-dimer DDU measurement in platelet poor plasma (mass/volume)2019-06-22 18:19:00* Test Item Value Reference Range Interpretation Comments D-Dimer Quantitative (PE/DVT) (test code = 79197-0) 0.44 0. 00-0.45 As with all in vitro diagnostic tests, the test results should be interpreted by the physician in conjunction with clinical findings and other test results.Test results are reported in NEW D-dimer units(ug/mLFEU).[facility]-dWwa8570-47-75 18:19:00* Test Item Value Reference Range Interpretation Comments B-Type Natriuretic Peptide (test code = 58383-8) 37.4 0-100 [facility] ShorelineTroponin I measurement by highly sensitive enzyme jbcvbhahvfz2960-90-22 18:19:00* Test Item Value Reference Range Interpretation Comments Troponin I (test code = 37955-5) < 0.001 0-0.300 [facility] ShorelineFibrin D-dimer DDU measurement in platelet poor plasma (mass/volume)2019-06-22 18:19:00* Test Item Value Reference Range Interpretation Comments D-Dimer Quantitative (PE/DVT) (test code = 45343-9) 0.44 0. 00-0.45 As with all in vitro diagnostic tests, the test results should be interpreted by the physician in conjunction with clinical findings and other test results.Test results are reported in NEW D-dimer units(ug/mLFEU).[facility]-xLej1701-29-96 18:19:00* Test Item Value Reference Range Interpretation Comments B-Type Natriuretic Peptide (test code = 48077-9) 37.4 0-100 [facility] ShorelineTroponin I measurement by highly sensitive enzyme ovtmtgftbfx0671-31-84 18:19:00* Test Item Value Reference Range Interpretation Comments Troponin I (test code = 64689-3) < 0.001 0-0.300 [facility] ShorelineCT CHEST X4519-81-55 22:52:00 [place] [address] Patient Name: MARIO MORALES MR #: [id number] : 1975 Age/Sex: 43/F Req #: [id number] Adm Physician: Ordered by: GUILLERMINA EDGE DO Report #: [id number] Location: ER Room/Bed: Procedure: [id number] 0037 CT/CT CHEST W Exam Date: 05/08/19 Exam Time: REPORT STATUS: Signed EXAM: C T Chest WITH contrast (PE protocol) 05/08/2019 8:53 PM INDICATION: Dyspnea COMPARISON: Chest x-ray 05/08/2019 TECHNIQUE: Chest was scanned utili [employer] a multidetector helical scanner from the lung [...] 11:00 PM Dictated By: SY RUSS DO 99 Transcribed By: HUSSAIN on 05/08/192299 COPY TO : GUILLERMINA EDGE DO CHEST SINGLE (PORTABLE)2019-05-08 20:48:00 [place] [address] Patient Name: MARIO MORALES MR #: [id number] : 1975 Age/Sex: 43/F Req #: [id number] Adm Physician: Ordered by: GUILLERMINA EDGE DO Report #: [id number] Location: ER Room/Bed: Procedure: [id number] 0066 DX/CHEST SINGLE (PORTABLE) Exam Date: 05/08/19 Exam Time: 1949 REPORT STATUS: Sign ed EXAMINATION: CHEST SINGLE (PORTABLE) INDICATION: ERMD O RDER [id number] 1951 Y COMPARISON: 03/10/2019 FINDINGS: AP view [...] by low lung volumes. Signed by: Dr. Cecelia Murphy MD on 05/08/2019 8:49 PM Dictated By: CECELIA MURPHY MD 48 Transcribed By: HUSSAIN on 05/08/192048 COPY TO: GUILLERMINA EDGE B-Type Natriuretic Ldmtdmi3767-23-09 20:29:00* Test Item Value Reference Range Interpretation Comments B-Type Natriuretic Peptide (test code = 10630-7) 22.5 0-100 [facility] ShorelineCreatine Kinase LN8328-50-26 20:20:00* Test Item Value Reference Range Interpretation Comments Creatine Kinase MB (test code = 16124-2) 0.60 0-5.0 [facility] ShorelineTroponin K7800-98-25 20:20:00* Test Item Value Reference Range Interpretation Comments Troponin I (test code = JBK8717) < 0.001 0-0.300 [facility] ShorelineCreatine Kinase DE5465-99-43 20:20:00* Test Item Value Reference Range Interpretation Comments Creatine Kinase MB (test code = 92264-4) 0.60 0-5.0 [facility]ieodium Eryml3975-32-15 20:14:00* Test Item Value Reference Range Interpretation Comments Sodium Level (test code = 2951-2) 141 136-145 [facility] ShorelinePotassium Moizq6652-97-25 20:14:00* Test Item Value Reference Range Interpretation Comments Potassium Level (test code = 2823-3) 3.8 3.5-5.1 [facility] ShorelineChloride Joemr3864-30-87 20:14:00* Test Item Value Reference Range Interpretation Comments Chloride Level (test code = 2075-0) 104 98-107 [facility] ShorelineCarbon Dioxide Ugwjz5725-16-11 20:14:00* Test Item Value Reference Range Interpretation Comments Carbon Dioxide Level (test code = 2028-9) 26 22-29 [facility] ShorelineAnion Xmm9560-55-85 20:14:00* Test Item Value Reference Range Interpretation Comments Anion Gap (test code = 89717-9) 14.8 8-16 [facility] ShorelineBlood Urea Etdkrxzw0002-03-70 20:14:00* Test Item Value Reference Range Interpretation Comments Blood Urea Nitrogen (test code = 3094-0) 11 7-26 [facility] ShorelineCreatinine2020-02-10 20:14:00* Test Item Value Reference Range Interpretation Comments Creatinine (test code = 2160-0) 0.75 0.57-1.11 [facility] ShorelineBUN/Creatinine Pfkad6232-15-90 20:14:00* Test Item Value Reference Range Interpretation Comments BUN/Creatinine Ratio (test code = 3097-3) 15 6-25 [facility] ShorelineEstimat Glomerular Filtration Rate 2019-05-08 20:14:00* Test Item Value Reference Range Interpretation Comments Estimat Glomerular Filtration Rate (test code = 926841370) > 60 >60 Ranges were taken from the National Kidney Disease Education Program and the [facility] Kid[facility] Foundation literature.Reference ranges:60 or greater: Bdyqom35-56 ( for 3 consecutive months): Chronic kidney disease 15 or less: Kidney failureCHRISTUS Spohn Hospital [facility]i – ShorelineGlucose Xrokl1858-01-69 20:14:00* Test Item Value Reference Range Interpretation Comments Glucose Level (test code = FLV7733) 93 74-118 [facility] ShorelineCalcium Bbcxy3677-73-88 20:14:00* Test Item Value Reference Range Interpretation Comments Calcium Level (test code = 49933-3) 8.8 8.4-10.2 [facility] ShorelineTotal Xhsquaczq8335-51-32 20:14:00* Test Item Value Reference Range Interpretation Comments Total Bilirubin (test code = 1975-2) 0.2 0.2-1.2 [facility] ShorelineAspartate Amino Transf (AST/SGOT) 2019-05-08 20:14:00* Test Item Value Reference Range Interpretation Comments Aspartate Amino Transf (AST/SGOT) (test code = Aspartate Amino Transf (AST/SGOT)) 16 5-34 [facility] ShorelineAlanine Aminotransferase (ALT/SGPT) 2019-05-08 20:14:00* Test Item Value Reference Range Interpretation Comments Alanine Aminotransferase (ALT/SGPT) (test code = 1742-6) 11 0-55 [facility] ShorelineTotal Uhqykgq9114-27-63 20:14:00* Test Item Value Reference Range Interpretation Comments Total Protein (test code = 2885-2) 7.7 6.5-8.1 [facility] ShorelineAlbumin2020-02-10 20:14:00* Test Item Value Reference Range Interpretation Comments Albumin (test code = 1751-7) 3.6 3.5-5.0 [facility] ShorelineGlobulin2020-02-10 20:14:00* Test Item Value Reference Range Interpretation Comments Globulin (test code = 31295-9) 4.1 2.3-3.5 H [facility] ShorelineAlbumin/Globulin Ksmmt6571-23-90 20:14:00 * Test Item Value Reference Range Interpretation Comments Albumin/Globulin Ratio (test code = 1759-0) 0.9 0.8-2.0 [facility] ShorelineAlkaline Psyngbadetn9475-22-83 20:14:00* Test Item Value Reference Range Interpretation Comments Alkaline Phosphatase (test code = 6768-6) 145 40-150 [facility] ShorelineCreatine Eedsvf6867-92-71 20:14:00* Test Item Value Reference Range Interpretation Comments Creatine Kinase (test code = 2157-6) 52 29-168 [facility] ShorelineTotal Omufnparj1662-40-64 20:14:00* Test Item Value Reference Range Interpretation Comments Total Bilirubin (test code = 1975-2) 0.2 0.2-1.2 [facility] ShorelineAspartate Amino Transf (AST/SGOT) 2019-05-08 20:14:00* Test Item Value Reference Range Interpretation Comments Aspartate Amino Transf (AST/SGOT) (test code = Aspartate Amino Transf (AST/SGOT)) 16 5-34 [facility] ShorelineAlanine Aminotransferase (ALT/SGPT) 2019-05-08 20:14:00* Test Item Value Reference Range Interpretation Comments Alanine Aminotransferase (ALT/SGPT) (test code = 1742-6) 11 0-55 [facility] ShorelineTotal Rquzyvy1376-80-96 20:14:00* Test Item Value Reference Range Interpretation Comments Total Protein (test code = 2885-2) 7.7 6.5-8.1 [facility] ShorelineAlbumin2020-02-10 20:14:00* Test Item Value Reference Range Interpretation Comments Albumin (test code = 1751-7) 3.6 3.5-5.0 [facility] ShorelineGlobulin2020-02-10 20:14:00* Test Item Value Reference Range Interpretation Comments Globulin (test code = 12696-2) 4.1 2.3-3.5 H [facility] ShorelineAlbumin/Globulin Kekvv4529-79-19 20:14:00 * Test Item Value Reference Range Interpretation Comments Albumin/Globulin Ratio (test code = 1759-0) 0.9 0.8-2.0 [facility] ShorelineAlkaline Betperyllnc8039-78-79 20:14:00* Test Item Value Reference Range Interpretation Comments Alkaline Phosphatase (test code = 6768-6) 145 40-150 [facility] ShorelineCreatine Geugae5580-70-58 20:14:00* Test Item Value Reference Range Interpretation Comments Creatine Kinase (test code = 2157-6) 52 29-168 [facility] ShorelineWhite Blood Zysnj8849-75-03 20:02:00* Test Item Value Reference Range Interpretation Comments White Blood Count (test code = 6690-2) 11.58 4.8-10.8 H [facility] ShorelineRed Blood Jxfor0986-22-24 20:02:00* Test Item Value Reference Range Interpretation Comments Red Blood Count (test code = 789-8) 4.44 3.6-5.1 [facility] ShorelineHemoglobin2020-02-10 20:02:00* Test Item Value Reference Range Interpretation Comments Hemoglobin (test code = 53885-1) 9.3 12.0-16.0 L [facility] ShorelineHematocrit2020-02-10 20:02:00* Test Item Value Reference Range Interpretation Comments Hematocrit (test code = 4544-3) 32.6 34.2-44.1 L [facility] ShorelineMean Corpuscular Bkzmof0889-69-31 20:02:00* Test Item Value Reference Range Interpretation Comments Mean Corpuscular Volume (test code = 787-2) 73.4 81-99 L [facility] ShorelineMean Corpuscular Zgtagjclzw0831-67-86 20:02:00* Test Item Value Reference Range Interpretation Comments Mean Corpuscular Hemoglobin (test code = 785-6) 20.9 28-32 L [facility] ShorelineMean Corpuscular Hemoglobin Concent 2019-05-08 20:02:00* Test Item Value Reference Range Interpretation Comments Mean Corpuscular Hemoglobin Concent (test code = 786-4) 28.5 31-35 L [facility] ShorelineRed Cell Distribution Vtcim8043-74-38 20:02:00* Test Item Value Reference Range Interpretation Comments Red Cell Distribution Width (test code = 13149-8) 17.2 11.7 -14.4 H [facility] ShorelinePlatelet Hylzp8670-67-87 20:02:00* Test Item Value Reference Range Interpretation Comments Platelet Count (test code = 777-3) 485 140-360 H [facility] ShorelineNeutrophils (%) (Auto)2019-05-08 20:02:00 * Test Item Value Reference Range Interpretation Comments Neutrophils (%) (Auto) (test code = 10163-7) 64.3 38.7-80.0 [facility] ShorelineLymphocytes (%) (Auto)2019-05-08 20:02:00 * Test Item Value Reference Range Interpretation Comments Lymphocytes (%) (Auto) (test code = 736-9) 29.2 18.0-39.1 [facility] ShorelineMonocytes (%) (Auto)2019-05-08 20:02:00* Test Item Value Reference Range Interpretation Comments Monocytes (%) (Auto) (test code = 5905-5) 4.9 4.4-11.3 [facility]lineEosinophils (%) (Auto)2019-05-08 20:02:00 * Test Item Value Reference Range Interpretation Comments Eosinophils (%) (Auto) (test code = 713-8) 1.0 0.0-6.0 [facility] ShorelineBasophils (%) (Auto)2019-05-08 20:02:00* Test Item Value Reference Range Interpretation Comments Basophils (%) (Auto) (test code = 706-2) 0.3 0.0-1.0 [facility] ShorelineIM GRANULOCYTES %2019-05-08 20:02:00* Test Item Value Reference Range Interpretation Comments IM GRANULOCYTES % (test code = IM GRANULOCYTES %) 0.3 0.0- 1.0 [facility] ShorelineNeutrophils # (Auto)2019-05-08 20:02:00* Test Item Value Reference Range Interpretation Comments Neutrophils # (Auto) (test code = 751-8) 7.4 2.1-6.9 H [facility] ShorelineLymphocytes # (Auto)2019-05-08 20:02:00* Test Item Value Reference Range Interpretation Comments Lymphocytes # (Auto) (test code = 90537-0) 3.4 1.0-3.2 H [facility] ShorelineMonocytes # (Auto)2019-05-08 20:02:00* Test Item Value Reference Range Interpretation Comments Monocytes # (Auto) (test code = 742-7) 0.6 0.2-0.8 [facility]lineEosinophils # (Auto)2019-05-08 20:02:00* Test Item Value Reference Range Interpretation Comments Eosinophils # (Auto) (test code = 711-2) 0.1 0.0-0.4 [facility]lineBasophils # (Auto)2019-05-08 20:02:00* Test Item Value Reference Range Interpretation Comments Basophils # (Auto) (test code = 704-7) 0.0 0.0-0.1 [facility] ShorelineAbsolute Immature Granulocyte (auto 2019-05-08 20:02:00* Test Item Value Reference Range Interpretation Comments Absolute Immature Granulocyte (auto (meliton t code = Absolute Immature Granulocyte (auto) 0.03 0-0.1 [facility] ShorelineWhite Blood Znkrt6410-25-11 20:02:00* Test Item Value Reference Range Interpretation Comments White Blood Count (test code = 6690-2) 11.58 4.8-10.8 H [facility] ShorelineRed Blood Htexc3894-60-95 20:02:00* Test Item Value Reference Range Interpretation Comments Red Blood Count (test code = 789-8) 4.44 3.6-5.1 [facility] ShorelineHemoglobin2020-02-10 20:02:00* Test Item Value Reference Range Interpretation Comments Hemoglobin (test code = 31365-9) 9.3 12.0-16.0 L [facility] ShorelineHematocrit2020-02-10 20:02:00* Test Item Value Reference Range Interpretation Comments Hematocrit (test code = 4544-3) 32.6 34.2-44.1 L [facility] ShorelineMean Corpuscular Ibxgca2574-95-96 20:02:00* Test Item Value Reference Range Interpretation Comments Mean Corpuscular Volume (test code = 787-2) 73.4 81-99 L [facility] ShorelineMean Corpuscular Rygnzwltqp8709-94-71 20:02:00* Test Item Value Reference Range Interpretation Comments Mean Corpuscular Hemoglobin (test code = 785-6) 20.9 28-32 L [facility] ShorelineMean Corpuscular Hemoglobin Concent 2019-05-08 20:02:00* Test Item Value Reference Range Interpretation Comments Mean Corpuscular Hemoglobin Concent (test code = 786-4) 28.5 31-35 L [facility] ShorelineRed Cell Distribution Patpd7437-86-32 20:02:00* Test Item Value Reference Range Interpretation Comments Red Cell Distribution Width (test code = 16961-8) 17.2 11.7 -14.4 H [facility] ShorelinePlatelet Fgmdg3858-99-72 20:02:00* Test Item Value Reference Range Interpretation Comments Platelet Count (test code = 777-3) 485 140-360 H [facility] ShorelineNeutrophils (%) (Auto)2019-05-08 20:02:00 * Test Item Value Reference Range Interpretation Comments Neutrophils (%) (Auto) (test code = 54021-0) 64.3 38.7-80.0 [facility] ShorelineLymphocytes (%) (Auto)2019-05-08 20:02:00 * Test Item Value Reference Range Interpretation Comments Lymphocytes (%) (Auto) (test code = 736-9) 29.2 18.0-39.1 [facility]lineMonocytes (%) (Auto)2019-05-08 20:02:00* Test Item Value Reference Range Interpretation Comments Monocytes (%) (Auto) (test code = 5905-5) 4.9 4.4-11.3 [facility]lineEosinophils (%) (Auto)2019-05-08 20:02:00 * Test Item Value Reference Range Interpretation Comments Eosinophils (%) (Auto) (test code = 713-8) 1.0 0.0-6.0 [facility]lineBasophils (%) (Auto)2019-05-08 20:02:00* Test Item Value Reference Range Interpretation Comments Basophils (%) (Auto) (test code = 706-2) 0.3 0.0-1.0 [facility] ShorelineIM GRANULOCYTES %2019-05-08 20:02:00* Test Item Value Reference Range Interpretation Comments IM GRANULOCYTES % (test code = IM GRANULOCYTES %) 0.3 0.0- 1.0 [facility] ShorelineNeutrophils # (Auto)2019-05-08 20:02:00* Test Item Value Reference Range Interpretation Comments Neutrophils # (Auto) (test code = 751-8) 7.4 2.1-6.9 H [facility] ShorelineLymphocytes # (Auto)2019-05-08 20:02:00* Test Item Value Reference Range Interpretation Comments Lymphocytes # (Auto) (test code = 44154-7) 3.4 1.0-3.2 H [facility] ShorelineMonocytes # (Auto)2019-05-08 20:02:00* Test Item Value Reference Range Interpretation Comments Monocytes # (Auto) (test code = 742-7) 0.6 0.2-0.8 [facility]lineEosinophils # (Auto)2019-05-08 20:02:00* Test Item Value Reference Range Interpretation Comments Eosinophils # (Auto) (test code = 711-2) 0.1 0.0-0.4 [facility]lineBasophils # (Auto)2019-05-08 20:02:00* Test Item Value Reference Range Interpretation Comments Basophils # (Auto) (test code = 704-7) 0.0 0.0-0.1 [facility] ShorelineAbsolute Immature Granulocyte (auto 2019-05-08 20:02:00* Test Item Value Reference Range Interpretation Comments Absolute Immature Granulocyte (auto (meliton t code = Absolute Immature Granulocyte (auto) 0.03 0-0.1 [facility] ShorelineUrine QSC9994-27-59 19:33:00* Test Item Value Reference Range Interpretation Comments Urine WBC (test code = 5821-4) 11-20 0-5 [facility] HJQ2311-99-92 19:33:00* Test Item Value Reference Range Interpretation Comments Urine RBC (test code = 51089-2) >50 0-5 H [facility]line[facility] Ptdwfvdq5991-97-96 19:33:00* Test Item Value Reference Range Interpretation Comments Urine Bacteria (test code = 35247-5) FEW NONE [facility]line[facility] Epithelial Tbrgh2960-50-55 19:33:00 * Test Item Value Reference Range Interpretation Comments Urine Epithelial Cells (test code = 22286-7) FEW NONE [facility]line[facility] ZNX4912-70-97 19:33:00* Test Item Value Reference Range Interpretation Comments Urine WBC (test code = 5821-4) 11-20 0-5 H [facility]line[facility] INA0240-47-14 19:33:00* Test Item Value Reference Range Interpretation Comments Urine RBC (test code = 74688-6) >50 0-5 H [facility] Urzbbucv0792-47-34 19:33:00* Test Item Value Reference Range Interpretation Comments Urine Bacteria (test code = 14782-6) FEW NONE [facility] Epithelial Moeze1633-40-57 19:33:00 * Test Item Value Reference Range Interpretation Comments Urine Epithelial Cells (test code = 40413-1) FEW NONE [facility]line[facility] Zbdrr7806-18-38 19:27:00* Test Item Value Reference Range Interpretation Comments Urine Color (test code = 5778-6) RED YELLOW H [facility]lineU[facility] Vdyctls8327-44-76 19:27:00* Test Item Value Reference Range Interpretation Comments Urine Clarity (test code = 88664-5) TURBID CLEAR H [facility]line[facility] Specific Bcoyfte7155-14-01 19:27:00 * Test Item Value Reference Range Interpretation Comments Urine Specific [place] (test code = 5811-5) 1.020 1.010-1.02 5 [facility]line[facility] gY7191-50-57 19:27:00* Test Item Value Reference Range Interpretation Comments Urine pH (test code = 94508-4) 8.5 5-7 [facility] Leukocyte Amtoczka2890-06-09 19:27:00* Test Item Value Reference Range Interpretation Comments Urine Leukocyte Esterase (test code = 5799-2) TRACE NEGATIVE H [facility] Cbzbuqd1000-46-20 19:27:00* Test Item Value Reference Range Interpretation Comments Urine Nitrite (test code = 90629-2) NEGATIVE NEGATIVE [facility]line[facility] Idmlgen7423-90-76 19:27:00* Test Item Value Reference Range Interpretation Comments Urine Protein (test code = 5804-0) 2+ NEGATIVE H [facility]lineUrine Glucose (UA)2019-05-08 19:27:00* Test Item Value Reference Range Interpretation Comments Urine Glucose (UA) (test code = 2349-9) NEGATIVE NEGATIVE [facility]line[facility] Tokkndv8127-22-37 19:27:00* Test Item Value Reference Range Interpretation Comments Urine Ketones (test code = 71509-9) NEGATIVE NEGATIVE [facility] Ldnnjltytztj6881-32-17 19:27:00* Test Item Value Reference Range Interpretation Comments Urine Urobilinogen (test code = 31944-3) 0.2 0.2-1 [facility] Gzijzghca8677-66-57 19:27:00* Test Item Value Reference Range Interpretation Comments Urine Bilirubin (test code = 1978-6) NEGATIVE NEGATIVE [facility]line[facility] Frrzi9792-95-73 19:27:00* Test Item Value Reference Range Interpretation Comments Urine Blood (test code = 04288-5) 3+ NEGATIVE [facility]line[facility] Wtcki8384-28-45 19:27:00* Test Item Value Reference Range Interpretation Comments Urine Color (test code = 5778-6) RED YELLOW H [facility]lineU[facility] Qmsmhpn1883-22-05 19:27:00* Test Item Value Reference Range Interpretation Comments Urine Clarity (test code = 91428-1) TURBID CLEAR H [facility]lineU[facility] Specific Qchytdy0228-01-48 19:27:00 * Test Item Value Reference Range Interpretation Comments Urine Specific [place] (test code = 5811-5) 1.020 1.010-1.02 5 [facility]line[facility] yR9544-98-95 19:27:00* Test Item Value Reference Range Interpretation Comments Urine pH (test code = 67171-4) 8.5 5-7 [facility] Leukocyte Xpzuzolk8509-52-25 19:27:00* Test Item Value Reference Range Interpretation Comments Urine Leukocyte Esterase (test code = 5799-2) TRACE NEGATIVE H [facility]line[facility] Zxviwfg4188-46-23 19:27:00* Test Item Value Reference Range Interpretation Comments Urine Nitrite (test code = 13703-2) NEGATIVE NEGATIVE [facility]line[facility] Ptkruhi5412-25-19 19:27:00* Test Item Value Reference Range Interpretation Comments Urine Protein (test code = 5804-0) 2+ NEGATIVE H [facility]line[facility] Glucose (UA)2019-05-08 19:27:00* Test Item Value Reference Range Interpretation Comments Urine Glucose (UA) (test code = 2349-9) NEGATIVE NEGATIVE [facility]lineU[facility] Hbgyvtz7309-06-85 19:27:00* Test Item Value Reference Range Interpretation Comments Urine Ketones (test code = 71399-9) NEGATIVE NEGATIVE [facility]line[facility] Pkuwystuwcog6852-97-09 19:27:00* Test Item Value Reference Range Interpretation Comments Urine Urobilinogen (test code = 78466-8) 0.2 0.2-1 [facility]line[facility] Gugexvsge6063-79-97 19:27:00* Test Item Value Reference Range Interpretation Comments Urine Bilirubin (test code = 1978-6) NEGATIVE NEGATIVE [facility]line[facility] Ebsrt2781-42-39 19:27:00* Test Item Value Reference Range Interpretation Comments Urine Blood (test code = 32150-6) 3+ NEGATIVE [facility]um or plasma creatine kinase measurement (enzymatic activity/volume)2019-05-08 18:30:00* Test Item Value Reference Range Interpretation Comments Creatine Kinase (test code = 2157-6) 52 29-168 [facility]ieerum or plasma creatine kinase MB measurement (mass/volume)2019-05-08 18:30:00* Test Item Value Reference Range Interpretation Comments Creatine Kinase MB (test code = 61769-6) 0.60 0-5.0 [facility]ieerum or plasma creatine kinase measurement (enzymatic activity/volume)2019-05-08 18:30:00* Test Item Value Reference Range Interpretation Comments Creatine Kinase (test code = 2157-6) 52 29-168 [facility]ieerum or plasma creatine kinase MB measurement (mass/volume)2019-05-08 18:30:00* Test Item Value Reference Range Interpretation Comments Creatine Kinase MB (test code = 68391-0) 0.60 0-5.0 [facility] ShorelineCHEST SINGLE (PORTABLE)2019-03-10 13:52:00 [facility] [address] [place] [address] Patient Name: MARIO MORALES MR #: [id number] : 1975 Age/Sex: 43/F Req #: [id number] Adm Physician: Ordered by: NHUNG CAON MODELING MANAGER Report #: [id number] Location: ER Room/Bed: Procedure: [id number] DX/CHEST [...] 1:54 PM Dictated By: JENSEN BURNETTE MD 1354 Transcribed By: HUSSAIN on 03/10/19 1354 COPY TO: NHUNG CANO MODELING MANAGER Creatine Kinase JJ6339-24-66 13:29:00* Test Item Value Reference Range Interpretation Comments Creatine Kinase MB (test code = 79220-8) 0.90 0-5.0 [facility]lineTroponin Q2187-57-19 13:29:00* Test Item Value Reference Range Interpretation Comments Troponin I (test code = WLN1053) 0.008 0-0.300 [facility]ieodium Uciey5771-83-47 13:28:00* Test Item Value Reference Range Interpretation Comments Sodium Level (test code = 2951-2) 139 136-145 [facility]linePotassium Qkkql2481-23-26 13:28:00* Test Item Value Reference Range Interpretation Comments Potassium Level (test code = 2823-3) 4.0 3.5-5.1 [facility] ShorelineChloride Ljxlz7494-61-27 13:28:00* Test Item Value Reference Range Interpretation Comments Chloride Level (test code = 2075-0) 106 98-107 [facility] ShorelineCarbon Dioxide Cqqus9206-14-10 13:28:00* Test Item Value Reference Range Interpretation Comments Carbon Dioxide Level (test code = 2028-9) 24 22-29 [facility] ShorelineAnion Qno3670-86-72 13:28:00* Test Item Value Reference Range Interpretation Comments Anion Gap (test code = 00807-4) 13.0 8-16 [facility] ShorelineBlood Urea Efjpomnp8626-91-62 13:28:00* Test Item Value Reference Range Interpretation Comments Blood Urea Nitrogen (test code = 3094-0) 6 7-26 L [facility] ShorelineCreatinine2019-12-13 13:28:00* Test Item Value Reference Range Interpretation Comments Creatinine (test code = 2160-0) 0.61 0.57-1.11 [facility]lineBUN/Creatinine Usccj9859-41-38 13:28:00* Test Item Value Reference Range Interpretation Comments BUN/Creatinine Ratio (test code = 3097-3) 10 6-25 [facility] ShorelineEstimat Glomerular Filtration Rate 2019-03-10 13:28:00* Test Item Value Reference Range Interpretation Comments Estimat Glomerular Filtration Rate (test code = 301380924) > 60 >60 Ranges were taken from the National Kidney Disease Education Program and the [facility] [employer] literature.Reference ranges:60 or greater: Hltire23-18 ( for 3 consecutive months): Chronic kidney disease 15 or less: Kidney failureCHRISTUS Spohn [facility] – ShorelineGlucose Kcumu2079-88-06 13:28:00* Test Item Value Reference Range Interpretation Comments Glucose Level (test code = LUO5524) 93 74-118 [facility] ShorelineCalcium Dnrvn0052-50-50 13:28:00* Test Item Value Reference Range Interpretation Comments Calcium Level (test code = 33976-4) 8.4 8.4-10.2 [facility] ShorelineMagnesium Mluob2398-75-23 13:28:00* Test Item Value Reference Range Interpretation Comments Magnesium Level (test code = 76315-6) 1.7 1.3-2.1 [facility] ShorelineTotal Dzxlhxaxw7650-38-31 13:28:00* Test Item Value Reference Range Interpretation Comments Total Bilirubin (test code = 1975-2) 0.2 0.2-1.2 [facility] ShorelineAspartate Amino Transf (AST/SGOT) 2019-03-10 13:28:00* Test Item Value Reference Range Interpretation Comments Aspartate Amino Transf (AST/SGOT) (test code = Aspartate Amino Transf (AST/SGOT)) 12 5-34 [facility] ShorelineAlanine Aminotransferase (ALT/SGPT) 2019-03-10 13:28:00* Test Item Value Reference Range Interpretation Comments Alanine Aminotransferase (ALT/SGPT) (test code = 1742-6) 11 0-55 [facility] ShorelineTotal Ayaxrdn8112-81-71 13:28:00* Test Item Value Reference Range Interpretation Comments Total Protein (test code = 2885-2) 6.3 6.5-8.1 L [facility] ShorelineAlbumin2019-12-13 13:28:00* Test Item Value Reference Range Interpretation Comments Albumin (test code = 1751-7) 3.0 3.5-5.0 L [facility] ShorelineGlobulin2019-12-13 13:28:00* Test Item Value Reference Range Interpretation Comments Globulin (test code = 49686-7) 3.3 2.3-3.5 [facility] ShorelineAlbumin/Globulin Evbfq0481-46-01 13:28:00 * Test Item Value Reference Range Interpretation Comments Albumin/Globulin Ratio (test code = 1759-0) 0.9 0.8-2.0 [facility] ShorelineAlkaline Effkorjxbns2925-84-91 13:28:00* Test Item Value Reference Range Interpretation Comments Alkaline Phosphatase (test code = 6768-6) 98 40-150 [facility] ShorelineCreatine Xiupen0577-47-29 13:28:00* Test Item Value Reference Range Interpretation Comments Creatine Kinase (test code = 2157-6) 36 29-168 [facility] ShorelineMagnesium Paest5490-05-20 13:28:00* Test Item Value Reference Range Interpretation Comments Magnesium Level (test code = 24025-5) 1.7 1.3-2.1 [facility] ShorelineMagnesium Cpfls1990-59-30 13:28:00* Test Item Value Reference Range Interpretation Comments Magnesium Level (test code = 56687-8) 1.7 1.3-2.1 [facility] ShorelineWhite Blood Awdnu9273-51-02 13:27:00* Test Item Value Reference Range Interpretation Comments White Blood Count (test code = 6690-2) 10.69 4.8-10.8 [facility] ShorelineRed Blood Mqysy0153-09-96 13:27:00* Test Item Value Reference Range Interpretation Comments Red Blood Count (test code = 789-8) 4.03 3.6-5.1 [facility] ShorelineHemoglobin2019-12-13 13:27:00* Test Item Value Reference Range Interpretation Comments Hemoglobin (test code = 57439-5) 9.4 12.0-16.0 L [facility] ShorelineHematocrit2019-12-13 13:27:00* Test Item Value Reference Range Interpretation Comments Hematocrit (test code = 4544-3) 31.4 34.2-44.1 L [facility] ShorelineMean Corpuscular Itczih1310-16-38 13:27:00* Test Item Value Reference Range Interpretation Comments Mean Corpuscular Volume (test code = 787-2) 77.9 81-99 L [facility] ShorelineMean Corpuscular Jqizkfsnth0453-39-53 13:27:00* Test Item Value Reference Range Interpretation Comments Mean Corpuscular Hemoglobin (test code = 785-6) 23.3 28-32 L [facility] ShorelineMean Corpuscular Hemoglobin Concent 2019-03-10 13:27:00* Test Item Value Reference Range Interpretation Comments Mean Corpuscular Hemoglobin Concent (test code = 786-4) 29.9 31-35 L [facility] ShorelineRed Cell Distribution Yfmgk6503-41-19 13:27:00* Test Item Value Reference Range Interpretation Comments Red Cell Distribution Width (test code = 46846-4) 17.3 11.7 -14.4 H [facility] ShorelinePlatelet Rgxjr1971-11-91 13:27:00* Test Item Value Reference Range Interpretation Comments Platelet Count (test code = 777-3) 484 140-360 H [facility] ShorelineNeutrophils (%) (Auto)2019-03-10 13:27:00 * Test Item Value Reference Range Interpretation Comments Neutrophils (%) (Auto) (test code = 25638-5) 75.4 38.7-80.0 [facility] ShorelineLymphocytes (%) (Auto)2019-03-10 13:27:00 * Test Item Value Reference Range Interpretation Comments Lymphocytes (%) (Auto) (test code = 736-9) 18.7 18.0-39.1 [facility]lineMonocytes (%) (Auto)2019-03-10 13:27:00* Test Item Value Reference Range Interpretation Comments Monocytes (%) (Auto) (test code = 5905-5) 4.4 4.4-11.3 [facility]lineEosinophils (%) (Auto)2019-03-10 13:27:00 * Test Item Value Reference Range Interpretation Comments Eosinophils (%) (Auto) (test code = 713-8) 0.7 0.0-6.0 [facility]lineBasophils (%) (Auto)2019-03-10 13:27:00* Test Item Value Reference Range Interpretation Comments Basophils (%) (Auto) (test code = 706-2) 0.3 0.0-1.0 [facility] ShorelineIM GRANULOCYTES %2019-03-10 13:27:00* Test Item Value Reference Range Interpretation Comments IM GRANULOCYTES % (test code = IM GRANULOCYTES %) 0.5 0.0- 1.0 [facility]lineNeutrophils # (Auto)2019-03-10 13:27:00* Test Item Value Reference Range Interpretation Comments Neutrophils # (Auto) (test code = 751-8) 8.1 2.1-6.9 H [facility] ShorelineLymphocytes # (Auto)2019-03-10 13:27:00* Test Item Value Reference Range Interpretation Comments Lymphocytes # (Auto) (test code = 28748-6) 2.0 1.0-3.2 [facility]lineMonocytes # (Auto)2019-03-10 13:27:00* Test Item Value Reference Range Interpretation Comments Monocytes # (Auto) (test code = 742-7) 0.5 0.2-0.8 [facility]lineEosinophils # (Auto)2019-03-10 13:27:00* Test Item Value Reference Range Interpretation Comments Eosinophils # (Auto) (test code = 711-2) 0.1 0.0-0.4 [facility]lineBasophils # (Auto)2019-03-10 13:27:00* Test Item Value Reference Range Interpretation Comments Basophils # (Auto) (test code = 704-7) 0.0 0.0-0.1 [facility] ShorelineAbsolute Immature Granulocyte (auto 2019-03-10 13:27:00* Test Item Value Reference Range Interpretation Comments Absolute Immature Granulocyte (auto (meliton t code = Absolute Immature Granulocyte (auto) 0.05 0-0.1 [facility] ShorelineHuman Chorionic Gonadotropin, Qual 2019-03-10 13:27:00* Test Item Value Reference Range Interpretation Comments Human Chorionic Gonadotropin, Qual (test code = 2118-8) NEGATIVE NEGATIVE [facility] Chorionic Gonadotropin, Qual 2019-03-10 13:27:00* Test Item Value Reference Range Interpretation Comments Human Chorionic Gonadotropin, Qual (test code = 2118-8) NEGATIVE NEGATIVE [facility] Chorionic Gonadotropin, Qual 2019-03-10 13:27:00* Test Item Value Reference Range Interpretation Comments Human Chorionic Gonadotropin, Qual (test code = 2118-8) NEGATIVE NEGATIVE [facility]ieerum or plasma choriogonadotropin ( test) ygfotldir3233-03-76 12:20:00* Test Item Value Reference Range Interpretation Comments Human Chorionic Gonadotropin, Qual (test code = 2118-8) NEGATIVE NEGATIVE [facility]ieerum or plasma choriogonadotropin ( test) qfugkmgur6541-07-49 12:20:00* Test Item Value Reference Range Interpretation Comments Human Chorionic Gonadotropin, Qual (test code = 2118-8) NEGATIVE NEGATIVE [facility]ieerum or plasma magnesium measurement (mass/volume)2019-03-10 11:43:00* Test Item Value Reference Range Interpretation Comments Magnesium Level (test code = 69808-7) 1.7 1.3-2.1 [facility]ieerum or plasma magnesium measurement (mass/volume)2019-03-10 11:43:00* Test Item Value Reference Range Interpretation Comments Magnesium Level (test code = 04289-6) 1.7 1.3-2.1 [facility] ShorelineCHES 2 QOAIQ5968-16-86 20:41:00 [facility] [address] [place] [address] Patient Name: MARIO MORALES MR #: [id number] : 1975 Age/Sex: 43/F Req #: [id number] Adm Physician: Ordered by: GUILLERMINA VAZQUEZ MODELING MANAGER Report #: [id number] Location: ER Room/Bed: Procedure: [id number] D X/CHEST 2 VIEWS Exam Date: 02/24/19 [...] HUSSAIN on 02/24/192041 COPY TO: GUILLERMINA VAZQUEZ MODELING MANAGER CT ABDOMEN/PELVIS W 2019-02-11 20:04:00 [place] [address] Patient Name: MARIO MORALES MR #: [id number] : 1975 Age/Sex: 43/F Req #: [id number] Adm Physician: Ordered by: GUILLERMINA VAZQUEZ MODELING MANAGER Report #: [id number] Location: ER Room/Bed: Procedure: [id number] C T/CT ABDOMEN/PELVIS W Exam Date: 02/11/19 [...] on 02/11/192010 COPY TO: GUILLERMINA VAZQUEZ NP Sodium Wwgoc4799-18-37 18:49:00* Test Item Value Reference Range Interpretation Comments Sodium Level (test code = 2951-2) 136 136-145 [facility] ShorelinePotassium Ldmjh7318-21-67 18:49:00* Test Item Value Reference Range Interpretation Comments Potassium Level (test code = 2823-3) 4.0 3.5-5.1 [facility] ShorelineChloride Ycmcl3030-98-67 18:49:00* Test Item Value Reference Range Interpretation Comments Chloride Level (test code = 2075-0) 98 98-107 [facility] ShorelineCarbon Dioxide Pqaps4271-78-98 18:49:00* Test Item Value Reference Range Interpretation Comments Carbon Dioxide Level (test code = 2028-9) 27 22-29 [facility] ShorelineAnion Qyf7256-82-83 18:49:00* Test Item Value Reference Range Interpretation Comments Anion Gap (test code = 69059-2) 15.0 8-16 [facility] ShorelineBlood Urea Ysqrmtuz6805-83-89 18:49:00* Test Item Value Reference Range Interpretation Comments Blood Urea Nitrogen (test code = 3094-0) 6 7-26 L [facility] ShorelineCreatinine2019-11-16 18:49:00* Test Item Value Reference Range Interpretation Comments Creatinine (test code = 2160-0) 0.69 0.57-1.11 [facility] ShorelineBUN/Creatinine Oujxa0802-49-59 18:49:00* Test Item Value Reference Range Interpretation Comments BUN/Creatinine Ratio (test code = 3097-3) 9 6-25 [facility] ShorelineEstimat Glomerular Filtration Rate 2019-02-11 18:49:00* Test Item Value Reference Range Interpretation Comments Estimat Glomerular Filtration Rate (test code = 334625654) > 60 >60 Ranges were taken from the National Kidney Disease Education Program and the [facility] Kidney Foundation literature.Reference ranges:60 or greater: Fedepx02-84 ( for 3 consecutive months): Chronic kidney disease 15 or less: Kidney failureCHRISTUS [facility] – ShorelineGlucose Pworp1826-82-32 18:49:00* Test Item Value Reference Range Interpretation Comments Glucose Level (test code = VLT6986) 86 74-118 [facility] ShorelineCalcium Aumwt8528-50-36 18:49:00* Test Item Value Reference Range Interpretation Comments Calcium Level (test code = 07502-3) 9.7 8.4-10.2 [facility] ShorelineTotal Bavdwuqyv0890-42-05 18:49:00* Test Item Value Reference Range Interpretation Comments Total Bilirubin (test code = 1975-2) 0.2 0.2-1.2 [facility] ShorelineAspartate Amino Transf (AST/SGOT) 2019-02-11 18:49:00* Test Item Value Reference Range Interpretation Comments Aspartate Amino Transf (AST/SGOT) (test code = Aspartate Amino Transf (AST/SGOT)) 17 5-34 [facility] ShorelineAlanine Aminotransferase (ALT/SGPT) 2019-02-11 18:49:00* Test Item Value Reference Range Interpretation Comments Alanine Aminotransferase (ALT/SGPT) (test code = 1742-6) 11 0-55 [facility] ShorelineTotal Wlfcbfd9319-76-96 18:49:00* Test Item Value Reference Range Interpretation Comments Total Protein (test code = 2885-2) 7.2 6.5-8.1 [facility] ShorelineAlbumin2019-11-16 18:49:00* Test Item Value Reference Range Interpretation Comments Albumin (test code = 1751-7) 3.6 3.5-5.0 [facility] ShorelineGlobulin2019-11-16 18:49:00* Test Item Value Reference Range Interpretation Comments Globulin (test code = 95931-5) 3.6 2.3-3.5 H [facility] ShorelineAlbumin/Globulin Jofio1784-92-00 18:49:00 * Test Item Value Reference Range Interpretation Comments Albumin/Globulin Ratio (test code = 1759-0) 1.0 0.8-2.0 [facility] ShorelineAlkaline Jeydxktswep9876-19-95 18:49:00* Test Item Value Reference Range Interpretation Comments Alkaline Phosphatase (test code = 6768-6) 129 40-150 [facility]ieodium Xkvdm0021-61-56 18:49:00* Test Item Value Reference Range Interpretation Comments Sodium Level (test code = 2951-2) 136 136-145 [facility] ShorelinePotassium Htppb1639-96-75 18:49:00* Test Item Value Reference Range Interpretation Comments Potassium Level (test code = 2823-3) 4.0 3.5-5.1 [facility] ShorelineChloride Mhhyl8819-92-90 18:49:00* Test Item Value Reference Range Interpretation Comments Chloride Level (test code = 2075-0) 98 98-107 [facility] ShorelineCarbon Dioxide Bqbex7585-47-90 18:49:00* Test Item Value Reference Range Interpretation Comments Carbon Dioxide Level (test code = 2028-9) 27 22-29 [facility]lineAnion [id number] 18:49:00* Test Item Value Reference Range Interpretation Comments Anion Gap (test code = 33309-0) 15.0 8-16 [facility] ShorelineBlood Urea Nqfzarej8293-78-08 18:49:00* Test Item Value Reference Range Interpretation Comments Blood Urea Nitrogen (test code = 3094-0) 6 7-26 L [facility] ShorelineCreatinine2019-11-16 18:49:00* Test Item Value Reference Range Interpretation Comments Creatinine (test code = 2160-0) 0.69 0.57-1.11 [facility] ShorelineBUN/Creatinine Xmjmr3351-92-22 18:49:00* Test Item Value Reference Range Interpretation Comments BUN/Creatinine Ratio (test code = 3097-3) 9 6-25 [facility] ShorelineEstimat Glomerular Filtration Rate 2019-02-11 18:49:00* Test Item Value Reference Range Interpretation Comments Estimat Glomerular Filtration Rate (test code = 262612031) > 60 >60 Ranges were taken from the National Kidney Disease Education Program and the [facility] Kidney Foundation literature.Reference ranges:60 or greater: [id number] ( for 3 consecutive months): Chronic kidney disease 15 or less: Kidney failureCH[facility]STUS [facility] ShorelineGlucose Eeiwk2228-05-23 18:49:00* Test Item Value Reference Range Interpretation Comments Glucose Level (test code = RNQ8403) 86 74-118 [facility] ShorelineCalcium Skwbq4227-99-48 18:49:00* Test Item Value Reference Range Interpretation Comments Calcium Level (test code = 72509-8) 9.7 8.4-10.2 [facility] ShorelineTotal Ciexkzyqo7907-92-04 18:49:00* Test Item Value Reference Range Interpretation Comments Total Bilirubin (test code = 1975-2) 0.2 0.2-1.2 [facility] ShorelineAspartate Amino Transf (AST/SGOT) 2019-02-11 18:49:00* Test Item Value Reference Range Interpretation Comments Aspartate Amino Transf (AST/SGOT) (test code = Aspartate Amino Transf (AST/SGOT)) 17 5-34 [facility] ShorelineAlanine Aminotransferase (ALT/SGPT) 2019-02-11 18:49:00* Test Item Value Reference Range Interpretation Comments Alanine Aminotransferase (ALT/SGPT) (test code = 1742-6) 11 0-55 [facility]lineTotal Oqhuedz2120-91-08 18:49:00* Test Item Value Reference Range Interpretation Comments Total Protein (test code = 2885-2) 7.2 6.5-8.1 [facility] ShorelineAlbumin2019-11-16 18:49:00* Test Item Value Reference Range Interpretation Comments Albumin (test code = 1751-7) 3.6 3.5-5.0 [facility] ShorelineGlobulin2019-11-16 18:49:00* Test Item Value Reference Range Interpretation Comments Globulin (test code = 34677-8) 3.6 2.3-3.5 H [facility] ShorelineAlbumin/Globulin Jottu1841-91-51 18:49:00 * Test Item Value Reference Range Interpretation Comments Albumin/Globulin Ratio (test code = 1759-0) 1.0 0.8-2.0 [facility] ShorelineAlkaline Diqtzacqvul3789-22-70 18:49:00* Test Item Value Reference Range Interpretation Comments Alkaline Phosphatase (test code = 6768-6) 129 40-150 [facility] ShorelineWhite Blood Xsobo1917-99-78 18:31:00* Test Item Value Reference Range Interpretation Comments White Blood Count (test code = 6690-2) 10.11 4.8-10.8 [facility] ShorelineRed Blood Pltlo0401-82-66 18:31:00* Test Item Value Reference Range Interpretation Comments Red Blood Count (test code = 789-8) 5.06 3.6-5.1 [facility] ShorelineHemoglobin2019-11-16 18:31:00* Test Item Value Reference Range Interpretation Comments Hemoglobin (test code = 10080-3) 11.7 12.0-16.0 L [facility] ShorelineHematocrit2019-11-16 18:31:00* Test Item Value Reference Range Interpretation Comments Hematocrit (test code = 4544-3) 39.3 34.2-44.1 [facility] ShorelineMean Corpuscular Yralyx6064-84-38 18:31:00* Test Item Value Reference Range Interpretation Comments Mean Corpuscular Volume (test code = 787-2) 77.7 81-99 L [facility] ShorelineMean Corpuscular Mxkozgjich5771-04-13 18:31:00* Test Item Value Reference Range Interpretation Comments Mean Corpuscular Hemoglobin (test code = 785-6) 23.1 28-32 L [facility] ShorelineMean Corpuscular Hemoglobin Concent 2019-02-11 18:31:00* Test Item Value Reference Range Interpretation Comments Mean Corpuscular Hemoglobin Concent (test code = 786-4) 29.8 31-35 L [facility] ShorelineRed Cell Distribution Jqiqq4677-61-69 18:31:00* Test Item Value Reference Range Interpretation Comments Red Cell Distribution Width (test code = 87657-6) 22.0 11.7 -14.4 H [facility] ShorelinePlatelet Kfxsw5599-78-85 18:31:00* Test Item Value Reference Range Interpretation Comments Platelet Count (test code = 777-3) 444 140-360 H [facility] ShorelineNeutrophils (%) (Auto)2019-02-11 18:31:00 * Test Item Value Reference Range Interpretation Comments Neutrophils (%) (Auto) (test code = 62945-7) 65.5 38.7-80.0 [facility] ShorelineLymphocytes (%) (Auto)2019-02-11 18:31:00 * Test Item Value Reference Range Interpretation Comments Lymphocytes (%) (Auto) (test code = 736-9) 27.3 18.0-39.1 [facility] ShorelineMonocytes (%) (Auto)2019-02-11 18:31:00* Test Item Value Reference Range Interpretation Comments Monocytes (%) (Auto) (test code = 5905-5) 4.5 4.4-11.3 [facility]lineEosinophils (%) (Auto)2019-02-11 18:31:00 * Test Item Value Reference Range Interpretation Comments Eosinophils (%) (Auto) (test code = 713-8) 2.1 0.0-6.0 [facility]lineBasophils (%) (Auto)2019-02-11 18:31:00* Test Item Value Reference Range Interpretation Comments Basophils (%) (Auto) (test code = 706-2) 0.3 0.0-1.0 [facility] ShorelineIM GRANULOCYTES %2019-02-11 18:31:00* Test Item Value Reference Range Interpretation Comments IM GRANULOCYTES % (test code = IM GRANULOCYTES %) 0.3 0.0- 1.0 [facility]lineNeutrophils # (Auto)2019-02-11 18:31:00* Test Item Value Reference Range Interpretation Comments Neutrophils # (Auto) (test code = 751-8) 6.6 2.1-6.9 [facility] ShorelineLymphocytes # (Auto)2019-02-11 18:31:00* Test Item Value Reference Range Interpretation Comments Lymphocytes # (Auto) (test code = 18184-4) 2.8 1.0-3.2 [facility]lineMonocytes # (Auto)2019-02-11 18:31:00* Test Item Value Reference Range Interpretation Comments Monocytes # (Auto) (test code = 742-7) 0.5 0.2-0.8 [facility]lineEosinophils # (Auto)2019-02-11 18:31:00* Test Item Value Reference Range Interpretation Comments Eosinophils # (Auto) (test code = 711-2) 0.2 0.0-0.4 [facility]lineBasophils # (Auto)2019-02-11 18:31:00* Test Item Value Reference Range Interpretation Comments Basophils # (Auto) (test code = 704-7) 0.0 0.0-0.1 [facility] ShorelineAbsolute Immature Granulocyte (auto 2019-02-11 18:31:00* Test Item Value Reference Range Interpretation Comments Absolute Immature Granulocyte (auto (meliton t code = Absolute Immature Granulocyte (auto) 0.03 0-0.1 [facility] ShorelineWhite Blood Mpmaj9762-95-16 18:31:00* Test Item Value Reference Range Interpretation Comments White Blood Count (test code = 6690-2) 10.11 4.8-10.8 [facility] ShorelineRed Blood Lktrw8202-83-99 18:31:00* Test Item Value Reference Range Interpretation Comments Red Blood Count (test code = 789-8) 5.06 3.6-5.1 [facility] ShorelineHemoglobin2019-11-16 18:31:00* Test Item Value Reference Range Interpretation Comments Hemoglobin (test code = 44485-7) 11.7 12.0-16.0 L [facility] ShorelineHematocrit2019-11-16 18:31:00* Test Item Value Reference Range Interpretation Comments Hematocrit (test code = 4544-3) 39.3 34.2-44.1 [facility] ShorelineMean Corpuscular Pzgyhm7865-89-45 18:31:00* Test Item Value Reference Range Interpretation Comments Mean Corpuscular Volume (test code = 787-2) 77.7 81-99 L [facility] ShorelineMean Corpuscular Hpvzuqycat3765-35-13 18:31:00* Test Item Value Reference Range Interpretation Comments Mean Corpuscular Hemoglobin (test code = 785-6) 23.1 28-32 L [facility] ShorelineMean Corpuscular Hemoglobin Concent 2019-02-11 18:31:00* Test Item Value Reference Range Interpretation Comments Mean Corpuscular Hemoglobin Concent (test code = 786-4) 29.8 31-35 L [facility] ShorelineRed Cell Distribution Mwdvw8881-35-46 18:31:00* Test Item Value Reference Range Interpretation Comments Red Cell Distribution Width (test code = 17389-6) 22.0 11.7 -14.4 H [facility] ShorelinePlatelet Fuamb1171-66-57 18:31:00* Test Item Value Reference Range Interpretation Comments Platelet Count (test code = 777-3) 444 140-360 H [facility] ShorelineNeutrophils (%) (Auto)2019-02-11 18:31:00 * Test Item Value Reference Range Interpretation Comments Neutrophils (%) (Auto) (test code = 02080-8) 65.5 38.7-80.0 [facility] ShorelineLymphocytes (%) (Auto)2019-02-11 18:31:00 * Test Item Value Reference Range Interpretation Comments Lymphocytes (%) (Auto) (test code = 736-9) 27.3 18.0-39.1 [facility]lineMonocytes (%) (Auto)2019-02-11 18:31:00* Test Item Value Reference Range Interpretation Comments Monocytes (%) (Auto) (test code = 5905-5) 4.5 4.4-11.3 [facility]lineEosinophils (%) (Auto)2019-02-11 18:31:00 * Test Item Value Reference Range Interpretation Comments Eosinophils (%) (Auto) (test code = 713-8) 2.1 0.0-6.0 [facility]lineBasophils (%) (Auto)2019-02-11 18:31:00* Test Item Value Reference Range Interpretation Comments Basophils (%) (Auto) (test code = 706-2) 0.3 0.0-1.0 [facility] ShorelineIM GRANULOCYTES %2019-02-11 18:31:00* Test Item Value Reference Range Interpretation Comments IM GRANULOCYTES % (test code = IM GRANULOCYTES %) 0.3 0.0- 1.0 [facility]lineNeutrophils # (Auto)2019-02-11 18:31:00* Test Item Value Reference Range Interpretation Comments Neutrophils # (Auto) (test code = 751-8) 6.6 2.1-6.9 [facility] ShorelineLymphocytes # (Auto)2019-02-11 18:31:00* Test Item Value Reference Range Interpretation Comments Lymphocytes # (Auto) (test code = 30274-9) 2.8 1.0-3.2 [facility]lineMonocytes # (Auto)2019-02-11 18:31:00* Test Item Value Reference Range Interpretation Comments Monocytes # (Auto) (test code = 742-7) 0.5 0.2-0.8 [facility]lineEosinophils # (Auto)2019-02-11 18:31:00* Test Item Value Reference Range Interpretation Comments Eosinophils # (Auto) (test code = 711-2) 0.2 0.0-0.4 [facility]lineBasophils # (Auto)2019-02-11 18:31:00* Test Item Value Reference Range Interpretation Comments Basophils # (Auto) (test code = 704-7) 0.0 0.0-0.1 [facility] ShorelineAbsolute Immature Granulocyte (auto 2019-02-11 18:31:00* Test Item Value Reference Range Interpretation Comments Absolute Immature Granulocyte (auto (meliton t code = Absolute Immature Granulocyte (auto) 0.03 0-0.1 [facility] ShorelineUrine [id number] 16:23:00* Test Item Value Reference Range Interpretation Comments Urine WBC (test code = 5821-4) 0-5 0-5 [facility] ShorelineUrine [id number] 16:23:00* Test Item Value Reference Range Interpretation Comments Urine RBC (test code = 81195-9) NONE 0-5 [facility] ShorelineUrine Nkgvadud0787-28-01 16:23:00* Test Item Value Reference Range Interpretation Comments Urine Bacteria (test code = 13245-0) FEW NONE [facility] ShorelineUrine Epithelial Nyqye2317-79-43 16:23:00 * Test Item Value Reference Range Interpretation Comments Urine Epithelial Cells (test code = 32759-7) MODERATE NONE [facility] ShorelineUrine [id number] 16:23:00* Test Item Value Reference Range Interpretation Comments Urine WBC (test code = 5821-4) 0-5 0-5 [facility] [id number] 16:23:00* Test Item Value Reference Range Interpretation Comments Urine RBC (test code = 51017-8) NONE 0-5 [facility] Qbcrdzwg9188-52-65 16:23:00* Test Item Value Reference Range Interpretation Comments Urine Bacteria (test code = 57054-5) FEW NONE [facility]lineU[facility] Epithelial Qcrbe1908-61-22 16:23:00 * Test Item Value Reference Range Interpretation Comments Urine Epithelial Cells (test code = 08957-8) MODERATE NONE [facility]lineU[facility] GBR5380-11-28 16:23:00* Test Item Value Reference Range Interpretation Comments Urine WBC (test code = 5821-4) 0-5 0-5 [facility]lineU[facility] OBJ1429-85-09 16:23:00* Test Item Value Reference Range Interpretation Comments Urine RBC (test code = 29312-3) NONE 0-5 [facility] Guifgbje8528-08-37 16:23:00* Test Item Value Reference Range Interpretation Comments Urine Bacteria (test code = 37415-8) FEW NONE [facility]lineU[facility] Epithelial Irymw9582-57-65 16:23:00 * Test Item Value Reference Range Interpretation Comments Urine Epithelial Cells (test code = 55972-0) MODERATE NONE [facility]lineUrine Bmhpl4660-98-98 16:17:00* Test Item Value Reference Range Interpretation Comments Urine Color (test code = 5778-6) YELLOW YELLOW [facility]lineUrine Uzifhcn8210-06-99 16:17:00* Test Item Value Reference Range Interpretation Comments Urine Clarity (test code = 15689-7) CLEAR CLEAR [facility] Specific Xkvtrgu9989-16-26 16:17:00 * Test Item Value Reference Range Interpretation Comments Urine Specific [place] (test code = 5811-5) 1.010 1.010-1.02 5 [facility]lineUrine eT6012-23-90 16:17:00* Test Item Value Reference Range Interpretation Comments Urine pH (test code = 84494-5) 7 5-7 [facility] Leukocyte Vsncqnpp3495-34-52 16:17:00* Test Item Value Reference Range Interpretation Comments Urine Leukocyte Esterase (test code = 89480-1) NEGATIVE NEGATIV E [facility] Vxdeufb2484-83-46 16:17:00* Test Item Value Reference Range Interpretation Comments Urine Nitrite (test code = 55702-3) NEGATIVE NEGATIVE [facility] Iihgies6249-50-37 16:17:00* Test Item Value Reference Range Interpretation Comments Urine Protein (test code = 43510-4) NEGATIVE NEGATIVE [facility] Glucose (UA)2019-02-11 16:17:00* Test Item Value Reference Range Interpretation Comments Urine Glucose (UA) (test code = 33989-7) NEGATIVE NEGATIVE [facility] Ddstgjt4079-01-30 16:17:00* Test Item Value Reference Range Interpretation Comments Urine Ketones (test code = 55147-0) NEGATIVE NEGATIVE [facility] Njsmaesgjnlv4585-37-78 16:17:00* Test Item Value Reference Range Interpretation Comments Urine Urobilinogen (test code = 84653-4) 0.2 0.2-1 [facility] Ixaijtgru1610-34-33 16:17:00* Test Item Value Reference Range Interpretation Comments Urine Bilirubin (test code = 1977-8) NEGATIVE NEGATIVE [facility]lineU[facility] Rmded7580-38-13 16:17:00* Test Item Value Reference Range Interpretation Comments Urine Blood (test code = 66806-1) NEGATIVE NEGATIVE [facility]lineU[facility] Msvzy6990-58-01 16:17:00* Test Item Value Reference Range Interpretation Comments Urine Color (test code = 5778-6) YELLOW YELLOW [facility]lineU[facility] Ypvthtt4940-25-47 16:17:00* Test Item Value Reference Range Interpretation Comments Urine Clarity (test code = 86411-0) CLEAR CLEAR [facility] Specific Getwyjs2721-49-08 16:17:00 * Test Item Value Reference Range Interpretation Comments Urine Specific [place] (test code = 5811-5) 1.010 1.010-1.02 5 [facility] hT8437-38-61 16:17:00* Test Item Value Reference Range Interpretation Comments Urine pH (test code = 78250-6) 7 5-7 [facility] Leukocyte Lgoezced9369-97-12 16:17:00* Test Item Value Reference Range Interpretation Comments Urine Leukocyte Esterase (test code = 42788-0) NEGATIVE NEGATIV E [facility]lineU[facility] Gxpizsi8915-57-52 16:17:00* Test Item Value Reference Range Interpretation Comments Urine Nitrite (test code = 83348-3) NEGATIVE NEGATIVE [facility]lineU[facility] Upssitp0574-91-51 16:17:00* Test Item Value Reference Range Interpretation Comments Urine Protein (test code = 81711-7) NEGATIVE NEGATIVE [facility]lineU[facility] Glucose (UA)2019-02-11 16:17:00* Test Item Value Reference Range Interpretation Comments Urine Glucose (UA) (test code = 27464-2) NEGATIVE NEGATIVE [facility]lineU[facility] Ptqkqnh8213-97-65 16:17:00* Test Item Value Reference Range Interpretation Comments Urine Ketones (test code = 05925-4) NEGATIVE NEGATIVE [facility] Bdxvcxcwvgin0378-61-72 16:17:00* Test Item Value Reference Range Interpretation Comments Urine Urobilinogen (test code = 10324-7) 0.2 0.2-1 [facility]lineU[facility] Gtldywuzu3908-69-61 16:17:00* Test Item Value Reference Range Interpretation Comments Urine Bilirubin (test code = 1977-8) NEGATIVE NEGATIVE [facility]lineU[facility] Kthgr8122-61-07 16:17:00* Test Item Value Reference Range Interpretation Comments Urine Blood (test code = 79863-6) NEGATIVE NEGATIVE [facility]lineU[facility] Asnuy3976-19-43 16:17:00* Test Item Value Reference Range Interpretation Comments Urine Color (test code = 5778-6) YELLOW YELLOW [facility]lineU[facility] Xlobkjk3667-19-23 16:17:00* Test Item Value Reference Range Interpretation Comments Urine Clarity (test code = 91935-9) CLEAR CLEAR [facility]lineU[facility] Specific Tivzcpl3753-71-99 16:17:00 * Test Item Value Reference Range Interpretation Comments Urine Specific [place] (test code = 5811-5) 1.010 1.010-1.02 5 [facility]lineU[facility] yP9605-37-73 16:17:00* Test Item Value Reference Range Interpretation Comments Urine pH (test code = 95890-3) 7 5-7 [facility] Leukocyte Leqaynub2950-06-58 16:17:00* Test Item Value Reference Range Interpretation Comments Urine Leukocyte Esterase (test code = 16207-1) NEGATIVE NEGATIV E [facility]lineU[facility] Thdtblk9428-41-52 16:17:00* Test Item Value Reference Range Interpretation Comments Urine Nitrite (test code = 11363-0) NEGATIVE NEGATIVE [facility]lineU[facility] Cifaecz8446-48-51 16:17:00* Test Item Value Reference Range Interpretation Comments Urine Protein (test code = 62562-7) NEGATIVE NEGATIVE [facility]lineU[facility] Glucose (UA)2019-02-11 16:17:00* Test Item Value Reference Range Interpretation Comments Urine Glucose (UA) (test code = 47145-0) NEGATIVE NEGATIVE [facility]lineU[facility] Dlejjhc8668-68-17 16:17:00* Test Item Value Reference Range Interpretation Comments Urine Ketones (test code = 14803-6) NEGATIVE NEGATIVE [facility]lineU[facility] Xdtzdgzghoeb2007-86-44 16:17:00* Test Item Value Reference Range Interpretation Comments Urine Urobilinogen (test code = 01699-9) 0.2 0.2-1 [facility]lineU[facility] Xyddurpzp4147-09-13 16:17:00* Test Item Value Reference Range Interpretation Comments Urine Bilirubin (test code = 1977-8) NEGATIVE NEGATIVE [facility]lineU[facility] Rpgqw3220-93-35 16:17:00* Test Item Value Reference Range Interpretation Comments Urine Blood (test code = 27104-0) NEGATIVE NEGATIVE [facility]lineU[facility] Opiates Ntfprb1095-77-96 16:10:00* Test Item Value Reference Range Interpretation Comments Urine Opiates Screen (test code = 19042-2) NEGATIVE NEGATIVE ALL TESTS PERFORMED MANUALLY ON [employer] TOX/SEE TESTCHRIST[facility] ShorelineUrine Barbiturates Kgvdpb3482-90-35 16:10:00* Test Item Value Reference Range Interpretation Comments Urine Barbiturates Screen (test code = 334354649) NEGATIVE NEGA TIVE [facility]lineU[facility] Phencyclidine Zzozio4771-13-64 16:10:00* Test Item Value Reference Range Interpretation Comments Urine Phencyclidine Screen (test code = 67176-0) NEGATIVE NEGAT JAKOB [facility]lineU[facility] Amphetamines Xrfwzg3214-69-35 16:10:00* Test Item Value Reference Range Interpretation Comments Urine Amphetamines Screen (test code = 62542-2) NEGATIVE NEGATI VE [facility]lineU[facility] Methamphetamines Oheups7579-88-06 16:10:00* Test Item Value Reference Range Interpretation Comments Urine Methamphetamines Screen (test code = Urine Metha mphetamines Screen) NEGATIVE NEGATIVE [facility]lineU[facility] Benzodiazepines Gzyduw2587-06-30 16:10:00* Test Item Value Reference Range Interpretation Comments Urine Benzodiazepines Screen (test code = 68930-8) NEGATIVE NEG ATIVE [facility]lineU[facility] Cocaine Ebirhq3703-28-00 16:10:00* Test Item Value Reference Range Interpretation Comments Urine Cocaine Screen (test code = 3398-5) NEGATIVE NEGATIVE [facility]line[facility] Cannabinoids Deiovc6857-85-03 16:10:00* Test Item Value Reference Range Interpretation Comments Urine Cannabinoids Screen (test code = 49351-7) NEGATIVE NEGATI VE THESE RESULTS ARE FOR MEDICAL TREATMENT ONLYTHIS REPORT CONTAINS UNCONFIR MED SCREENING RESULTS*POSITIVE RESULTS WILL BE CONFIRMED BY REFERENCE LAB UPON R EQUEST CUT-OFFDRUG CLASS CONCENTRATION ng/mLAmphetamines 1000Methamphetamines 1000Cocaine 300Opiate 300Phencyc lidine 25Cannabinoid 50Barbiturates 300Benzodiazepine 300Methadone 300[facility]lineU[facility] Methadone Cxarxf2820-83-23 16:10:00* Test Item Value Reference Range Interpretation Comments Urine Methadone Screen (test code = 45162-6) NEGATIVE NEGATIVE THESE RESULTS ARE FOR MEDICAL TREATMENT ONLYTHIS REPORT CONTAINS UNCONFIR MED SCREENING RESULTS*POSITIVE RESULTS WILL BE CONFIRMED BY REFERENCE LAB UPON R EQUEST CUT-OFFDRUG CLASS CONCENTRATION ng/mLAmphetamines 1000Methamphetamines 1000Cocaine Metabolite 300Opiate 300Phencyc lidine 25Cannabinoid 50Barbiturates 300Benzodiazepine 300Methadone 300[facility] Srlh9760-03-02 16:10:00* Test Item Value Reference Range Interpretation Comments Urine Test (test code = 2106-3) NEGATIVE NEGATIVE [facility]lineU[facility] Opiates Bowzju6212-60-31 16:10:00* Test Item Value Reference Range Interpretation Comments Urine Opiates Screen (test code = 63580-4) NEGATIVE NEGATIVE ALL TESTS PERFORMED MANUALLY ON [employer] TOX/SEE TESTCHRIST[facility] ShorelineUrine Barbiturates Wlajga5656-92-79 16:10:00* Test Item Value Reference Range Interpretation Comments Urine Barbiturates Screen (test code = 551756759) NEGATIVE NEGA TIVE [facility]lineUrine Phencyclidine Ibfnfl0975-84-71 16:10:00* Test Item Value Reference Range Interpretation Comments Urine Phencyclidine Screen (test code = 94517-2) NEGATIVE NEGAT JAKOB [facility]lineUrine Amphetamines Ovsoqy9157-31-12 16:10:00* Test Item Value Reference Range Interpretation Comments Urine Amphetamines Screen (test code = 47691-9) NEGATIVE NEGATI VE [facility]lineUrine Methamphetamines Htoizr4111-60-59 16:10:00* Test Item Value Reference Range Interpretation Comments Urine Methamphetamines Screen (test code = Urine Metha mphetamines Screen) NEGATIVE NEGATIVE [facility]lineUrine Benzodiazepines Buceco4890-83-57 16:10:00* Test Item Value Reference Range Interpretation Comments Urine Benzodiazepines Screen (test code = 42027-7) NEGATIVE NEG ATIVE [facility]lineUrine Cocaine Xluluz4380-17-90 16:10:00* Test Item Value Reference Range Interpretation Comments Urine Cocaine Screen (test code = 3398-5) NEGATIVE NEGATIVE [facility]line[facility]rine Cannabinoids Umhujt4673-58-13 16:10:00* Test Item Value Reference Range Interpretation Comments Urine Cannabinoids Screen (test code = 75878-4) NEGATIVE NEGATI VE THESE RESULTS ARE FOR MEDICAL TREATMENT ONLYTHIS REPORT CONTAINS UNCONFIR MED SCREENING RESULTS*POSITIVE RESULTS WILL BE CONFIRMED BY REFERENCE LAB UPON R EQUEST CUT-OFFDRUG CLASS CONCENTRATION ng/mLAmphetamines 1000Methamphetamines 1000Cocaine 300Opiate 300Phencyc lidine 25Cannabinoid 50Barbiturates 300Benzodiazepine 300Methadone 300[facility] Hospital[facility] Methadone Vdjlfz0420-39-93 16:10:00* Test Item Value Reference Range Interpretation Comments Urine Methadone Screen (test code = 15065-5) NEGATIVE NEGATIVE THESE RESULTS ARE FOR MEDICAL TREATMENT ONLYTHIS REPORT CONTAINS UNCONFIR MED SCREENING RESULTS*POSITIVE RESULTS WILL BE CONFIRMED BY REFERENCE LAB UPON R EQUEST CUT-OFFDRUG CLASS CONCENTRATION ng/mLAmphetamines 1000Methamphetamines 1000Cocaine Metabolite 300Opiate 300Phencyc lidine 25Cannabinoid 50Barbiturates 300Benzodiazepine 300Methadone 300[facility] HospitalUrine Drqy9187-54-46 16:10:00* Test Item Value Reference Range Interpretation Comments Urine Test (test code = 2106-3) NEGATIVE NEGATIVE [facility]line[facility] Opiates Tbrtot3512-55-57 16:10:00* Test Item Value Reference Range Interpretation Comments Urine Opiates Screen (test code = 29238-7) NEGATIVE NEGATIVE ALL TESTS PERFORMED MANUALLY ON [employer] TOX/SEE TESTCHRISTUS [facility] ShorelineUrine Barbiturates Zuczpn9158-52-97 16:10:00* Test Item Value Reference Range Interpretation Comments Urine Barbiturates Screen (test code = 229038920) NEGATIVE NEGA TIVE [facility]line[facility] Phencyclidine Dlrutw1158-17-09 16:10:00* Test Item Value Reference Range Interpretation Comments Urine Phencyclidine Screen (test code = 24870-1) NEGATIVE NEGAT JAKOB [facility]lineU[facility] Amphetamines Pwgwfl1994-57-45 16:10:00* Test Item Value Reference Range Interpretation Comments Urine Amphetamines Screen (test code = 17920-0) NEGATIVE NEGATI VE [facility]line[facility] Methamphetamines Gyiwpy6693-62-89 16:10:00* Test Item Value Reference Range Interpretation Comments Urine Methamphetamines Screen (test code = Urine Metha mphetamines Screen) NEGATIVE NEGATIVE [facility]lineUrine Benzodiazepines Smkuik1031-68-19 16:10:00* Test Item Value Reference Range Interpretation Comments Urine Benzodiazepines Screen (test code = 97222-3) NEGATIVE NEG ATIVE [facility]lineUrine Cocaine Xqhqby0119-27-11 16:10:00* Test Item Value Reference Range Interpretation Comments Urine Cocaine Screen (test code = 3398-5) NEGATIVE NEGATIVE [facility]lineUrine Cannabinoids Oqyzys3436-05-53 16:10:00* Test Item Value Reference Range Interpretation Comments Urine Cannabinoids Screen (test code = 73177-3) NEGATIVE NEGATI VE THESE RESULTS ARE FOR MEDICAL TREATMENT ONLYTHIS REPORT CONTAINS UNCONFIR MED SCREENING RESULTS*POSITIVE RESULTS WILL BE CONFIRMED BY REFERENCE LAB UPON R EQUEST CUT-OFFDRUG CLASS CONCENTRATION ng/mLAmphetamines 1000Methamphetamines 1000Cocaine 300Opiate 300Phencyc lidine 25Cannabinoid 50Barbiturates 300Benzodiazepine 300Methadone 300[facility]lineUrine Methadone Qbafwp8762-70-76 16:10:00* Test Item Value Reference Range Interpretation Comments Urine Methadone Screen (test code = 79434-5) NEGATIVE NEGATIVE THESE RESULTS ARE FOR MEDICAL TREATMENT ONLYTHIS REPORT CONTAINS UNCONFIR MED SCREENING RESULTS*POSITIVE RESULTS WILL BE CONFIRMED BY REFERENCE LAB UPON R EQUEST CUT-OFFDRUG CLASS CONCENTRATION ng/mLAmphetamines 1000Methamphetamines 1000Cocaine Metabolite 300Opiate 300Phencyc lidine 25Cannabinoid 50Barbiturates 300Benzodiazepine 300Methadone 300[facility] HospitalUrine Mnyf1430-90-72 16:10:00* Test Item Value Reference Range Interpretation Comments Urine Test (test code = 2106-3) NEGATIVE NEGATIVE [facility]lineU[facility] Opiates Zuhonz4370-58-39 16:10:00* Test Item Value Reference Range Interpretation Comments Urine Opiates Screen (test code = 85377-6) NEGATIVE NEGATIVE ALL TESTS PERFORMED MANUALLY ON [employer] TOX/SEE TESTCHRIST[facility]lineUrine Barbiturates Ufxkej1257-60-65 16:10:00* Test Item Value Reference Range Interpretation Comments Urine Barbiturates Screen (test code = 267115385) NEGATIVE NEGA TIVE [facility]lineU[facility] Phencyclidine Kbpjrl7843-67-11 16:10:00* Test Item Value Reference Range Interpretation Comments Urine Phencyclidine Screen (test code = 72782-6) NEGATIVE NEGAT JAKOB [facility]lineUrine Amphetamines Dluaoy8807-94-41 16:10:00* Test Item Value Reference Range Interpretation Comments Urine Amphetamines Screen (test code = 44789-4) NEGATIVE NEGATI VE [facility]lineU[facility] Methamphetamines Oohfel5624-55-45 16:10:00* Test Item Value Reference Range Interpretation Comments Urine Methamphetamines Screen (test code = Urine Metha mphetamines Screen) NEGATIVE NEGATIVE [facility]lineU[facility] Benzodiazepines Fgyqdz2304-52-55 16:10:00* Test Item Value Reference Range Interpretation Comments Urine Benzodiazepines Screen (test code = 21992-0) NEGATIVE NEG ATIVE [facility]lineUrine Cocaine Wdsomy8258-23-58 16:10:00* Test Item Value Reference Range Interpretation Comments Urine Cocaine Screen (test code = 3398-5) NEGATIVE NEGATIVE [facility]lineU[facility] Cannabinoids Iquxso7784-71-66 16:10:00* Test Item Value Reference Range Interpretation Comments Urine Cannabinoids Screen (test code = 22492-6) NEGATIVE NEGATI VE THESE RESULTS ARE FOR MEDICAL TREATMENT ONLYTHIS REPORT CONTAINS UNCONFIR MED SCREENING RESULTS*POSITIVE RESULTS WILL BE CONFIRMED BY REFERENCE LAB UPON R EQUEST CUT-OFFDRUG CLASS CONCENTRATION ng/mLAmphetamines 1000Methamphetamines 1000Cocaine 300Opiate 300Phencyc lidine 25Cannabinoid 50Barbiturates 300Benzodiazepine 300Methadone 300[facility]lineUrine Methadone Hcypgo0508-43-94 16:10:00* Test Item Value Reference Range Interpretation Comments Urine Methadone Screen (test code = 42817-7) NEGATIVE NEGATIVE THESE RESULTS ARE FOR MEDICAL TREATMENT ONLYTHIS REPORT CONTAINS UNCONFIR MED SCREENING RESULTS*POSITIVE RESULTS WILL BE CONFIRMED BY REFERENCE LAB UPON R EQUEST CUT-OFFDRUG CLASS CONCENTRATION ng/mLAmphetamines 1000Methamphetamines 1000Cocaine Metabolite 300Opiate 300Phencyc lidine 25Cannabinoid 50Barbiturates 300Benzodiazepine 300Methadone 300[facility]lineUrine Pskt5052-63-23 16:10:00* Test Item Value Reference Range Interpretation Comments Urine Test (test code = 2106-3) NEGATIVE NEGATIVE [facility]lineU[facility] Opiates Qbtmnl9619-11-95 16:10:00* Test Item Value Reference Range Interpretation Comments Urine Opiates Screen (test code = 56863-3) NEGATIVE NEGATIVE ALL TESTS PERFORMED MANUALLY ON [employer] TOX/SEE TESTCH[facility]ST[facility]lineUrine Barbiturates Hgudiu0560-16-07 16:10:00* Test Item Value Reference Range Interpretation Comments Urine Barbiturates Screen (test code = 136787529) NEGATIVE NEGA TIVE [facility]lineU[facility] Phencyclidine Qlcgfs6066-40-74 16:10:00* Test Item Value Reference Range Interpretation Comments Urine Phencyclidine Screen (test code = 59010-8) NEGATIVE NEGAT JAKOB [facility]lineUrine Amphetamines Teospq1144-35-94 16:10:00* Test Item Value Reference Range Interpretation Comments Urine Amphetamines Screen (test code = 52325-2) NEGATIVE NEGATI VE [facility]lineUrine Methamphetamines Dkbzlf6486-38-82 16:10:00* Test Item Value Reference Range Interpretation Comments Urine Methamphetamines Screen (test code = Urine Metha mphetamines Screen) NEGATIVE NEGATIVE [facility]lineUrine Benzodiazepines Tzadwu9500-52-48 16:10:00* Test Item Value Reference Range Interpretation Comments Urine Benzodiazepines Screen (test code = 27501-2) NEGATIVE NEG ATIVE [facility]lineUrine Cocaine Nkpsne9375-64-96 16:10:00* Test Item Value Reference Range Interpretation Comments Urine Cocaine Screen (test code = 3398-5) NEGATIVE NEGATIVE [facility]lineU[facility] Cannabinoids Sgwxnh9891-93-77 16:10:00* Test Item Value Reference Range Interpretation Comments Urine Cannabinoids Screen (test code = 31285-4) NEGATIVE NEGATI VE THESE RESULTS ARE FOR MEDICAL TREATMENT ONLYTHIS REPORT CONTAINS UNCONFIR MED SCREENING RESULTS*POSITIVE RESULTS WILL BE CONFIRMED BY REFERENCE LAB UPON R EQUEST CUT-OFFDRUG CLASS CONCENTRATION ng/mLAmphetamines 1000Methamphetamines 1000Cocaine 300Opiate 300Phencyc lidine 25Cannabinoid 50Barbiturates 300Benzodiazepine 300Methadone 300[facility]lineUrine Methadone Hyxvlk9483-81-47 16:10:00* Test Item Value Reference Range Interpretation Comments Urine Methadone Screen (test code = 79018-4) NEGATIVE NEGATIVE THESE RESULTS ARE FOR MEDICAL TREATMENT ONLYTHIS REPORT CONTAINS UNCONFIR MED SCREENING RESULTS*POSITIVE RESULTS WILL BE CONFIRMED BY REFERENCE LAB UPON R EQUEST CUT-OFFDRUG CLASS CONCENTRATION ng/mLAmphetamines 1000Methamphetamines 1000Cocaine Metabolite 300Opiate 300Phencyc lidine 25Cannabinoid 50Barbiturates 300Benzodiazepine 300Methadone 300[facility]lineUrine Gtnl5578-73-14 16:10:00* Test Item Value Reference Range Interpretation Comments Urine Test (test code = 2106-3) NEGATIVE NEGATIVE [facility]lineUrine opiates screening gcqq0465-96-64 14:10:00* Test Item Value Reference Range Interpretation Comments Urine Opiates Screen (test code = 55720-1) NEGATIVE NEGATIVE ALL TESTS PERFORMED MANUALLY ON [employer] TOX/SEE TESTCH[facility]ST[facility] ShorelineBarbiturates screen, ovhsb0917-00-09 14:10:00* Test Item Value Reference Range Interpretation Comments Urine Barbiturates Screen (test code = 615142439) NEGATIVE NEGA TIVE [facility]lineUrine phencyclidine detection by screening vcvbcc5053-62-69 14:10:00* Test Item Value Reference Range Interpretation Comments Urine Phencyclidine Screen (test code = 27803-3) NEGATIVE NEGAT JAKOB [facility]lineUrine amphetamines detection by screen method > 1000 ng/zO1540-68-58 14:10:00* Test Item Value Reference Range Interpretation Comments Urine Amphetamines Screen (test code = 10049-7) NEGATIVE NEGATI VE [facility] ShorelineFluoroscopic procedure less than one hour iyxyqpqc4147-94-98 14:10:00* Test Item Value Reference Range Interpretation Comments Urine Methamphetamines Screen (test code = Urine Metha mphetamines Screen) NEGATIVE NEGATIVE [facility] ShorelineUrine benzodiazepines detection by screening sidpkn9100-94-09 14:10:00* Test Item Value Reference Range Interpretation Comments Urine Benzodiazepines Screen (test code = 65534-7) NEGATIVE NEG ATIVE [facility] ShorelineUrine cocaine measurement (mass/volume) 2019-02-11 14:10:00* Test Item Value Reference Range Interpretation Comments Urine Cocaine Screen (test code = 3398-5) NEGATIVE NEGATIVE [facility]lineUrine cannabinoids detection by screening jfdfrz9529-38-35 14:10:00* Test Item Value Reference Range Interpretation Comments Urine Cannabinoids Screen (test code = 39237-0) NEGATIVE NEGATI VE THESE RESULTS ARE FOR MEDICAL TREATMENT ONLYTHIS REPORT CONTAINS UNCONFIR MED SCREENING RESULTS*POSITIVE RESULTS WILL BE CONFIRMED BY REFERENCE LAB UPON R EQUEST CUT-OFFDRUG CLASS CONCENTRATION ng/mLAmphetamines 1000Methamphetamines 1000Cocaine 300Opiate 300Phencyc lidine 25Cannabinoid 50Barbiturates 300Benzodiazepine 300Methadone 300[facility] HospitalUrine methadone iaqcym9054-71-42 14:10:00* Test Item Value Reference Range Interpretation Comments Urine Methadone Screen (test code = 86343-0) NEGATIVE NEGATIVE THESE RESULTS ARE FOR MEDICAL TREATMENT ONLYTHIS REPORT CONTAINS UNCONFIR MED SCREENING RESULTS*POSITIVE RESULTS WILL BE CONFIRMED BY REFERENCE LAB UPON R EQUEST CUT-OFFDRUG CLASS CONCENTRATION ng/mLAmphetamines 1000Methamphetamines 1000Cocaine Metabolite 300Opiate 300Phencyc lidine 25Cannabinoid 50Barbiturates 300Benzodiazepine 300Methadone 300[facility]lineUrine opiates screening esiw1819-35-52 14:10:00* Test Item Value Reference Range Interpretation Comments Urine Opiates Screen (test code = 23027-4) NEGATIVE NEGATIVE ALL TESTS PERFORMED MANUALLY ON [employer] TOX/SEE TESTCH[facility]ST[facility] ShorelineBarbiturates screen, mpmfv3369-11-66 14:10:00* Test Item Value Reference Range Interpretation Comments Urine Barbiturates Screen (test code = 044635870) NEGATIVE NEGA TIVE [facility]lineUrine phencyclidine detection by screening hczwwu6829-84-02 14:10:00* Test Item Value Reference Range Interpretation Comments Urine Phencyclidine Screen (test code = 87057-4) NEGATIVE NEGAT JAKOB [facility]lineUrine amphetamines detection by screen method > 1000 ng/dC0545-15-49 14:10:00* Test Item Value Reference Range Interpretation Comments Urine Amphetamines Screen (test code = 91090-6) NEGATIVE NEGATI VE [facility] ShorelineFluoroscopic procedure less than one hour ilbkvrde3693-66-40 14:10:00* Test Item Value Reference Range Interpretation Comments Urine Methamphetamines Screen (test code = Urine Metha mphetamines Screen) NEGATIVE NEGATIVE [facility]lineUrine benzodiazepines detection by screening zgzlmo6055-04-46 14:10:00* Test Item Value Reference Range Interpretation Comments Urine Benzodiazepines Screen (test code = 30716-7) NEGATIVE NEG ATIVE [facility]lineUrine cocaine measurement (mass/volume) 2019-02-11 14:10:00* Test Item Value Reference Range Interpretation Comments Urine Cocaine Screen (test code = 3398-5) NEGATIVE NEGATIVE [facility]lineUrine cannabinoids detection by screening thahps1543-59-34 14:10:00* Test Item Value Reference Range Interpretation Comments Urine Cannabinoids Screen (test code = 85441-2) NEGATIVE NEGATI VE THESE RESULTS ARE FOR MEDICAL TREATMENT ONLYTHIS REPORT CONTAINS UNCONFIR MED SCREENING RESULTS*POSITIVE RESULTS WILL BE CONFIRMED BY REFERENCE LAB UPON R EQUEST CUT-OFFDRUG CLASS CONCENTRATION ng/mLAmphetamines 1000Methamphetamines 1000Cocaine 300Opiate 300Phencyc lidine 25Cannabinoid 50Barbiturates 300Benzodiazepine 300Methadone 300[facility] HospitalUrine methadone hktnkt7975-46-30 14:10:00* Test Item Value Reference Range Interpretation Comments Urine Methadone Screen (test code = 05043-6) NEGATIVE NEGATIVE THESE RESULTS ARE FOR MEDICAL TREATMENT ONLYTHIS REPORT CONTAINS UNCONFIR MED SCREENING RESULTS*POSITIVE RESULTS WILL BE CONFIRMED BY REFERENCE LAB UPON R EQUEST CUT-OFFDRUG CLASS CONCENTRATION ng/mLAmphetamines 1000Methamphetamines 1000Cocaine Metabolite 300Opiate 300Phencyc lidine 25Cannabinoid 50Barbiturates 300Benzodiazepine 300Methadone 300[facility] HospitalUS PELVIS COMPLETE NON BO0782-84-75 14:25:00 [place] [address] Patient Name: MARIO MORALES MR #: [id number] : 1975 Age/Sex: 43/F Req #: [id number] Adm Physician: Ordered by: GUILLERMINA EDGE DO Report #: [id number] Location: ER Room/Bed: Procedure: [id number] US/U S PELVIS COMPLETE NON OB Exam [...] PM Dictate d By: CONCHIS BELTRAN MD 142 T ranscribed By: HUSSAIN on 02/07/191427 COPY TO: GUILLERMINA EDGE DO XFZVZPHGVOTI4012-45-03 14:25:00 [place] [address] Patient Name: MARIO MORALES MR #: [id number] : 1975 Age/Sex: 43/F Req #: [id number] Adm Physician: Ordered by: GUILLERMINA EDGE DO Report #: [id number] Location: ER Room/Bed: Procedure: [id number] US/U S TRANSVAGINAL Exam Date: 02/07/19 Exam [...] 2:28 PM Dictated By: SEN BELTRAN MD 142 Transcribed By: HUSSAIN on 02/07/19 1428 COPY TO: GUILLERMINA EDGE DO CT ABDOMEN/PELVIS Q2548-21-94 12:34:00 [place] [address] Patient Name: MARIO MORALES MR #: [id number] : 1975 Age/Sex: 43/F Req #: [id number] Adm Physician: Ordered by: GUILLERMINA EDGE DO Report #: [id number] Location: ER Room/Bed: Procedure: [id number] CT/C T ABDOMEN/PELVIS W Exam Date: 02/07/19 [...] bowel thickening. No bowel obstruction. Normal appendix. PALOA PAULETTE AND SOFT TISSUES: No acute osseous [...] 02/07/19 1240 COPY TO: GUILLERMINA EDGE DO Sodium Pkujo3021-20-13 11:47:00* Test Item Value Reference Range Interpretation Comments Sodium Level (test code = 2951-2) 138 136-145 [facility]linePotassium Kbokf3921-24-60 11:47:00* Test Item Value Reference Range Interpretation Comments Potassium Level (test code = 2823-3) 3.6 3.5-5.1 [facility]lineChloride Lecml9988-95-10 11:47:00* Test Item Value Reference Range Interpretation Comments Chloride Level (test code = 2075-0) 104 98-107 [facility] ShorelineCarbon Dioxide Rsuuu2105-95-74 11:47:00* Test Item Value Reference Range Interpretation Comments Carbon Dioxide Level (test code = 2028-9) 25 22-29 [facility] ShorelineAnion Jng9559-60-10 11:47:00* Test Item Value Reference Range Interpretation Comments Anion Gap (test code = 25372-2) 12.6 8-16 [facility] ShorelineBlood Urea Jnddghxm5567-54-29 11:47:00* Test Item Value Reference Range Interpretation Comments Blood Urea Nitrogen (test code = 3094-0) 14 7-26 [facility] ShorelineCreatinine2019-11-12 11:47:00* Test Item Value Reference Range Interpretation Comments Creatinine (test code = 2160-0) 0.68 0.57-1.11 [facility] ShorelineBUN/Creatinine Gnoua7426-01-74 11:47:00* Test Item Value Reference Range Interpretation Comments BUN/Creatinine Ratio (test code = 3097-3) 21 6-25 [facility] ShorelineEstimat Glomerular Filtration Rate 2019-02-07 11:47:00* Test Item Value Reference Range Interpretation Comments Estimat Glomerular Filtration Rate (test code = 083808893) > 60 >60 Ranges were taken from the National Kidney Disease Education Program and the [employer] literature.Reference ranges:60 or greater: Ulxooj85-38 ( for 3 consecutive months): Chronic kidney disease 15 or less: Kidney failureCHRISTUS Spohn [facility]i – ShorelineGlucose Usfeo3599-40-65 11:47:00* Test Item Value Reference Range Interpretation Comments Glucose Level (test code = DIP3156) 92 74-118 [facility] ShorelineCalcium Vexkd1641-09-27 11:47:00* Test Item Value Reference Range Interpretation Comments Calcium Level (test code = 79530-8) 9.3 8.4-10.2 [facility] ShorelineTotal Mwqjmponc2080-81-81 11:47:00* Test Item Value Reference Range Interpretation Comments Total Bilirubin (test code = 1975-2) 0.2 0.2-1.2 [facility] ShorelineAspartate Amino Transf (AST/SGOT) 2019-02-07 11:47:00* Test Item Value Reference Range Interpretation Comments Aspartate Amino Transf (AST/SGOT) (test code = Aspartate Amino Transf (AST/SGOT)) 16 5-34 [facility] ShorelineAlanine Aminotransferase (ALT/SGPT) 2019-02-07 11:47:00* Test Item Value Reference Range Interpretation Comments Alanine Aminotransferase (ALT/SGPT) (test code = 1742-6) 10 0-55 [facility] Mkawovf2254-24-37 11:47:00* Test Item Value Reference Range Interpretation Comments Total Protein (test code = 2885-2) 7.4 6.5-8.1 [facility] ShorelineAlbumin2019-11-12 11:47:00* Test Item Value Reference Range Interpretation Comments Albumin (test code = 1751-7) 3.6 3.5-5.0 [facility] ShorelineGlobulin2019-11-12 11:47:00* Test Item Value Reference Range Interpretation Comments Globulin (test code = 82999-3) 3.8 2.3-3.5 H [facility] ShorelineAlbumin/Globulin Jcwzb3335-36-40 11:47:00 * Test Item Value Reference Range Interpretation Comments Albumin/Globulin Ratio (test code = 1759-0) 0.9 0.8-2.0 [facility]lineAlkaline Kscxdxnqyzi3095-17-72 11:47:00* Test Item Value Reference Range Interpretation Comments Alkaline Phosphatase (test code = 6768-6) 123 40-150 [facility] ShorelineLipase2019-11-12 11:47:00* Test Item Value Reference Range Interpretation Comments Lipase (test code = 3040-3) 18 878 [facility] ShorelineLipase2019-11-12 11:47:00* Test Item Value Reference Range Interpretation Comments Lipase (test code = 3040-3) [facility] ShorelineLipase2019-11-12 11:47:00* Test Item Value Reference Range Interpretation Comments Lipase (test code = 3040-3) [facility]lineLipase2019-11-12 11:47:00* Test Item Value Reference Range Interpretation Comments Lipase (test code = 3040-3) [facility]lineLipase2019-11-12 11:47:00* Test Item Value Reference Range Interpretation Comments Lipase (test code = 3040-3) [facility]lineLipase2019-11-12 11:47:00* Test Item Value Reference Range Interpretation Comments Lipase (test code = 3040-3) [facility] ShorelineUrine JUH4409-84-89 11:43:00* Test Item Value Reference Range Interpretation Comments Urine WBC (test code = 5821-4) 6-10 0-5 H [facility] ShorelineUrine OBD4575-51-04 11:43:00* Test Item Value Reference Range Interpretation Comments Urine RBC (test code = 96398-1) 0-5 0-5 [facility] ShorelineUrine Rrpwnypn6286-47-53 11:43:00* Test Item Value Reference Range Interpretation Comments Urine Bacteria (test code = 24879-3) MANY NONE H [facility] ShorelineUrine Epithelial Cjabt6049-78-21 11:43:00 * Test Item Value Reference Range Interpretation Comments Urine Epithelial Cells (test code = 89360-7) MODERATE NONE [facility]line[facility] Lqyk4190-89-74 11:32:00* Test Item Value Reference Range Interpretation Comments Urine Test (test code = 2106-3) NEGATIVE NEGATIVE [facility]lineUrine Eqzxj9343-27-55 11:31:00* Test Item Value Reference Range Interpretation Comments Urine Color (test code = 5778-6) YELLOW YELLOW [facility]lineUrine Vebacpm0627-66-28 11:31:00* Test Item Value Reference Range Interpretation Comments Urine Clarity (test code = 96618-0) SL CLOUDY CLEAR [facility]lineUrine Specific Ebfujmr5791-32-54 11:31:00 * Test Item Value Reference Range Interpretation Comments Urine Specific [place] (test code = 5811-5) 1.025 1.010-1.02 5 [facility]lineUrine fS1662-65-63 11:31:00* Test Item Value Reference Range Interpretation Comments Urine pH (test code = 55046-9) 6 5-7 [facility]lineU[facility] Leukocyte Izwdidfc5894-81-34 11:31:00* Test Item Value Reference Range Interpretation Comments Urine Leukocyte Esterase (test code = 64420-5) NEGATIVE NEGATIV E [facility] Qyaueyk1459-78-17 11:31:00* Test Item Value Reference Range Interpretation Comments Urine Nitrite (test code = 23543-2) NEGATIVE NEGATIVE [facility] Ddumqmi0953-58-09 11:31:00* Test Item Value Reference Range Interpretation Comments Urine Protein (test code = 28599-4) NEGATIVE NEGATIVE [facility] Glucose (UA)2019-02-07 11:31:00* Test Item Value Reference Range Interpretation Comments Urine Glucose (UA) (test code = 91516-0) NEGATIVE NEGATIVE [facility]lineU[facility] Akmmkpb2822-59-78 11:31:00* Test Item Value Reference Range Interpretation Comments Urine Ketones (test code = 11773-4) NEGATIVE NEGATIVE [facility] Domnqvcqlpfs6476-88-18 11:31:00* Test Item Value Reference Range Interpretation Comments Urine Urobilinogen (test code = 65426-4) 0.2 0.2-1 [facility]lineUrine Ypjzlhjkr7875-21-88 11:31:00* Test Item Value Reference Range Interpretation Comments Urine Bilirubin (test code = 1977-8) NEGATIVE NEGATIVE [facility]lineU[facility] Fwxsd8469-77-97 11:31:00* Test Item Value Reference Range Interpretation Comments Urine Blood (test code = 25292-1) TRACE NEGATIVE [facility]lineWhite Blood Sqflf4417-53-94 11:26:00* Test Item Value Reference Range Interpretation Comments White Blood Count (test code = 6690-2) 9.52 4.8-10.8 [facility]lineRed Blood Crdob4549-81-87 11:26:00* Test Item Value Reference Range Interpretation Comments Red Blood Count (test code = 789-8) 5.04 3.6-5.1 [facility]lineHemoglobin2019-11-12 11:26:00* Test Item Value Reference Range Interpretation Comments Hemoglobin (test code = 39709-6) 11.9 12.0-16.0 L [facility]lineHematocrit2019-11-12 11:26:00* Test Item Value Reference Range Interpretation Comments Hematocrit (test code = 4544-3) 39.5 34.2-44.1 [facility] ShorelineMean Corpuscular Zgamaj3291-43-72 11:26:00* Test Item Value Reference Range Interpretation Comments Mean Corpuscular Volume (test code = 787-2) 78.4 81-99 L [facility]lineMean Corpuscular Rrywuufxyn3440-24-20 11:26:00* Test Item Value Reference Range Interpretation Comments Mean Corpuscular Hemoglobin (test code = 785-6) 23.6 28-32 L [facility] Hemoglobin Concent 2019-02-07 11:26:00* Test Item Value Reference Range Interpretation Comments Mean Corpuscular Hemoglobin Concent (test code = 786-4) 30.1 31-35 L [facility]lineRed Cell Distribution Mgvgf8347-60-88 11:26:00* Test Item Value Reference Range Interpretation Comments Red Cell Distribution Width (test code = 85947-3) 22.7 11.7 -14.4 H [facility] ShorelinePlatelet Hypcg4764-90-89 11:26:00* Test Item Value Reference Range Interpretation Comments Platelet Count (test code = 777-3) 466 140-360 H [facility] ShorelineNeutrophils (%) (Auto)2019-02-07 11:26:00 * Test Item Value Reference Range Interpretation Comments Neutrophils (%) (Auto) (test code = 04444-5) 71.5 38.7-80.0 [facility]lineLymphocytes (%) (Auto)2019-02-07 11:26:00 * Test Item Value Reference Range Interpretation Comments Lymphocytes (%) (Auto) (test code = 736-9) 22.9 18.0-39.1 [facility]lineMonocytes (%) (Auto)2019-02-07 11:26:00* Test Item Value Reference Range Interpretation Comments Monocytes (%) (Auto) (test code = 5905-5) 4.0 4.4-11.3 L [facility]lineEosinophils (%) (Auto)2019-02-07 11:26:00 * Test Item Value Reference Range Interpretation Comments Eosinophils (%) (Auto) (test code = 713-8) 1.2 0.0-6.0 [facility]lineBasophils (%) (Auto)2019-02-07 11:26:00* Test Item Value Reference Range Interpretation Comments Basophils (%) (Auto) (test code = 706-2) 0.2 0.0-1.0 [facility] ShorelineIM GRANULOCYTES %2019-02-07 11:26:00* Test Item Value Reference Range Interpretation Comments IM GRANULOCYTES % (test code = IM GRANULOCYTES %) 0.2 0.0- 1.0 [facility]lineNeutrophils # (Auto)2019-02-07 11:26:00* Test Item Value Reference Range Interpretation Comments Neutrophils # (Auto) (test code = 751-8) 6.8 2.1-6.9 [facility]lineLymphocytes # (Auto)2019-02-07 11:26:00* Test Item Value Reference Range Interpretation Comments Lymphocytes # (Auto) (test code = 70542-6) 2.2 1.0-3.2 [facility]lineMonocytes # (Auto)2019-02-07 11:26:00* Test Item Value Reference Range Interpretation Comments Monocytes # (Auto) (test code = 742-7) 0.4 0.2-0.8 [facility]lineEosinophils # (Auto)2019-02-07 11:26:00* Test Item Value Reference Range Interpretation Comments Eosinophils # (Auto) (test code = 711-2) 0.1 0.0-0.4 [facility]lineBasophils # (Auto)2019-02-07 11:26:00* Test Item Value Reference Range Interpretation Comments Basophils # (Auto) (test code = 704-7) 0.0 0.0-0.1 [facility] ShorelineAbsolute Immature Granulocyte (auto 2019-02-07 11:26:00* Test Item Value Reference Range Interpretation Comments Absolute Immature Granulocyte (auto (meliton t code = Absolute Immature Granulocyte (auto) 0.02 0-0.1 [facility] ShorelineCT ABDOMEN/PELVIS A3901-48-28 22:15:00 [place] [address] Patient Name: MARIO MORALES MR #: [id number] : 1975 Age/Sex: 42/F Req #: [id number] Adm Physician: Ordered by: GUILLERMINA EDGE DO Report #: [id number] Location: ER Room/Bed: Procedure: [id number] CT/C T ABDOMEN/PELVIS W Exam Date: 12/11/18 [...] on 12/11/182221 COPY TO: GUILLERMINA EDGE DO Platelet Gxqsecmr1236-08-41 21:12:00* Test Item Value Reference Range Interpretation Comments Platelet Estimate (test code = 00312-5) SLIGHTLY INCREASED [facility] Ngigajw9934-56-11 21:12:00* Test Item Value Reference Range Interpretation Comments Platelet Morphology Comment (test code = 01467-1) FEW GIANT [facility] ShorelineHypochromasia2019-09-15 21:12:00* Test Item Value Reference Range Interpretation Comments Hypochromasia (test code = 728-6) MODERATE [facility] ShorelinePoikilocytosis2019-09-15 21:12:00* Test Item Value Reference Range Interpretation Comments Poikilocytosis (test code = 779-9) SLIGHT [facility] ShorelineAnisocytosis2019-09-15 21:12:00* Test Item Value Reference Range Interpretation Comments Anisocytosis (test code = 702-1) MODE [facility] ShorelinePlatelet Obxnbegu8991-04-50 21:12:00* Test Item Value Reference Range Interpretation Comments Platelet Estimate (test code = 76197-7) SLIGHTLY INCREASED [facility] ShorelinePlatelet Morphology Isbceps9056-57-45 21:12:00* Test Item Value Reference Range Interpretation Comments Platelet Morphology Comment (test code = 23885-0) FEW GIANT [facility]pochrom[facility]2019-[facility]15 21:12:00* Test Item Value Reference Range Interpretation Comments Hypochromasia (test code = 728-6) [facility]ik[facility] 21:12:00* Test Item Value Reference Range Interpretation Comments Poikilocytosis (test code = 779-9) SLIGHT [facility] ShorelineAnisocytosis2019-09-15 21:12:00* Test Item Value Reference Range Interpretation Comments Anisocytosis (test code = 702-1) MODE [facility]linePlatelet Muvmzaer4769-94-07 21:12:00* Test Item Value Reference Range Interpretation Comments Platelet Estimate (test code = 45798-6) SLIGHTLY INCREASED [facility]linePlatelet Morphology Ibzscvt7630-58-14 21:12:00* Test Item Value Reference Range Interpretation Comments Platelet Morphology Comment (test code = 57388-8) [facility] 21:12:00* Test Item Value Reference Range Interpretation Comments Hypochromasia (test code = 728-6) MODERATE [facility] ShorelinePoikilocytosis2019-09-15 21:12:00* Test Item Value Reference Range Interpretation Comments Poikilocytosis (test code = 779-9) SLIGHT [facility]lineAnisocytosis2019-09-15 21:12:00* Test Item Value Reference Range Interpretation Comments Anisocytosis (test code = 702-1) MODE [facility] ShorelinePlatelet Mfihgjpt5121-00-94 21:12:00* Test Item Value Reference Range Interpretation Comments Platelet Estimate (test code = 48404-7) SLIGHTLY INCREASED [facility] ShorelinePlatelet Morphology Pujxcqo8964-06-81 21:12:00* Test Item Value Reference Range Interpretation Comments Platelet Morphology Comment (test code = 20470-6) FEW GIANT [facility] Hospitalchromasia2019-09-15 21:12:00* Test Item Value Reference Range Interpretation Comments Hypochromasia (test code = 728-6) MODERATE [facility]linePoikilocytosis2019-09-15 21:12:00* Test Item Value Reference Range Interpretation Comments Poikilocytosis (test code = 779-9) SLIGHT [facility] ShorelineAnisocytosis2019-09-15 21:12:00* Test Item Value Reference Range Interpretation Comments Anisocytosis (test code = 702-1) MODE [facility] ShorelinePlatelet Kdlsjgtc8698-87-96 21:12:00* Test Item Value Reference Range Interpretation Comments Platelet Estimate (test code = 00651-1) SLIGHTLY INCREASED [facility] ShorelinePlatelet Morphology Okwprsi1598-67-10 21:12:00* Test Item Value Reference Range Interpretation Comments Platelet Morphology Comment (test code = 10347-5) FEW GIANT [facility] Hospitalchromasia2019-09-15 21:12:00* Test Item Value Reference Range Interpretation Comments Hypochromasia (test code = 728-6) [facility]ATE [facility] Tylerikilocytosis[facility] 21:12:00* Test Item Value Reference Range Interpretation Comments Poikilocytosis (test code = 779-9) SLIGHT [facility] ShorelineAnisocytosis2019-09-15 21:12:00* Test Item Value Reference Range Interpretation Comments Anisocytosis (test code = 702-1) MODE [facility] ShorelinePlatelet Juacmtro7125-61-52 21:12:00* Test Item Value Reference Range Interpretation Comments Platelet Estimate (test code = 87198-4) SLIGHTLY INCREASED [facility] ShorelinePlatelet Morphology Hmtvuyu0530-22-80 21:12:00* Test Item Value Reference Range Interpretation Comments Platelet Morphology Comment (test code = 09174-9) FEW GIANT [facility] ShorelineHypochromasia2019-09-15 21:12:00* Test Item Value Reference Range Interpretation Comments Hypochromasia (test code = 728-6) MODERATE [facility] ShorelinePoikilocytosis2019-09-15 21:12:00* Test Item Value Reference Range Interpretation Comments Poikilocytosis (test code = 779-9) SLIGHT [facility] ShorelineAnisocytosis2019-09-15 21:12:00* Test Item Value Reference Range Interpretation Comments Anisocytosis (test code = 702-1) MODE [facility] ShorelinePlatelet Xwfpvvhb3291-61-97 21:12:00* Test Item Value Reference Range Interpretation Comments Platelet Estimate (test code = 76202-0) SLIGHTLY INCREASED [facility] ShorelinePlatelet Morphology Mtqoibt1337-95-34 21:12:00* Test Item Value Reference Range Interpretation Comments Platelet Morphology Comment (test code = 21097-7) FEW GIANT [facility] ShorelineHypochromasia2019-09-15 21:12:00* Test Item Value Reference Range Interpretation Comments Hypochromasia (test code = 728-6) [facility]ERATE [facility] Tylerikilocytosis2019-09-15 21:12:00* Test Item Value Reference Range Interpretation Comments Poikilocytosis (test code = 779-9) SLIGHT [facility] ShorelineAnisocytosis2019-09-15 21:12:00* Test Item Value Reference Range Interpretation Comments Anisocytosis (test code = 702-1) MODE [facility] ShorelineUrine HNE9880-58-75 20:37:00* Test Item Value Reference Range Interpretation Comments Urine WBC (test code = 5821-4) 0-5 0-5 [facility] ShorelineUrine TFE2747-20-26 20:37:00* Test Item Value Reference Range Interpretation Comments Urine RBC (test code = 55495-8) 0-5 0-5 [facility]lineUrine Vrgocwjk3604-54-40 20:37:00* Test Item Value Reference Range Interpretation Comments Urine Bacteria (test code = 41491-0) FEW NONE [facility] ShorelineUrine Epithelial Efmiu5777-07-47 20:37:00 * Test Item Value Reference Range Interpretation Comments Urine Epithelial Cells (test code = 61813-1) MODERATE NONE [facility] ShorelineCreatine Kinase FI8714-30-84 20:27:00* Test Item Value Reference Range Interpretation Comments Creatine Kinase MB (test code = 94365-8) 0.70 0-5.0 [facility] ShorelineTroponin G1650-80-67 20:27:00* Test Item Value Reference Range Interpretation Comments Troponin I (test code = CTL8069) 0.031 0-0.300 [facility] ShorelineCreatine Kinase TG6033-31-92 20:27:00* Test Item Value Reference Range Interpretation Comments Creatine Kinase MB (test code = 03031-4) 0.70 0-5.0 [facility] ShorelineTroponin M5600-14-60 20:27:00* Test Item Value Reference Range Interpretation Comments Troponin I (test code = IPL4763) 0.031 0-0.300 [facility] ShorelineCreatine Kinase VN6742-34-90 20:27:00* Test Item Value Reference Range Interpretation Comments Creatine Kinase MB (test code = 12160-4) 0.70 0-5.0 [facility] ShorelineTrformerly self memorial hospitaln N6178-53-86 20:27:00* Test Item Value Reference Range Interpretation Comments Troponin I (test code = GZM6690) 0.031 0-0.300 [facility] ShorelineCreatine Kinase PR5579-66-63 20:27:00* Test Item Value Reference Range Interpretation Comments Creatine Kinase MB (test code = 10607-9) 0.70 0-5.0 [facility] ShorelineTroponin S1596-58-21 20:27:00* Test Item Value Reference Range Interpretation Comments Troponin I (test code = PZY3559) 0.031 0-0.300 [facility] ShorelineUrine Igle9957-30-57 20:21:00* Test Item Value Reference Range Interpretation Comments Urine Test (test code = 2106-3) NEGATIVE NEGATIVE [facility] ShorelineUrine Ktehm5225-68-95 20:19:00* Test Item Value Reference Range Interpretation Comments Urine Color (test code = 5778-6) YELLOW YELLOW [facility] ShorelineUrine Fimfszx3539-54-89 20:19:00* Test Item Value Reference Range Interpretation Comments Urine Clarity (test code = 18196-5) CLEAR CLEAR [facility] ShorelineUrine Specific Knrmvau3157-91-38 20:19:00 * Test Item Value Reference Range Interpretation Comments Urine Specific [place] (test code = 5811-5) 1.020 1.010-1.02 5 [facility]lineUrine [id number] 20:19:00* Test Item Value Reference Range Interpretation Comments Urine pH (test code = 76034-7) 6.5 5-7 [facility]lineUrine Leukocyte Hfayftsq8506-77-37 20:19:00* Test Item Value Reference Range Interpretation Comments Urine Leukocyte Esterase (test code = 12611-0) NEGATIVE NEGATIV E [facility] ShorelineUrine Skbjjyv3118-48-19 20:19:00* Test Item Value Reference Range Interpretation Comments Urine Nitrite (test code = 05157-3) NEGATIVE NEGATIVE [facility] ShorelineUrine Palpmac5025-83-65 20:19:00* Test Item Value Reference Range Interpretation Comments Urine Protein (test code = 74662-5) NEGATIVE NEGATIVE [facility] ShorelineUrine Glucose (UA)2018-12-11 20:19:00* Test Item Value Reference Range Interpretation Comments Urine Glucose (UA) (test code = 49297-5) NEGATIVE NEGATIVE [facility] ShorelineUrine Omifllf0900-41-02 20:19:00* Test Item Value Reference Range Interpretation Comments Urine Ketones (test code = 21540-5) NEGATIVE NEGATIVE [facility] ShorelineUrine Rvkpnwympica2244-44-92 20:19:00* Test Item Value Reference Range Interpretation Comments Urine Urobilinogen (test code = 47039-6) 0.2 0.2-1 [facility]lineUrine Qkbqclauo9795-98-11 20:19:00* Test Item Value Reference Range Interpretation Comments Urine Bilirubin (test code = 1977-8) NEGATIVE NEGATIVE [facility] ShorelineUrine Ntnnh1652-12-59 20:19:00* Test Item Value Reference Range Interpretation Comments Urine Blood (test code = 36204-8) TRACE NEGATIVE [facility]ieodium Unqkc5288-58-51 20:18:00* Test Item Value Reference Range Interpretation Comments Sodium Level (test code = 2951-2) 140 136-145 [facility] ShorelinePotassium Qikqg6206-82-03 20:18:00* Test Item Value Reference Range Interpretation Comments Potassium Level (test code = 2823-3) 3.8 3.5-5.1 [facility] ShorelineChloride Fxxlb9993-65-37 20:18:00* Test Item Value Reference Range Interpretation Comments Chloride Level (test code = 2075-0) 104 98-107 [facility] ShorelineCarbon Dioxide Obawn9248-12-14 20:18:00* Test Item Value Reference Range Interpretation Comments Carbon Dioxide Level (test code = 2028-9) 25 22-29 [facility] ShorelineAnion Ris2266-93-60 20:18:00* Test Item Value Reference Range Interpretation Comments Anion Gap (test code = 92606-5) 14.8 8-16 [facility] ShorelineBlood Urea Yucucmpj7234-01-92 20:18:00* Test Item Value Reference Range Interpretation Comments Blood Urea Nitrogen (test code = 3094-0) 11 7-26 [facility] ShorelineCreatinine2019-09-15 20:18:00* Test Item Value Reference Range Interpretation Comments Creatinine (test code = 2160-0) 0.70 0.57-1.11 [facility] ShorelineBUN/Creatinine Uzafk3914-42-58 20:18:00* Test Item Value Reference Range Interpretation Comments BUN/Creatinine Ratio (test code = 3097-3) 16 6-25 [facility] ShorelineEstimat Glomerular Filtration Rate 2018-12-11 20:18:00* Test Item Value Reference Range Interpretation Comments Estimat Glomerular Filtration Rate (test code = [id number]) > 60 >60 Ranges were taken from the National Kidney Disease Education Program and the [facility] Kidney Foundation literature.Reference ranges:60 or greater: Xcacqj87-02 ( for 3 consecutive months): Chronic kidney disease 15 or less: Kidney failureCHRISTUS [facility] – ShorelineGlucose Kbzpw7107-29-56 20:18:00* Test Item Value Reference Range Interpretation Comments Glucose Level (test code = YRF7484) 98 74-118 [facility] ShorelineCalcium Mocfu2413-16-87 20:18:00* Test Item Value Reference Range Interpretation Comments Calcium Level (test code = 42447-8) 9.3 8.4-10.2 [facility] ShorelineTotal Udkshvuoc7228-66-32 20:18:00* Test Item Value Reference Range Interpretation Comments Total Bilirubin (test code = 1975-2) 0.2 0.2-1.2 [facility] ShorelineAspartate Amino Transf (AST/SGOT) 2018-12-11 20:18:00* Test Item Value Reference Range Interpretation Comments Aspartate Amino Transf (AST/SGOT) (test code = Aspartate Amino Transf (AST/SGOT)) 14 5-34 [facility] ShorelineAlanine Aminotransferase (ALT/SGPT) 2018-12-11 20:18:00* Test Item Value Reference Range Interpretation Comments Alanine Aminotransferase (ALT/SGPT) (test code = 1742-6) 13 0-55 [facility] ShorelineTotal Ulnxobq1322-53-02 20:18:00* Test Item Value Reference Range Interpretation Comments Total Protein (test code = 2885-2) 7.2 6.5-8.1 [facility] ShorelineAlbumin2019-09-15 20:18:00* Test Item Value Reference Range Interpretation Comments Albumin (test code = 1751-7) 3.5 3.5-5.0 [facility] ShorelineGlobulin2019-09-15 20:18:00* Test Item Value Reference Range Interpretation Comments Globulin (test code = 49728-8) 3.7 2.3-3.5 H [facility] ShorelineAlbumin/Globulin Bieno3633-06-50 20:18:00 * Test Item Value Reference Range Interpretation Comments Albumin/Globulin Ratio (test code = 1759-0) 0.9 0.8-2.0 [facility] ShorelineAlkaline Uyeekkvflit0614-06-13 20:18:00* Test Item Value Reference Range Interpretation Comments Alkaline Phosphatase (test code = 6768-6) 122 40-150 [facility] ShorelineCreatine Uneilf5479-45-06 20:18:00* Test Item Value Reference Range Interpretation Comments Creatine Kinase (test code = 2157-6) 41 168 [facility] ShorelineLipase2019-09-15 20:18:00* Test Item Value Reference Range Interpretation Comments Lipase (test code = 3040-3) 24 8-78 [facility] ShorelineCreatine Peuffk9198-25-42 20:18:00* Test Item Value Reference Range Interpretation Comments Creatine Kinase (test code = 2157-6) 41 -168 [facility] ShorelineCreatine Pgffog9240-62-01 20:18:00* Test Item Value Reference Range Interpretation Comments Creatine Kinase (test code = 2157-6) 41 -168 [facility]lineCreatine Ztdiiz2045-96-34 20:18:00* Test Item Value Reference Range Interpretation Comments Creatine Kinase (test code = 2157-6) 41 -168 [facility] ShorelineWhite Blood Tyowg4336-82-07 20:11:00* Test Item Value Reference Range Interpretation Comments White Blood Count (test code = 6690-2) 8.29 4.8-10.8 [facility] ShorelineRed Blood Olqeh4397-20-00 20:11:00* Test Item Value Reference Range Interpretation Comments Red Blood Count (test code = 789-8) 5.15 3.6-5.1 H [facility] ShorelineHemoglobin2019-09-15 20:11:00* Test Item Value Reference Range Interpretation Comments Hemoglobin (test code = 20698-9) 10.9 12.0-16.0 L [facility]ematocrit2019-09-15 20:11:00* Test Item Value Reference Range Interpretation Comments Hematocrit (test code = 4544-3) 38.7 34.2-44.1 [facility]lineMean Corpuscular Jmzgnw7260-78-41 20:11:00* Test Item Value Reference Range Interpretation Comments Mean Corpuscular Volume (test code = 787-2) 75.1 81-99 L [facility] Corpuscular Ppdcvnavjq2129-13-36 20:11:00* Test Item Value Reference Range Interpretation Comments Mean Corpuscular Hemoglobin (test code = 785-6) 21.2 28-32 L [facility] Corpuscular Hemoglobin Concent 2018-12-11 20:11:00* Test Item Value Reference Range Interpretation Comments Mean Corpuscular Hemoglobin Concent (test code = 786-4) 28.2 31-35 L [facility]linePlatelet Mxkfy5536-90-18 20:11:00* Test Item Value Reference Range Interpretation Comments Platelet Count (test code = 777-3) 471 140-360 H [facility]lineNeutrophils (%) (Auto)2018-12-11 20:11:00 * Test Item Value Reference Range Interpretation Comments Neutrophils (%) (Auto) (test code = 32826-3) 59.8 38.7-80.0 [facility]lineLymphocytes (%) (Auto)2018-12-11 20:11:00 * Test Item Value Reference Range Interpretation Comments Lymphocytes (%) (Auto) (test code = 736-9) 32.8 18.0-39.1 [facility]line[facility]ocytes (%) (Auto)2018-12-11 20:11:00* Test Item Value Reference Range Interpretation Comments Monocytes (%) (Auto) (test code = 5905-5) 5.8 4.4-11.3 [facility]Eosinophils (%) (Auto)2018-12-11 20:11:00 * Test Item Value Reference Range Interpretation Comments Eosinophils (%) (Auto) (test code = 713-8) 1.2 0.0-6.0 [facility]ophils (%) (Auto)2018-12-11 20:11:00* Test Item Value Reference Range Interpretation Comments Basophils (%) (Auto) (test code = 706-2) 0.2 0.0-1.0 [facility]lineIM GRANULOCYTES %2018-12-11 20:11:00* Test Item Value Reference Range Interpretation Comments IM GRANULOCYTES % (test code = IM GRANULOCYTES %) 0.2 0.0- 1.0 [facility]lineNeutrophils # (Auto)2018-12-11 20:11:00* Test Item Value Reference Range Interpretation Comments Neutrophils # (Auto) (test code = 751-8) 5.0 2.1-6.9 [facility]lineLymphocytes # (Auto)2018-12-11 20:11:00* Test Item Value Reference Range Interpretation Comments Lymphocytes # (Auto) (test code = 23505-0) 2.7 1.0-3.2 [facility]lineMonocytes # (Auto)2018-12-11 20:11:00* Test Item Value Reference Range Interpretation Comments Monocytes # (Auto) (test code = 742-7) 0.5 0.2-0.8 [facility]lineEosinophils # (Auto)2018-12-11 20:11:00* Test Item Value Reference Range Interpretation Comments Eosinophils # (Auto) (test code = 711-2) 0.1 0.0-0.4 [facility]Basophils # (Auto)2018-12-11 20:11:00* Test Item Value Reference Range Interpretation Comments Basophils # (Auto) (test code = 704-7) 0.0 0.0-0.1 [facility]lineAbsolute Immature Granulocyte (auto 2018-12-11 20:11:00* Test Item Value Reference Range Interpretation Comments Absolute Immature Granulocyte (auto (meliton t code = Absolute Immature Granulocyte (auto) 0.02 0-0.1 [facility]lineBlood poikilocytosis detection by light hqxuveixpp1454-70-73 19:46:00* Test Item Value Reference Range Interpretation Comments Poikilocytosis (test code = 779-9) SLIGHT [facility]lineBl[facility] poikilocytosis detection by light hhjtmfeeum8546-04-71 19:46:00* Test Item Value Reference Range Interpretation Comments Poikilocytosis (test code = 779-9) SLIGHT [facility]lineCT BRAIN AU5438-10-19 19:47:00 [place] [address] Patient Name: MARIO MORALES MR #: [id number] : 1975 Age/Sex: 42/F Req #: [id number] Adm Physician: Ordered by: SUHAS JACKSON MD Report #: [id number] Location: ER Room/Bed: Procedure: [address]/CT BRAIN WO Exam Date: 11/29/18 [...] 11/29/181950 CO PY TO: SUHAS JACKSON MD Urine SQP6707-28-01 19:43:00* Test Item Value Reference Range Interpretation Comments Urine WBC (test code = 5821-4) NONE 0-5 [facility]lineUrine GLF0929-16-04 19:43:00* Test Item Value Reference Range Interpretation Comments Urine RBC (test code = 08099-9) >50 0-5 H [facility] ShorelineUrine Xkfyeier5263-82-94 19:43:00* Test Item Value Reference Range Interpretation Comments Urine Bacteria (test code = 96482-7) FEW NONE [facility]lineUrine Epithelial Sastm1964-62-13 19:43:00 * Test Item Value Reference Range Interpretation Comments Urine Epithelial Cells (test code = 84150-8) NONE NONE [facility] ShorelineUrine Mmezc8006-77-57 19:36:00* Test Item Value Reference Range Interpretation Comments Urine Color (test code = 5778-6) RED YELLOW H [facility]lineUrine Xkchodq6201-30-02 19:36:00* Test Item Value Reference Range Interpretation Comments Urine Clarity (test code = 67345-1) CLOUDY CLEAR H [facility]lineUrine Specific Oxcoang4883-07-11 19:36:00 * Test Item Value Reference Range Interpretation Comments Urine Specific [place] (test code = 5811-5) 1.015 1.010-1.02 5 [facility]lineUrine rC4147-94-89 19:36:00* Test Item Value Reference Range Interpretation Comments Urine pH (test code = 89348-9) 8 5-7 [facility]lineU[facility] Leukocyte Bhfiwzde5279-63-20 19:36:00* Test Item Value Reference Range Interpretation Comments Urine Leukocyte Esterase (test code = 75529-0) TRACE NEGATIV E H [facility]lineUrine Phybqgl0079-71-99 19:36:00* Test Item Value Reference Range Interpretation Comments Urine Nitrite (test code = 16122-1) NEGATIVE NEGATIVE [facility]lineUrine Vboyxaj5444-77-14 19:36:00* Test Item Value Reference Range Interpretation Comments Urine Protein (test code = 97378-7) 2+ NEGATIVE H [facility] ShorelineUrine Glucose (UA)2018-11-29 19:36:00* Test Item Value Reference Range Interpretation Comments Urine Glucose (UA) (test code = 93146-1) NEGATIVE NEGATIVE [facility]lineUrine Eaetujb5761-58-73 19:36:00* Test Item Value Reference Range Interpretation Comments Urine Ketones (test code = 29772-6) NEGATIVE NEGATIVE [facility]lineUrine Xunnliakwpim2096-50-07 19:36:00* Test Item Value Reference Range Interpretation Comments Urine Urobilinogen (test code = 74567-0) 0.2 0.2-1 [facility]lineUrine Tjkevhcym3572-20-54 19:36:00* Test Item Value Reference Range Interpretation Comments Urine Bilirubin (test code = 1977-8) NEGATIVE NEGATIVE [facility]lineUrine Tagys9139-16-40 19:36:00* Test Item Value Reference Range Interpretation Comments Urine Blood (test code = 83573-3) 3+ NEGATIVE [facility]lineUrine Hggh9531-58-54 19:36:00* Test Item Value Reference Range Interpretation Comments Urine Test (test code = 2106-3) NEGATIVE NEGATIVE [facility]lineCT ABDOMEN/PELVIS [facility] [address] [place] [address] Patient Name: MARIO MORALES MR #: [id number] : 1975 Age/Sex: 41/F Req #: [id number] Adm Physician: Ordered by: GUILLERMINA VAZQUEZ NP Report #: [id number] Location: ER Room/Bed: Procedure: [id number] CT/CT ABDOMEN/PELVIS W Exam Date: 04/20/17 Exam [...] CHEPE on 04/20/171812 COPY TO: GUILLERMINA VAZQUEZ MODELING MANAGER US TRANSVAGINAL [place] [address] Patient Name: MARIO MORALES MR #: [id number] : 1975 Age/Sex: 41/F Req #: [id number] Adm Physician: Ordered by: JAMESON LEDEZMA MD Report #: [id number] Location: ER Room/Bed: Procedure: 7650-6125 US/US TRANSVAGINAL Exam Date: 04/20/17 Exam Time: [...] on 04/20/2017 at 18:07 Dictated By: TORRES SEGOVIA MD [facility] Signed By: TORRES SEGOVIA MD on 04/20/171806 Transcribed By: CHEPE on 04/20/171806 COPY TO: JAMESON LEDEZMA MD US PELVIS COMPLETE NON OB [place] [address] Patient Name: MARIO MORALES MR #: [id number] : 1975 Age/Sex: 41/F Req #: [id number] Adm Physician: Ordered by: GUILLERMINA VAZQUEZ MODELING MANAGER Report #: [id number] Location: ER Room/B ed: Procedure: [id number] US/US PELVIS COMPLETE NON OB Exam Date: [...]
[2019-12-01 23:00] LABS: BILIRUBIN,URINE SMALL (NEGATIVE); CLARITY,URINE CLOUDY (CLEAR); COLOR,URINE YELLOW (YELLOW); KETONES,URINE NEGATIVE (NEGATIVE); LEUKOCYTE ESTERASE ,URINE NEGATIVE (NEGATIVE); NITRITE,URINE NEGATIVE (NEGATIVE); PROTEIN,URINE DIPSTICK NEGATIVE (NEGATIVE); URINE UROBILINOGEN 0.2 mg/dL (0.2 - 1)
[2019-12-01 23:01] LABS: PREGNANCY TEST, URINE NEGATIVE (NEGATIVE)
[2019-12-01 23:10] LABS: BACTERIA,URINE MODERATE /HPF; CALCIUM OXALATE CRYSTALS,UR MANY (FEW); EPITHELIAL CELLS,URINE FEW /LPF
[2019-12-01 23:45] VITALS: BP 138/89
== END 2019-12-01 23:57 | disposition home or self-care (01) ==
LOC: ER 21:47
DX: N39.0 Urinary tract infection, site not specified (principal); R11.2 Nausea with vomiting, unspecified; J45.909 Unspecified asthma, uncomplicated; Z86.73 Personal history of transient ischemic attack (TIA), and cerebral infarction without residual deficits; E66.01 Morbid (severe) obesity due to excess calories
CPT/HCPCS: 81001; 81025; 99283

== ENCOUNTER 2020-03-23 20:25 | Emergency (ER) | payer OTHER ==
[~2020-03-23] VITALS: Ht 154.9 cm; Wt 123.4 kg
[2020-03-23 21:23] LABS: ALANINE AMINOTRANSFERASE 7 IU/L (0-55); ALBUMIN 3.5 g/dL (3.5-5.0); ALBUMIN/GLOBULIN RATIO 0.9 (0.8-2.0); ALKALINE PHOSPHATASE 108 IU/L (40-150); BLOOD UREA NITROGEN 15 mg/dL (7-26); CALCIUM 8.5 mg/dL (8.4-10.2); CARBON DIOXIDE 22 mmol/L (22-29); CHLORIDE 105 mmol/L (98-107); CREATINE KINASE 54 IU/L (29-168); GLUCOSE 103 mg/dL (74-118); SODIUM 139 mmol/L (136-145)
[2020-03-23 21:24] LABS: BASOPHILS % 0.3 % (0.0-1.0); EOSINOPHILS # (AUTO) 0.1 (0.0-0.4); EOSINOPHILS % 0.9 % (0.0-6.0); HEMATOCRIT 29.4 % (34.2-44.1); LYMPHOCYTES # (AUTO) 2.8 (1.0-3.2); LYMPHOCYTES % 23.9 % (18.0-39.1); MEAN CORPUSCULAR HEMOGLOBIN 17.7 pg (28-32); MEAN CORPUSCULAR HGB CONC 27.2 g/dL (31-35); MEAN CORPUSCULAR VOLUME 64.9 fL (81-99); MONOCYTES # (AUTO) 0.7 (0.2-0.8); MONOCYTES % 5.6 % (4.4-11.3); NEUTROPHILS % 68.9 % (38.7-80.0); PLATELET COUNT 626 x10e3/uL (140-360); RED BLOOD COUNT 4.53 x10e6/uL (3.6-5.1); RED CELL DISTRIBUTION WIDTH 18.4 % (11.7-14.4)
[2020-03-23 21:49] LABS: BUN/CREATININE RATIO 18 (6-25); CREATININE, SERUM 0.82 mg/dL (0.57-1.11); EST GLOMERULAR FILTRATION RATE > 60 ML/MIN (60-)
[2020-03-23] MEDS ORDERED: KETOROLAC TROMETHAMINE 30 MG/ML VIAL IV STA (22:22)
[2020-03-23] MEDS ORDERED: DIAZEPAM 5 MG TAB PO SCH (22:30)
[2020-03-23 23:17] VITALS: BP 119/72
== END 2020-03-23 23:18 | disposition home or self-care (01) ==
LOC: ER 20:41
DX: R07.89 Other chest pain (principal); J45.909 Unspecified asthma, uncomplicated; D64.9 Anemia, unspecified; E66.01 Morbid (severe) obesity due to excess calories
CPT/HCPCS: 36415; 71045; 80053; 82550; 82553; 84484; 85025; 93005; 99284; J1885

== ENCOUNTER 2020-04-22 22:29 | Emergency (ER) | payer OTHER ==
[~2020-04-22] VITALS: Ht 154.9 cm; Wt 125.2 kg
[2020-04-22] MEDS ORDERED: ACETAMINOPHEN 325 MG TAB PO ONE (23:15)
== END 2020-04-23 01:21 | disposition home or self-care (01) ==
LOC: ER 22:42
DX: R06.00 Dyspnea, unspecified (principal); R53.81 Other malaise; J45.909 Unspecified asthma, uncomplicated; D64.9 Anemia, unspecified; E66.9 Obesity, unspecified
CPT/HCPCS: 71045; 81025; 99283